=== PATIENT | male | born 1965 | race African-American/Black ===

== ENCOUNTER 2017-03-28 14:28 | Emergency (ER) | payer OTHER ==
[~2017-03-28] VITALS: Ht 190.5 cm; Wt 117.9 kg
[~2017-03-28 14:28] MED LIST: FUROSEMIDE40 MG ORAL; LISINOPRIL5 MG ORAL
[2017-03-28] MEDS ORDERED: Ipratropium 0.02% Inh Soln 2.5ml UD HHN ONE (14:45)
[2017-03-28] MEDS ORDERED: Albuterol ud Inhalation HHN ONE (14:45)
--- NOTE | 2017-03-28 15:06 | Diagnostic Imaging Report ---
Indication: [place] of breath Technique: Single portable AP view of the chest. Findings: Comparison: None. The bones and extra pulmonary soft tissues, cardiomediastinal silhouette, pulmonary vasculature and parenchyma, and pleural surfaces are unremarkable. IMPRESSION: Negative portable AP chest.
--- NOTE | 2017-03-28 15:11 | Emergency Room Report ---
History of Present Illness General Chief Complaint: Dyspnea/Respdistress Source: Patient Present Illness HPI This patient states it has a history of asthma and CHF. He states that he smoked marijuana yesterday and started having shortness of breath overnight. He states that he has felt short of breath all day today. He states that he has a recent history of being intubated secondary to asthma exacerbation. He states that this was at [facility]. He states he does not want this to occur again. He states he feels short of breath. He denies chest pain. He states that the symptoms have been ongoing for about 24 hours. He denies fever or chills. He states that he also had a pneumonia that he was treated for during his hospitalization. He denies abdominal pain. He has no other complaints. Allergies: Coded Allergies: No Known Allergies (Unverified , 03/28/17) Patient History Past Medical History: see triage record, HTN, AL, CAD, CHF, asthma Social History: Reports: alcohol use, drug use, Denies: smoking Reviewed Nursing Documentation: PMH: Agreed, PSxH: Agreed Nursing Documentation-PMH Past Medical History: No History, Except For Hx Cardiac Problems: Yes - CHF Hx Hypertension: Yes Hx Asthma: Yes Review of Systems All Other Systems: negative except mentioned in HPI Physical Exam Vital Signs Date Time Temp Pulse Resp B/P Pulse Ox O2 Delivery O2 Flow Rate FiO2 03/28/17 14:25 98.8 94 20 119/82 96 Room Air 03/28/17 14:30 98 Sp02 EP Interpretation: reviewed, normal General Appearance: no apparent distress, alert, GCS 15, non-toxic Head: normocephalic, atraumatic Eyes: bilateral eye PERRL, bilateral eye normal inspection ENT: hearing grossly normal, normal pharynx, no angioedema, normal voice Neck: full range of motion, supple/symm/no masses Respiratory: chest non-tender, lungs clear, normal breath sounds, speaking full sentences Cardiovascular #1: regular rate, rhythm, no edema Gastrointestinal: normal bowel sounds, non tender, soft, non-distended, no guarding, no rebound Rectal: deferred Musculoskeletal: back normal, gait/station normal, normal range of motion, non- tender Neurologic: alert, oriented x3, responsive, motor strength/tone normal, sensory intact, speech normal Psychiatric: judgement/insight normal, memory normal, mood/affect normal, no suicidal/homicidal ideation Skin: normal color, no rash, warm/dry, well hydrated Medical Decision Making Diagnostic Impression: Primary Impression: Asthma exacerbation ER Course This patient has a history of asthma and recently he had respiratory failure and was intubated in the ICU at [facility]. He complained of shortness of breath and although his lung exam is clear, I did give the patient albuterol and Atrovent nebulizer treatments. The patient had significant improvement in subjective shortness of breath. The patient's laboratory workup to include a CBC, CMP, cardiac enzymes were noncontributory. Specifically, the troponin was negative which is very reassuring in the setting of 24 hours of symptoms. Also, the patient's chest x-ray is negative for acute findings, specifically no evidence of pneumonia. I obtained the patient's medical records from [facility] and compared the patient's EKG which showed new flipped T-waves II, III, and aVF. This was the patient's initial EKG prior to his ICU stay and further review of the chart does show that he had an NSTEMI. Unsure of the chronicity of this. Therefore, I did discuss this with the patient and recommended that he be admitted for further cardiac monitoring and evaluation. However, the patient declined stating that he had been in the hospital too much and that he would followup with his primary care physician. Further he states that he has no chest pain. Although it is unlikely that this patient is having an acute cardiac event, I was uncomfortable discharging this patient with possible new EKG changes. Regardless, after further discussion the patient left AGAINST MEDICAL ADVICE. I will go ahead and treat this patient with a course of prednisone at his request. He has home nebulizer and albuterol treatments. He was invited to return if he changes his mind or develops the symptoms. He is given close return precautions and followup instructions. Labs Test 03/28/17 14:55 White Blood Count 4.4 K/UL (4.8-10.8) Red Blood Count 4.11 M/UL (4.70-6.10) Hemoglobin 11.9 G/DL (14.2-18.0) Hematocrit 36.8 % (42.0-52.0) Mean Corpuscular Volume 90 FL (80-99) Mean Corpuscular Hemoglobin 29.0 PG (27.0-31.0) Mean Corpuscular Hemoglobin Concent 32.4 G/DL (32.0-36.0) Red Cell Distribution Width 12.9 % (11.6-14.8) Platelet Count 213 K/UL (150-450) Mean Platelet Volume 8.4 FL (6.5-10.1) Neutrophils (%) (Auto) 55.9 % (45.0-75.0) Lymphocytes (%) (Auto) 29.5 % (20.0-45.0) Monocytes (%) (Auto) 9.1 % (1.0-10.0) Eosinophils (%) (Auto) 4.4 % (0.0-3.0) Basophils (%) (Auto) 1.1 % (0.0-2.0) Sodium Level 142 mEQ/L (135-145) Potassium Level 4.4 mEQ/L (3.4-4.9) Chloride Level 100 mEQ/L (98-107) Carbon Dioxide Level 28 mEQ/L (20-30) Anion Gap 14 (5-15) Blood Urea Nitrogen 8 mg/dL (7-23) Creatinine 1.2 mg/dL (0.7-1.2) Estimat Glomerular Filtration Rate > 60 mL/min (>60) Glucose Level 98 mg/dL (74-106) Calcium Level 9.7 mg/dL (8.6-10.2) Total Bilirubin 0.3 mg/dL (0.0-1.2) Aspartate Amino Transf (AST/SGOT) 17 U/L (5-40) Alanine Aminotransferase (ALT/SGPT) 16 U/L (3-41) Alkaline Phosphatase 65 U/L (40-129) Total Creatine Kinase 103 U/L (38-174) Creatine Kinase MB 2.0 ng/mL (< 6.7) Creatine Kinase MB Relative Index 1.9 Troponin I < 0.30 ng/mL (<=0.30) Pro-B-Type Natriuretic Peptide 395 pg/mL (0-125) Total Protein 7.0 g/dL (6.6-8.7) Albumin 4.4 g/dL (3.5-5.2) Globulin 2.6 g/dL Albumin/Globulin Ratio 1.6 (1.0-2.7) EKG Diagnostic Results Rate: normal Rhythm: NSR ST Segments: other Other Impression Flipped T waves in II, III, aVF, V5, V6 Rhythm Strip Diag. Results EP Interpretation: yes Rate: 80's Rhythm: NSR, no PVC's, no ectopy Chest X-Ray Diagnostic Results EP Interpretation: Yes Findings: no consolidation, no effusion, no pneumothorax, no acute cardiopulmonary disease Number of Views: 1 Last Vital Signs Date Time Temp Pulse Resp B/P Pulse Ox O2 Delivery O2 Flow Rate FiO2 03/28/17 14:47 70 22 99 Room Air 03/28/17 14:30 98 03/28/17 14:25 98.8 119/82 Status: improved Disposition: AGAINST MEDICAL ADVICE Condition: Stable MISSAEL ALATORRE D.O. March 28, 2017 15:11
[2017-03-28 15:15] LABS: BASOPHILS % (AUTO) 1.1 % (0.0-2.0); EOSINOPHILS % (AUTO) 4.4 % (0.0-3.0); LYMPHOCYTES % (AUTO) 29.5 % (20.0-45.0); MEAN CORPUSCULAR HGB CONC 32.4 G/DL (32.0-36.0); MEAN CORPUSCULAR VOLUME 90 FL (80-99); MEAN PLATELET VOLUME 8.4 FL (6.5-10.1); MONOCYTES % (AUTO) 9.1 % (1.0-10.0); NEUTROPHILS % (AUTO) 55.9 % (45.0-75.0); PLATELET COUNT 213 K/UL (150-450); RED BLOOD COUNT 4.11 M/UL (4.70-6.10); RED CELL DISTRIBUTION WIDTH 12.9 % (11.6-14.8); WHITE BLOOD COUNT 4.4 K/UL (4.8-10.8)
[2017-03-28 15:39] LABS: TROPONIN I < 0.30 ng/mL (<=0.30)
[2017-03-28 15:42] LABS: ALANINE AMINOTRANSFERASE 16 U/L (3-41); ALBUMIN/GLOBULIN RATIO 1.6 (1.0-2.7); ANION GAP 14 (5-15); ASPARTATE AMINO TRANSFERASE 17 U/L (5-40); CALCIUM 9.7 mg/dL (8.6-10.2); CARBON DIOXIDE 28 mEQ/L (20-30); CHLORIDE 100 mEQ/L (98-107); CREATININE 1.2 mg/dL (0.7-1.2); GLOMERULAR FILTRATION RATE > 60 mL/min (>60); HEMOLYSIS 11; POTASSIUM 4.4 mEQ/L (3.4-4.9); SODIUM 142 mEQ/L (135-145)
[2017-03-28 16:28] VITALS: BP 127/87
[2017-03-28 18:26] VITALS: BP 132/96
[2017-03-28] MEDS ORDERED: PREDNISONE20 MG ORAL (18:55)
[2017-03-28 19:13] VITALS: BP 128/83
--- NOTE | 2017-03-30 20:07 | Cardiology Report ---
APPROVED REPORT EKG Measurement Heart [id number] CT [id number] Normal sinus rhythm Possible Left atrial enlargement Left ventricular hypertrophy Abnormal ECG
== END 2017-03-28 19:15 | disposition left against medical advice (07) ==
LOC: EDBD 14:28 → EMR 14:56
DX: J45.901 Unspecified asthma with (acute) exacerbation (principal); I50.9 Heart failure, unspecified; F12.90 Cannabis use, unspecified, uncomplicated; I10 Essential (primary) hypertension; I25.2 Old myocardial infarction; I25.10 Atherosclerotic heart disease of native coronary artery without angina pectoris
CPT/HCPCS: 36415; 71010; 80053; 82550; 82553; 83880; 84484; 85025; 93005; 94640; 94664; 99283

== ENCOUNTER 2019-02-28 17:19 | Inpatient (IN) | payer OTHER ==
[~2019-02-28] VITALS: Ht 185.4 cm; Wt 115.2 kg
[~2019-02-28 17:19] MED LIST changes: +PREDNISONE20 MG ORAL
[2019-02-28] MEDS ORDERED: Albuterol ud Inhalation HHN ONE ×2 (17:30→18:30)
[2019-02-28] MEDS ORDERED: Solu-MEDROL 125mg Inj IVP ONE (17:30)
[2019-02-28] MEDS ORDERED: MIDODRINE HCL5 MG GT (17:37)
[2019-02-28] MEDS ORDERED: CATAPRES0.1 MG GT (17:37)
[2019-02-28] MEDS ORDERED: POTASSIUM CHLO20 ME2 GT (17:37)
[2019-02-28] MEDS ORDERED: CARVEDILOL6.25 MG GT (17:37)
[2019-02-28] MEDS ORDERED: REGLAN10 MG GT (17:37)
[2019-02-28] MEDS ORDERED: ZOFRAN 4 MG4 MG/2 ML IM (17:37)
[2019-02-28] MEDS ORDERED: FUROSEMIDE20 M1 GT (17:37)
[2019-02-28] MEDS ORDERED: ACETAMINOPHEN325 M1 GT (17:46)
[2019-02-28] MEDS ORDERED: ATIVAN0.5 MG GT (17:46)
[2019-02-28 18:11] LABS: BASOPHILS % (AUTO) 1.7 % (0.0-2.0); HEMATOCRIT 35.4 % (42.0-52.0); HEMOGLOBIN 10.5 G/DL (14.2-18.0); LYMPHOCYTES % (AUTO) 7.6 % (20.0-45.0); MEAN CORPUSCULAR VOLUME 76 FL (80-99); MONOCYTES % (AUTO) 8.7 % (1.0-10.0); PLATELET COUNT 521 K/UL (150-450); RED BLOOD COUNT 4.64 M/UL (4.70-6.10); RED CELL DISTRIBUTION WIDTH 24.4 % (11.6-14.8); WHITE BLOOD COUNT 13.1 K/UL (4.8-10.8)
[2019-02-28] MEDS ORDERED: PREDNISONE20 MG GT (18:14)
--- NOTE | 2019-02-28 18:14 | Emergency Room Report ---
History of Present Illness General Chief Complaint: Dyspnea/Respdistress Source: Family Member, Medical Record, EMS Present Illness HPI Patient's family is here providing most of the information patient has a tracheostomy is not verbal History of present illness is limited from the patient himself Family reports the patient was at [facility] Has had a tracheostomy and feeding tube placed Patient was transferred to the nursing facility 2 days ago Today she found the patient more distress than usual respirations appeared more abnormal patient also appeared cold and paramedics were summoned Allergies: Coded Allergies: No Known Allergies (Unverified , 03/28/17) Patient History Limited by: medical condition Past Medical History: see triage record Pertinent Family History: unable to obtain Reviewed Nursing Documentation: PMH: Agreed; PSxH: Agreed Nursing Documentation-PMH Past Medical History: No History, Except For Hx Cardiac Problems: Yes - chf,high cholesterol, hyperkalemia Hx Hypertension: Yes Hx Asthma: Yes - trach with vent dependancy Hx Gastrointestinal Problems: Yes - GERD, GT Review of Systems All Other Systems: limited - Other than the ones mentioned in the history of present illness all others are reviewed however they do stay limited due to the patient's mental status Physical Exam Vital Signs Date Time Temp Pulse Resp B/P (MAP) Pulse Ox O2 Delivery O2 Flow Rate FiO2 02/28/19 17:05 110 28 116/93 96 Mechanical Ventilator 4.0 02/28/19 17:37 100 Sp02 EP Interpretation: reviewed, normal General Appearance: mild distress - Short of breath Head: normocephalic, atraumatic Eyes: left eye other ENT: other - Tracheostomy in place, Neck: supple Respiratory: wheezing - And crackles bilaterally Cardiovascular #1: tachycardia Gastrointestinal: non tender, soft, other - Feeding tube in place Musculoskeletal: other - Patient able to sit himself up with both upper extremity, significantly edematous lower extremity Neurologic: responsive Skin: other - Edema diffusely Lymphatic: no adenopathy Procedures Critical Care Time Critical Care Time 50 minutes for multiple re-evaluations, critical presentation, concern for history failure not including any procedural time Medical Decision Making Diagnostic Impression: Primary Impression: Respiratory distress Additional Impressions: Acute on chronic respiratory failure Hyperkalemia Renal failure ER Course Patient is a fairly complex patient with multiple differential to consideration including but not limited to cardiac cardiopulmonary and vascular emergencies Patient has multiple abnormal findings Potassium level significantly elevated patient's EKG also does show some T wave better peaked indicative of this patient is treated aggressively in the emergency room further hydration provided Question also infiltrates on x-ray versus CHF Patient's blood pressure otherwise remains appropriate Patient's in critical condition and requires high level of care admission Labs Test 02/28/19 17:49 02/28/19 18:29 02/28/19 18:50 White Blood Count 13.1 K/UL (4.8-10.8) Red Blood Count 4.64 M/UL (4.70-6.10) Hemoglobin 10.5 G/DL (14.2-18.0) Hematocrit 35.4 % (42.0-52.0) Mean Corpuscular Volume 76 FL (80-99) Mean Corpuscular Hemoglobin 22.6 PG (27.0-31.0) Mean Corpuscular Hemoglobin Concent 29.7 G/DL (32.0-36.0) Red Cell Distribution Width 24.4 % (11.6-14.8) Platelet Count 521 K/UL (150-450) Mean Platelet Volume 7.3 FL (6.5-10.1) Neutrophils (%) (Auto) 82.0 % (45.0-75.0) Lymphocytes (%) (Auto) 7.6 % (20.0-45.0) Monocytes (%) (Auto) 8.7 % (1.0-10.0) Eosinophils (%) (Auto) 0.0 % (0.0-3.0) Basophils (%) (Auto) 1.7 % (0.0-2.0) Sodium Level 139 MMOL/L (136-145) Potassium Level 7.9 MMOL/L (3.5-5.1) Chloride Level 102 MMOL/L (98-107) Carbon Dioxide Level 18 MMOL/L (21-32) Anion Gap 18 mmol/L (5-15) Blood Urea Nitrogen 73 mg/dL (7-18) Creatinine 2.6 MG/DL (0.55-1.30) Estimat Glomerular Filtration Rate 31.4 mL/min (>60) Glucose Level 72 MG/DL (74-106) Lactic Acid Level 8.60 mmol/L (0.4-2.0) Calcium Level 9.3 MG/DL (8.5-10.1) Total Bilirubin 2.0 MG/DL (0.2-1.0) Direct Bilirubin 1.2 MG/DL (0.0-0.3) Aspartate Amino Transf (AST/SGOT) 78 U/L (15-37) Alanine Aminotransferase (ALT/SGPT) 102 U/L (12-78) Alkaline Phosphatase 507 U/L (46-116) Total Creatine Kinase 311 U/L (26-308) Creatine Kinase MB 1.1 NG/ML (0.0-3.6) Creatine Kinase MB Relative Index 0.3 Troponin I 0.157 ng/mL (0.000-0.056) Pro-B-Type Natriuretic Peptide > 41732 pg/mL (0-125) Total Protein 8.7 G/DL (6.4-8.2) Albumin 2.9 G/DL (3.4-5.0) Globulin 5.8 g/dL Albumin/Globulin Ratio 0.5 (1.0-2.7) Lipase 164 U/L (73-393) Urine Color Yellow Urine Appearance Clear Urine pH 5 (4.5-8.0) Urine Specific [place] 1.015 (1.005-1.035) Urine Protein 2+ (NEGATIVE) Urine Glucose (UA) Negative (NEGATIVE) Urine Ketones 1+ (NEGATIVE) Urine Blood 1+ (NEGATIVE) Urine Nitrite Negative (NEGATIVE) Urine Bilirubin Negative (NEGATIVE) Urine Urobilinogen 4 MG/DL (0.0-1.0) Urine Leukocyte Esterase 1+ (NEGATIVE) Urine RBC 2-4 /HPF (0 - 0) Urine WBC 2-4 /HPF (0 - 0) Urine Squamous Epithelial Cells Few /LPF (NONE/OCC) Urine Bacteria Few /HPF (NONE) Arterial Blood pH 7.392 (7.350-7.450) Arterial Blood Partial Pressure CO2 27.0 mmHg (35.0-45.0) Arterial Blood Partial Pressure O2 > 494.5 mmHg (75.0-100.0) Arterial Blood HCO3 16.1 mmol/L (22.0-26.0) Arterial Blood Oxygen Saturation 99.8 % (95-100) Arterial Blood Base Excess -7.6 (-2-2) Kelvin Test Positive EKG Diagnostic Results Rate: normal Rhythm: NSR ST Segments: other - Peaked T waves Rhythm Strip Diag. Results EP Interpretation: yes Rate: 77 Rhythm: NSR, no PVC's, no ectopy Chest X-Ray Diagnostic Results Chest X-Ray Diagnostic Results : Chest X-Ray Ordered: Yes # of Views/Limited/Complete: 1 View Indication: Shortness of Breath EP Interpretation: Yes Interpretation: no pneumothorax, other - cardiomegaly, bilateral effusions, question infiltrate, no acute bony abnormalities Impression: Other - Bilateral effusions question infiltrate Electronically Signed by: Tad Parada DO Last Vital Signs Date Time Temp Pulse Resp B/P (MAP) Pulse Ox O2 Delivery O2 Flow Rate FiO2 02/28/19 17:58 102 30 99 Mechanical Ventilator 55.0 100 02/28/19 17:05 116/93 Status: improved Disposition: ADMITTED INPATIENT Condition: Critical Referrals: Best Horowitz MD (PCP) Tad Parada DO Feb 28, 2019 18:14
[2019-02-28 18:27] VITALS: BP 134/94
[2019-02-28] MEDS ORDERED: Piperacillin/Tazobactam 3.375 GM in NS 110 ML IVPB ONE (18:30)
[2019-02-28] MEDS ORDERED: Ipratropium 0.02% Inh Soln 2.5ml UD HHN ONE (18:30)
[2019-02-28 18:38] LABS: ALANINE AMINOTRANSFERASE 102 U/L (12-78); ALBUMIN 2.9 G/DL (3.4-5.0); ALBUMIN/GLOBULIN RATIO 0.5 (1.0-2.7); ALKALINE PHOSPHATASE 507 U/L (46-116); ANION GAP 18 mmol/L (5-15); ASPARTATE AMINO TRANSFERASE 78 U/L (15-37); BLOOD UREA NITROGEN 73 mg/dL (7-18); CALCIUM 9.3 MG/DL (8.5-10.1); CARBON DIOXIDE 18 MMOL/L (21-32); CHLORIDE 102 MMOL/L (98-107); CKMB 1.1 NG/ML (0.0-3.6); CREATINE KINASE 311 U/L (26-308); CREATININE 2.6 MG/DL (0.55-1.30); SODIUM 139 MMOL/L (136-145)
[2019-02-28 18:42] LABS: POTASSIUM 7.9 MMOL/L (3.5-5.1)
[2019-02-28 18:45] LABS: BILIRUBIN,DIRECT 1.2 MG/DL (0.0-0.3)
[2019-02-28] MEDS ORDERED: Sodium Polystyrene Sulfonate 15gm Powder ORAL ONE (18:45)
[2019-02-28] MEDS ORDERED: Albuterol/Ipratropium 3ml neb HHN PRN (18:45)
[2019-02-28] MEDS ORDERED: Morphine Sulfate 4mg/ml Inj (IV USE ONLY) IVP PRN (18:45)
[2019-02-28] MEDS ORDERED: LORazepam Inj 2mg/ml 1ml IV PRN (18:45)
[2019-02-28] MEDS ORDERED: Insulin Human Regular 100units/ml 3ml IV ONE (18:45)
[2019-02-28] MEDS ORDERED: Miralax 17gm pkt ORAL PRN (18:45)
[2019-02-28 18:55] LABS: BILIRUBIN, URINE NEGATIVE (NEGATIVE); GLUCOSE, URINE (UA) NEGATIVE (NEGATIVE); KETONES,URINE 1+ (NEGATIVE); LEUKOCYTE ESTERASE ,URINE 1+ (NEGATIVE); NITRITE,URINE NEGATIVE (NEGATIVE); PH,URINE 5 (4.5-8.0); PROTEIN,URINE 2+ (NEGATIVE); UROBILINOGEN,URINE 4 MG/DL (0.0-1.0)
[2019-02-28] MEDS ORDERED: Calcium Gluconate 1gm/10ml vial IVP ONE (19:00)
[2019-02-28 19:05] LABS: APPEARANCE,URINE CLEAR; COLOR,URINE YELLOW
[2019-02-28 19:53] VITALS: BP 141/98
[2019-02-28] MEDS ORDERED: Sodium Polystyrene Sulfonate 15gm Powder ORAL SCH (20:00)
[2019-02-28 20:20] VITALS: BP 122/83
[2019-02-28 21:07] LABS: ANION GAP 14 mmol/L (5-15); BLOOD UREA NITROGEN 78 mg/dL (7-18); CARBON DIOXIDE 22 MMOL/L (21-32); CHLORIDE 104 MMOL/L (98-107); CREATININE 2.9 MG/DL (0.55-1.30); SODIUM 141 MMOL/L (136-145)
[2019-02-28 21:36] LABS: POTASSIUM 7.2 MMOL/L (3.5-5.1)
[2019-02-28] MEDS ORDERED: NS IVPB SCH (22:00)
[2019-02-28] MEDS ORDERED: CALCIUM GLUCONATE IVPB SCH (22:00)
[2019-02-28] MEDS ORDERED: Insulin Human Regular 100units/ml 3ml IV SCH (22:00)
[2019-02-28] MEDS: Heparin 5000 units/ml inj SUBQ SCH (22:06)
[2019-02-28] MEDS ORDERED: Dextrose 10%/.45 SOD CHL 1,000 ML IV SCH (22:30)
[2019-02-28] MEDS ORDERED: D5 1/2NS 1,000 ML IV SCH (22:45)
[2019-02-28] MEDS ORDERED: Vancomycin 1.5gm Premix IVPB ONE (23:00)
[2019-03-01] VITALS: BP 125/80
[2019-03-01 04:00] VITALS: BP 127/84
[2019-03-01 05:17] LABS: HEMATOCRIT 32.9 % (42.0-52.0); HEMOGLOBIN 9.8 G/DL (14.2-18.0); MEAN CORPUSCULAR VOLUME 77 FL (80-99); PLATELET COUNT 470 K/UL (150-450); RED CELL DISTRIBUTION WIDTH 25.4 % (11.6-14.8)
[2019-03-01 06:00] LABS: ALANINE AMINOTRANSFERASE 111 U/L (12-78); ALBUMIN 2.8 G/DL (3.4-5.0); ALBUMIN/GLOBULIN RATIO 0.5 (1.0-2.7); ALKALINE PHOSPHATASE 466 U/L (46-116); ANION GAP 21 mmol/L (5-15); ASPARTATE AMINO TRANSFERASE 88 U/L (15-37); BILIRUBIN,TOTAL 2.3 MG/DL (0.2-1.0); BLOOD UREA NITROGEN 79 mg/dL (7-18); CARBON DIOXIDE 16 MMOL/L (21-32); CHLORIDE 103 MMOL/L (98-107); CREATININE 2.9 MG/DL (0.55-1.30); PHOSPHORUS 6.9 MG/DL (2.5-4.9); SODIUM 139 MMOL/L (136-145)
[2019-03-01 06:03] LABS: POTASSIUM 7.1 MMOL/L (3.5-5.1)
[2019-03-01 06:07] LABS: BILIRUBIN,DIRECT 1.8 MG/DL (0.0-0.3)
[2019-03-01 08:00] VITALS: BP 117/81
--- NOTE | 2019-03-01 08:57 | Consultation ---
History of Present Illness General Date patient seen: Mar 01, 2019 Chief Complaint: Dyspnea/Respdistress Reason for Consultation: PNA Present Illness HPI Mr. mcgovern is a 53 yo male with PMHx of Asthma, HTN and CHF who was sent to the ED form a senior care for respuratory distress and feeling cold. The patient in trached and not verbal so hisotry was obtained from the. Apperently he had a trach and peg placed recently at [facility]. In the he he had no fevers , WBCs of 13, Neg UA. He was SOB with wheezing and B/l crackles on exam. CXR reprot pending.howing possible B/L PNA PMHx/PSHx Asthma HTN CHF SocHx No Cig Hx of EtOh and drug use per previous noted FamHx Unable to obtain as patient not verbal Allergies: Coded Allergies: No Known Allergies (Unverified , 03/28/17) Medication History Scheduled Carvedilol* (Carvedilol*), 6.25 MG GT EVERY 12 HOURS, (Reported) Furosemide* (Lasix*), 20 MG GT DAILY, (Reported) Lorazepam* (Ativan*), 0.5 MG GT THREE TIMES A DAY, (Reported) Metoclopramide Hcl* (Reglan*), 10 MG GT Q6HR, (Reported) Midodrine* (Proamatine*), 5 MG GT THREE TIMES A DAY, (Reported) Potassium Chloride (Potassium Chloride), 20 MEQ GT DAILY, (Reported) Scheduled PRN Acetaminophen* (Acetaminophen 325MG Tablet*), 650 MG GT Q4H PRN for Mild Pain/ Temp > 100.5, (Reported) Clonidine Hcl* (Catapres*), 0.1 MG GT EVERY 6 HOURS PRN for For High Blood Pressure, (Reported) Ondansetron* (Zofran*), 4 MG IM Q6H PRN for Nausea & Vomiting, (Reported) Prednisone* (Prednisone*), 20 MG GT Q8HR PRN for ASTHMA, (Reported) Discontinued Medications Furosemide* (Lasix*), 40 MG ORAL DAILY, (Reported) Discontinued Reason: Pt stopped taking med Lisinopril (Lisinopril*), 5 MG ORAL DAILY, (Reported) Discontinued Reason: Pt stopped taking med Prednisone* (Prednisone*), 60 MG ORAL DAILY Discontinued Reason: Pt stopped taking med Patient History Healthcare decision maker Resuscitation status Full Code Advanced Directive on File Yes Review of Systems ROS Narrative Unable to obtain as patient not verbal Physical Exam Last 24 Hour Vital Signs Date Time Temp Pulse Resp B/P (MAP) Pulse Ox O2 Delivery O2 Flow Rate FiO2 03/01/19 08:00 98.1 103 20 117/81 (93) 100 03/01/19 08:00 45 03/01/19 08:00 Mechanical Ventilator 03/01/19 07:17 107 30 45 03/01/19 05:10 105 32 45 03/01/19 04:00 55.0 45 03/01/19 04:00 Mechanical Ventilator 03/01/19 04:00 97.4 108 34 127/84 (98) 100 03/01/19 03:33 109 03/01/19 03:10 110 33 45 03/01/19 01:24 119 35 45 03/01/19 00:00 97.7 100 27 125/80 (95) 100 03/01/19 00:00 Mechanical Ventilator 03/01/19 00:00 55.0 45 02/28/19 23:27 99 29 45 02/28/19 23:26 100 02/28/19 21:30 125 35 45 02/28/19 21:28 Mechanical Ventilator 02/28/19 20:44 128 02/28/19 20:20 97.0 126 38 122/83 (96) 100 02/28/19 20:10 98.9 129 39 141/98 100 Mechanical Ventilator 55.0 50 02/28/19 19:53 98.9 129 39 141/98 100 Mechanical Ventilator 55.0 50 02/28/19 19:02 110 37 100 Mechanical Ventilator 50 02/28/19 18:40 112 39 100 Mechanical Ventilator 100 02/28/19 18:39 112 39 100 02/28/19 18:27 98.0 107 27 134/94 100 Mechanical Ventilator 55.0 100 02/28/19 18:27 107 27 Mechanical Ventilator 02/28/19 18:26 55.0 100 02/28/19 17:58 102 30 99 Mechanical Ventilator 55.0 100 02/28/19 17:50 94 30 97 Mechanical Ventilator 55.0 100 02/28/19 17:44 90 30 100 02/28/19 17:37 92 28 Mechanical Ventilator 55.0 100 02/28/19 17:05 110 28 116/93 96 Mechanical Ventilator 4.0 Intake and Output 02/28/19 03/01/19 19:00 07:00 Intake Total 1931.05 ml Output Total 0 ml 250 ml Balance 0 ml 1681.05 ml Intake Free Water 100 ml IV Total 1831.05 ml Output Urine Total 0 ml 250 ml Laboratory Tests Test 02/28/19 17:49 02/28/19 18:29 02/28/19 18:50 02/28/19 19:10 White Blood Count 13.1 K/UL (4.8-10.8) H Red Blood Count 4.64 M/UL (4.70-6.10) L Hemoglobin 10.5 G/DL (14.2-18.0) L Hematocrit 35.4 % (42.0-52.0) L Mean Corpuscular Volume 76 FL (80-99) L Mean Corpuscular Hemoglobin 22.6 PG (27.0-31.0) L Mean Corpuscular Hemoglobin Concent 29.7 G/DL (32.0-36.0) L Red Cell Distribution Width 24.4 % (11.6-14.8) H Platelet Count 521 K/UL (150-450) H Mean Platelet Volume 7.3 FL (6.5-10.1) Neutrophils (%) (Auto) 82.0 % (45.0-75.0) H Lymphocytes (%) (Auto) 7.6 % (20.0-45.0) L Monocytes (%) (Auto) 8.7 % (1.0-10.0) Eosinophils (%) (Auto) 0.0 % (0.0-3.0) Basophils (%) (Auto) 1.7 % (0.0-2.0) Sodium Level 139 MMOL/L (136-145) Potassium Level 7.9 MMOL/L (3.5-5.1) *H Chloride Level 102 MMOL/L (98-107) Carbon Dioxide Level 18 MMOL/L (21-32) L Anion Gap 18 mmol/L (5-15) H Blood Urea Nitrogen 73 mg/dL (7-18) H Creatinine 2.6 MG/DL (0.55-1.30) H Estimat Glomerular Filtration Rate 31.4 mL/min (>60) Glucose Level 72 MG/DL (74-106) L Lactic Acid Level 8.60 mmol/L (0.4-2.0) H 8.20 mmol/L (0.66-2.22) H Calcium Level 9.3 MG/DL (8.5-10.1) Total Bilirubin 2.0 MG/DL (0.2-1.0) H Direct Bilirubin 1.2 MG/DL (0.0-0.3) H Aspartate Amino Transf (AST/SGOT) 78 U/L (15-37) H Alanine Aminotransferase (ALT/SGPT) 102 U/L (12-78) H Alkaline Phosphatase 507 U/L (46-116) H Total Creatine Kinase 311 U/L (26-308) H Creatine Kinase MB 1.1 NG/ML (0.0-3.6) Creatine Kinase MB Relative Index 0.3 Troponin I 0.157 ng/mL (0.000-0.056) Pro-B-Type Natriuretic Peptide > 50674 pg/mL (0-125) H Total Protein 8.7 G/DL (6.4-8.2) H Albumin 2.9 G/DL (3.4-5.0) L Globulin 5.8 g/dL Albumin/Globulin Ratio 0.5 (1.0-2.7) L Lipase 164 U/L (73-393) Urine Color Yellow Urine Appearance Clear Urine pH 5 (4.5-8.0) Urine Specific [place] 1.015 (1.005-1.035) Urine Protein 2+ (NEGATIVE) H Urine Glucose (UA) Negative (NEGATIVE) Urine Ketones 1+ (NEGATIVE) H Urine Blood 1+ (NEGATIVE) H Urine Nitrite Negative (NEGATIVE) Urine Bilirubin Negative (NEGATIVE) Urine Urobilinogen 4 MG/DL (0.0-1.0) H Urine Leukocyte Esterase 1+ (NEGATIVE) H Urine RBC 2-4 /HPF (0 - 0) H Urine WBC 2-4 /HPF (0 - 0) Urine Squamous Epithelial Cells Few /LPF (NONE/OCC) Urine Bacteria Few /HPF (NONE) Arterial Blood pH 7.392 (7.350-7.450) Arterial Blood Partial Pressure CO2 27.0 mmHg (35.0-45.0) L Arterial Blood Partial Pressure O2 > 494.5 mmHg (75.0-100.0) H Arterial Blood HCO3 16.1 mmol/L (22.0-26.0) *L Arterial Blood Oxygen Saturation 99.8 % (95-100) Arterial Blood Base Excess -7.6 (-2-2) L Kelvin Test Positive Test 02/28/19 20:45 03/01/19 03:40 Sodium Level 141 MMOL/L (136-145) 139 MMOL/L (136-145) Potassium Level 7.2 MMOL/L (3.5-5.1) *H 7.1 MMOL/L (3.5-5.1) *H Chloride Level 104 MMOL/L (98-107) 103 MMOL/L (98-107) Carbon Dioxide Level 22 MMOL/L (21-32) 16 MMOL/L (21-32) L Anion Gap 14 mmol/L (5-15) 21 mmol/L (5-15) H Blood Urea Nitrogen 78 mg/dL (7-18) H 79 mg/dL (7-18) H Creatinine 2.9 MG/DL (0.55-1.30) H 2.9 MG/DL (0.55-1.30) H Estimat Glomerular Filtration Rate 27.6 mL/min (>60) 27.6 mL/min (>60) Glucose Level 72 MG/DL (74-106) L 125 MG/DL (74-106) H Calcium Level 9.0 MG/DL (8.5-10.1) 9.0 MG/DL (8.5-10.1) White Blood Count 12.0 K/UL (4.8-10.8) H Red Blood Count 4.30 M/UL (4.70-6.10) L Hemoglobin 9.8 G/DL (14.2-18.0) L Hematocrit 32.9 % (42.0-52.0) L Mean Corpuscular Volume 77 FL (80-99) L Mean Corpuscular Hemoglobin 22.8 PG (27.0-31.0) L Mean Corpuscular Hemoglobin Concent 29.8 G/DL (32.0-36.0) L Red Cell Distribution Width 25.4 % (11.6-14.8) H Platelet Count 470 K/UL (150-450) H Mean Platelet Volume 7.4 FL (6.5-10.1) Neutrophils (%) (Auto) % (45.0-75.0) Lymphocytes (%) (Auto) % (20.0-45.0) Monocytes (%) (Auto) % (1.0-10.0) Eosinophils (%) (Auto) % (0.0-3.0) Basophils (%) (Auto) % (0.0-2.0) Phosphorus Level 6.9 MG/DL (2.5-4.9) H Magnesium Level 2.7 MG/DL (1.8-2.4) H Total Bilirubin 2.3 MG/DL (0.2-1.0) H Direct Bilirubin 1.8 MG/DL (0.0-0.3) H Aspartate Amino Transf (AST/SGOT) 88 U/L (15-37) H Alanine Aminotransferase (ALT/SGPT) 111 U/L (12-78) H Alkaline Phosphatase 466 U/L (46-116) H Total Protein 8.3 G/DL (6.4-8.2) H Albumin 2.8 G/DL (3.4-5.0) L Globulin 5.5 g/dL Albumin/Globulin Ratio 0.5 (1.0-2.7) L Microbiology Date/Time Source Procedure Growth Status 02/28/19 20:20 Rectum Received Height (Feet): 6 Height (Inches): 0.00 Weight (Pounds): 255 Medications Current Medications Medications (Trade) Dose Ordered Sig/Rebecca Route PRN Reason Start Time Stop Time Status Last Admin Dose Admin Acetaminophen (Tylenol) 650 mg Q4H PRN ORAL FEVER 02/28/19 18:45 03/30/19 18:44 Albuterol/ Ipratropium (Albuterol/ Ipratropium) 3 ml EVERY 4 HOURS PRN HHN Shortness of Breath 02/28/19 18:45 03/05/19 18:44 Aspirin (ASA) 325 mg DAILY GT 02/28/19 19:45 03/30/19 19:44 02/28/19 21:58 Chlorhexidine Gluconate (Essie-Hex 2%) 1 applic DAILY@2000 TOPIC 03/01/19 20:00 03/31/19 19:59 Clonidine HCl (Catapres Tab) 0.1 mg EVERY 6 HOURS PRN GT FOR sbp >160 02/28/19 18:45 03/30/19 18:44 Dextrose (Dextrose 50%) STAT PRN IV Hypoglycemia 02/28/19 18:45 03/30/19 18:44 Dextrose/Sodium Chloride 1,000 ml @ 75 mls/hr [id number] IV 02/28/19 22:45 03/30/19 22:44 02/28/19 22:53 Heparin Sodium (Porcine) (Heparin 5000 units/ml) 5,000 units EVERY 12 HOURS SUBQ 02/28/19 21:00 03/30/19 20:59 02/28/19 22:06 Lorazepam (Ativan 2mg/ml 1ml) 2 mg EVERY 2 HOURS PRN IV For Anxiety 02/28/19 18:45 03/07/19 18:44 Morphine Sulfate (Morphine Sulfate) 4 mg EVERY 4 HOURS PRN IVP Severe Pain (Pain Scale 7-10) 02/28/19 18:45 03/07/19 18:44 Ondansetron HCl (Zofran) 4 mg Q6H PRN IVP Nausea & Vomiting 02/28/19 18:45 03/30/19 18:44 Pantoprazole (Protonix) 40 mg DAILY IV 03/01/19 09:00 03/31/19 08:59 Polyethylene Glycol (Miralax) 17 gm DAILYPRN PRN ORAL Constipation 02/28/19 18:45 03/30/19 18:44 Vancomycin HCl 1 gm/Dextrose 275 ml @ 183.3 mls/ hr Q24H IVPB 03/01/19 11:00 03/06/19 10:59 Objective Narrative Gen: Awake and follwoing, Trached on Vent 45% HEENT: NCAT, MMM, EOMI, PERRL, No Oral lesion, no scleral icterus NECK: full range of motion, supple, no meningismus, No LAD, No JVD LUNGS: Course B/L Mild wheezing CARDS: RRR, S1, S2, No M/R/G, ABD: Soft, NT, ND, No R/G, + BS, No HSM, No Masses, PEG (No E/P) : Deferred Ext: C/C/E, Pulses 2+ B/L (DP, Rad): NEURO: A/O - not verbal , Strength and Sensation Grossly intact PSYCH: Mood/affect normal SKIN: Warm/dry, No rashes, small sacral ulcers Assessment/Plan Assessment/Plan 53 yo male with PMHx of Asthma, HTN and CHF who was sent to the ED form a senior care for respuratory distress and feeling cold. Respiratory distress Likely PNA vs Asthma WBCs 13 on admit No fevers Sputum Cx - pend CXR - B/L consolidations Blood Cx - PEnd UA (-) Small sacral ulcers Do not appear to be infected Asthma HTN CHF PLAN - Continue Vancomycin #1 and Zosyn #1 given recent hospitalization and trach - f/u B/S Cx - Resp therapy - Wound care - Monitor CBC and temps - f/u CXR Thank you for this consult. We will continue to follow the patient during this hospitalization. Luis Robins MD Mar 01, 2019 08:57
[2019-03-01] MEDS: Pantoprazole Inj IV SCH (09:23)
[2019-03-01] MEDS: Heparin 5000 units/ml inj SUBQ SCH ×2 (09:24→21:00)
--- NOTE | 2019-03-01 10:32 | Diagnostic Imaging Report ---
Indication: Shortness of breath Technique: One view of the chest Comparison: 03/28/2017 Findings: Less optimal inspiration currently. Interim tracheostomy placement. There are hazy opacities in the left midlung periphery at the right lung base. The heart appears somewhat enlarged, but this is not evident previously and may be an artifact of the less optimal inspiration. There is suggestion of slight left costophrenic angle blunting. There is a right arm PICC Impression: Hazy right basilar and left midlung opacities. While possibly due to overlying soft tissue artifact, these are suspicious for infiltrates. Borderline cardiomegaly, new since previous study, possibly in part artifactual. Interim tracheostomy placement
--- NOTE | 2019-03-01 10:33 | Consultation ---
History of Present Illness General Date patient seen: Mar 01, 2019 Chief Complaint: Dyspnea/Respdistress Reason for Consultation: PNA Present Illness HPI 53 year old male with hx of asthma and CHf, with recent cardiac arrest at [facility] ER and resuscitation and subsequent tracheostomy, Pt was eventually transferred to [facility] on 02/25/2019. Pt was brought in by paramedics with CC of shortness of breath. He was found to be in renal failure with hyperkalemia and admitted to telemetry for further evaluation. Allergies: Coded Allergies: No Known Allergies (Unverified , 03/28/17) Medication History Scheduled Carvedilol* (Carvedilol*), 6.25 MG GT EVERY 12 HOURS, (Reported) Furosemide* (Lasix*), 20 MG GT DAILY, (Reported) Lorazepam* (Ativan*), 0.5 MG GT THREE TIMES A DAY, (Reported) Metoclopramide Hcl* (Reglan*), 10 MG GT Q6HR, (Reported) Midodrine* (Proamatine*), 5 MG GT THREE TIMES A DAY, (Reported) Potassium Chloride (Potassium Chloride), 20 MEQ GT DAILY, (Reported) Scheduled PRN Acetaminophen* (Acetaminophen 325MG Tablet*), 650 MG GT Q4H PRN for Mild Pain/ Temp > 100.5, (Reported) Clonidine Hcl* (Catapres*), 0.1 MG GT EVERY 6 HOURS PRN for For High Blood Pressure, (Reported) Ondansetron* (Zofran*), 4 MG IM Q6H PRN for Nausea & Vomiting, (Reported) Prednisone* (Prednisone*), 20 MG GT Q8HR PRN for ASTHMA, (Reported) Discontinued Medications Furosemide* (Lasix*), 40 MG ORAL DAILY, (Reported) Discontinued Reason: Pt stopped taking med Lisinopril (Lisinopril*), 5 MG ORAL DAILY, (Reported) Discontinued Reason: Pt stopped taking med Prednisone* (Prednisone*), 60 MG ORAL DAILY Discontinued Reason: Pt stopped taking med Patient History Healthcare decision maker Resuscitation status Full Code Advanced Directive on File Yes Past Medical/Surgical History Past Medical/Surgical History: (1) Status post tracheostomy (2) History of sudden cardiac arrest (3) History of asthma (4) Chronic systolic (congestive) heart failure Review of Systems All Other Systems: negative except mentioned in HPI Physical Exam General Appearance: WD/WN Lines, tubes and drains: peripheral, central line HEENT: normocephalic, atraumatic Neck: non-tender, normal alignment Respiratory/Chest: chest wall non-tender, lungs clear Breasts: no masses Cardiovascular/Chest: normal peripheral pulses Abdomen: normal bowel sounds, non tender Genitourinary/Rectal: normal genital exam, normal rectal exam Extremities: normal range of motion Skin Exam: normal pigmentation 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 Last 24 Hour Vital Signs Date Time Temp Pulse Resp B/P (MAP) Pulse Ox O2 Delivery O2 Flow Rate FiO2 03/01/19 09:13 89 28 45 03/01/19 08:00 99 03/01/19 08:00 98.1 103 20 117/81 (93) 100 03/01/19 08:00 45 03/01/19 08:00 Mechanical Ventilator 03/01/19 07:17 107 30 45 03/01/19 05:10 105 32 45 03/01/19 04:00 55.0 45 03/01/19 04:00 Mechanical Ventilator 03/01/19 04:00 97.4 108 34 127/84 (98) 100 03/01/19 03:33 109 03/01/19 03:10 110 33 45 03/01/19 01:24 119 35 45 03/01/19 00:00 97.7 100 27 125/80 (95) 100 03/01/19 00:00 Mechanical Ventilator 03/01/19 00:00 55.0 45 02/28/19 23:27 99 29 45 02/28/19 23:26 100 02/28/19 21:30 125 35 45 02/28/19 21:28 Mechanical Ventilator 02/28/19 20:44 128 02/28/19 20:20 97.0 126 38 122/83 (96) 100 02/28/19 20:10 98.9 129 39 141/98 100 Mechanical Ventilator 55.0 50 02/28/19 19:53 98.9 129 39 141/98 100 Mechanical Ventilator 55.0 50 02/28/19 19:02 110 37 100 Mechanical Ventilator 50 02/28/19 18:40 112 39 100 Mechanical Ventilator 100 02/28/19 18:39 112 39 100 02/28/19 18:27 98.0 107 27 134/94 100 Mechanical Ventilator 55.0 100 02/28/19 18:27 107 27 Mechanical Ventilator 02/28/19 18:26 55.0 100 02/28/19 17:58 102 30 99 Mechanical Ventilator 55.0 100 02/28/19 17:50 94 30 97 Mechanical Ventilator 55.0 100 02/28/19 17:44 90 30 100 02/28/19 17:37 92 28 Mechanical Ventilator 55.0 100 02/28/19 17:05 110 28 116/93 96 Mechanical Ventilator 4.0 Intake and Output 02/28/19 03/01/19 19:00 07:00 Intake Total 1931.05 ml Output Total 0 ml 250 ml Balance 0 ml 1681.05 ml Intake Free Water 100 ml IV Total 1831.05 ml Output Urine Total 0 ml 250 ml Laboratory Tests Test 02/28/19 17:49 02/28/19 18:29 02/28/19 18:50 02/28/19 19:10 White Blood Count 13.1 K/UL (4.8-10.8) H Red Blood Count 4.64 M/UL (4.70-6.10) L Hemoglobin 10.5 G/DL (14.2-18.0) L Hematocrit 35.4 % (42.0-52.0) L Mean Corpuscular Volume 76 FL (80-99) L Mean Corpuscular Hemoglobin 22.6 PG (27.0-31.0) L Mean Corpuscular Hemoglobin Concent 29.7 G/DL (32.0-36.0) L Red Cell Distribution Width 24.4 % (11.6-14.8) H Platelet Count 521 K/UL (150-450) H Mean Platelet Volume 7.3 FL (6.5-10.1) Neutrophils (%) (Auto) 82.0 % (45.0-75.0) H Lymphocytes (%) (Auto) 7.6 % (20.0-45.0) L Monocytes (%) (Auto) 8.7 % (1.0-10.0) Eosinophils (%) (Auto) 0.0 % (0.0-3.0) Basophils (%) (Auto) 1.7 % (0.0-2.0) Sodium Level 139 MMOL/L (136-145) Potassium Level 7.9 MMOL/L (3.5-5.1) *H Chloride Level 102 MMOL/L (98-107) Carbon Dioxide Level 18 MMOL/L (21-32) L Anion Gap 18 mmol/L (5-15) H Blood Urea Nitrogen 73 mg/dL (7-18) H Creatinine 2.6 MG/DL (0.55-1.30) H Estimat Glomerular Filtration Rate 31.4 mL/min (>60) Glucose Level 72 MG/DL (74-106) L Lactic Acid Level 8.60 mmol/L (0.4-2.0) H 8.20 mmol/L (0.66-2.22) H Calcium Level 9.3 MG/DL (8.5-10.1) Total Bilirubin 2.0 MG/DL (0.2-1.0) H Direct Bilirubin 1.2 MG/DL (0.0-0.3) H Aspartate Amino Transf (AST/SGOT) 78 U/L (15-37) H Alanine Aminotransferase (ALT/SGPT) 102 U/L (12-78) H Alkaline Phosphatase 507 U/L (46-116) H Total Creatine Kinase 311 U/L (26-308) H Creatine Kinase MB 1.1 NG/ML (0.0-3.6) Creatine Kinase MB Relative Index 0.3 Troponin I 0.157 ng/mL (0.000-0.056) Pro-B-Type Natriuretic Peptide > 58066 pg/mL (0-125) H Total Protein 8.7 G/DL (6.4-8.2) H Albumin 2.9 G/DL (3.4-5.0) L Globulin 5.8 g/dL Albumin/Globulin Ratio 0.5 (1.0-2.7) L Lipase 164 U/L (73-393) Urine Color Yellow Urine Appearance Clear Urine pH 5 (4.5-8.0) Urine Specific [place] 1.015 (1.005-1.035) Urine Protein 2+ (NEGATIVE) H Urine Glucose (UA) Negative (NEGATIVE) Urine Ketones 1+ (NEGATIVE) H Urine Blood 1+ (NEGATIVE) H Urine Nitrite Negative (NEGATIVE) Urine Bilirubin Negative (NEGATIVE) Urine Urobilinogen 4 MG/DL (0.0-1.0) H Urine Leukocyte Esterase 1+ (NEGATIVE) H Urine RBC 2-4 /HPF (0 - 0) H Urine WBC 2-4 /HPF (0 - 0) Urine Squamous Epithelial Cells Few /LPF (NONE/OCC) Urine Bacteria Few /HPF (NONE) Arterial Blood pH 7.392 (7.350-7.450) Arterial Blood Partial Pressure CO2 27.0 mmHg (35.0-45.0) L Arterial Blood Partial Pressure O2 > 494.5 mmHg (75.0-100.0) H Arterial Blood HCO3 16.1 mmol/L (22.0-26.0) *L Arterial Blood Oxygen Saturation 99.8 % (95-100) Arterial Blood Base Excess -7.6 (-2-2) L Kelvin Test Positive Test 02/28/19 20:45 03/01/19 03:40 03/01/19 09:21 Sodium Level 141 MMOL/L (136-145) 139 MMOL/L (136-145) Potassium Level 7.2 MMOL/L (3.5-5.1) *H 7.1 MMOL/L (3.5-5.1) *H Chloride Level 104 MMOL/L (98-107) 103 MMOL/L (98-107) Carbon Dioxide Level 22 MMOL/L (21-32) 16 MMOL/L (21-32) L Anion Gap 14 mmol/L (5-15) 21 mmol/L (5-15) H Blood Urea Nitrogen 78 mg/dL (7-18) H 79 mg/dL (7-18) H Creatinine 2.9 MG/DL (0.55-1.30) H 2.9 MG/DL (0.55-1.30) H Estimat Glomerular Filtration Rate 27.6 mL/min (>60) 27.6 mL/min (>60) Glucose Level 72 MG/DL (74-106) L 125 MG/DL (74-106) H Calcium Level 9.0 MG/DL (8.5-10.1) 9.0 MG/DL (8.5-10.1) White Blood Count 12.0 K/UL (4.8-10.8) H Red Blood Count 4.30 M/UL (4.70-6.10) L Hemoglobin 9.8 G/DL (14.2-18.0) L Hematocrit 32.9 % (42.0-52.0) L Mean Corpuscular Volume 77 FL (80-99) L Mean Corpuscular Hemoglobin 22.8 PG (27.0-31.0) L Mean Corpuscular Hemoglobin Concent 29.8 G/DL (32.0-36.0) L Red Cell Distribution Width 25.4 % (11.6-14.8) H Platelet Count 470 K/UL (150-450) H Mean Platelet Volume 7.4 FL (6.5-10.1) Neutrophils (%) (Auto) % (45.0-75.0) Lymphocytes (%) (Auto) % (20.0-45.0) Monocytes (%) (Auto) % (1.0-10.0) Eosinophils (%) (Auto) % (0.0-3.0) Basophils (%) (Auto) % (0.0-2.0) Phosphorus Level 6.9 MG/DL (2.5-4.9) H Magnesium Level 2.7 MG/DL (1.8-2.4) H Total Bilirubin 2.3 MG/DL (0.2-1.0) H Direct Bilirubin 1.8 MG/DL (0.0-0.3) H Aspartate Amino Transf (AST/SGOT) 88 U/L (15-37) H Alanine Aminotransferase (ALT/SGPT) 111 U/L (12-78) H Alkaline Phosphatase 466 U/L (46-116) H Total Protein 8.3 G/DL (6.4-8.2) H Albumin 2.8 G/DL (3.4-5.0) L Globulin 5.5 g/dL Albumin/Globulin Ratio 0.5 (1.0-2.7) L Arterial Blood pH 7.437 (7.350-7.450) Arterial Blood Partial Pressure CO2 30.4 mmHg (35.0-45.0) L Arterial Blood Partial Pressure O2 254.8 mmHg (75.0-100.0) H Arterial Blood HCO3 20.0 mmol/L (22.0-26.0) L Arterial Blood Oxygen Saturation 99.2 % (95-100) Arterial Blood Base Excess -3.4 (-2-2) L Kelvin Test Positive Microbiology Date/Time Source Procedure Growth Status 02/28/19 20:20 Rectum Received Height (Feet): 6 Height (Inches): 0.00 Weight (Pounds): 255 Medications Current Medications Medications (Trade) Dose Ordered Sig/Rebecca Route PRN Reason Start Time Stop Time Status Last Admin Dose Admin Acetaminophen (Tylenol) 650 mg Q4H PRN ORAL FEVER 02/28/19 18:45 03/30/19 18:44 Albuterol/ Ipratropium (Albuterol/ Ipratropium) 3 ml EVERY 4 HOURS PRN HHN Shortness of Breath 02/28/19 18:45 03/05/19 18:44 Aspirin (ASA) 325 mg DAILY GT 02/28/19 19:45 03/30/19 19:44 03/01/19 09:22 Chlorhexidine Gluconate (Essie-Hex 2%) 1 applic DAILY@2000 TOPIC 03/01/19 20:00 03/31/19 19:59 Clonidine HCl (Catapres Tab) 0.1 mg EVERY 6 HOURS PRN GT FOR sbp >160 02/28/19 18:45 03/30/19 18:44 Dextrose (Dextrose 50%) STAT PRN IV Hypoglycemia 02/28/19 18:45 03/30/19 18:44 Dextrose/Sodium Chloride 1,000 ml @ 75 mls/hr [id number] IV 02/28/19 22:45 03/30/19 22:44 02/28/19 22:53 Heparin Sodium (Porcine) (Heparin 5000 units/ml) 5,000 units EVERY 12 HOURS SUBQ 02/28/19 21:00 03/30/19 20:59 03/01/19 09:24 Lorazepam (Ativan 2mg/ml 1ml) 2 mg EVERY 2 HOURS PRN IV For Anxiety 02/28/19 18:45 03/07/19 18:44 Morphine Sulfate (Morphine Sulfate) 4 mg EVERY 4 HOURS PRN IVP Severe Pain (Pain Scale 7-10) 02/28/19 18:45 03/07/19 18:44 Ondansetron HCl (Zofran) 4 mg Q6H PRN IVP Nausea & Vomiting 02/28/19 18:45 03/30/19 18:44 Pantoprazole (Protonix) 40 mg DAILY IV 03/01/19 09:00 03/31/19 08:59 03/01/19 09:23 Piperacillin Sod/ Tazobactam Sod 3.375 gm/Sodium Chloride 110 ml @ 27.5 mls/hr EVERY 8 HOURS IVPB 03/01/19 14:00 03/06/19 13:59 Polyethylene Glycol (Miralax) 17 gm DAILYPRN PRN ORAL Constipation 02/28/19 18:45 03/30/19 18:44 Sodium Chloride 1,000 ml @ 999 mls/hr Q1H1M ONCE IV 03/01/19 10:00 03/01/19 11:00 03/01/19 10:01 Vancomycin HCl (Vanco rx to dose) 1 ea DAILY PRN MISC PER RX PROTOCOL 03/01/19 09:45 03/31/19 09:44 Assessment/Plan Problem List: (1) Acute on chronic respiratory failure ICD Codes: J96.20 - Acute and chronic respiratory failure, unspecified whether with hypoxia or hypercapnia SNOMED: 06568667 (2) ATN (acute tubular necrosis) ICD Codes: N17.0 - Acute kidney failure with tubular necrosis SNOMED: 77043894 (3) Hyperkalemia ICD Codes: E87.5 - Hyperkalemia SNOMED: 62072262 (4) Chronic systolic (congestive) heart failure ICD Codes: I50.22 - Chronic systolic (congestive) heart failure SNOMED: 28127961, 218478472 (5) History of sudden cardiac arrest ICD Codes: Z86.74 - Personal history of sudden cardiac arrest SNOMED: 98551815, 911025902 (6) Status post tracheostomy ICD Codes: Z93.0 - Tracheostomy status SNOMED: 95166756, 070630797 (7) Feeding by G-tube ICD Codes: Z93.1 - Gastrostomy status SNOMED: 898731508, 867293815, 936725830 (8) History of asthma ICD Codes: Z87.09 - Personal history of other diseases of the respiratory system SNOMED: 379051988 Respiratory: monitor respiratory rate, adjust FIO2, CXR Cardiac: continue to monitor HR/BP Renal: F/U I&O, keep IV fluid, check electrolytes Infectious Disease: check cultures Gastrointestinal: continue feedings/current rate, hold feedings Endocrine: monitor blood sugar Hematologic: monitor H/H, transfuse if hgb<8.5 Neurologic: PRN Ativan, PRN Morphine, keep patient comfortable Affect: PRN ativan Time Spent (Minutes): 40 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
[2019-03-01] MEDS ORDERED: Vancomycin 1 GM in D5W 275 ML IVPB SCH (11:00)
[2019-03-01] MEDS ORDERED: Sodium Polystyrene Sulfonate 15gm Powder ORAL SCH (11:00)
--- NOTE | 2019-03-01 11:11 | Diagnostic Imaging Report ---
Indication: Abdominal distention Technique: Supine view of the abdomen Comparison: none Findings: There is a gastrostomy tube present. Relation to the gastric lumen certain in the absence of contrast injection. Bowel gas pattern is unremarkable; there is in fact a paucity of bowel gas. No masses or unusual calcifications Impression: No definite acute process or findings to explain stated clinical history of abdominal distention
--- NOTE | 2019-03-01 11:17 | Diagnostic Imaging Report ---
Indication: Dyspnea Technique: One view of the chest Comparison: 02/28/2019 Findings: Infiltrates at the right lung base and left midlung periphery persists, unchanged. The heart remains enlarged. Tracheostomy remains. Impression: Unchanged, over one day, findings as above.
--- NOTE | 2019-03-01 11:40 | Consultation ---
Consult Note Consult Note asked to eval for renal failure and hyperKalemia in ER: Patient's family is here providing most of the information patient has a tracheostomy is not verbal History of present illness is limited from the patient himself Family reports the patient was at [facility] Has had a tracheostomy and feeding tube placed Patient was transferred to the nursing facility 2 days ago Today she found the patient more distress than usual respirations appeared more abnormal patient also appeared cold and paramedics were summoned Allergies: No Known Allergies (Unverified , 03/28/17) Past Medical History: No History, Except For Hx Cardiac Problems: Yes - chf,high cholesterol, hyperkalemia Hx Hypertension: Yes Hx Asthma: Yes - trach with vent dependancy Hx Gastrointestinal Problems: Yes - GERD, GT examined discussed with RN data reviewed Trached- and Pegged . 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
[2019-03-01 12:00] VITALS: BP 124/88
[2019-03-01] MEDS ORDERED: Calcium Gluconate 1gm/10ml vial IVP SCH (12:00)
[2019-03-01] MEDS ORDERED: Insulin Human Regular 100units/ml 3ml IV SCH (12:00)
[2019-03-01 12:02] LABS: LACTATE DEHYDROGENASE 325 U/L (81-234)
[2019-03-01 12:03] LABS: CREATINE KINASE 177 U/L (26-308); INR 1.5 (0.9-1.1)
[2019-03-01 12:10] LABS: % IRON SATURATION 5 % (15-50); IRON 17 ug/dL (50-175); TOTAL IRON BINDING CAPACITY 332 ug/dL (250-450)
--- NOTE | 2019-03-01 12:10 | Diagnostic Imaging Report ---
Indication: Acute renal failure Technique: Grayscale and duplex images of the kidneys, retroperitoneum, and bladder were obtained. Comparison: none Findings: Right kidney measures 13.5 cm in length. Left kidney measures 11.5 cm in length. Both kidneys demonstrate normal echogenicity. No hydronephrosis. Both kidneys demonstrate cysts. Normal inferior vena cava. Bladder is empty, contains a Cerda catheter. Incidentally noted is a small amount of intraperitoneal fluid Impression: Negative for hydronephrosis Incidental finding of trace intraperitoneal fluid Empty bladder with Cerda catheter Bilateral renal cysts.
[2019-03-01] MEDS: Sodium Bicarbonate 50 ML in D5 1/2NS 1,000 ML IV SCH (12:32)
[2019-03-01] MEDS: Metoclopramide 10mg/2ml Inj IVP SCH ×2 (13:18→22:06)
[2019-03-01] MEDS: Hydrocortisone 100mg Inj IV SCH ×2 (13:18→22:06)
[2019-03-01] MEDS ORDERED: Piperacillin/Tazobactam 3.375 GM in NS 110 ML IVPB SCH (14:00)
[2019-03-01] MEDS: Piperacillin/Tazobactam 3.375 GM in NS 110 ML IVPB SCH (14:17)
[2019-03-01 16:00] VITALS: BP 149/95
--- NOTE | 2019-03-01 17:00 | History & Physical ---
History and Physical History & Physicial Sherman Vee MD Mar 01, 2019 17:00
[2019-03-01 18:45] LABS: APPEARANCE,URINE CLEAR; BILIRUBIN, URINE NEGATIVE (NEGATIVE); GLUCOSE, URINE (UA) NEGATIVE (NEGATIVE); KETONES,URINE NEGATIVE (NEGATIVE); LEUKOCYTE ESTERASE ,URINE 1+ (NEGATIVE); NITRITE,URINE NEGATIVE (NEGATIVE); PH,URINE 5 (4.5-8.0); PROTEIN,URINE 2+ (NEGATIVE); UROBILINOGEN,URINE 1 MG/DL (0.0-1.0)
[2019-03-01 18:49] LABS: COLOR,URINE YELLOW
[2019-03-01 20:00] VITALS: BP 114/85
[2019-03-01] MEDS ORDERED: Vancomycin 1gm/D5W 275ml IVPB SCH ×2 (20:00)
[2019-03-01] MEDS ORDERED: Miralax 17gm pkt GT PRN (20:00)
--- NOTE | 2019-03-01 20:00 | Cardiology Report ---
APPROVED REPORT EXAM: Two-dimensional and M-mode echocardiogram with Doppler and color Doppler. INDICATION Left ventricular function M-Mode DIMENSIONS IVSd1.5 (0.7-1.1cm)Left Atrium (MM)5.0 (1.6-4.0cm) LVDd6.7 (3.5-5.6cm)Aortic Root3.3 (2.0-3.7cm) PWd1.3 (0.7-1.1cm)Aortic Cusp Exc.2.0 (1.5-2.0cm) LVDs6.2 (2.5-4.0cm) PWs1.3 cm Moderate four chamber enlargement. Severe global left ventricular hypokinesis with septal thinning noted. Ischemic cardiomyopathy can not be excluded. Left ventricular ejection fraction estimated to be les than 10%. No evidence of left ventricular hypertrophy. No evidence of pericardial effusion. Focal aortic valve sclerosis with adequate cusp excursion. Thickened mitral valve leaflets with normal excursion. Mild mitral annulus and aortic root calcification. Pulmonic valve not well visualized. Normal tricuspid valve structure. IVC dilated at 2.8 cm without physiological collapse, suggestive of RA pressure 20 mmHg. A color flow and spectral Doppler study was performed and revealed: Moderate aortic insufficiency. Mild mitral regurgitation. Mitral inflow velocities indicates possible pseudo normalization pattern implying significant left ventricular diastolic dysfunction (Grade II). Moderate tricuspid regurgitation. Tricuspid systolic velocities suggests peak right ventricular systolic pressure of 57 mmHg, consistent with moderate to severe pulmonary hypertension. Mild pulmonic regurgitation present.
--- NOTE | 2019-03-01 20:09 | Cardiology Progress Note ---
Assessment/Plan Assessment/Plan The patient is seen and examined, full consult note will be dictated soon. Objective Last 24 Hour Vital Signs Date Time Temp Pulse Resp B/P (MAP) Pulse Ox O2 Delivery O2 Flow Rate FiO2 03/01/19 20:00 97.2 88 22 114/85 (95) 99 03/01/19 20:00 45 03/01/19 20:00 Mechanical Ventilator 03/01/19 19:30 90 25 45 03/01/19 17:17 89 20 45 03/01/19 16:00 97.3 101 30 149/95 (113) 98 03/01/19 16:00 Mechanical Ventilator 03/01/19 16:00 45 03/01/19 15:19 95 03/01/19 14:56 94 27 45 03/01/19 13:09 92 26 45 03/01/19 12:00 97.7 97 28 124/88 (100) 99 03/01/19 12:00 Mechanical Ventilator 03/01/19 12:00 45 03/01/19 11:25 92 03/01/19 11:14 91 27 45 03/01/19 09:13 89 28 45 03/01/19 08:00 99 03/01/19 08:00 98.1 103 20 117/81 (93) 100 03/01/19 08:00 45 03/01/19 08:00 Mechanical Ventilator 03/01/19 07:17 107 30 45 03/01/19 05:10 105 32 45 03/01/19 04:00 55.0 45 03/01/19 04:00 Mechanical Ventilator 03/01/19 04:00 97.4 108 34 127/84 (98) 100 03/01/19 03:33 109 03/01/19 03:10 110 33 45 03/01/19 01:24 119 35 45 03/01/19 00:00 97.7 100 27 125/80 (95) 100 03/01/19 00:00 Mechanical Ventilator 03/01/19 00:00 55.0 45 02/28/19 23:27 99 29 45 02/28/19 23:26 100 02/28/19 21:30 125 35 45 02/28/19 21:28 Mechanical Ventilator 02/28/19 20:44 128 02/28/19 20:20 97.0 126 38 122/83 (96) 100 02/28/19 20:10 98.9 129 39 141/98 100 Mechanical Ventilator 55.0 50 Intake and Output 02/28/19 03/01/19 19:00 07:00 Intake Total 1931.05 ml Output Total 0 ml 250 ml Balance 0 ml 1681.05 ml Intake Free Water 100 ml IV Total 1831.05 ml Output Urine Total 0 ml 250 ml Laboratory Tests Test 02/28/19 20:45 03/01/19 03:40 03/01/19 09:21 03/01/19 11:15 Sodium Level 141 MMOL/L (136-145) 139 MMOL/L (136-145) Potassium Level 7.2 MMOL/L (3.5-5.1) *H 7.1 MMOL/L (3.5-5.1) *H Chloride Level 104 MMOL/L (98-107) 103 MMOL/L (98-107) Carbon Dioxide Level 22 MMOL/L (21-32) 16 MMOL/L (21-32) L Anion Gap 14 mmol/L (5-15) 21 mmol/L (5-15) H Blood Urea Nitrogen 78 mg/dL (7-18) H 79 mg/dL (7-18) H Creatinine 2.9 MG/DL (0.55-1.30) H 2.9 MG/DL (0.55-1.30) H Estimat Glomerular Filtration Rate 27.6 mL/min (>60) 27.6 mL/min (>60) Glucose Level 72 MG/DL (74-106) L 125 MG/DL (74-106) H Calcium Level 9.0 MG/DL (8.5-10.1) 9.0 MG/DL (8.5-10.1) White Blood Count 12.0 K/UL (4.8-10.8) H Red Blood Count 4.30 M/UL (4.70-6.10) L Hemoglobin 9.8 G/DL (14.2-18.0) L Hematocrit 32.9 % (42.0-52.0) L Mean Corpuscular Volume 77 FL (80-99) L Mean Corpuscular Hemoglobin 22.8 PG (27.0-31.0) L Mean Corpuscular Hemoglobin Concent 29.8 G/DL (32.0-36.0) L Red Cell Distribution Width 25.4 % (11.6-14.8) H Platelet Count 470 K/UL (150-450) H Mean Platelet Volume 7.4 FL (6.5-10.1) Neutrophils (%) (Auto) % (45.0-75.0) Lymphocytes (%) (Auto) % (20.0-45.0) Monocytes (%) (Auto) % (1.0-10.0) Eosinophils (%) (Auto) % (0.0-3.0) Basophils (%) (Auto) % (0.0-2.0) Differential Total Cells Counted 100 Neutrophils % (Manual) 85 % (45-75) H Lymphocytes % (Manual) 11 % (20-45) L Monocytes % (Manual) 4 % (1-10) Eosinophils % (Manual) 0 % (0-3) Basophils % (Manual) 0 % (0-2) Band Neutrophils 0 % (0-8) Platelet Estimate Adequate Platelet Morphology Giant Platelets Rare Polychromasia 1+ Hypochromasia 2+ Anisocytosis 3+ Microcytosis 1+ Phosphorus Level 6.9 MG/DL (2.5-4.9) H Magnesium Level 2.7 MG/DL (1.8-2.4) H Total Bilirubin 2.3 MG/DL (0.2-1.0) H Direct Bilirubin 1.8 MG/DL (0.0-0.3) H Aspartate Amino Transf (AST/SGOT) 88 U/L (15-37) H Alanine Aminotransferase (ALT/SGPT) 111 U/L (12-78) H Alkaline Phosphatase 466 U/L (46-116) H Total Protein 8.3 G/DL (6.4-8.2) H Albumin 2.8 G/DL (3.4-5.0) L Globulin 5.5 g/dL Albumin/Globulin Ratio 0.5 (1.0-2.7) L Arterial Blood pH 7.437 (7.350-7.450) Arterial Blood Partial Pressure CO2 30.4 mmHg (35.0-45.0) L Arterial Blood Partial Pressure O2 254.8 mmHg (75.0-100.0) H Arterial Blood HCO3 20.0 mmol/L (22.0-26.0) L Arterial Blood Oxygen Saturation 99.2 % (95-100) Arterial Blood Base Excess -3.4 (-2-2) L Kelvin Test Positive Erythrocyte Sedimentation Rate 51 MM/HR (0-20) H Reticulocyte Count 2.1 % (0.0-2.0) H Prothrombin Time 15.5 SEC (9.30-11.50) H Prothromb Time International Ratio 1.5 (0.9-1.1) H Activated Partial Thromboplast Time 26 SEC (23-33) Uric Acid 12.1 MG/DL (2.6-7.2) H Iron Level 17 ug/dL (50-175) L Total Iron Binding Capacity 332 ug/dL (250-450) Percent Iron Saturation 5 % (15-50) L Unsaturated Iron Binding 315 ug/dL (112-346) Lactate Dehydrogenase 325 U/L (81-234) H Total Creatine Kinase 177 U/L (26-308) Carcinoembryonic Antigen Pending Vitamin B12 Level 1276 PG/ML (193-986) H Folate 26.1 NG/ML (8.6-58.9) Test 03/01/19 11:30 03/01/19 14:40 03/01/19 17:45 03/01/19 18:10 Urine Eosinophils None seen (NONE SEEN) Urine Random Creatinine Pending Urine Random Microalbumin Pending Urine Random Sodium < 20 mmol/L (20-110) L Urine Creatinine 75.8 MG/DL (30.0-125.0) Urine Microalbumin/Creatinine Ratio Pending Urine Potassium Timed 79 mmol/L (12-62) H Stool Occult Blood Positive (NEGATIVE) Urine Color Yellow Urine Appearance Clear Urine pH 5 (4.5-8.0) Urine Specific [place] 1.020 (1.005-1.035) Urine Protein 2+ (NEGATIVE) H Urine Glucose (UA) Negative (NEGATIVE) Urine Ketones Negative (NEGATIVE) Urine Blood 4+ (NEGATIVE) H Urine Nitrite Negative (NEGATIVE) Urine Bilirubin Negative (NEGATIVE) Urine Urobilinogen 1 MG/DL (0.0-1.0) H Urine Leukocyte Esterase 1+ (NEGATIVE) H Urine RBC 2-4 /HPF (0 - 0) H Urine WBC 2-4 /HPF (0 - 0) Urine Squamous Epithelial Cells None /LPF (NONE/OCC) Urine Bacteria Few /HPF (NONE) Random Vancomycin Level 16.0 ug/mL Microbiology Date/Time Source Procedure Growth Status 02/28/19 17:49 Blood Blood Culture - Preliminary Resulted 02/28/19 05:10 Sputum Gram Stain - Final Resulted 02/28/19 05:10 Sputum Sputum Culture Pending Resulted 02/28/19 20:20 Rectum Received Karlos Marinelli MD Mar 01, 2019 20:09
[2019-03-01] MEDS: Dyna-Hex 2% Top Sol 2oz TOPIC SCH (20:16)
[2019-03-01] MEDS: Carvedilol 6.25mg Tab GT SCH (21:02)
--- NOTE | 2019-03-01 21:45 | History and Physical Report ---
DATE OF ADMISSION: 02/28/2019 CHIEF COMPLAINT: Worsening of shortness of breath on the ventilation. HISTORY OF PRESENT ILLNESS: This is a 53-year-old gentleman past medical history significant for asthma, hypertension, congestive heart failure, chronic respiratory failure, vent dependent, as well as dysphagia status post percutaneous endoscopic gastrostomy, who has presented to the hospital from nursing facility [facility] after was noted to have worsening of shortness of breath as well as feeling cold. The patient is nonverbal. Most of the history is taken from the ER chart and nursing documentation. The patient was recently hospitalized at [facility], underwent a tracheostomy followed by percutaneous endoscopic gastrostomy, and a PICC line was placed on the right upper extremity and subsequently, the patient was placed on the nursing facility of [facility]. At the [facility], the patient was found to have worsening of the breathing pattern and associated with wheezes, occasional crackles, and subsequently, the patient was transferred to the [facility]. After initial evaluation at [facility] emergency room, the patient was admitted to the hospital with worsening of shortness of breath, acute on chronic congestive heart failure, acute on chronic respiratory failure, and possible pneumonia. PAST MEDICAL HISTORY/PAST SURGICAL HISTORY: History of vent-dependent respiratory failure, asthma, hypertension, congestive heart failure, and dysphagia status post PEG. MEDICATIONS AT [facility]: Please refer to medication reconciliation. ALLERGIES: No known drug allergies. SOCIAL HISTORY: No smoking, alcohol, or drugs at this time. snf resident. FAMILY HISTORY: Noncontributory. REVIEW OF SYSTEMS: Very limited secondary to the patient's status. No fever was reported. No chills. No loss of consciousness. PHYSICAL EXAMINATION: VITAL SIGNS: On admission, temperature 98, pulse of 107, respirations 24, and blood pressure 134/94. GENERAL: The patient is awake and responsive to the painful stimuli. Spontaneously opens his eyes. Cannot follow commands. HEAD AND NECK: Pupils are equal and reactive to light. Anicteric. Neck was supple. Tracheostomy site is intact. LUNGS: Good air entry. Decreased in the bases. Ventilation breath sounds. HEART: Reveals S1, S2. Regular rhythm. Distant heart sounds. No murmurs or gallops. ABDOMEN: Soft, nondistended, and nontender. PEG site is clean. EXTREMITIES: No cyanosis or clubbing. A +1 edema in bilateral lower extremities. The patient has a PICC line in the right upper extremity noted. NEUROLOGIC: Very limited secondary to the patient's status. At this time, the patient is unable to follow commands, however, moving extremities slowly. BACK: Has a small sacral ulcer. LABORATORY DATA: On admission from the ER, WBC of 13, hemoglobin of 10.5, hematocrit 35, and platelets is 521,000. ESR is 51. Retic count is 2.1. Sodium 139, potassium 4.9, chloride 102, bicarb 18, BUN 73, and creatinine 2.6. GFR is 31. Glucose 72. Total bilirubin of 2.0 and direct bilirubin of 1.2. AST of 78, ALT of 102, and alkaline phosphatase of 507. ProBNP of greater than 3500. UA is +2 protein, +1 ketone, negative nitrites, +1 leukocytes, and 2 to 4 rbc. PT 15, INR 1.5, and PTT of 26. The patient had a chest x-ray. A hazy right basilar as well as left mid lung opacity, which is possible due to the overlying soft tissue artifact. They are suspicious for the infiltrate. Borderline cardiomegaly new since the previous study, possible in part artificial in terms of the tracheostomy placement. Abdominal x-ray, no evidence of acute process finding to explain the patient's clinical history of abdominal distention. ASSESSMENT: 1. Acute respiratory failure on chronic, possible underlying pneumonia. 2. Severe cardiomyopathy with systolic dysfunction. 3. Hyperkalemia. 4. Chronic ventilator dependent status post tracheostomy. 5. History of sudden cardiac arrest. 6. Asthma. 7. Anoxic brain injury. 8. Dysphagia status post PEG. PLAN: Admit the patient to [facility]. We will follow up with Dr. Gerber from Pulmonary Critical Care, Dr. Smith from ID, and Dr. Nico Alonso from Nephrology. We will monitor potassium level closely on Kayexalate. Discussed with daughter at the bedside. Chronic wound care therapy. We will follow up with the wound care protocol. Monitor laboratory. Broad-spectrum antibiotics with Zosyn and vancomycin. Code status at this time is Full Code. Sherman Vee M.D. DR: LINETTE JOB#: [id number] CC:
[2019-03-02] VITALS: BP 101/54
[2019-03-02] MEDS: Piperacillin/Tazobactam 3.375 GM in NS 110 ML IVPB SCH ×2 (00:32→14:04)
[2019-03-02] MEDS: Sodium Bicarbonate 50 ML in D5 1/2NS 1,000 ML IV SCH (03:17)
[2019-03-02 04:00] VITALS: BP 132/76
[2019-03-02 04:44] LABS: HEMATOCRIT 29.7 % (42.0-52.0); MEAN CORPUSCULAR VOLUME 76 FL (80-99); PLATELET COUNT 333 K/UL (150-450); RED CELL DISTRIBUTION WIDTH 25.7 % (11.6-14.8); WHITE BLOOD COUNT 13.4 K/UL (4.8-10.8)
[2019-03-02 05:14] LABS: ALANINE AMINOTRANSFERASE 80 U/L (12-78); ALBUMIN 2.6 G/DL (3.4-5.0); ALBUMIN/GLOBULIN RATIO 0.6 (1.0-2.7); ALKALINE PHOSPHATASE 333 U/L (46-116); ANION GAP 14 mmol/L (5-15); ASPARTATE AMINO TRANSFERASE 48 U/L (15-37); BLOOD UREA NITROGEN 85 mg/dL (7-18); CARBON DIOXIDE 25 MMOL/L (21-32); CHLORIDE 104 MMOL/L (98-107); CREATINE KINASE 105 U/L (26-308); CREATININE 2.6 MG/DL (0.55-1.30); FERRITIN 226 NG/ML (8-388); GAMMA GLUTAMYL TRANSPEPTIDASE 351 U/L (5-85); PHOSPHORUS 6.2 MG/DL (2.5-4.9); POTASSIUM 4.2 MMOL/L (3.5-5.1); SODIUM 143 MMOL/L (136-145)
[2019-03-02 05:25] LABS: BILIRUBIN,DIRECT 1.4 MG/DL (0.0-0.3)
[2019-03-02] MEDS: Hydrocortisone 100mg Inj IV SCH (05:53)
[2019-03-02] MEDS: Metoclopramide 10mg/2ml Inj IVP SCH (05:53)
[2019-03-02 08:00] VITALS: BP 121/77
--- NOTE | 2019-03-02 08:12 | Pulmonolgy Critical Care Note ---
Critical Care - Asmt/Plan Problems: (1) Acute on chronic respiratory failure (2) ATN (acute tubular necrosis) (3) Hyperkalemia (4) EF less than 10% (5) Status post tracheostomy (6) Feeding by G-tube (7) History of sudden cardiac arrest (8) History of asthma Respiratory: monitor respiratory rate, adjust FIO2, CXR Cardiac: start pressors, continue to monitor HR/BP Renal: F/U I&O, keep IV fluid, check electrolytes Infectious Disease: check cultures Gastrointestinal: continue feedings/current rate, other - GI called for positive OB Endocrine: monitor blood sugar Hematologic: monitor H/H, transfuse if hgb<8.5 Neurologic: PRN Morphine, keep patient comfortable Prophylaxis: Protonix, Heparin Notes Reviewed: cardio Discussed with: nurses, consultants, case hardenerhealth and wellness manager - Objective Last 24 Hour Vital Signs Date Time Temp Pulse Resp B/P (MAP) Pulse Ox O2 Delivery O2 Flow Rate FiO2 03/02/19 07:05 84 23 45 03/02/19 05:15 85 18 45 03/02/19 04:00 45 03/02/19 04:00 Mechanical Ventilator 03/02/19 04:00 97.8 84 22 132/76 (94) 99 03/02/19 04:00 83 03/02/19 03:30 82 25 45 03/02/19 00:54 91 20 45 03/02/19 00:53 93 23 100 Mechanical Ventilator 45 03/02/19 00:36 89 22 100 Mechanical Ventilator 45 03/02/19 00:00 90 03/02/19 00:00 45 03/02/19 00:00 98.5 93 22 101/54 (70) 99 03/02/19 00:00 Mechanical Ventilator 03/01/19 23:25 90 21 45 03/01/19 21:17 91 24 45 03/01/19 21:02 88 121/83 03/01/19 20:00 97.2 88 22 114/85 (95) 99 03/01/19 20:00 45 03/01/19 20:00 Mechanical Ventilator 03/01/19 20:00 90 03/01/19 19:30 90 25 45 03/01/19 17:17 89 20 45 03/01/19 16:00 97.3 101 30 149/95 (113) 98 03/01/19 16:00 Mechanical Ventilator 03/01/19 16:00 45 03/01/19 15:19 95 03/01/19 14:56 94 27 45 03/01/19 13:09 92 26 45 03/01/19 12:00 97.7 97 28 124/88 (100) 99 03/01/19 12:00 Mechanical Ventilator 03/01/19 12:00 45 03/01/19 11:25 92 03/01/19 11:14 91 27 45 03/01/19 09:13 89 28 45 Status: awake Condition: critical HEENT: atraumatic Neck: full ROM Heart: HR/BP stable Abdomen: soft, active bowel sounds Extremities: no C/C/E Decubiti: location Micro: Microbiology Date/Time Source Procedure Growth Status 02/28/19 17:49 Blood Blood Culture - Preliminary NO GROWTH AFTER 24 HOURS Resulted 02/28/19 17:49 Blood Blood Culture - Preliminary Resulted 02/28/19 05:10 Sputum Gram Stain - Final Resulted 02/28/19 05:10 Sputum Sputum Culture Pending Resulted 02/28/19 20:20 Rectum VRE Culture - Final NO VANCOMYCIN RESISTANT ENTEROCOCCUS ... Complete Accucheck: 72 Critical Care - Subjective ROS Limited/Unobtainable: No Interval Events: awake, comfortable FI02: 45 Vent Support Breath Rate: 16 Vent Support Mode: AC Vent Tidal Volume: 600 Sputum Amount: Small PEEP: 5.0 PIP: 34 I&O: Intake and Output 03/01/19 03/02/19 19:00 07:00 Intake Total 2395.0 ml 1251.000 ml Output Total 850 ml 550 ml Balance 1545.0 ml 701.000 ml IV Total 2395.0 ml 1251.000 ml Output Urine Total 850 ml 550 ml # Bowel Movements 2 CXR: no change Labs: Laboratory Tests Test 03/01/19 09:21 03/01/19 11:15 03/01/19 11:30 03/01/19 14:40 Arterial Blood pH 7.437 (7.350-7.450) Arterial Blood Partial Pressure CO2 30.4 mmHg (35.0-45.0) L Arterial Blood Partial Pressure O2 254.8 mmHg (75.0-100.0) H Arterial Blood HCO3 20.0 mmol/L (22.0-26.0) L Arterial Blood Oxygen Saturation 99.2 % (95-100) Arterial Blood Base Excess -3.4 (-2-2) L Kelvin Test Positive Erythrocyte Sedimentation Rate 51 MM/HR (0-20) H Reticulocyte Count 2.1 % (0.0-2.0) H Prothrombin Time 15.5 SEC (9.30-11.50) H Prothromb Time International Ratio 1.5 (0.9-1.1) H Activated Partial Thromboplast Time 26 SEC (23-33) Uric Acid 12.1 MG/DL (2.6-7.2) H Iron Level 17 ug/dL (50-175) L Total Iron Binding Capacity 332 ug/dL (250-450) Percent Iron Saturation 5 % (15-50) L Unsaturated Iron Binding 315 ug/dL (112-346) Lactate Dehydrogenase 325 U/L (81-234) H Total Creatine Kinase 177 U/L (26-308) Carcinoembryonic Antigen Pending Vitamin B12 Level 1276 PG/ML (193-986) H Folate 26.1 NG/ML (8.6-58.9) Urine Eosinophils None seen (NONE SEEN) Urine Random Creatinine Pending Urine Random Microalbumin Pending Urine Random Sodium < 20 mmol/L (20-110) L Urine Creatinine 75.8 MG/DL (30.0-125.0) Urine Microalbumin/Creatinine Ratio Pending Urine Potassium Timed 79 mmol/L (12-62) H Stool Occult Blood Positive (NEGATIVE) Test 03/01/19 17:45 03/01/19 18:10 03/02/19 03:35 Urine Color Yellow Urine Appearance Clear Urine pH 5 (4.5-8.0) Urine Specific [place] 1.020 (1.005-1.035) Urine Protein 2+ (NEGATIVE) H Urine Glucose (UA) Negative (NEGATIVE) Urine Ketones Negative (NEGATIVE) Urine Blood 4+ (NEGATIVE) H Urine Nitrite Negative (NEGATIVE) Urine Bilirubin Negative (NEGATIVE) Urine Urobilinogen 1 MG/DL (0.0-1.0) H Urine Leukocyte Esterase 1+ (NEGATIVE) H Urine RBC 2-4 /HPF (0 - 0) H Urine WBC 2-4 /HPF (0 - 0) Urine Squamous Epithelial Cells None /LPF (NONE/OCC) Urine Bacteria Few /HPF (NONE) Random Vancomycin Level 16.0 ug/mL White Blood Count 13.4 K/UL (4.8-10.8) H Red Blood Count 3.90 M/UL (4.70-6.10) L Hemoglobin 9.0 G/DL (14.2-18.0) L Hematocrit 29.7 % (42.0-52.0) L Mean Corpuscular Volume 76 FL (80-99) L Mean Corpuscular Hemoglobin 23.2 PG (27.0-31.0) L Mean Corpuscular Hemoglobin Concent 30.4 G/DL (32.0-36.0) L Red Cell Distribution Width 25.7 % (11.6-14.8) H Platelet Count 333 K/UL (150-450) Mean Platelet Volume 8.9 FL (6.5-10.1) Neutrophils (%) (Auto) % (45.0-75.0) Lymphocytes (%) (Auto) % (20.0-45.0) Monocytes (%) (Auto) % (1.0-10.0) Eosinophils (%) (Auto) % (0.0-3.0) Basophils (%) (Auto) % (0.0-2.0) Sodium Level 143 MMOL/L (136-145) Potassium Level 4.2 MMOL/L (3.5-5.1) Chloride Level 104 MMOL/L (98-107) Carbon Dioxide Level 25 MMOL/L (21-32) Anion Gap 14 mmol/L (5-15) Blood Urea Nitrogen 85 mg/dL (7-18) H Creatinine 2.6 MG/DL (0.55-1.30) H Estimat Glomerular Filtration Rate 31.4 mL/min (>60) Glucose Level 130 MG/DL (74-106) H Uric Acid 11.7 MG/DL (2.6-7.2) H Calcium Level 9.0 MG/DL (8.5-10.1) Phosphorus Level 6.2 MG/DL (2.5-4.9) H Magnesium Level 2.4 MG/DL (1.8-2.4) Ferritin 226 NG/ML (8-388) Total Bilirubin 2.0 MG/DL (0.2-1.0) H Direct Bilirubin 1.4 MG/DL (0.0-0.3) H Gamma Glutamyl Transpeptidase 351 U/L (5-85) H Aspartate Amino Transf (AST/SGOT) 48 U/L (15-37) H Alanine Aminotransferase (ALT/SGPT) 80 U/L (12-78) H Alkaline Phosphatase 333 U/L (46-116) H Total Creatine Kinase 105 U/L (26-308) C-Reactive Protein, Quantitative 10.9 mg/dL (0.00-0.90) H Pro-B-Type Natriuretic Peptide 48322 pg/mL (0-125) H Total Protein 7.3 G/DL (6.4-8.2) Albumin 2.6 G/DL (3.4-5.0) L Globulin 4.7 g/dL Albumin/Globulin Ratio 0.6 (1.0-2.7) L Thyroid Stimulating Hormone (TSH) 0.925 uiU/mL (0.358-3.740) Ivan Gerber MD Mar 02, 2019 08:12
[2019-03-02] MEDS: DOPamine 400mg/250ml 250 ML IV SCH (09:05)
[2019-03-02] MEDS: Carvedilol 6.25mg Tab GT SCH ×2 (09:05→20:36)
[2019-03-02] MEDS: Pantoprazole Inj IV SCH (09:06)
[2019-03-02] MEDS: Heparin 5000 units/ml inj SUBQ SCH ×2 (09:08→20:37)
--- NOTE | 2019-03-02 10:41 | GI Initial Consult Note ---
History of Present Illness General Date patient seen: Mar 02, 2019 Time patient seen: 10:30 Reason for Hospitalization: Dyspnea/Respdistress Referring physician: RADHA RENE Reason for Consultation: Positive occult blood stool Present Illness HPI Patient's family is here providing most of the information patient has a tracheostomy is not verbal History of present illness is limited from the patient himself Family reports the patient was at [facility] [place] [facility] Has had a tracheostomy and feeding tube placed Patient was transferred to the nursing facility 2 days ago Today she found the patient more distress than usual respirations appeared more abnormal patient also appeared cold and paramedics were summoned GI consulted for positive occult blood stool. ROS limited, patient nonverbal is a trach and G-tube dependent. No apparent distress noted. No active signs or symptoms of nausea or vomiting. No reported diarrhea. Labs reviewed; hemoglobin 9.0, transaminitis with AST 46 and ALT of 80, alkaline phosphatase of 333, total bilirubin of 2.0, troponin level of 0.152. Unknown history of endoscopic or colonoscopy at this time Home Meds Reported Medications Prednisone* (PREDNISONE*) 20 Mg Tablet, 20 MG GT Q8HR PRN for ASTHMA, TAB 02/28/19 Lorazepam* (ATIVAN*) 0.5 Mg Tablet, 0.5 MG GT THREE TIMES A DAY, TAB 02/28/19 Acetaminophen* (ACETAMINOPHEN 325MG TABLET*) 325 Mg Tablet, 650 MG GT Q4H PRN for Mild Pain/Temp > 100.5, TAB 02/28/19 Clonidine Hcl* (CATAPRES*) 0.1 Mg Tablet, 0.1 MG GT EVERY 6 HOURS PRN for For High Blood Pressure, TAB 02/28/19 Ondansetron* (ZOFRAN*) 4 Mg/2 Ml Vial, 4 MG IM Q6H PRN for Nausea & Vomiting, VIAL 02/28/19 Potassium Chloride (POTASSIUM CHLORIDE) 20 Meq Packet, 20 MEQ GT DAILY, #30 PKT 0 Refills 02/28/19 Carvedilol* (CARVEDILOL*) 6.25 Mg Tablet, 6.25 MG GT EVERY 12 HOURS, TAB 02/28/19 Midodrine* (PROAMATINE*) 5 Mg Tablet, 5 MG GT THREE TIMES A DAY, TAB 02/28/19 Furosemide* (LASIX*) 20 Mg Tablet, 20 MG GT DAILY, TAB 02/28/19 Metoclopramide Hcl* (REGLAN*) 10 Mg Tablet, 10 MG GT Q6HR, TAB 02/28/19 Discontinued Reported Medications Lisinopril (LISINOPRIL*) 5 Mg Tablet, 5 MG ORAL DAILY, TAB 03/28/17 Furosemide* (LASIX*) 40 Mg Tablet, 40 MG ORAL DAILY, TAB 03/28/17 Discontinued Scripts Prednisone* (PREDNISONE*) 20 Mg Tablet, 60 MG ORAL DAILY, #15 TAB Prov:AmymyrtleAnn DO 03/28/17 Med list reviewed/reconciled: Yes Allergies: Coded Allergies: No Known Allergies (Unverified , 03/28/17) Patient History Limited by: medical condition History Provided By: Medical Record PMH Narrative Past Medical History: No History, Except For Hx Cardiac Problems: Yes - chf,high cholesterol, hyperkalemia Hx Hypertension: Yes Hx Asthma: Yes - trach with vent dependancy Hx Gastrointestinal Problems: Yes - GERD, GT Social History: Denies: smoking, alcohol use, drug use, other Review of Systems All Other Systems: limited Physical Exam Vital Signs Date Time Temp Pulse Resp B/P (MAP) Pulse Ox O2 Delivery O2 Flow Rate FiO2 02/28/19 17:05 110 28 116/93 96 Mechanical Ventilator 4.0 02/28/19 17:37 100 02/28/19 18:27 98.0 Sp02 EP Interpretation: reviewed, normal Labs Laboratory Tests Test 03/01/19 11:15 03/01/19 11:30 03/01/19 14:40 03/01/19 17:45 Erythrocyte Sedimentation Rate 51 MM/HR (0-20) H Reticulocyte Count 2.1 % (0.0-2.0) H Prothrombin Time 15.5 SEC (9.30-11.50) H Prothromb Time International Ratio 1.5 (0.9-1.1) H Activated Partial Thromboplast Time 26 SEC (23-33) Uric Acid 12.1 MG/DL (2.6-7.2) H Iron Level 17 ug/dL (50-175) L Total Iron Binding Capacity 332 ug/dL (250-450) Percent Iron Saturation 5 % (15-50) L Unsaturated Iron Binding 315 ug/dL (112-346) Lactate Dehydrogenase 325 U/L (81-234) H Total Creatine Kinase 177 U/L (26-308) Carcinoembryonic Antigen Pending Vitamin B12 Level 1276 PG/ML (193-986) H Folate 26.1 NG/ML (8.6-58.9) Urine Eosinophils None seen (NONE SEEN) Urine Random Creatinine Pending Urine Random Microalbumin Pending Urine Random Sodium < 20 mmol/L (20-110) L Urine Creatinine 75.8 MG/DL (30.0-125.0) Urine Microalbumin/Creatinine Ratio Pending Urine Potassium Timed 79 mmol/L (12-62) H Stool Occult Blood Positive (NEGATIVE) Urine Color Yellow Urine Appearance Clear Urine pH 5 (4.5-8.0) Urine Specific [place] 1.020 (1.005-1.035) Urine Protein 2+ (NEGATIVE) H Urine Glucose (UA) Negative (NEGATIVE) Urine Ketones Negative (NEGATIVE) Urine Blood 4+ (NEGATIVE) H Urine Nitrite Negative (NEGATIVE) Urine Bilirubin Negative (NEGATIVE) Urine Urobilinogen 1 MG/DL (0.0-1.0) H Urine Leukocyte Esterase 1+ (NEGATIVE) H Urine RBC 2-4 /HPF (0 - 0) H Urine WBC 2-4 /HPF (0 - 0) Urine Squamous Epithelial Cells None /LPF (NONE/OCC) Urine Bacteria Few /HPF (NONE) Test 03/01/19 18:10 03/02/19 03:35 Random Vancomycin Level 16.0 ug/mL White Blood Count 13.4 K/UL (4.8-10.8) H Red Blood Count 3.90 M/UL (4.70-6.10) L Hemoglobin 9.0 G/DL (14.2-18.0) L Hematocrit 29.7 % (42.0-52.0) L Mean Corpuscular Volume 76 FL (80-99) L Mean Corpuscular Hemoglobin 23.2 PG (27.0-31.0) L Mean Corpuscular Hemoglobin Concent 30.4 G/DL (32.0-36.0) L Red Cell Distribution Width 25.7 % (11.6-14.8) H Platelet Count 333 K/UL (150-450) Mean Platelet Volume 8.9 FL (6.5-10.1) Neutrophils (%) (Auto) % (45.0-75.0) Lymphocytes (%) (Auto) % (20.0-45.0) Monocytes (%) (Auto) % (1.0-10.0) Eosinophils (%) (Auto) % (0.0-3.0) Basophils (%) (Auto) % (0.0-2.0) Sodium Level 143 MMOL/L (136-145) Potassium Level 4.2 MMOL/L (3.5-5.1) Chloride Level 104 MMOL/L (98-107) Carbon Dioxide Level 25 MMOL/L (21-32) Anion Gap 14 mmol/L (5-15) Blood Urea Nitrogen 85 mg/dL (7-18) H Creatinine 2.6 MG/DL (0.55-1.30) H Estimat Glomerular Filtration Rate 31.4 mL/min (>60) Glucose Level 130 MG/DL (74-106) H Uric Acid 11.7 MG/DL (2.6-7.2) H Calcium Level 9.0 MG/DL (8.5-10.1) Phosphorus Level 6.2 MG/DL (2.5-4.9) H Magnesium Level 2.4 MG/DL (1.8-2.4) Ferritin 226 NG/ML (8-388) Total Bilirubin 2.0 MG/DL (0.2-1.0) H Direct Bilirubin 1.4 MG/DL (0.0-0.3) H Gamma Glutamyl Transpeptidase 351 U/L (5-85) H Aspartate Amino Transf (AST/SGOT) 48 U/L (15-37) H Alanine Aminotransferase (ALT/SGPT) 80 U/L (12-78) H Alkaline Phosphatase 333 U/L (46-116) H Total Creatine Kinase 105 U/L (26-308) C-Reactive Protein, Quantitative 10.9 mg/dL (0.00-0.90) H Pro-B-Type Natriuretic Peptide 48140 pg/mL (0-125) H Total Protein 7.3 G/DL (6.4-8.2) Albumin 2.6 G/DL (3.4-5.0) L Globulin 4.7 g/dL Albumin/Globulin Ratio 0.6 (1.0-2.7) L Thyroid Stimulating Hormone (TSH) 0.925 uiU/mL (0.358-3.740) General Appearance: well appearing, no apparent distress, alert Head: normocephalic EENT: PERRL/EOMI, normal ENT inspection Neck: supple Respiratory: normal breath sounds, no respiratory distress, other - Tracheostomy Cardiovascular: normal rate Gastrointestinal: normal inspection, non tender, soft, normal bowel sounds, non -distended, gt Rectal: deferred Genitourinary: deferred Neurologic: alert, responsive Psychiatric: judgement/insight normal Skin: normal inspection, normal color, no rash, warm/dry, palpation normal, well hydrated Lymphatic: normal inspection, no adenopathy Current Medications Current Medications Medications (Trade) Dose Ordered Sig/Rebecca Route PRN Reason Start Time Stop Time Status Last Admin Dose Admin Acetaminophen (Tylenol) 650 mg Q4H PRN GT Mild Pain/Temp > 100.5 03/01/19 20:00 03/31/19 19:59 Albuterol/ Ipratropium (Albuterol/ Ipratropium) 3 ml EVERY 4 HOURS PRN HHN Shortness of Breath 02/28/19 18:45 03/05/19 18:44 03/02/19 00:46 Aspirin (ASA) 325 mg DAILY GT 02/28/19 19:45 03/30/19 19:44 03/02/19 09:05 Carvedilol (Coreg) 6.25 mg EVERY 12 HOURS GT 03/01/19 21:00 03/31/19 20:59 03/02/19 09:05 Chlorhexidine Gluconate (Essie-Hex 2%) 1 applic DAILY@2000 TOPIC 03/01/19 20:00 03/31/19 19:59 03/01/19 20:16 Clonidine HCl (Catapres Tab) 0.1 mg EVERY 6 HOURS PRN GT FOR sbp >160 02/28/19 18:45 03/30/19 18:44 Dextrose (Dextrose 50%) STAT PRN IV Hypoglycemia 02/28/19 18:45 03/30/19 18:44 Dopamine HCl/ Dextrose 250 ml @ 13.319 mls/ hr Q24H IV 03/02/19 08:11 04/01/19 08:10 03/02/19 09:05 Heparin Sodium (Porcine) (Heparin 5000 units/ml) 5,000 units EVERY 12 HOURS SUBQ 02/28/19 21:00 03/30/19 20:59 03/02/19 09:08 Hydrocortisone (Solu-CORTEF) 100 mg EVERY 8 HOURS IV 03/01/19 14:00 03/31/19 13:59 03/02/19 05:53 Lorazepam (Ativan 2mg/ml 1ml) 2 mg EVERY 2 HOURS PRN IV For Anxiety 02/28/19 18:45 03/07/19 18:44 Morphine Sulfate (Morphine Sulfate) 4 mg EVERY 4 HOURS PRN IVP Severe Pain (Pain Scale 7-10) 02/28/19 18:45 03/07/19 18:44 Ondansetron HCl (Zofran) 4 mg Q6H PRN IVP Nausea & Vomiting 02/28/19 18:45 03/30/19 18:44 Pantoprazole (Protonix) 40 mg DAILY IV 03/01/19 09:00 03/31/19 08:59 03/02/19 09:06 Piperacillin Sod/ Tazobactam Sod 3.375 gm/Sodium Chloride 110 ml @ 27.5 mls/hr Q12HR@0100,1300 IVPB 03/01/19 13:00 03/08/19 12:59 03/02/19 00:32 Polyethylene Glycol (Miralax) 17 gm DAILYPRN PRN GT Constipation 03/01/19 20:00 03/30/19 18:44 Sodium Bicarbonate 50 ml/ Dextrose/Sodium Chloride 1,050 ml @ 75 mls/hr Q14H IV 03/01/19 13:00 03/30/19 12:59 03/02/19 03:17 Vancomycin HCl (Vanco rx to dose) 1 ea DAILY PRN MISC PER RX PROTOCOL 03/01/19 09:45 03/31/19 09:44 GI: Plan Problems: (1) GI bleed (2) EF less than 10% (3) Feeding by G-tube Plan EGD and colonoscopy scheduled for tomorrow. maintain NPO + IVFs hold all blood thinners tonight 500 gastric lavage cont ppi monitor H&H, prn transfusions venofer abdominal US follow labs, hepatitis panel will follow with additional recs postprocedure The patient was seen and examined at bedside and all new and available data was reviewed in the patients chart. I agree with the above findings, impression and plan. (Patient seen earlier today. Signature stamp does not reflect patient encounter time.). - Antwon Willoughby MD Discussed with Dr. Willoughby. Thank you for this patient referral, we will follow. Rossy Cadena NP Mar 02, 2019 10:41
--- NOTE | 2019-03-02 10:57 | Nephrology Progress Note ---
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 Chronic systolic (congestive) heart failure History of sudden cardiac arrest Status post tracheostomy Feeding by G-tube History of asthma Plan Cerda Reglan continue prednisone slow hydrate aim to lower after and pre load monitor renal parameters Objective Objective Last 24 Hour Vital Signs Date Time Temp Pulse Resp B/P (MAP) Pulse Ox O2 Delivery O2 Flow Rate FiO2 03/02/19 09:05 121/77 03/02/19 09:05 84 121/77 03/02/19 08:45 81 22 45 03/02/19 08:00 97.3 84 20 121/77 (92) 99 03/02/19 07:37 80 03/02/19 07:05 84 23 45 03/02/19 05:15 85 18 45 03/02/19 04:00 45 03/02/19 04:00 Mechanical Ventilator 03/02/19 04:00 97.8 84 22 132/76 (94) 99 03/02/19 04:00 83 03/02/19 03:30 82 25 45 03/02/19 00:54 91 20 45 03/02/19 00:53 93 23 100 Mechanical Ventilator 45 03/02/19 00:36 89 22 100 Mechanical Ventilator 45 03/02/19 00:00 90 03/02/19 00:00 45 03/02/19 00:00 98.5 93 22 101/54 (70) 99 03/02/19 00:00 Mechanical Ventilator 03/01/19 23:25 90 21 45 03/01/19 21:17 91 24 45 03/01/19 21:02 88 121/83 03/01/19 20:00 97.2 88 22 114/85 (95) 99 03/01/19 20:00 45 03/01/19 20:00 Mechanical Ventilator 03/01/19 20:00 90 03/01/19 19:30 90 25 45 03/01/19 17:17 89 20 45 03/01/19 16:00 97.3 101 30 149/95 (113) 98 03/01/19 16:00 Mechanical Ventilator 03/01/19 16:00 45 03/01/19 15:19 95 03/01/19 14:56 94 27 45 03/01/19 13:09 92 26 45 03/01/19 12:00 97.7 97 28 124/88 (100) 99 03/01/19 12:00 Mechanical Ventilator 03/01/19 12:00 45 03/01/19 11:25 92 03/01/19 11:14 91 27 45 Intake and Output 03/01/19 03/02/19 19:00 07:00 Intake Total 2395.0 ml 1251.000 ml Output Total 850 ml 550 ml Balance 1545.0 ml 701.000 ml IV Total 2395.0 ml 1251.000 ml Output Urine Total 850 ml 550 ml # Bowel Movements 2 Laboratory Tests 03/01/19 11:15: Erythrocyte Sedimentation Rate 51H, Reticulocyte Count 2.1H, Prothrombin Time 15.5H, Prothromb Time International Ratio 1.5H, Activated Partial Thromboplast Time 26, Uric Acid 12.1H, Iron Level 17L, Total Iron Binding Capacity 332, Percent Iron Saturation 5L, Unsaturated Iron Binding 315, Lactate Dehydrogenase 325H, Total Creatine Kinase 177, Carcinoembryonic Antigen [Pending], Vitamin B12 Level 1276H, Folate 26.1 03/01/19 11:30: Urine Eosinophils None seen, Urine Random Creatinine [Pending], Urine Random Microalbumin [Pending], Urine Random Sodium < 20L, Urine Creatinine 75.8, Urine Microalbumin/Creatinine Ratio [Pending], Urine Potassium Timed 79H 03/01/19 14:40: Stool Occult Blood Positive 03/01/19 17:45: Urine Color Yellow, Urine Appearance Clear, Urine pH 5, Urine Specific [place] 1.020, Urine Protein 2+H, Urine Glucose (UA) Negative, Urine Ketones Negative, Urine Blood 4+H, Urine Nitrite Negative, Urine Bilirubin Negative, Urine Urobilinogen 1H, Urine Leukocyte Esterase 1+H, Urine RBC 2-4H, Urine WBC 2-4, Urine Squamous Epithelial Cells None, Urine Bacteria Few 03/01/19 18:10: Random Vancomycin Level 16.0 03/02/19 03:35: White Blood Count 13.4H, Red Blood Count 3.90L, Hemoglobin 9.0L, Hematocrit 29.7L, Mean Corpuscular Volume 76L, Mean Corpuscular Hemoglobin 23.2L, Mean Corpuscular Hemoglobin Concent 30.4L, Red Cell Distribution Width 25.7H, Platelet Count 333, Mean Platelet Volume 8.9, Neutrophils (%) (Auto) , Lymphocytes (%) (Auto) , Monocytes (%) (Auto) , Eosinophils (%) (Auto) , Basophils (%) (Auto) , Sodium Level 143, Potassium Level 4.2, Chloride Level 104 , Carbon Dioxide Level 25, Anion Gap 14, Blood Urea Nitrogen 85H, Creatinine 2.6H, Estimat Glomerular Filtration Rate 31.4, Glucose Level 130H, Uric Acid 11.7H, Calcium Level 9.0, Phosphorus Level 6.2H, Magnesium Level 2.4, Ferritin 226, Total Bilirubin 2.0H, Direct Bilirubin 1.4H, Gamma Glutamyl Transpeptidase 351H, Aspartate Amino Transf (AST/SGOT) 48H, Alanine Aminotransferase (ALT/SGPT ) 80H, Alkaline Phosphatase 333H, Total Creatine Kinase 105, C-Reactive Protein , Quantitative 10.9H, Pro-B-Type Natriuretic Peptide 89624E, Total Protein 7.3, Albumin 2.6L, Globulin 4.7, Albumin/Globulin Ratio 0.6L, Thyroid Stimulating Hormone (TSH) 0.925 Height (Feet): 6 Height (Inches): 0.00 Weight (Pounds): 261 Nico Alonso MD Mar 02, 2019 10:57
--- NOTE | 2019-03-02 11:46 | Infectious Diseases Prog Note ---
Assessment/Plan Assessment/Plan Assessment/Plan 53 yo male with PMHx of Asthma, HTN and CHF who was sent to the ED form a detention for respuratory distress and feeling cold. Respiratory distress Likely PNA vs Asthma WBCs 13 on admit No fevers Sputum Cx - pend CXR - B/L consolidations Gram positive bacteremia- ?real vs contaminant -Bcx / GPC clusters UA (-) Elevated ALT/AST>Tbili; improving Small sacral ulcers Do not appear to be infected Asthma HTN CHF PLAN - Continue Vancomycin #2 and Zosyn #2 given recent hospitalization and trach pending sp cx and Bx -Repeat Bcx x2 - f/u B/S Cx - Resp therapy - Wound care - Monitor CBC and temps - influenza sc, legionella ag urine -f/u abd US -HIV ab and Hep panel Thank you for this consult. We will continue to follow the patient during this hospitalization. Subjective Allergies: Coded Allergies: No Known Allergies (Unverified , 03/28/17) Subjective afebrile mile leukocytosis persisent bacteremic Objective Vital Signs Last 24 Hour Vital Signs Date Time Temp Pulse Resp B/P (MAP) Pulse Ox O2 Delivery O2 Flow Rate FiO2 03/02/19 10:40 85 24 45 03/02/19 09:05 121/77 03/02/19 09:05 84 121/77 03/02/19 08:45 81 22 45 03/02/19 08:00 97.3 84 20 121/77 (92) 99 03/02/19 07:37 80 03/02/19 07:05 84 23 45 03/02/19 05:15 85 18 45 03/02/19 04:00 45 03/02/19 04:00 Mechanical Ventilator 03/02/19 04:00 97.8 84 22 132/76 (94) 99 03/02/19 04:00 83 03/02/19 03:30 82 25 45 03/02/19 00:54 91 20 45 03/02/19 00:53 93 23 100 Mechanical Ventilator 45 03/02/19 00:36 89 22 100 Mechanical Ventilator 45 03/02/19 00:00 90 03/02/19 00:00 45 03/02/19 00:00 98.5 93 22 101/54 (70) 99 03/02/19 00:00 Mechanical Ventilator 03/01/19 23:25 90 21 45 4/15/19 21:17 91 24 45 03/01/19 21:02 88 121/83 03/01/19 20:00 97.2 88 22 114/85 (95) 99 03/01/19 20:00 45 03/01/19 20:00 Mechanical Ventilator 03/01/19 20:00 90 03/01/19 19:30 90 25 45 03/01/19 17:17 89 20 45 03/01/19 16:00 97.3 101 30 149/95 (113) 98 03/01/19 16:00 Mechanical Ventilator 03/01/19 16:00 45 03/01/19 15:19 95 03/01/19 14:56 94 27 45 03/01/19 13:09 92 26 45 03/01/19 12:00 97.7 97 28 124/88 (100) 99 03/01/19 12:00 Mechanical Ventilator 03/01/19 12:00 45 03/01/19 11:25 92 Height (Feet): 6 Height (Inches): 0.00 Weight (Pounds): 261 Objective Gen: Awake and follwoing, Trached on Vent 45% HEENT: NCAT, MMM, EOMI, PERRL, No Oral lesion, no scleral icterus NECK: full range of motion, supple, no meningismus, No LAD, No JVD LUNGS: Course B/L Mild wheezing CARDS: RRR, S1, S2, No M/R/G, ABD: Soft, NT, ND, No R/G, + BS, No HSM, No Masses, PEG (No E/P) : Deferred Ext: C/C/E, Pulses 2+ B/L (DP, Rad): NEURO: A/O - not verbal , Strength and Sensation Grossly intact PSYCH: Mood/affect normal SKIN: Warm/dry, No rashes, small sacral ulcers Microbiology Date/Time Source Procedure Growth Status 02/28/19 17:49 Blood Blood Culture - Preliminary NO GROWTH AFTER 24 HOURS Resulted 02/28/19 17:49 Blood Blood Culture - Preliminary Resulted 02/28/19 05:10 Sputum Gram Stain - Final Resulted 02/28/19 05:10 Sputum Sputum Culture Pending Resulted 02/28/19 20:20 Rectum VRE Culture - Final NO VANCOMYCIN RESISTANT ENTEROCOCCUS ... Complete Laboratory Tests Test 03/01/19 11:30 03/01/19 14:40 03/01/19 17:45 03/01/19 18:10 Urine Eosinophils None seen (NONE SEEN) Urine Random Creatinine Pending Urine Random Microalbumin Pending Urine Random Sodium < 20 mmol/L (20-110) L Urine Creatinine 75.8 MG/DL (30.0-125.0) Urine Microalbumin/Creatinine Ratio Pending Urine Potassium Timed 79 mmol/L (12-62) H Stool Occult Blood Positive (NEGATIVE) Urine Color Yellow Urine Appearance Clear Urine pH 5 (4.5-8.0) Urine Specific [place] 1.020 (1.005-1.035) Urine Protein 2+ (NEGATIVE) H Urine Glucose (UA) Negative (NEGATIVE) Urine Ketones Negative (NEGATIVE) Urine Blood 4+ (NEGATIVE) H Urine Nitrite Negative (NEGATIVE) Urine Bilirubin Negative (NEGATIVE) Urine Urobilinogen 1 MG/DL (0.0-1.0) H Urine Leukocyte Esterase 1+ (NEGATIVE) H Urine RBC 2-4 /HPF (0 - 0) H Urine WBC 2-4 /HPF (0 - 0) Urine Squamous Epithelial Cells None /LPF (NONE/OCC) Urine Bacteria Few /HPF (NONE) Random Vancomycin Level 16.0 ug/mL Test 03/02/19 03:35 White Blood Count 13.4 K/UL (4.8-10.8) H Red Blood Count 3.90 M/UL (4.70-6.10) L Hemoglobin 9.0 G/DL (14.2-18.0) L Hematocrit 29.7 % (42.0-52.0) L Mean Corpuscular Volume 76 FL (80-99) L Mean Corpuscular Hemoglobin 23.2 PG (27.0-31.0) L Mean Corpuscular Hemoglobin Concent 30.4 G/DL (32.0-36.0) L Red Cell Distribution Width 25.7 % (11.6-14.8) H Platelet Count 333 K/UL (150-450) Mean Platelet Volume 8.9 FL (6.5-10.1) Neutrophils (%) (Auto) % (45.0-75.0) Lymphocytes (%) (Auto) % (20.0-45.0) Monocytes (%) (Auto) % (1.0-10.0) Eosinophils (%) (Auto) % (0.0-3.0) Basophils (%) (Auto) % (0.0-2.0) Sodium Level 143 MMOL/L (136-145) Potassium Level 4.2 MMOL/L (3.5-5.1) Chloride Level 104 MMOL/L (98-107) Carbon Dioxide Level 25 MMOL/L (21-32) Anion Gap 14 mmol/L (5-15) Blood Urea Nitrogen 85 mg/dL (7-18) H Creatinine 2.6 MG/DL (0.55-1.30) H Estimat Glomerular Filtration Rate 31.4 mL/min (>60) Glucose Level 130 MG/DL (74-106) H Uric Acid 11.7 MG/DL (2.6-7.2) H Calcium Level 9.0 MG/DL (8.5-10.1) Phosphorus Level 6.2 MG/DL (2.5-4.9) H Magnesium Level 2.4 MG/DL (1.8-2.4) Ferritin 226 NG/ML (8-388) Total Bilirubin 2.0 MG/DL (0.2-1.0) H Direct Bilirubin 1.4 MG/DL (0.0-0.3) H Gamma Glutamyl Transpeptidase 351 U/L (5-85) H Aspartate Amino Transf (AST/SGOT) 48 U/L (15-37) H Alanine Aminotransferase (ALT/SGPT) 80 U/L (12-78) H Alkaline Phosphatase 333 U/L (46-116) H Total Creatine Kinase 105 U/L (26-308) C-Reactive Protein, Quantitative 10.9 mg/dL (0.00-0.90) H Pro-B-Type Natriuretic Peptide 83094 pg/mL (0-125) H Total Protein 7.3 G/DL (6.4-8.2) Albumin 2.6 G/DL (3.4-5.0) L Globulin 4.7 g/dL Albumin/Globulin Ratio 0.6 (1.0-2.7) L Thyroid Stimulating Hormone (TSH) 0.925 uiU/mL (0.358-3.740) Current Medications Medications (Trade) Dose Ordered Sig/Rebecca Route PRN Reason Start Time Stop Time Status Last Admin Dose Admin Acetaminophen (Tylenol) 650 mg Q4H PRN GT Mild Pain/Temp > 100.5 03/01/19 20:00 03/31/19 19:59 Albuterol/ Ipratropium (Albuterol/ Ipratropium) 3 ml EVERY 4 HOURS PRN HHN Shortness of Breath 02/28/19 18:45 03/05/19 18:44 03/02/19 00:46 Allopurinol (Zyloprim) 200 mg DAILY GT 03/02/19 11:00 04/01/19 10:59 Aspirin (ASA) 325 mg DAILY GT 02/28/19 19:45 03/30/19 19:44 03/02/19 09:05 Carvedilol (Coreg) 6.25 mg EVERY 12 HOURS GT 03/01/19 21:00 03/31/19 20:59 03/02/19 09:05 Chlorhexidine Gluconate (Essie-Hex 2%) 1 applic DAILY@2000 TOPIC 03/01/19 20:00 03/31/19 19:59 03/01/19 20:16 Clonidine HCl (Catapres Tab) 0.1 mg EVERY 6 HOURS PRN GT FOR sbp >160 02/28/19 18:45 03/30/19 18:44 Dextrose (Dextrose 50%) STAT PRN IV Hypoglycemia 02/28/19 18:45 03/30/19 18:44 Dextrose/Sodium Chloride 1,000 ml @ 50 mls/hr Q20H IV 03/02/19 10:52 04/01/19 10:51 Dopamine HCl/ Dextrose 250 ml @ 13.319 mls/ hr Q24H IV 03/02/19 08:11 04/01/19 08:10 03/02/19 09:05 Heparin Sodium (Porcine) (Heparin 5000 units/ml) 5,000 units EVERY 12 HOURS SUBQ 02/28/19 21:00 03/30/19 20:59 03/02/19 09:08 Iron Sucrose 100 mg/Sodium Chloride 60 ml @ 240 mls/hr BEDTIME IV 03/02/19 21:00 03/06/19 21:14 Isosorbide Dinitrate (Isordil) 10 mg Q6HR GT 03/02/19 12:00 04/01/19 11:59 Lorazepam (Ativan 2mg/ml 1ml) 2 mg EVERY 2 HOURS PRN IV For Anxiety 02/28/19 18:45 03/07/19 18:44 Metoclopramide HCl (Reglan) 5 mg EVERY 6 HOURS GT 03/02/19 12:00 04/01/19 11:59 Morphine Sulfate (Morphine Sulfate) 4 mg EVERY 4 HOURS PRN IVP Severe Pain (Pain Scale 7-10) 02/28/19 18:45 03/07/19 18:44 Ondansetron HCl (Zofran) 4 mg Q6H PRN IVP Nausea & Vomiting 02/28/19 18:45 03/30/19 18:44 Pantoprazole (Protonix) 40 mg DAILY IV 03/01/19 09:00 03/31/19 08:59 03/02/19 09:06 Piperacillin Sod/ Tazobactam Sod 3.375 gm/Sodium Chloride 110 ml @ 27.5 mls/hr Q12HR@0100,1300 IVPB 03/01/19 13:00 03/08/19 12:59 03/02/19 00:32 Polyethylene Glycol (Miralax) 17 gm DAILYPRN PRN GT Constipation 03/01/19 20:00 03/30/19 18:44 Prednisone (predniSONE) 20 mg DAILY GT 03/03/19 09:00 04/02/19 08:59 Vancomycin HCl (Vanco rx to dose) 1 ea DAILY PRN MISC PER RX PROTOCOL 03/01/19 09:45 03/31/19 09:44 Kathie Lacey M.D. Mar 02, 2019 11:46
[2019-03-02 12:00] VITALS: BP 130/100
[2019-03-02] MEDS: D5 1/2NS 1,000 ML IV SCH (12:17)
[2019-03-02] MEDS: Metoclopramide 10mg/10ml Liq GT SCH ×3 (12:22→23:40)
[2019-03-02] MEDS: Allopurinol 100mg Tab GT SCH (12:23)
--- NOTE | 2019-03-02 14:57 | Diagnostic Imaging Report ---
Indication: Abnormal liver function tests. Abnormal renal function tests. Elevated white blood cell count Technique: [place]-scale and duplex images of the upper abdomen were obtained Comparison: No comparison abdominal sonograms. Reference made to renal sonogram Findings: Gallbladder demonstrates no evidence of gallstones. There is trace pericholecystic fluid and equivocal mural edema. Sonographic Alvarez's sign is negative. Common bile duct measures 4 mm in diameter. No intrahepatic biliary ductal dilatation. Liver is enlarged. It demonstrates normal echogenicity. There is a equivocal slight surface nodularity. Portal vein and hepatic veins are patent, but demonstrate to and fro flow. 2 small echogenic foci are seen in the left hepatic lobe, measuring 6 and 7 mm in diameter. Pancreas is unremarkable. The spleen is borderline enlarged, measuring 13.6 cm long axis dimension. Left kidney measures 12.3 cm in length. Right kidney measures 12.8 cm length. Both kidneys demonstrate normal echogenicity. There is no hydronephrosis. There are bilateral renal cysts demonstrated, also described previously . Abdominal aorta is partially obscured by bowel gas, visualized portions are non-aneurysmal . There is a small amount of ascites fluid demonstrated. There is also a right pleural effusion Impression: Small amount of ascites fluid Hepatomegaly. Equivocal mild surface nodularity, could indicate early cirrhotic changes. Correlate with clinical findings Apparent to and fro flow within the portal veins, raising concern for portal hypertension Borderline splenomegaly Negative for gallstones. Apparent pericholecystic fluid is likely a manifestation of the ascites. Apparent gallbladder wall edema is most likely related to the hepatocellular disease, although the possibility of acute acalculous cholecystitis should also be considered. Consider nuclear medicine hepatobiliary imaging for further evaluation if there is high clinical suspicion Echogenic foci within the left hepatic lobe. These could represent small hemangiomas or just prominent periportal fat Right pleural effusion Bilateral renal cysts incidentally noted
[2019-03-02 16:00] VITALS: BP 137/75
[2019-03-02] MEDS ORDERED: Nulytely 4L ORAL SCH (16:00)
--- NOTE | 2019-03-02 16:40 | Internal Med Progress Note ---
Subjective Date of Service: Mar 02, 2019 Physician Name Alex Cifuentes Attending Physician Sherman Vee MD Current Medications Medications (Trade) Dose Ordered Sig/Rebecca Route PRN Reason Start Time Stop Time Status Last Admin Dose Admin Acetaminophen (Tylenol) 650 mg Q4H PRN GT Mild Pain/Temp > 100.5 03/01/19 20:00 03/31/19 19:59 Albuterol/ Ipratropium (Albuterol/ Ipratropium) 3 ml EVERY 4 HOURS PRN HHN Shortness of Breath 02/28/19 18:45 03/05/19 18:44 03/02/19 00:46 Allopurinol (Zyloprim) 200 mg DAILY GT 03/02/19 11:00 04/01/19 10:59 03/02/19 12:23 Aspirin (ASA) 325 mg DAILY GT 02/28/19 19:45 03/30/19 19:44 03/02/19 09:05 Carvedilol (Coreg) 6.25 mg EVERY 12 HOURS GT 03/01/19 21:00 03/31/19 20:59 03/02/19 09:05 Chlorhexidine Gluconate (Essie-Hex 2%) 1 applic DAILY@2000 TOPIC 03/01/19 20:00 03/31/19 19:59 03/01/19 20:16 Clonidine HCl (Catapres Tab) 0.1 mg EVERY 6 HOURS PRN GT FOR sbp >160 02/28/19 18:45 03/30/19 18:44 Dextrose (Dextrose 50%) STAT PRN IV Hypoglycemia 02/28/19 18:45 03/30/19 18:44 Dextrose/Sodium Chloride 1,000 ml @ 50 mls/hr Q20H IV 03/02/19 10:52 04/01/19 10:51 03/02/19 12:17 Dopamine HCl/ Dextrose 250 ml @ 13.319 mls/ hr Q24H IV 03/02/19 08:11 04/01/19 08:10 03/02/19 09:05 Heparin Sodium (Porcine) (Heparin 5000 units/ml) 5,000 units EVERY 12 HOURS SUBQ 02/28/19 21:00 03/30/19 20:59 03/02/19 09:08 Iron Sucrose 100 mg/Sodium Chloride 60 ml @ 240 mls/hr BEDTIME IV 03/02/19 21:00 03/06/19 21:14 Isosorbide Dinitrate (Isordil) 10 mg Q6HR GT 03/02/19 12:00 04/01/19 11:59 03/02/19 12:23 Lorazepam (Ativan 2mg/ml 1ml) 2 mg EVERY 2 HOURS PRN IV For Anxiety 02/28/19 18:45 03/07/19 18:44 Metoclopramide HCl (Reglan) 5 mg EVERY 6 HOURS GT 03/02/19 12:00 04/01/19 11:59 03/02/19 12:22 Morphine Sulfate (Morphine Sulfate) 4 mg EVERY 4 HOURS PRN IVP Severe Pain (Pain Scale 7-10) 02/28/19 18:45 03/07/19 18:44 Ondansetron HCl (Zofran) 4 mg Q6H PRN IVP Nausea & Vomiting 02/28/19 18:45 03/30/19 18:44 Pantoprazole (Protonix) 40 mg DAILY IV 03/01/19 09:00 03/31/19 08:59 03/02/19 09:06 Piperacillin Sod/ Tazobactam Sod 3.375 gm/Sodium Chloride 110 ml @ 27.5 mls/hr Q12HR@0100,1300 IVPB 03/01/19 13:00 03/08/19 12:59 03/02/19 14:04 Polyethylene Glycol (Miralax) 17 gm DAILYPRN PRN GT Constipation 03/01/19 20:00 03/30/19 18:44 Polyethylene Glycol/ Electrolytes (Nulytely) 4,000 ml ONCE ORAL 03/02/19 16:00 03/02/19 23:59 03/02/19 16:11 Prednisone (predniSONE) 20 mg DAILY GT 03/03/19 09:00 04/02/19 08:59 Sodium Phosphate (Fleet's Sodium Phosl Enema) 133 ml ONCE ONCE RECTAL 03/02/19 23:00 03/02/19 23:01 Vancomycin HCl (Vanco rx to dose) 1 ea DAILY PRN MISC PER RX PROTOCOL 03/01/19 09:45 03/31/19 09:44 Allergies: Coded Allergies: No Known Allergies (Unverified , 03/28/17) ROS Limited/Unobtainable: Yes Subjective 53YO M with history of vent dep respiratory failure admitted with respiratory distress. Cover for Int Med-Dr Vee. [facility] Objective Last Vital Signs Date Time Temp Pulse Resp B/P (MAP) Pulse Ox O2 Delivery O2 Flow Rate FiO2 03/02/19 15:24 94 18 45 03/02/19 12:23 130/100 03/02/19 12:00 Mechanical Ventilator 03/02/19 12:00 97.3 99 03/01/19 04:00 55.0 Laboratory Tests Test 03/01/19 17:45 03/01/19 18:10 03/02/19 03:35 Urine Color Yellow Urine Appearance Clear Urine pH 5 (4.5-8.0) Urine Specific [place] 1.020 (1.005-1.035) Urine Protein 2+ (NEGATIVE) H Urine Glucose (UA) Negative (NEGATIVE) Urine Ketones Negative (NEGATIVE) Urine Blood 4+ (NEGATIVE) H Urine Nitrite Negative (NEGATIVE) Urine Bilirubin Negative (NEGATIVE) Urine Urobilinogen 1 MG/DL (0.0-1.0) H Urine Leukocyte Esterase 1+ (NEGATIVE) H Urine RBC 2-4 /HPF (0 - 0) H Urine WBC 2-4 /HPF (0 - 0) Urine Squamous Epithelial Cells None /LPF (NONE/OCC) Urine Bacteria Few /HPF (NONE) Random Vancomycin Level 16.0 ug/mL White Blood Count 13.4 K/UL (4.8-10.8) H Red Blood Count 3.90 M/UL (4.70-6.10) L Hemoglobin 9.0 G/DL (14.2-18.0) L Hematocrit 29.7 % (42.0-52.0) L Mean Corpuscular Volume 76 FL (80-99) L Mean Corpuscular Hemoglobin 23.2 PG (27.0-31.0) L Mean Corpuscular Hemoglobin Concent 30.4 G/DL (32.0-36.0) L Red Cell Distribution Width 25.7 % (11.6-14.8) H Platelet Count 333 K/UL (150-450) Mean Platelet Volume 8.9 FL (6.5-10.1) Neutrophils (%) (Auto) % (45.0-75.0) Lymphocytes (%) (Auto) % (20.0-45.0) Monocytes (%) (Auto) % (1.0-10.0) Eosinophils (%) (Auto) % (0.0-3.0) Basophils (%) (Auto) % (0.0-2.0) Sodium Level 143 MMOL/L (136-145) Potassium Level 4.2 MMOL/L (3.5-5.1) Chloride Level 104 MMOL/L (98-107) Carbon Dioxide Level 25 MMOL/L (21-32) Anion Gap 14 mmol/L (5-15) Blood Urea Nitrogen 85 mg/dL (7-18) H Creatinine 2.6 MG/DL (0.55-1.30) H Estimat Glomerular Filtration Rate 31.4 mL/min (>60) Glucose Level 130 MG/DL (74-106) H Uric Acid 11.7 MG/DL (2.6-7.2) H Calcium Level 9.0 MG/DL (8.5-10.1) Phosphorus Level 6.2 MG/DL (2.5-4.9) H Magnesium Level 2.4 MG/DL (1.8-2.4) Ferritin 226 NG/ML (8-388) Total Bilirubin 2.0 MG/DL (0.2-1.0) H Direct Bilirubin 1.4 MG/DL (0.0-0.3) H Gamma Glutamyl Transpeptidase 351 U/L (5-85) H Aspartate Amino Transf (AST/SGOT) 48 U/L (15-37) H Alanine Aminotransferase (ALT/SGPT) 80 U/L (12-78) H Alkaline Phosphatase 333 U/L (46-116) H Total Creatine Kinase 105 U/L (26-308) C-Reactive Protein, Quantitative 10.9 mg/dL (0.00-0.90) H Pro-B-Type Natriuretic Peptide 69005 pg/mL (0-125) H Total Protein 7.3 G/DL (6.4-8.2) Albumin 2.6 G/DL (3.4-5.0) L Globulin 4.7 g/dL Albumin/Globulin Ratio 0.6 (1.0-2.7) L Thyroid Stimulating Hormone (TSH) 0.925 uiU/mL (0.358-3.740) Microbiology Date/Time Source Procedure Growth Status 02/28/19 17:49 Blood Blood Culture - Preliminary NO GROWTH AFTER 24 HOURS Resulted 02/28/19 17:49 Blood Blood Culture - Preliminary Resulted 02/28/19 05:10 Sputum Gram Stain - Final Resulted 02/28/19 05:10 Sputum Sputum Culture Pending Resulted 02/28/19 20:20 Rectum VRE Culture - Final NO VANCOMYCIN RESISTANT ENTEROCOCCUS ... Complete Intake and Output 03/01/19 03/02/19 18:59 06:59 Intake Total 2395.0 ml 1251.000 ml Output Total 850 ml 550 ml Balance 1545.0 ml 701.000 ml IV Total 2395.0 ml 1251.000 ml Output Urine Total 850 ml 550 ml # Bowel Movements 2 Objective PHYSICAL EXAMINATION:. GENERAL: The patient is awake and responsive to the painful stimuli. Spontaneously opens his eyes. Cannot follow commands. HEAD AND NECK: Pupils are equal and reactive to light. Anicteric. Neck was supple. Tracheostomy site is intact. LUNGS: Good air entry. Decreased in the bases. Ventilation breath sounds. HEART: Reveals S1, S2. Regular rhythm. Distant heart sounds. No murmurs or gallops. ABDOMEN: Soft, nondistended, and nontender. PEG site is clean. EXTREMITIES: No cyanosis or clubbing. A +1 edema in bilateral lower extremities. The patient has a PICC line in the right upper extremity noted. NEUROLOGIC: Very limited secondary to the patient's status. At this time, the patient is unable to follow commands, however, moving extremities slowly. BACK: Has a small sacral ulcer. Assessment/Plan Assessment/Plan ASSESSMENT: 1. Acute respiratory failure on chronic bilateral pneumonia. 2. Severe cardiomyopathy with systolic dysfunction. 3. Hyperkalemia. 4. Chronic ventilator dependent status post tracheostomy. 5. History of sudden cardiac arrest. 6. Asthma. 7. Anoxic brain injury. 8. Dysphagia status post PEG. PLAN: Admit the patient to [facility]. Dr. Gerber from Pulmonary Critical Care, Dr. Luis Robins from ID Dr. Nico Alonso from Nephrology. We will monitor potassium level closely on Kayexalate. Chronic wound care therapy. We will follow up with the wound care protocol. Monitor laboratory. Broad-spectrum antibiotics with Zosyn and vancomycin. Code status at this time is Full Code. Alex Cifuentes MD Mar 02, 2019 16:40
[2019-03-02 20:00] VITALS: BP 128/87
[2019-03-02] MEDS: Dyna-Hex 2% Top Sol 2oz TOPIC SCH (20:35)
[2019-03-02] MEDS: Iron Sucrose 100 MG in NS 55 ML IV SCH (20:37)
[2019-03-02] MEDS ORDERED: Fleet's Enema 133ml RECTAL ONE (23:00)
--- NOTE | 2019-03-02 23:50 | Cardiology Progress Note ---
Assessment/Plan Assessment/Plan 1. Acute systolic and diastolic congestive heart failure with elevated intracardiac filling pressures. LVEF approximately 10% with presence of LV dyssynchrony, continue guideline directed medical therapy. 2. Moderate to severe pulmonary hypertension, likely due to left heart failure. 3. Ventilator-driven respiratory failure, status post tracheostomy tube placement. 4. History of dysphagia, status post PEG placement. 5. History of hypercholesterolemia. 6. History of hyperkalemia due to acute kidney injury on CKD. 7. History of asthma/COPD. Subjective Subjective Sinus rhythm at rate of 90. Objective Last 24 Hour Vital Signs Date Time Temp Pulse Resp B/P (MAP) Pulse Ox O2 Delivery O2 Flow Rate FiO2 03/02/19 23:41 128/89 03/02/19 21:02 90 20 45 03/02/19 20:36 96 128/89 03/02/19 20:00 97.6 96 16 128/87 (101) 100 03/02/19 20:00 45 03/02/19 20:00 128/87 03/02/19 20:00 91 03/02/19 20:00 Mechanical Ventilator 03/02/19 19:30 94 19 45 03/02/19 18:27 137/75 03/02/19 17:28 88 16 45 03/02/19 16:00 45 03/02/19 16:00 Mechanical Ventilator 03/02/19 16:00 96.8 95 16 137/75 (95) 100 03/02/19 15:24 94 18 45 03/02/19 15:14 97 03/02/19 12:51 85 16 45 03/02/19 12:23 130/100 03/02/19 12:00 Mechanical Ventilator 03/02/19 12:00 45 03/02/19 12:00 97.3 97 20 130/100 (110) 99 03/02/19 11:36 93 03/02/19 10:40 85 24 45 03/02/19 09:05 121/77 03/02/19 09:05 84 121/77 03/02/19 08:45 81 22 45 03/02/19 08:00 97.3 84 20 121/77 (92) 99 03/02/19 08:00 45 03/02/19 08:00 Mechanical Ventilator 03/02/19 07:37 80 4/16/19 07:05 84 23 45 03/02/19 05:15 85 18 45 03/02/19 04:00 45 03/02/19 04:00 Mechanical Ventilator 03/02/19 04:00 97.8 84 22 132/76 (94) 99 03/02/19 04:00 83 03/02/19 03:30 82 25 45 03/02/19 00:54 91 20 45 03/02/19 00:53 93 23 100 Mechanical Ventilator 45 03/02/19 00:36 89 22 100 Mechanical Ventilator 45 03/02/19 00:00 90 03/02/19 00:00 45 03/02/19 00:00 98.5 93 22 101/54 (70) 99 03/02/19 00:00 Mechanical Ventilator Intake and Output 03/01/19 03/02/19 19:00 07:00 Intake Total 2395.0 ml 1251.000 ml Output Total 850 ml 550 ml Balance 1545.0 ml 701.000 ml IV Total 2395.0 ml 1251.000 ml Output Urine Total 850 ml 550 ml # Bowel Movements 2 2D Echo: EF 10%, Global LVHK, RVSP 57 mmHg, Mod AR, Mild MR, Grade II LVDD Laboratory Tests Test 03/02/19 03:35 03/02/19 18:50 White Blood Count 13.4 K/UL (4.8-10.8) H Red Blood Count 3.90 M/UL (4.70-6.10) L Hemoglobin 9.0 G/DL (14.2-18.0) L Hematocrit 29.7 % (42.0-52.0) L Mean Corpuscular Volume 76 FL (80-99) L Mean Corpuscular Hemoglobin 23.2 PG (27.0-31.0) L Mean Corpuscular Hemoglobin Concent 30.4 G/DL (32.0-36.0) L Red Cell Distribution Width 25.7 % (11.6-14.8) H Platelet Count 333 K/UL (150-450) Mean Platelet Volume 8.9 FL (6.5-10.1) Neutrophils (%) (Auto) % (45.0-75.0) Lymphocytes (%) (Auto) % (20.0-45.0) Monocytes (%) (Auto) % (1.0-10.0) Eosinophils (%) (Auto) % (0.0-3.0) Basophils (%) (Auto) % (0.0-2.0) Sodium Level 143 MMOL/L (136-145) Potassium Level 4.2 MMOL/L (3.5-5.1) Chloride Level 104 MMOL/L (98-107) Carbon Dioxide Level 25 MMOL/L (21-32) Anion Gap 14 mmol/L (5-15) Blood Urea Nitrogen 85 mg/dL (7-18) H Creatinine 2.6 MG/DL (0.55-1.30) H Estimat Glomerular Filtration Rate 31.4 mL/min (>60) Glucose Level 130 MG/DL (74-106) H Uric Acid 11.7 MG/DL (2.6-7.2) H Calcium Level 9.0 MG/DL (8.5-10.1) Phosphorus Level 6.2 MG/DL (2.5-4.9) H Magnesium Level 2.4 MG/DL (1.8-2.4) Ferritin 226 NG/ML (8-388) Total Bilirubin 2.0 MG/DL (0.2-1.0) H Direct Bilirubin 1.4 MG/DL (0.0-0.3) H Gamma Glutamyl Transpeptidase 351 U/L (5-85) H Aspartate Amino Transf (AST/SGOT) 48 U/L (15-37) H Alanine Aminotransferase (ALT/SGPT) 80 U/L (12-78) H Alkaline Phosphatase 333 U/L (46-116) H Total Creatine Kinase 105 U/L (26-308) C-Reactive Protein, Quantitative 10.9 mg/dL (0.00-0.90) H Pro-B-Type Natriuretic Peptide 35677 pg/mL (0-125) H Total Protein 7.3 G/DL (6.4-8.2) Albumin 2.6 G/DL (3.4-5.0) L Globulin 4.7 g/dL Albumin/Globulin Ratio 0.6 (1.0-2.7) L Thyroid Stimulating Hormone (TSH) 0.925 uiU/mL (0.358-3.740) Urine Legionella Antigen Pending Microbiology Date/Time Source Procedure Growth Status 02/28/19 17:49 Blood Blood Culture - Preliminary NO GROWTH AFTER 24 HOURS Resulted 02/28/19 17:49 Blood Blood Culture - Preliminary Resulted 03/02/19 18:50 Nasopharynx - Final Complete 03/02/19 18:50 Nasopharynx - Final Complete 02/28/19 05:10 Sputum Gram Stain - Final Resulted 02/28/19 05:10 Sputum Sputum Culture Pending Resulted 02/28/19 20:20 Rectum VRE Culture - Final NO VANCOMYCIN RESISTANT ENTEROCOCCUS ... Complete Objective HEENT: Atraumatic and normocephalic. Anicteric. Bitemporal wasting. Pupils are equal, round, and reactive to light and accommodation. Conjunctival pallor bilaterally. NECK: Presence of a tracheostomy, cannot assess JVP due to positive inspiratory pressure on ventilator. No carotid bruit. CARDIOVASCULAR: Normal S1, S2. Regular rate and rhythm. Tachycardic. No murmurs, gallops, or rubs. PMI is at fourth intercostal at the midclavicular line. LUNGS: Diminished breath sounds in both lungs. ABDOMEN: Soft, nontender, and nondistended. No hepatosplenomegaly. Positive G-tube. EXTREMITIES: No evidence of edema, clubbing, or cyanosis. Karlos Marinelli MD Mar 02, 2019 23:50
[2019-03-03] VITALS: BP 126/78
[2019-03-03] MEDS: Piperacillin/Tazobactam 3.375 GM in NS 110 ML IVPB SCH ×2 (00:18→13:41)
[2019-03-03] MEDS: DOPamine 400mg/250ml 250 ML IV SCH ×2 (03:10→22:44)
[2019-03-03 04:00] VITALS: BP 118/72
[2019-03-03 04:49] LABS: HEMATOCRIT 30.9 % (42.0-52.0); HEMOGLOBIN 9.3 G/DL (14.2-18.0); MEAN CORPUSCULAR VOLUME 76 FL (80-99); PLATELET COUNT 329 K/UL (150-450); RED BLOOD COUNT 4.05 M/UL (4.70-6.10); WHITE BLOOD COUNT 12.2 K/UL (4.8-10.8)
[2019-03-03 05:11] LABS: INR 1.3 (0.9-1.1)
[2019-03-03 05:18] LABS: CREATINE KINASE 58 U/L (26-308); GAMMA GLUTAMYL TRANSPEPTIDASE 427 U/L (5-85); PHOSPHORUS 5.6 MG/DL (2.5-4.9)
[2019-03-03 05:24] LABS: ALANINE AMINOTRANSFERASE 102 U/L (12-78); ALBUMIN 2.5 G/DL (3.4-5.0); ALKALINE PHOSPHATASE 372 U/L (46-116); ASPARTATE AMINO TRANSFERASE 83 U/L (15-37); BILIRUBIN,DIRECT 1.5 MG/DL (0.0-0.3)
[2019-03-03 05:26] LABS: ALANINE AMINOTRANSFERASE 102 U/L (12-78); ALBUMIN 2.5 G/DL (3.4-5.0); ALBUMIN/GLOBULIN RATIO 0.5 (1.0-2.7); ALKALINE PHOSPHATASE 373 U/L (46-116); ANION GAP 10 mmol/L (5-15); ASPARTATE AMINO TRANSFERASE 83 U/L (15-37); BLOOD UREA NITROGEN 79 mg/dL (7-18); CALCIUM 8.7 MG/DL (8.5-10.1); CARBON DIOXIDE 28 MMOL/L (21-32); CHLORIDE 105 MMOL/L (98-107); CREATININE 2.1 MG/DL (0.55-1.30); SODIUM 143 MMOL/L (136-145)
[2019-03-03] MEDS: Metoclopramide 10mg/10ml Liq GT SCH ×3 (06:05→17:36)
[2019-03-03] MEDS: D5 1/2NS 1,000 ML IV SCH ×2 (06:06→11:35)
[2019-03-03 08:00] VITALS: BP 121/80
[2019-03-03] MEDS ORDERED: Vancomycin 1gm/D5W 275ml IVPB ONE ×2 (08:00)
[2019-03-03] MEDS: Allopurinol 100mg Tab GT SCH (08:34)
[2019-03-03] MEDS: Pantoprazole Inj IV SCH (08:34)
[2019-03-03] MEDS: Heparin 5000 units/ml inj SUBQ SCH ×2 (08:35→21:17)
[2019-03-03] MEDS: Carvedilol 6.25mg Tab GT SCH (08:35)
[2019-03-03] MEDS ORDERED: Fleet's Enema 133ml RECTAL SCH (10:00)
--- NOTE | 2019-03-03 10:24 | Pulmonolgy Critical Care Note ---
Critical Care - Asmt/Plan Problems: (1) Acute on chronic respiratory failure (2) ATN (acute tubular necrosis) (3) Hyperkalemia (4) EF less than 10% (5) Status post tracheostomy (6) Feeding by G-tube (7) History of sudden cardiac arrest (8) History of asthma Respiratory: monitor respiratory rate, adjust FIO2, CXR Cardiac: continue pressors, continue to monitor HR/BP Renal: F/U I&O, keep IV fluid Infectious Disease: check cultures Gastrointestinal: continue feedings/current rate Endocrine: monitor blood sugar, continue sliding scale insulin Hematologic: monitor H/H, transfuse if hgb<8.5 Neurologic: PRN Ativan, keep patient comfortable Affect: PRN ativan Time Spent (Minutes): 40 Notes 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, 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, 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 Discussed with: 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, 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, 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 - Objective Last 24 Hour Vital Signs Date Time Temp Pulse Resp B/P (MAP) Pulse Ox O2 Delivery O2 Flow Rate FiO2 03/03/19 08:39 92 22 45 03/03/19 08:35 87 121/80 03/03/19 08:00 45 03/03/19 08:00 Mechanical Ventilator 03/03/19 08:00 96.4 85 17 121/80 (94) 100 03/03/19 08:00 87 03/03/19 07:17 84 19 45 03/03/19 06:05 118/72 03/03/19 05:01 93 19 45 03/03/19 04:00 93 03/03/19 04:00 Mechanical Ventilator 03/03/19 04:00 118/72 03/03/19 04:00 45 03/03/19 04:00 98.0 93 18 118/72 (87) 96 03/03/19 03:10 117/82 03/03/19 03:01 85 20 45 03/03/19 01:18 90 21 45 03/03/19 00:00 126/78 03/03/19 00:00 Mechanical Ventilator 03/03/19 00:00 97.7 100 16 126/78 (94) 100 03/03/19 00:00 45 03/03/19 00:00 81 03/02/19 23:41 128/89 03/02/19 23:30 86 19 45 03/02/19 21:02 90 20 45 03/02/19 20:36 96 128/89 03/02/19 20:00 97.6 96 16 128/87 (101) 100 03/02/19 20:00 45 03/02/19 20:00 128/87 03/02/19 20:00 91 03/02/19 20:00 Mechanical Ventilator 03/02/19 19:30 94 19 45 03/02/19 18:27 137/75 03/02/19 17:28 88 16 45 03/02/19 16:00 45 03/02/19 16:00 Mechanical Ventilator 03/02/19 16:00 96.8 95 16 137/75 (95) 100 03/02/19 15:24 94 18 45 03/02/19 15:14 97 03/02/19 12:51 85 16 45 03/02/19 12:23 130/100 03/02/19 12:00 Mechanical Ventilator 03/02/19 12:00 45 03/02/19 12:00 97.3 97 20 130/100 (110) 99 03/02/19 11:36 93 03/02/19 10:40 85 24 45 Status: awake Condition: critical HEENT: atraumatic Neck: full ROM Heart: HR/BP stable Abdomen: non-tender, active bowel sounds Extremities: no C/C/E Decubiti: location Micro: Microbiology Date/Time Source Procedure Growth Status 02/28/19 17:49 Blood Blood Culture - Preliminary NO GROWTH AFTER 48 HOURS Resulted 02/28/19 17:49 Blood Blood Culture - Preliminary Staphylococcus Species Resulted 03/02/19 18:50 Nasopharynx - Final Complete 03/02/19 18:50 Nasopharynx - Final Complete 02/28/19 20:20 Nasal Nares MRSA Culture - Final NO METHICILLIN RESISTANT STAPH AUREUS... Complete 03/01/19 20:12 Rectum - Final NO CARBAPENEM-RESISTANT ENTEROBACTERI... Complete 02/28/19 20:20 Rectum VRE Culture - Final NO VANCOMYCIN RESISTANT ENTEROCOCCUS ... Complete Accucheck: 72 Critical Care - Subjective ROS Limited/Unobtainable: Yes Condition: critical EKG Rhythm: Sinus Rhythm FI02: 45 Vent Support Breath Rate: 16 Vent Support Mode: AC Vent Tidal Volume: 600 Sputum Amount: Small PEEP: 5.0 PIP: 37 I&O: Intake and Output 4/16/19 4/17/19 19:00 07:00 Intake Total 565.5 ml 853.057 ml Output Total 550 ml 800 ml Balance 15.5 ml 53.057 ml IV Total 565.5 ml 853.057 ml Output Urine Total 550 ml 800 ml # Bowel Movements 8 Labs: Laboratory Tests Test 03/02/19 18:50 03/03/19 04:25 Urine Legionella Antigen Pending White Blood Count 12.2 K/UL (4.8-10.8) H Red Blood Count 4.05 M/UL (4.70-6.10) L Hemoglobin 9.3 G/DL (14.2-18.0) L Hematocrit 30.9 % (42.0-52.0) L Mean Corpuscular Volume 76 FL (80-99) L Mean Corpuscular Hemoglobin 22.9 PG (27.0-31.0) L Mean Corpuscular Hemoglobin Concent 30.0 G/DL (32.0-36.0) L Red Cell Distribution Width 25.0 % (11.6-14.8) H Platelet Count 329 K/UL (150-450) Mean Platelet Volume 7.8 FL (6.5-10.1) Neutrophils (%) (Auto) % (45.0-75.0) Lymphocytes (%) (Auto) % (20.0-45.0) Monocytes (%) (Auto) % (1.0-10.0) Eosinophils (%) (Auto) % (0.0-3.0) Basophils (%) (Auto) % (0.0-2.0) Prothrombin Time 13.7 SEC (9.30-11.50) H Prothromb Time International Ratio 1.3 (0.9-1.1) H Activated Partial Thromboplast Time 28 SEC (23-33) Sodium Level 143 MMOL/L (136-145) Potassium Level 3.0 MMOL/L (3.5-5.1) L Chloride Level 105 MMOL/L (98-107) Carbon Dioxide Level 28 MMOL/L (21-32) Anion Gap 10 mmol/L (5-15) Blood Urea Nitrogen 79 mg/dL (7-18) H Creatinine 2.1 MG/DL (0.55-1.30) H Estimat Glomerular Filtration Rate 40.1 mL/min (>60) Glucose Level 115 MG/DL (74-106) H Uric Acid 10.8 MG/DL (2.6-7.2) H Calcium Level 8.7 MG/DL (8.5-10.1) Phosphorus Level 5.6 MG/DL (2.5-4.9) H Magnesium Level 2.4 MG/DL (1.8-2.4) Total Bilirubin 2.0 MG/DL (0.2-1.0) H Direct Bilirubin 1.5 MG/DL (0.0-0.3) H Gamma Glutamyl Transpeptidase 427 U/L (5-85) H Aspartate Amino Transf (AST/SGOT) 83 U/L (15-37) H Alanine Aminotransferase (ALT/SGPT) 102 U/L (12-78) H Alkaline Phosphatase 372 U/L (46-116) H Total Creatine Kinase 58 U/L (26-308) Troponin I 0.089 ng/mL (0.000-0.056) C-Reactive Protein, Quantitative 9.1 mg/dL (0.00-0.90) H Pro-B-Type Natriuretic Peptide 39553 pg/mL (0-125) H Total Protein 7.4 G/DL (6.4-8.2) Albumin 2.5 G/DL (3.4-5.0) L Globulin 4.8 g/dL Albumin/Globulin Ratio 0.5 (1.0-2.7) L Random Vancomycin Level 14.8 ug/mL Hepatitis A IgM Antibody Pending Hepatitis B Surface Antigen Pending Hepatitis B Core IgM Antibody Pending Hepatitis C Antibody Pending HIV (1&2) Antibody Rapid Negative (NEGATIVE) Ivan Gerber MD Mar 03, 2019 10:24
--- NOTE | 2019-03-03 10:48 | Infectious Diseases Prog Note ---
Assessment/Plan Assessment/Plan Assessment/Plan 53 yo male with PMHx of Asthma, HTN and CHF who was sent to the ED form a custodial for respuratory distress and feeling cold. Respiratory distress Likely PNA vs Asthma WBCs 13 on admit;improving No fevers Sputum Cx - pend CXR - B/L consolidations Gram positive bacteremia- ?real vs contaminant -Bcx 11/20 Staph sp; 03/02 Bcx p UA (-) Elevated ALT/AST>Tbili; improving- ?early cirrhosis- r/o viral hepatitis -Abd US: Small amount of ascites fluid. Hepatomegaly. Equivocal mild surface nodularity, could indicate early cirrhotic changes. Correlate with clinical findings. Apparent to and fro flow within the portal veins, raising concern for portal hypertension. Borderline splenomegaly. Negative for gallstones. Apparent pericholecystic fluid is likely a manifestation of the ascites. Apparent gallbladder wall edema is most likely related to the hepatocellular disease, although the possibility of acute acalculous cholecystitis should also be considered. Consider nuclear medicine hepatobiliary imaging for further evaluation if there is high clinical suspicion. Echogenic foci within the left hepatic lobe. These could represent small hemangiomas or just prominent periportal fat -HIV ab sc neg Small sacral ulcers Do not appear to be infected Asthma HTN CHF PLAN - Continue Vancomycin #3 and Zosyn #3 given recent hospitalization and trach pending sp cx and Bx -f/u Repeat Bcx x2 - f/u Cx - Resp therapy - Wound care - Monitor CBC and temps - f/u influenza sc, legionella ag urine -f/u Hep panel Thank you for this consult. We will continue to follow the patient during this hospitalization. Subjective Allergies: Coded Allergies: No Known Allergies (Unverified , 03/28/17) Subjective afebrile leukocytosis improving bacteremic; repeat Bcx p Objective Vital Signs Last 24 Hour Vital Signs Date Time Temp Pulse Resp B/P (MAP) Pulse Ox O2 Delivery O2 Flow Rate FiO2 03/03/19 08:39 92 22 45 03/03/19 08:35 87 121/80 03/03/19 08:00 45 03/03/19 08:00 Mechanical Ventilator 03/03/19 08:00 96.4 85 17 121/80 (94) 100 03/03/19 08:00 87 03/03/19 07:17 84 19 45 03/03/19 06:05 118/72 03/03/19 05:01 93 19 45 03/03/19 04:00 93 03/03/19 04:00 Mechanical Ventilator 03/03/19 04:00 118/72 03/03/19 04:00 45 03/03/19 04:00 98.0 93 18 118/72 (87) 96 03/03/19 03:10 117/82 03/03/19 03:01 85 20 45 03/03/19 01:18 90 21 45 03/03/19 00:00 126/78 03/03/19 00:00 Mechanical Ventilator 03/03/19 00:00 97.7 100 16 126/78 (94) 100 03/03/19 00:00 45 03/03/19 00:00 81 03/02/19 23:41 128/89 03/02/19 23:30 86 19 45 03/02/19 21:02 90 20 45 03/02/19 20:36 96 128/89 03/02/19 20:00 97.6 96 16 128/87 (101) 100 03/02/19 20:00 45 03/02/19 20:00 128/87 03/02/19 20:00 91 03/02/19 20:00 Mechanical Ventilator 03/02/19 19:30 94 19 45 03/02/19 18:27 137/75 03/02/19 17:28 88 16 45 03/02/19 16:00 45 03/02/19 16:00 Mechanical Ventilator 03/02/19 16:00 96.8 95 16 137/75 (95) 100 03/02/19 15:24 94 18 45 03/02/19 15:14 97 03/02/19 12:51 85 16 45 03/02/19 12:23 130/100 03/02/19 12:00 Mechanical Ventilator 03/02/19 12:00 45 03/02/19 12:00 97.3 97 20 130/100 (110) 99 03/02/19 11:36 93 Height (Feet): 6 Height (Inches): 1.00 Weight (Pounds): 259 Objective Gen: Awake and follwoing, Trached on Vent 45% HEENT: NCAT, MMM, EOMI, PERRL, No Oral lesion, no scleral icterus NECK: full range of motion, supple, no meningismus, No LAD, No JVD LUNGS: Course B/L Mild wheezing CARDS: RRR, S1, S2, No M/R/G, ABD: Soft, NT, ND, No R/G, + BS, No HSM, No Masses, PEG (No E/P) : Deferred Ext: C/C/E, Pulses 2+ B/L (DP, Rad): NEURO: A/O - not verbal , Strength and Sensation Grossly intact PSYCH: Mood/affect normal SKIN: Warm/dry, No rashes, small sacral ulcers Microbiology Date/Time Source Procedure Growth Status 02/28/19 17:49 Blood Blood Culture - Preliminary NO GROWTH AFTER 48 HOURS Resulted 02/28/19 17:49 Blood Blood Culture - Preliminary Staphylococcus Species Resulted 03/02/19 18:50 Nasopharynx - Final Complete 03/02/19 18:50 Nasopharynx - Final Complete 02/28/19 20:20 Nasal Nares MRSA Culture - Final NO METHICILLIN RESISTANT STAPH AUREUS... Complete 03/01/19 20:12 Rectum - Final NO CARBAPENEM-RESISTANT ENTEROBACTERI... Complete 02/28/19 20:20 Rectum VRE Culture - Final NO VANCOMYCIN RESISTANT ENTEROCOCCUS ... Complete Laboratory Tests Test 03/02/19 18:50 03/03/19 04:25 Urine Legionella Antigen Pending White Blood Count 12.2 K/UL (4.8-10.8) H Red Blood Count 4.05 M/UL (4.70-6.10) L Hemoglobin 9.3 G/DL (14.2-18.0) L Hematocrit 30.9 % (42.0-52.0) L Mean Corpuscular Volume 76 FL (80-99) L Mean Corpuscular Hemoglobin 22.9 PG (27.0-31.0) L Mean Corpuscular Hemoglobin Concent 30.0 G/DL (32.0-36.0) L Red Cell Distribution Width 25.0 % (11.6-14.8) H Platelet Count 329 K/UL (150-450) Mean Platelet Volume 7.8 FL (6.5-10.1) Neutrophils (%) (Auto) % (45.0-75.0) Lymphocytes (%) (Auto) % (20.0-45.0) Monocytes (%) (Auto) % (1.0-10.0) Eosinophils (%) (Auto) % (0.0-3.0) Basophils (%) (Auto) % (0.0-2.0) Prothrombin Time 13.7 SEC (9.30-11.50) H Prothromb Time International Ratio 1.3 (0.9-1.1) H Activated Partial Thromboplast Time 28 SEC (23-33) Sodium Level 143 MMOL/L (136-145) Potassium Level 3.0 MMOL/L (3.5-5.1) L Chloride Level 105 MMOL/L (98-107) Carbon Dioxide Level 28 MMOL/L (21-32) Anion Gap 10 mmol/L (5-15) Blood Urea Nitrogen 79 mg/dL (7-18) H Creatinine 2.1 MG/DL (0.55-1.30) H Estimat Glomerular Filtration Rate 40.1 mL/min (>60) Glucose Level 115 MG/DL (74-106) H Uric Acid 10.8 MG/DL (2.6-7.2) H Calcium Level 8.7 MG/DL (8.5-10.1) Phosphorus Level 5.6 MG/DL (2.5-4.9) H Magnesium Level 2.4 MG/DL (1.8-2.4) Total Bilirubin 2.0 MG/DL (0.2-1.0) H Direct Bilirubin 1.5 MG/DL (0.0-0.3) H Gamma Glutamyl Transpeptidase 427 U/L (5-85) H Aspartate Amino Transf (AST/SGOT) 83 U/L (15-37) H Alanine Aminotransferase (ALT/SGPT) 102 U/L (12-78) H Alkaline Phosphatase 372 U/L (46-116) H Total Creatine Kinase 58 U/L (26-308) Troponin I 0.089 ng/mL (0.000-0.056) C-Reactive Protein, Quantitative 9.1 mg/dL (0.00-0.90) H Pro-B-Type Natriuretic Peptide 43012 pg/mL (0-125) H Total Protein 7.4 G/DL (6.4-8.2) Albumin 2.5 G/DL (3.4-5.0) L Globulin 4.8 g/dL Albumin/Globulin Ratio 0.5 (1.0-2.7) L Random Vancomycin Level 14.8 ug/mL Hepatitis A IgM Antibody Pending Hepatitis B Surface Antigen Pending Hepatitis B Core IgM Antibody Pending Hepatitis C Antibody Pending HIV (1&2) Antibody Rapid Negative (NEGATIVE) Current Medications Medications (Trade) Dose Ordered Sig/Rebecca Route PRN Reason Start Time Stop Time Status Last Admin Dose Admin Acetaminophen (Tylenol) 650 mg Q4H PRN GT Mild Pain/Temp > 100.5 03/01/19 20:00 03/31/19 19:59 Albuterol/ Ipratropium (Albuterol/ Ipratropium) 3 ml EVERY 4 HOURS PRN HHN Shortness of Breath 02/28/19 18:45 03/05/19 18:44 03/02/19 00:46 Allopurinol (Zyloprim) 200 mg DAILY GT 03/02/19 11:00 04/01/19 10:59 03/03/19 08:34 Aspirin (ASA) 325 mg DAILY GT 02/28/19 19:45 03/30/19 19:44 03/02/19 09:05 Carvedilol (Coreg) 6.25 mg EVERY 12 HOURS GT 03/01/19 21:00 03/31/19 20:59 03/03/19 08:35 Chlorhexidine Gluconate (Essie-Hex 2%) 1 applic DAILY@2000 TOPIC 03/01/19 20:00 03/31/19 19:59 03/02/19 20:35 Clonidine HCl (Catapres Tab) 0.1 mg EVERY 6 HOURS PRN GT FOR sbp >160 02/28/19 18:45 03/30/19 18:44 Dextrose (Dextrose 50%) STAT PRN IV Hypoglycemia 02/28/19 18:45 03/30/19 18:44 Dextrose/Sodium Chloride 1,000 ml @ 50 mls/hr Q20H IV 03/02/19 10:52 04/01/19 10:51 03/03/19 06:06 Dopamine HCl/ Dextrose 250 ml @ 13.319 mls/ hr Q24H IV 03/02/19 08:11 04/01/19 08:10 03/03/19 03:10 Heparin Sodium (Porcine) (Heparin 5000 units/ml) 5,000 units EVERY 12 HOURS SUBQ 02/28/19 21:00 03/30/19 20:59 03/02/19 09:08 Iron Sucrose 100 mg/Sodium Chloride 60 ml @ 240 mls/hr BEDTIME IV 03/02/19 21:00 03/06/19 21:14 03/02/19 20:37 Isosorbide Dinitrate (Isordil) 10 mg Q6HR GT 03/02/19 12:00 04/01/19 11:59 03/03/19 06:05 Lorazepam (Ativan 2mg/ml 1ml) 2 mg EVERY 2 HOURS PRN IV For Anxiety 02/28/19 18:45 03/07/19 18:44 Metoclopramide HCl (Reglan) 5 mg EVERY 6 HOURS GT 03/02/19 12:00 04/01/19 11:59 03/03/19 06:05 Morphine Sulfate (Morphine Sulfate) 4 mg EVERY 4 HOURS PRN IVP Severe Pain (Pain Scale 7-10) 02/28/19 18:45 03/07/19 18:44 Ondansetron HCl (Zofran) 4 mg Q6H PRN IVP Nausea & Vomiting 02/28/19 18:45 03/30/19 18:44 Pantoprazole (Protonix) 40 mg DAILY IV 03/01/19 09:00 03/31/19 08:59 03/03/19 08:34 Piperacillin Sod/ Tazobactam Sod 3.375 gm/Sodium Chloride 110 ml @ 27.5 mls/hr Q12HR@0100,1300 IVPB 03/01/19 13:00 03/08/19 12:59 03/03/19 00:18 Polyethylene Glycol (Miralax) 17 gm DAILYPRN PRN GT Constipation 03/01/19 20:00 03/30/19 18:44 Prednisone (predniSONE) 20 mg DAILY GT 03/03/19 09:00 04/02/19 08:59 03/03/19 08:35 Sodium Phosphate (Fleet's Sodium Phosl Enema) 133 ml ONCE RECTAL 03/03/19 10:00 03/03/19 11:00 03/03/19 09:46 Vancomycin HCl (Vanco rx to dose) 1 ea DAILY PRN MISC PER RX PROTOCOL 03/01/19 09:45 03/31/19 09:44 Kathie Lacey M.D. Mar 03, 2019 10:48
--- NOTE | 2019-03-03 10:58 | Nephrology Progress Note ---
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 Chronic systolic (congestive) heart failure History of sudden cardiac arrest Status post tracheostomy Feeding by G-tube History of asthma Plan Cerda Reglan continue prednisone slow hydrate aim to lower after and pre load monitor renal parameters Subjective ROS Limited/Unobtainable: No Objective Objective Last 24 Hour Vital Signs Date Time Temp Pulse Resp B/P (MAP) Pulse Ox O2 Delivery O2 Flow Rate FiO2 03/03/19 08:39 92 22 45 03/03/19 08:35 87 121/80 03/03/19 08:00 45 03/03/19 08:00 Mechanical Ventilator 03/03/19 08:00 96.4 85 17 121/80 (94) 100 03/03/19 08:00 87 03/03/19 07:17 84 19 45 03/03/19 06:05 118/72 03/03/19 05:01 93 19 45 03/03/19 04:00 93 03/03/19 04:00 Mechanical Ventilator 03/03/19 04:00 118/72 03/03/19 04:00 45 03/03/19 04:00 98.0 93 18 118/72 (87) 96 03/03/19 03:10 117/82 03/03/19 03:01 85 20 45 03/03/19 01:18 90 21 45 03/03/19 00:00 126/78 03/03/19 00:00 Mechanical Ventilator 03/03/19 00:00 97.7 100 16 126/78 (94) 100 03/03/19 00:00 45 03/03/19 00:00 81 03/02/19 23:41 128/89 03/02/19 23:30 86 19 45 03/02/19 21:02 90 20 45 03/02/19 20:36 96 128/89 03/02/19 20:00 97.6 96 16 128/87 (101) 100 03/02/19 20:00 45 03/02/19 20:00 128/87 4/16/19 20:00 91 03/02/19 20:00 Mechanical Ventilator 03/02/19 19:30 94 19 45 03/02/19 18:27 137/75 03/02/19 17:28 88 16 45 03/02/19 16:00 45 03/02/19 16:00 Mechanical Ventilator 03/02/19 16:00 96.8 95 16 137/75 (95) 100 03/02/19 15:24 94 18 45 03/02/19 15:14 97 03/02/19 12:51 85 16 45 03/02/19 12:23 130/100 03/02/19 12:00 Mechanical Ventilator 03/02/19 12:00 45 03/02/19 12:00 97.3 97 20 130/100 (110) 99 03/02/19 11:36 93 Intake and Output 03/02/19 03/03/19 19:00 07:00 Intake Total 565.5 ml 853.057 ml Output Total 550 ml 800 ml Balance 15.5 ml 53.057 ml IV Total 565.5 ml 853.057 ml Output Urine Total 550 ml 800 ml # Bowel Movements 8 Laboratory Tests 03/02/19 18:50: Urine Legionella Antigen [Pending] 03/03/19 04:25: White Blood Count 12.2H, Red Blood Count 4.05L, Hemoglobin 9.3L, Hematocrit 30.9L, Mean Corpuscular Volume 76L, Mean Corpuscular Hemoglobin 22.9L, Mean Corpuscular Hemoglobin Concent 30.0L, Red Cell Distribution Width 25.0H, Platelet Count 329, Mean Platelet Volume 7.8, Neutrophils (%) (Auto) , Lymphocytes (%) (Auto) , Monocytes (%) (Auto) , Eosinophils (%) (Auto) , Basophils (%) (Auto) , Prothrombin Time 13.7H, Prothromb Time International Ratio 1.3H, Activated Partial Thromboplast Time 28, Sodium Level 143, Potassium Level 3.0L, Chloride Level 105, Carbon Dioxide Level 28, Anion Gap 10, Blood Urea Nitrogen 79H, Creatinine 2.1H, Estimat Glomerular Filtration Rate 40.1, Glucose Level 115H, Uric Acid 10.8H, Calcium Level 8.7, Phosphorus Level 5.6H, Magnesium Level 2.4, Total Bilirubin 2.0H, Direct Bilirubin 1.5H, Gamma Glutamyl Transpeptidase 427H, Aspartate Amino Transf (AST/SGOT) 83H, Alanine Aminotransferase (ALT/SGPT) 102H, Alkaline Phosphatase 372H, Total Creatine Kinase 58, Troponin I 0.089H, C-Reactive Protein, Quantitative 9.1H, Pro-B-Type Natriuretic Peptide 27666M, Total Protein 7.4, Albumin 2.5L, Globulin 4.8, Albumin/Globulin Ratio 0.5L, Random Vancomycin Level 14.8, Hepatitis A IgM Antibody [Pending], Hepatitis B Surface Antigen [Pending], Hepatitis B Core IgM Antibody [Pending], Hepatitis C Antibody [Pending], HIV (1&2) Antibody Rapid Negative Height (Feet): 6 Height (Inches): 1.00 Weight (Pounds): 259 General Appearance: no apparent distress Cardiovascular: tachycardia Respiratory/Chest: decreased breath sounds Abdomen: distended Nico Alonso MD Mar 03, 2019 10:58
--- NOTE | 2019-03-03 11:25 | General Progress Note ---
Assessment/Plan Problem List: (1) Status post tracheostomy ICD Codes: Z93.0 - Tracheostomy status SNOMED: 89971944, 295047082 (2) Acute on chronic respiratory failure ICD Codes: J96.20 - Acute and chronic respiratory failure, unspecified whether with hypoxia or hypercapnia SNOMED: 18085500 (3) EF less than 10% (4) GI bleed ICD Codes: K92.2 - Gastrointestinal hemorrhage, unspecified SNOMED: 02783886 (5) Feeding by G-tube ICD Codes: Z93.1 - Gastrostomy status SNOMED: 976466377, 419788102, 789117452 (6) Chronic systolic (congestive) heart failure ICD Codes: I50.22 - Chronic systolic (congestive) heart failure SNOMED: 64879852, 191425816 (7) History of sudden cardiac arrest ICD Codes: Z86.74 - Personal history of sudden cardiac arrest SNOMED: 91684439, 361872970 (8) Elevated LFTs ICD Codes: R94.5 - Abnormal results of liver function studies SNOMED: 119977916, 421079185 Diagnoses Results of Pharmacotherapy: GI procedure was canceled by anesthesia cont iv iron 'cont ppi us reviewed fu lfts ]fu hepatitis panel resume GTF fu Subjective ROS Limited/Unobtainable: No Allergies: Coded Allergies: No Known Allergies (Unverified , 03/28/17) Objective Last 24 Hour Vital Signs Date Time Temp Pulse Resp B/P (MAP) Pulse Ox O2 Delivery O2 Flow Rate FiO2 03/03/19 11:05 93 21 45 03/03/19 08:39 92 22 45 03/03/19 08:35 87 121/80 03/03/19 08:00 45 03/03/19 08:00 Mechanical Ventilator 03/03/19 08:00 96.4 85 17 121/80 (94) 100 03/03/19 08:00 87 03/03/19 07:17 84 19 45 03/03/19 06:05 118/72 03/03/19 05:01 93 19 45 03/03/19 04:00 93 03/03/19 04:00 Mechanical Ventilator 03/03/19 04:00 118/72 03/03/19 04:00 45 03/03/19 04:00 98.0 93 18 118/72 (87) 96 03/03/19 03:10 117/82 03/03/19 03:01 85 20 45 03/03/19 01:18 90 21 45 03/03/19 00:00 126/78 03/03/19 00:00 Mechanical Ventilator 03/03/19 00:00 97.7 100 16 126/78 (94) 100 03/03/19 00:00 45 03/03/19 00:00 81 03/02/19 23:41 128/89 03/02/19 23:30 86 19 45 03/02/19 21:02 90 20 45 03/02/19 20:36 96 128/89 03/02/19 20:00 97.6 96 16 128/87 (101) 100 03/02/19 20:00 45 03/02/19 20:00 128/87 03/02/19 20:00 91 03/02/19 20:00 Mechanical Ventilator 03/02/19 19:30 94 19 45 03/02/19 18:27 137/75 03/02/19 17:28 88 16 45 03/02/19 16:00 45 03/02/19 16:00 Mechanical Ventilator 03/02/19 16:00 96.8 95 16 137/75 (95) 100 03/02/19 15:24 94 18 45 03/02/19 15:14 97 03/02/19 12:51 85 16 45 03/02/19 12:23 130/100 03/02/19 12:00 Mechanical Ventilator 03/02/19 12:00 45 03/02/19 12:00 97.3 97 20 130/100 (110) 99 03/02/19 11:36 93 Intake and Output 03/02/19 03/03/19 19:00 07:00 Intake Total 565.5 ml 853.057 ml Output Total 550 ml 800 ml Balance 15.5 ml 53.057 ml IV Total 565.5 ml 853.057 ml Output Urine Total 550 ml 800 ml # Bowel Movements 8 Laboratory Tests 03/02/19 18:50: Urine Legionella Antigen [Pending] 03/03/19 04:25: White Blood Count 12.2H, Red Blood Count 4.05L, Hemoglobin 9.3L, Hematocrit 30.9L, Mean Corpuscular Volume 76L, Mean Corpuscular Hemoglobin 22.9L, Mean Corpuscular Hemoglobin Concent 30.0L, Red Cell Distribution Width 25.0H, Platelet Count 329, Mean Platelet Volume 7.8, Neutrophils (%) (Auto) , Lymphocytes (%) (Auto) , Monocytes (%) (Auto) , Eosinophils (%) (Auto) , Basophils (%) (Auto) , Prothrombin Time 13.7H, Prothromb Time International Ratio 1.3H, Activated Partial Thromboplast Time 28, Sodium Level 143, Potassium Level 3.0L, Chloride Level 105, Carbon Dioxide Level 28, Anion Gap 10, Blood Urea Nitrogen 79H, Creatinine 2.1H, Estimat Glomerular Filtration Rate 40.1, Glucose Level 115H, Uric Acid 10.8H, Calcium Level 8.7, Phosphorus Level 5.6H, Magnesium Level 2.4, Total Bilirubin 2.0H, Direct Bilirubin 1.5H, Gamma Glutamyl Transpeptidase 427H, Aspartate Amino Transf (AST/SGOT) 83H, Alanine Aminotransferase (ALT/SGPT) 102H, Alkaline Phosphatase 372H, Total Creatine Kinase 58, Troponin I 0.089H, C-Reactive Protein, Quantitative 9.1H, Pro-B-Type Natriuretic Peptide 73338L, Total Protein 7.4, Albumin 2.5L, Globulin 4.8, Albumin/Globulin Ratio 0.5L, Random Vancomycin Level 14.8, Hepatitis A IgM Antibody [Pending], Hepatitis B Surface Antigen [Pending], Hepatitis B Core IgM Antibody [Pending], Hepatitis C Antibody [Pending], HIV (1&2) Antibody Rapid Negative Height (Feet): 6 Height (Inches): 1.00 Weight (Pounds): 259 General Appearance: no apparent distress EENT: normal ENT inspection Neck: supple Cardiovascular: normal rate Respiratory/Chest: decreased breath sounds Abdomen: normal bowel sounds, non tender, soft Extremities: non-tender Antwon Willoughby MD Mar 03, 2019 11:25
[2019-03-03 12:00] VITALS: BP 123/88
[2019-03-03] MEDS: HydrALAZINE 10mg Tab GT SCH ×2 (12:18→17:36)
--- NOTE | 2019-03-03 12:33 | Diagnostic Imaging Report ---
Indication: Dyspnea Technique: XRAY Chest 1v Comparison: 03/01/2019 Findings: Heart size and mediastinal contours are stable. Tracheostomy tube is again noted. Bilateral airspace opacities with somewhat masslike opacity in the left midlung again noted. These are unchanged compared to the prior exam. There is no pleural effusion. No pneumothorax. Osseous structures demonstrate no acute abnormality. A right arm PICC line is again noted with its catheter tip projecting in the region of the central right subclavian vein. Impression: Bilateral airspace disease concerning for pneumonia. Radiographic follow-up to resolution is recommended to exclude the possibility of underlying mass.
--- NOTE | 2019-03-03 14:16 | Consultation ---
History of Present Illness General Date patient seen: Mar 02, 2019 Chief Complaint: Dyspnea/Respdistress Referring physician: RADHA RENE Present Illness HPI 53 year old male with multiple medical comorbidities and history of acls requiring resuscitation and since trach on vent support who is at rehab facility developed SBO and admitted for care and management. on admission noted to have multiple wounds requiring care. surgery called to evaluate and assist with management. patient seen, chart reviewed, patient examined. Allergies: Coded Allergies: No Known Allergies (Unverified , 03/28/17) Medication History Scheduled Carvedilol* (Carvedilol*), 6.25 MG GT EVERY 12 HOURS, (Reported) Furosemide* (Lasix*), 20 MG GT DAILY, (Reported) Lorazepam* (Ativan*), 0.5 MG GT THREE TIMES A DAY, (Reported) Metoclopramide Hcl* (Reglan*), 10 MG GT Q6HR, (Reported) Midodrine* (Proamatine*), 5 MG GT THREE TIMES A DAY, (Reported) Potassium Chloride (Potassium Chloride), 20 MEQ GT DAILY, (Reported) Scheduled PRN Acetaminophen* (Acetaminophen 325MG Tablet*), 650 MG GT Q4H PRN for Mild Pain/ Temp > 100.5, (Reported) Clonidine Hcl* (Catapres*), 0.1 MG GT EVERY 6 HOURS PRN for For High Blood Pressure, (Reported) Ondansetron* (Zofran*), 4 MG IM Q6H PRN for Nausea & Vomiting, (Reported) Prednisone* (Prednisone*), 20 MG GT Q8HR PRN for ASTHMA, (Reported) Discontinued Medications Furosemide* (Lasix*), 40 MG ORAL DAILY, (Reported) Discontinued Reason: Pt stopped taking med Lisinopril (Lisinopril*), 5 MG ORAL DAILY, (Reported) Discontinued Reason: Pt stopped taking med Prednisone* (Prednisone*), 60 MG ORAL DAILY Discontinued Reason: Pt stopped taking med Patient History Limited by: medical condition History Provided By: Medical Record, PMD Healthcare decision maker Resuscitation status Full Code Advanced Directive on File Yes Past Medical/Surgical History Past Medical/Surgical History: (1) Dyspnea (2) History of asthma (3) History of sudden cardiac arrest (4) Chronic systolic (congestive) heart failure (5) Hyperkalemia (6) ATN (acute tubular necrosis) (7) Feeding by G-tube (8) EF less than 10% (9) GI bleed (10) Renal failure (11) Hyperkalemia (12) Respiratory distress (13) Acute on chronic respiratory failure (14) Elevated LFTs Review of Systems ROS Narrative cannot respond given medical condition Physical Exam General Appearance: no apparent distress Lines, tubes and drains: trach HEENT: mucous membranes moist Neck: normal inspection Respiratory/Chest: no respiratory distress, no accessory muscle use Cardiovascular/Chest: regular rhythm Abdomen: soft, no organomegaly, no mass Extremities: non-tender Skin Exam: warm/dry Neurologic: alert Last 24 Hour Vital Signs Date Time Temp Pulse Resp B/P (MAP) Pulse Ox O2 Delivery O2 Flow Rate FiO2 03/03/19 12:49 81 21 45 03/03/19 12:18 123/88 03/03/19 12:18 123/88 03/03/19 12:00 97.6 82 18 123/88 (100) 100 03/03/19 11:05 93 21 45 03/03/19 08:39 92 22 45 03/03/19 08:35 87 121/80 03/03/19 08:00 45 03/03/19 08:00 Mechanical Ventilator 03/03/19 08:00 96.4 85 17 121/80 (94) 100 03/03/19 08:00 87 03/03/19 07:17 84 19 45 03/03/19 06:05 118/72 03/03/19 05:01 93 19 45 03/03/19 04:00 93 03/03/19 04:00 Mechanical Ventilator 03/03/19 04:00 118/72 03/03/19 04:00 45 03/03/19 04:00 98.0 93 18 118/72 (87) 96 03/03/19 03:10 117/82 03/03/19 03:01 85 20 45 03/03/19 01:18 90 21 45 03/03/19 00:00 126/78 03/03/19 00:00 Mechanical Ventilator 03/03/19 00:00 97.7 100 16 126/78 (94) 100 03/03/19 00:00 45 03/03/19 00:00 81 03/02/19 23:41 128/89 4/16/19 23:30 86 19 45 03/02/19 21:02 90 20 45 03/02/19 20:36 96 128/89 03/02/19 20:00 97.6 96 16 128/87 (101) 100 03/02/19 20:00 45 03/02/19 20:00 128/87 03/02/19 20:00 91 03/02/19 20:00 Mechanical Ventilator 03/02/19 19:30 94 19 45 03/02/19 18:27 137/75 03/02/19 17:28 88 16 45 03/02/19 16:00 45 03/02/19 16:00 Mechanical Ventilator 03/02/19 16:00 96.8 95 16 137/75 (95) 100 03/02/19 15:24 94 18 45 03/02/19 15:14 97 Intake and Output 03/02/19 03/03/19 19:00 07:00 Intake Total 565.5 ml 853.057 ml Output Total 550 ml 800 ml Balance 15.5 ml 53.057 ml IV Total 565.5 ml 853.057 ml Output Urine Total 550 ml 800 ml # Bowel Movements 8 Laboratory Tests Test 03/02/19 18:50 03/03/19 04:25 Urine Legionella Antigen Pending White Blood Count 12.2 K/UL (4.8-10.8) H Red Blood Count 4.05 M/UL (4.70-6.10) L Hemoglobin 9.3 G/DL (14.2-18.0) L Hematocrit 30.9 % (42.0-52.0) L Mean Corpuscular Volume 76 FL (80-99) L Mean Corpuscular Hemoglobin 22.9 PG (27.0-31.0) L Mean Corpuscular Hemoglobin Concent 30.0 G/DL (32.0-36.0) L Red Cell Distribution Width 25.0 % (11.6-14.8) H Platelet Count 329 K/UL (150-450) Mean Platelet Volume 7.8 FL (6.5-10.1) Neutrophils (%) (Auto) % (45.0-75.0) Lymphocytes (%) (Auto) % (20.0-45.0) Monocytes (%) (Auto) % (1.0-10.0) Eosinophils (%) (Auto) % (0.0-3.0) Basophils (%) (Auto) % (0.0-2.0) Prothrombin Time 13.7 SEC (9.30-11.50) H Prothromb Time International Ratio 1.3 (0.9-1.1) H Activated Partial Thromboplast Time 28 SEC (23-33) Sodium Level 143 MMOL/L (136-145) Potassium Level 3.0 MMOL/L (3.5-5.1) L Chloride Level 105 MMOL/L (98-107) Carbon Dioxide Level 28 MMOL/L (21-32) Anion Gap 10 mmol/L (5-15) Blood Urea Nitrogen 79 mg/dL (7-18) H Creatinine 2.1 MG/DL (0.55-1.30) H Estimat Glomerular Filtration Rate 40.1 mL/min (>60) Glucose Level 115 MG/DL (74-106) H Uric Acid 10.8 MG/DL (2.6-7.2) H Calcium Level 8.7 MG/DL (8.5-10.1) Phosphorus Level 5.6 MG/DL (2.5-4.9) H Magnesium Level 2.4 MG/DL (1.8-2.4) Total Bilirubin 2.0 MG/DL (0.2-1.0) H Direct Bilirubin 1.5 MG/DL (0.0-0.3) H Gamma Glutamyl Transpeptidase 427 U/L (5-85) H Aspartate Amino Transf (AST/SGOT) 83 U/L (15-37) H Alanine Aminotransferase (ALT/SGPT) 102 U/L (12-78) H Alkaline Phosphatase 372 U/L (46-116) H Total Creatine Kinase 58 U/L (26-308) Troponin I 0.089 ng/mL (0.000-0.056) C-Reactive Protein, Quantitative 9.1 mg/dL (0.00-0.90) H Pro-B-Type Natriuretic Peptide 50239 pg/mL (0-125) H Total Protein 7.4 G/DL (6.4-8.2) Albumin 2.5 G/DL (3.4-5.0) L Globulin 4.8 g/dL Albumin/Globulin Ratio 0.5 (1.0-2.7) L Random Vancomycin Level 14.8 ug/mL Hepatitis A IgM Antibody Pending Hepatitis B Surface Antigen Pending Hepatitis B Core IgM Antibody Pending Hepatitis C Antibody Pending HIV (1&2) Antibody Rapid Negative (NEGATIVE) Microbiology Date/Time Source Procedure Growth Status 03/02/19 18:50 Nasopharynx - Final Complete 03/02/19 18:50 Nasopharynx - Final Complete Height (Feet): 6 Height (Inches): 1.00 Weight (Pounds): 259 Medications Current Medications Medications (Trade) Dose Ordered Sig/Rebecca Route PRN Reason Start Time Stop Time Status Last Admin Dose Admin Acetaminophen (Tylenol) 650 mg Q4H PRN GT Mild Pain/Temp > 100.5 03/01/19 20:00 03/31/19 19:59 Albuterol/ Ipratropium (Albuterol/ Ipratropium) 3 ml EVERY 4 HOURS PRN HHN Shortness of Breath 02/28/19 18:45 03/05/19 18:44 03/02/19 00:46 Allopurinol (Zyloprim) 200 mg DAILY GT 03/02/19 11:00 04/01/19 10:59 03/03/19 08:34 Aspirin (ASA) 325 mg DAILY GT 02/28/19 19:45 03/30/19 19:44 03/02/19 09:05 Carvedilol (Coreg) 6.25 mg EVERY 12 HOURS GT 03/01/19 21:00 03/31/19 20:59 03/03/19 08:35 Chlorhexidine Gluconate (Essie-Hex 2%) 1 applic DAILY@2000 TOPIC 03/01/19 20:00 03/31/19 19:59 03/02/19 20:35 Clonidine HCl (Catapres Tab) 0.1 mg EVERY 6 HOURS PRN GT FOR sbp >160 02/28/19 18:45 03/30/19 18:44 Dextrose (Dextrose 50%) STAT PRN IV Hypoglycemia 02/28/19 18:45 03/30/19 18:44 Dextrose/Sodium Chloride 1,000 ml @ 30 mls/hr Q24H IV 03/03/19 11:30 04/02/19 11:29 03/03/19 11:35 Dopamine HCl/ Dextrose 250 ml @ 13.319 mls/ hr Q24H IV 03/02/19 08:11 04/01/19 08:10 03/03/19 03:10 Heparin Sodium (Porcine) (Heparin 5000 units/ml) 5,000 units EVERY 12 HOURS SUBQ 02/28/19 21:00 03/30/19 20:59 03/02/19 09:08 Hydralazine HCl (Apresoline) 10 mg Q6HR GT 03/03/19 12:00 04/02/19 11:59 03/03/19 12:18 Iron Sucrose 100 mg/Sodium Chloride 60 ml @ 240 mls/hr BEDTIME IV 03/02/19 21:00 03/06/19 21:14 03/02/19 20:37 Isosorbide Dinitrate (Isordil) 10 mg Q6HR GT 03/02/19 12:00 04/01/19 11:59 03/03/19 12:18 Lorazepam (Ativan 2mg/ml 1ml) 2 mg EVERY 2 HOURS PRN IV For Anxiety 02/28/19 18:45 03/07/19 18:44 Metoclopramide HCl (Reglan) 5 mg EVERY 6 HOURS GT 03/02/19 12:00 04/01/19 11:59 03/03/19 12:18 Morphine Sulfate (Morphine Sulfate) 4 mg EVERY 4 HOURS PRN IVP Severe Pain (Pain Scale 7-10) 02/28/19 18:45 03/07/19 18:44 Ondansetron HCl (Zofran) 4 mg Q6H PRN IVP Nausea & Vomiting 02/28/19 18:45 03/30/19 18:44 Pantoprazole (Protonix) 40 mg DAILY IV 03/01/19 09:00 03/31/19 08:59 03/03/19 08:34 Piperacillin Sod/ Tazobactam Sod 3.375 gm/Sodium Chloride 110 ml @ 27.5 mls/hr Q12HR@0100,1300 IVPB 03/01/19 13:00 03/08/19 12:59 03/03/19 13:41 Polyethylene Glycol (Miralax) 17 gm DAILYPRN PRN GT Constipation 03/01/19 20:00 03/30/19 18:44 Prednisone (predniSONE) 20 mg DAILY GT 03/03/19 09:00 04/02/19 08:59 03/03/19 08:35 Vancomycin HCl (Vanco rx to dose) 1 ea DAILY PRN MISC PER RX PROTOCOL 03/01/19 09:45 03/31/19 09:44 Assessment/Plan Problem List: (1) History of asthma ICD Codes: Z87.09 - Personal history of other diseases of the respiratory system SNOMED: 661581623 (2) History of sudden cardiac arrest ICD Codes: Z86.74 - Personal history of sudden cardiac arrest SNOMED: 86984758, 907186545 (3) Chronic systolic (congestive) heart failure ICD Codes: I50.22 - Chronic systolic (congestive) heart failure SNOMED: 25213248, 708142495 (4) Hyperkalemia ICD Codes: E87.5 - Hyperkalemia SNOMED: 60024496 (5) ATN (acute tubular necrosis) ICD Codes: N17.0 - Acute kidney failure with tubular necrosis SNOMED: 95752151 (6) Feeding by G-tube ICD Codes: Z93.1 - Gastrostomy status SNOMED: 472329021, 650390322, 958843689 (7) EF less than 10% (8) GI bleed Assessment & Plan: as per GI ICD Codes: K92.2 - Gastrointestinal hemorrhage, unspecified SNOMED: 71857119 (9) Renal failure ICD Codes: N19 - Unspecified kidney failure SNOMED: 71606198 (10) Hyperkalemia ICD Codes: E87.5 - Hyperkalemia SNOMED: 32603139 (11) Respiratory distress ICD Codes: R06.03 - Acute respiratory distress SNOMED: 424071749 (12) Acute on chronic respiratory failure ICD Codes: J96.20 - Acute and chronic respiratory failure, unspecified whether with hypoxia or hypercapnia SNOMED: 44006016 (13) Elevated LFTs Assessment & Plan: trend will monitor US with Impression: Small amount of ascites fluid Hepatomegaly. Equivocal mild surface nodularity, could indicate early cirrhotic changes. Correlate with clinical findings Apparent to and fro flow within the portal veins, raising concern for portal hypertension Borderline splenomegaly Negative for gallstones. Apparent pericholecystic fluid is likely a manifestation of the ascites. Apparent gallbladder wall edema is most likely related to the hepatocellular disease, although the possibility of acute acalculous cholecystitis should also be considered. Consider nuclear medicine hepatobiliary imaging for further evaluation if there is high clinical suspicion Echogenic foci within the left hepatic lobe. These could represent small hemangiomas or just prominent periportal fat Right pleural effusion Bilateral renal cysts incidentally noted ICD Codes: R94.5 - Abnormal results of liver function studies SNOMED: 089071846, 292507659 (14) Dyspnea ICD Codes: R06.00 - Dyspnea, unspecified SNOMED: 709665016 (15) Decubitus skin ulcer Assessment & Plan: Pt presented on admission with multiple partial thickness pressure injuries R and L buttocks and L thoracic,Open DTPI sacrum. Sacral area with full thickness wound with trace slough at coccygeal area,with surrounding dark skin tone without fluctuance or induration. (L)2cm x(W)4.4cm. No odor or exudate noted .Shearing periwound with small amt of sanguineous exudate. Multiple small partial thickness pressure injuries R and L buttocks.Surrounding areas of buttocks with darker than is normal skin tone. Partial thickness pressure injury Thoracic (2) sites. Proximal wound moist viable with dark skin tone periwound (L)2.6cm long. (Inferior) Partial thickness wound L thoracic (L)1.4cm x (W)1.5cm. Both heels are dry and firm . Trach site without erythema or evidence of skin breakdown. Tx.Plan: Apply Moisture Barrier Paste to entire Buttocks. Cover Sacral area with Optifoam. Change every 3 days and prn. Cover Thoracic wounds with Optifoam drsg .Change every 3 days and prn. APM/ Elvira mattress. Reposition at least every 2hours or as tolerated. Off-load heels with pillow. ICD Codes: L89.90 - Pressure ulcer of unspecified site, unspecified stage SNOMED: 589252784 Karthik Cheatham Mar 03, 2019 14:16
[2019-03-03] MEDS ORDERED: D5 1/2NS 1000ml IV ONE ×2 (15:51→15:53)
[2019-03-03] MEDS ORDERED: Tubing IV Secondary IV ONE ×2 (15:51→15:53)
[2019-03-03] MEDS ORDERED: Sterile Water Irrig 1000ml IRRIG ONE (15:53)
[2019-03-03] MEDS ORDERED: NS 275ml ONE (15:53)
[2019-03-03] MEDS ORDERED: 1/2 NS 1000ml IV ONE (15:53)
[2019-03-03 16:00] VITALS: BP 129/80
--- NOTE | 2019-03-03 18:49 | Internal Med Progress Note ---
Subjective Date of Service: Mar 03, 2019 Physician Name Alex Cifuentes Attending Physician Sherman Vee MD Current Medications Medications (Trade) Dose Ordered Sig/Rebecca Route PRN Reason Start Time Stop Time Status Last Admin Dose Admin Acetaminophen (Tylenol) 650 mg Q4H PRN GT Mild Pain/Temp > 100.5 03/01/19 20:00 03/31/19 19:59 Albuterol/ Ipratropium (Albuterol/ Ipratropium) 3 ml EVERY 4 HOURS PRN HHN Shortness of Breath 02/28/19 18:45 03/05/19 18:44 03/02/19 00:46 Allopurinol (Zyloprim) 200 mg DAILY GT 03/02/19 11:00 04/01/19 10:59 03/03/19 08:34 Aspirin (ASA) 325 mg DAILY GT 02/28/19 19:45 03/30/19 19:44 03/02/19 09:05 Carvedilol (Coreg) 6.25 mg EVERY 12 HOURS GT 03/01/19 21:00 03/31/19 20:59 03/03/19 08:35 Chlorhexidine Gluconate (Essie-Hex 2%) 1 applic DAILY@2000 TOPIC 03/01/19 20:00 03/31/19 19:59 03/02/19 20:35 Clonidine HCl (Catapres Tab) 0.1 mg EVERY 6 HOURS PRN GT FOR sbp >160 02/28/19 18:45 03/30/19 18:44 Dextrose (Dextrose 50%) STAT PRN IV Hypoglycemia 02/28/19 18:45 03/30/19 18:44 Dextrose/Sodium Chloride 1,000 ml @ 30 mls/hr Q24H IV 03/03/19 11:30 04/02/19 11:29 03/03/19 11:35 Dopamine HCl/ Dextrose 250 ml @ 13.319 mls/ hr Q24H IV 03/02/19 08:11 04/01/19 08:10 03/03/19 03:10 Heparin Sodium (Porcine) (Heparin 5000 units/ml) 5,000 units EVERY 12 HOURS SUBQ 02/28/19 21:00 03/30/19 20:59 03/02/19 09:08 Hydralazine HCl (Apresoline) 10 mg Q6HR GT 03/03/19 12:00 04/02/19 11:59 03/03/19 17:36 Iron Sucrose 100 mg/Sodium Chloride 60 ml @ 240 mls/hr BEDTIME IV 03/02/19 21:00 03/06/19 21:14 03/02/19 20:37 Isosorbide Dinitrate (Isordil) 10 mg Q6HR GT 03/02/19 12:00 04/01/19 11:59 03/03/19 17:36 Lorazepam (Ativan 2mg/ml 1ml) 2 mg EVERY 2 HOURS PRN IV For Anxiety 02/28/19 18:45 03/07/19 18:44 Metoclopramide HCl (Reglan) 5 mg EVERY 6 HOURS GT 03/02/19 12:00 04/01/19 11:59 03/03/19 17:36 Morphine Sulfate (Morphine Sulfate) 4 mg EVERY 4 HOURS PRN IVP Severe Pain (Pain Scale 7-10) 02/28/19 18:45 03/07/19 18:44 Ondansetron HCl (Zofran) 4 mg Q6H PRN IVP Nausea & Vomiting 02/28/19 18:45 03/30/19 18:44 Pantoprazole (Protonix) 40 mg DAILY IV 03/01/19 09:00 03/31/19 08:59 03/03/19 08:34 Piperacillin Sod/ Tazobactam Sod 3.375 gm/Sodium Chloride 110 ml @ 27.5 mls/hr Q12HR@0100,1300 IVPB 03/01/19 13:00 03/08/19 12:59 03/03/19 13:41 Polyethylene Glycol (Miralax) 17 gm DAILYPRN PRN GT Constipation 03/01/19 20:00 03/30/19 18:44 Prednisone (predniSONE) 20 mg DAILY GT 03/03/19 09:00 04/02/19 08:59 03/03/19 08:35 Vancomycin HCl (Vanco rx to dose) 1 ea DAILY PRN MISC PER RX PROTOCOL 03/01/19 09:45 03/31/19 09:44 Allergies: Coded Allergies: No Known Allergies (Unverified , 03/28/17) ROS Limited/Unobtainable: Yes Subjective 53YO M with history of vent dep respiratory failure admitted with respiratory distress. Cover for Int Med-Dr Vee. [facility] Objective Last Vital Signs Date Time Temp Pulse Resp B/P (MAP) Pulse Ox O2 Delivery O2 Flow Rate FiO2 03/03/19 17:36 129/88 03/03/19 17:22 83 16 45 03/03/19 16:00 Mechanical Ventilator 03/03/19 16:00 97.6 98 03/01/19 04:00 55.0 Laboratory Tests Test 03/02/19 18:50 03/03/19 04:25 Urine Legionella Antigen Pending White Blood Count 12.2 K/UL (4.8-10.8) H Red Blood Count 4.05 M/UL (4.70-6.10) L Hemoglobin 9.3 G/DL (14.2-18.0) L Hematocrit 30.9 % (42.0-52.0) L Mean Corpuscular Volume 76 FL (80-99) L Mean Corpuscular Hemoglobin 22.9 PG (27.0-31.0) L Mean Corpuscular Hemoglobin Concent 30.0 G/DL (32.0-36.0) L Red Cell Distribution Width 25.0 % (11.6-14.8) H Platelet Count 329 K/UL (150-450) Mean Platelet Volume 7.8 FL (6.5-10.1) Neutrophils (%) (Auto) % (45.0-75.0) Lymphocytes (%) (Auto) % (20.0-45.0) Monocytes (%) (Auto) % (1.0-10.0) Eosinophils (%) (Auto) % (0.0-3.0) Basophils (%) (Auto) % (0.0-2.0) Prothrombin Time 13.7 SEC (9.30-11.50) H Prothromb Time International Ratio 1.3 (0.9-1.1) H Activated Partial Thromboplast Time 28 SEC (23-33) Sodium Level 143 MMOL/L (136-145) Potassium Level 3.0 MMOL/L (3.5-5.1) L Chloride Level 105 MMOL/L (98-107) Carbon Dioxide Level 28 MMOL/L (21-32) Anion Gap 10 mmol/L (5-15) Blood Urea Nitrogen 79 mg/dL (7-18) H Creatinine 2.1 MG/DL (0.55-1.30) H Estimat Glomerular Filtration Rate 40.1 mL/min (>60) Glucose Level 115 MG/DL (74-106) H Uric Acid 10.8 MG/DL (2.6-7.2) H Calcium Level 8.7 MG/DL (8.5-10.1) Phosphorus Level 5.6 MG/DL (2.5-4.9) H Magnesium Level 2.4 MG/DL (1.8-2.4) Total Bilirubin 2.0 MG/DL (0.2-1.0) H Direct Bilirubin 1.5 MG/DL (0.0-0.3) H Gamma Glutamyl Transpeptidase 427 U/L (5-85) H Aspartate Amino Transf (AST/SGOT) 83 U/L (15-37) H Alanine Aminotransferase (ALT/SGPT) 102 U/L (12-78) H Alkaline Phosphatase 372 U/L (46-116) H Total Creatine Kinase 58 U/L (26-308) Troponin I 0.089 ng/mL (0.000-0.056) C-Reactive Protein, Quantitative 9.1 mg/dL (0.00-0.90) H Pro-B-Type Natriuretic Peptide 79024 pg/mL (0-125) H Total Protein 7.4 G/DL (6.4-8.2) Albumin 2.5 G/DL (3.4-5.0) L Globulin 4.8 g/dL Albumin/Globulin Ratio 0.5 (1.0-2.7) L Random Vancomycin Level 14.8 ug/mL Hepatitis A IgM Antibody Pending Hepatitis B Surface Antigen Pending Hepatitis B Core IgM Antibody Pending Hepatitis C Antibody Pending HIV (1&2) Antibody Rapid Negative (NEGATIVE) Microbiology Date/Time Source Procedure Growth Status 03/02/19 18:50 Nasopharynx - Final Complete 03/02/19 18:50 Nasopharynx - Final Complete 02/28/19 20:20 Nasal Nares MRSA Culture - Final NO METHICILLIN RESISTANT STAPH AUREUS... Complete 03/01/19 20:12 Rectum - Final NO CARBAPENEM-RESISTANT ENTEROBACTERI... Complete 02/28/19 20:20 Rectum VRE Culture - Final NO VANCOMYCIN RESISTANT ENTEROCOCCUS ... Complete Intake and Output 4/16/19 4/17/19 19:00 07:00 Intake Total 565.5 ml 911.376 ml Output Total 550 ml 800 ml Balance 15.5 ml 111.376 ml IV Total 565.5 ml 911.376 ml Output Urine Total 550 ml 800 ml # Bowel Movements 8 Objective PHYSICAL EXAMINATION:. GENERAL: The patient is awake and responsive to the painful stimuli. Spontaneously opens his eyes. Cannot follow commands. HEAD AND NECK: Pupils are equal and reactive to light. Anicteric. Neck was supple. Tracheostomy site is intact. LUNGS: Good air entry. Decreased in the bases. Ventilation breath sounds. HEART: Reveals S1, S2. Regular rhythm. Distant heart sounds. No murmurs or gallops. ABDOMEN: Soft, nondistended, and nontender. PEG site is clean. EXTREMITIES: No cyanosis or clubbing. A +1 edema in bilateral lower extremities. The patient has a PICC line in the right upper extremity noted. NEUROLOGIC: Very limited secondary to the patient's status. At this time, the patient is unable to follow commands, however, moving extremities slowly. BACK: Has a small sacral ulcer. Assessment/Plan Assessment/Plan ASSESSMENT: 1. Acute respiratory failure on chronic bilateral pneumonia. 2. Severe cardiomyopathy with systolic dysfunction. 3. Hyperkalemia. 4. Chronic ventilator dependent status post tracheostomy. 5. History of sudden cardiac arrest. 6. Asthma. 7. Anoxic brain injury. 8. Dysphagia status post PEG. PLAN: Admit the patient to [facility]. Dr. Gerber from Pulmonary Critical Care, Dr. Luis Robins from ID Dr. Nico Alonso from Nephrology. We will monitor potassium level closely on Kayexalate. Chronic wound care therapy. We will follow up with the wound care protocol. Monitor laboratory. Broad-spectrum antibiotics with Zosyn and vancomycin. Code status at this time is Full Code. Alex Cifuentes MD Mar 03, 2019 18:49
[2019-03-03 20:00] VITALS: BP 132/76
[2019-03-03] MEDS: Dyna-Hex 2% Top Sol 2oz TOPIC SCH (20:24)
[2019-03-03] MEDS: Carvedilol 12.5mg tab GT SCH (21:14)
[2019-03-03] MEDS: Iron Sucrose 100 MG in NS 55 ML IV SCH (21:44)
--- NOTE | 2019-03-03 21:45 | Consultation ---
DATE OF CONSULTATION: 03/01/2019 CARDIOLOGY CONSULTATION CONSULTING PHYSICIAN: Karlos Marinelli M.D. REFERRING PHYSICIAN: Sherman Vee M.D. REASON FOR CONSULTATION: Management of shortness of breath. HISTORY OF PRESENT ILLNESS: The patient is a very unfortunate 53-year-old gentleman, who is a resident of a alf facility. He was brought in for more shortness of breath as well as a respiratory distress. The patient was recently discharged from [facility] after a tracheostomy tube placement as well as PEG tube placement. He was transferred to a alf facility just about two days ago from [facility]. The patient's history is unlimited due to tracheostomy tube placement. At the time of arrival to the hospital, the patient was on mechanical ventilator. Blood pressure was 116/93 mmHg and heart rate was 110. A 12-lead electrocardiogram was significant for sinus rhythm, however, there was presence of a peek T-wave, suggestive of hyperkalemia. In the emergency department, the patient underwent a laboratory workup, which showed leukocytosis with a white blood cell count of 13.1. His chemistry was significant for potassium of 7.9 as well as BUN and creatinine of 73 and 2.6 respectively. Troponin I level was also elevated at 0.157 and proBNP was elevated at the level above 35,000. The patient was admitted to [facility]. Cardiology consultation was made at request of Dr. Vee for management of elevated troponin I level, tachycardia, and shortness of breath. Of note, at the time of arrival to the hospital, chest x-ray showed borderline cardiomegaly with a hazy right basilar and left mid lung opacities, bringing the possible question of infiltration/pneumonia and also presence of a tracheostomy tube. The patient also had a 2D echocardiography done on 03/01/2019, which revealed four-chamber dilatation with severe global left ventricular hypokinesia and left ventricular ejection fraction of approximately 10%. There was a dilated IVC with no respiratory collapse signifying elevated right atrial pressure of approximately 15 mmHg. There was also presence of moderate aortic regurgitation, mild mitral regurgitation, and a grade 2 LV diastolic dysfunction, suggestive of moderately elevated right and left atrial pressure. The patient also had moderate to severe pulmonary hypertension with RVSP of above 57 mmHg. The patient was admitted. PAST MEDICAL HISTORY: 1. Congestive heart failure. 2. Hypercholesterolemia. 3. History of renal failure with hyperkalemia. 4. History of hypertension. 5. History of asthma/COPD. 6. History of respiratory failure, status post tracheostomy tube placement with ventilator dependency. 7. History of dysphagia, status post G-tube placement. PAST SURGICAL HISTORY: 1. Tracheostomy tube placement. 2. PEG placement. ALLERGIES: No known drug allergies. SOCIAL HISTORY: There is no current history of tobacco, alcohol, or illicit drug use. FAMILY HISTORY: No premature coronary artery disease in first-degree relatives. MEDICATIONS: List of medication includes: 1. Acetaminophen 650 mg G-tube q.4 h. p.r.n. pain and temperature of 100.5 degrees Fahrenheit. 2. Carvedilol 6.25 mg G-tube q.12 h. 3. Catapres 0.1 mg G-tube q.6 h. p.r.n. systolic blood pressure above 160. 4. Furosemide 20 mg G-tube daily. 5. Ativan 0.5 mg G-tube three times a day. 6. Reglan 10 mg G-tube q.6 h. 7. Midodrine 5 mg G-tube three times a day. 8. Zofran 4 mg IM q.6 h. p.r.n. nausea and vomiting. 9. Potassium chloride 20 mEq G-tube daily. 10. Prednisone 20 mg G-tube q.8 h. p.r.n. asthma. REVIEW OF SYSTEMS: A 12-system review done essentially negative except what was mentioned in the history of present illness. PHYSICAL EXAMINATION: VITAL SIGNS: Blood pressure at the time of arrival to the hospital was 116/93, respirations 28, pulse of 110, pulse oximetry 96% on mechanical ventilator, flow rate of 4.0. GENERAL: The patient is a very unfortunate 53-year-old gentleman, who is nonverbal with tracheostomy tube in place and attached to the ventilator, in no apparent respiratory distress. HEENT: Atraumatic and normocephalic. Anicteric. Bitemporal wasting. Pupils are equal, round, and reactive to light and accommodation. Conjunctival pallor bilaterally. NECK: Presence of a tracheostomy, cannot assess JVP due to positive inspiratory pressure on ventilator. No carotid bruit. CARDIOVASCULAR: Normal S1, S2. Regular rate and rhythm. Tachycardic. No murmurs, gallops, or rubs. PMI is at fourth intercostal at the midclavicular line. LUNGS: Diminished breath sounds in both lungs. ABDOMEN: Soft, nontender, and nondistended. No hepatosplenomegaly. Positive G-tube. EXTREMITIES: No evidence of edema, clubbing, or cyanosis. LABORATORY FINDINGS: WBC was 13.1, hemoglobin 10.5, hematocrit 35.4, and platelet count is 521,000. Chemistry showed sodium is 139, potassium is 7.9, chloride 102, bicarbonate 18, BUN of 73, creatinine 2.6, glucose is 72, calcium is 9.3, and troponin I of 0.157. ProBNP was above 35,000. INR was 1.5. ASSESSMENT AND PLAN: The patient is a very unfortunate 53-year-old gentleman, seen in Cardiology consultation. 1. Acute systolic and diastolic congestive heart failure with elevated intracardiac filling pressures. LV EF of approximately 10% with presence of LV dyssynchrony, this patient requires to be on guideline directed medical therapy, somewhat limited due to concomitant renal failure. I would like to consider combination of Isordil and Imdur as well as carvedilol, Aldactone, and BRISA/ARBs are contraindicated. The patient will also be benefitting from diuretics in the long-term, however, at this time, appears to have acute kidney injury. Nephrology feedback is appreciated. 2. Moderate to severe pulmonary hypertension, likely due to left heart failure. 3. Ventilator-driven respiratory failure, status post tracheostomy tube placement. 4. History of dysphagia, status post PEG placement. 5. History of hypercholesterolemia. 6. History of hyperkalemia due to acute kidney injury on CKD. 7. History of asthma/COPD. I would like to thank, Dr. Vee, for allowing me to participate in the care of this patient. Karlos Marinelli M.D. DR: CLEMENTE JOB#: [id number] CC:
--- NOTE | 2019-03-03 23:30 | Diagnostic Imaging Report ---
APPROVED REPORT CPT Code: 53078 Present Symptoms Shortness of breath Comments: Screening BILATERAL: Imaging reveals a patent deep venous system bilaterally. There is no evidence of thrombus within the common femoral, superficial femoral, popliteal or tibial segments. The greater saphenous veins are within normal limits. Doppler indicates normal spontaneous flow within these segments.
--- NOTE | 2019-03-03 23:50 | Cardiology Progress Note ---
Assessment/Plan Assessment/Plan 1. Acute systolic and diastolic congestive heart failure with elevated intracardiac filling pressures. LVEF approximately 10% with presence of LV dyssynchrony, continue guideline directed medical therapy. 2. Moderate to severe pulmonary hypertension, likely due to left heart failure. 3. Ventilator-driven respiratory failure, status post tracheostomy tube placement. 4. History of dysphagia, status post PEG placement. 5. History of hypercholesterolemia. 6. History of hyperkalemia due to acute kidney injury on CKD. 7. History of asthma/COPD. Subjective Subjective Sinus rhythm at rate of 80. Objective Last 24 Hour Vital Signs Date Time Temp Pulse Resp B/P (MAP) Pulse Ox O2 Delivery O2 Flow Rate FiO2 03/03/19 23:49 80 17 45 03/03/19 22:44 130/102 03/03/19 21:14 79 130/102 03/03/19 20:59 82 16 45 03/03/19 20:00 40 03/03/19 20:00 Mechanical Ventilator 03/03/19 20:00 97.9 87 16 132/76 (94) 100 03/03/19 19:51 118 03/03/19 19:24 84 03/03/19 19:13 82 16 45 03/03/19 17:36 129/88 03/03/19 17:36 129/88 03/03/19 17:22 83 16 45 03/03/19 16:00 Mechanical Ventilator 03/03/19 16:00 40 03/03/19 16:00 97.6 82 16 129/80 (96) 98 03/03/19 15:35 86 19 45 03/03/19 15:14 87 03/03/19 12:49 81 21 45 03/03/19 12:18 123/88 03/03/19 12:18 123/88 03/03/19 12:00 97.6 82 18 123/88 (100) 100 03/03/19 12:00 45 03/03/19 12:00 Mechanical Ventilator 03/03/19 11:44 83 03/03/19 11:05 93 21 45 03/03/19 08:39 92 22 45 03/03/19 08:35 87 121/80 03/03/19 08:00 45 03/03/19 08:00 Mechanical Ventilator 03/03/19 08:00 96.4 85 17 121/80 (94) 100 03/03/19 08:00 87 03/03/19 07:17 84 19 45 03/03/19 06:05 118/72 03/03/19 05:01 93 19 45 03/03/19 04:00 93 03/03/19 04:00 Mechanical Ventilator 03/03/19 04:00 118/72 03/03/19 04:00 45 03/03/19 04:00 98.0 93 18 118/72 (87) 96 03/03/19 03:10 117/82 03/03/19 03:01 85 20 45 03/03/19 01:18 90 21 45 03/03/19 00:00 126/78 03/03/19 00:00 Mechanical Ventilator 03/03/19 00:00 97.7 100 16 126/78 (94) 100 03/03/19 00:00 45 03/03/19 00:00 81 Intake and Output 03/02/19 03/03/19 18:59 06:59 Intake Total 577.2 ml 916.357 ml Output Total 550 ml 800 ml Balance 27.2 ml 116.357 ml IV Total 577.2 ml 916.357 ml Output Urine Total 550 ml 800 ml # Bowel Movements 8 2D Echo: EF 10%, Global LVHK, RVSP 57 mmHg, Mod AR, Mild MR, Grade II LVDD Laboratory Tests Test 03/03/19 04:25 White Blood Count 12.2 K/UL (4.8-10.8) H Red Blood Count 4.05 M/UL (4.70-6.10) L Hemoglobin 9.3 G/DL (14.2-18.0) L Hematocrit 30.9 % (42.0-52.0) L Mean Corpuscular Volume 76 FL (80-99) L Mean Corpuscular Hemoglobin 22.9 PG (27.0-31.0) L Mean Corpuscular Hemoglobin Concent 30.0 G/DL (32.0-36.0) L Red Cell Distribution Width 25.0 % (11.6-14.8) H Platelet Count 329 K/UL (150-450) Mean Platelet Volume 7.8 FL (6.5-10.1) Neutrophils (%) (Auto) % (45.0-75.0) Lymphocytes (%) (Auto) % (20.0-45.0) Monocytes (%) (Auto) % (1.0-10.0) Eosinophils (%) (Auto) % (0.0-3.0) Basophils (%) (Auto) % (0.0-2.0) Prothrombin Time 13.7 SEC (9.30-11.50) H Prothromb Time International Ratio 1.3 (0.9-1.1) H Activated Partial Thromboplast Time 28 SEC (23-33) Sodium Level 143 MMOL/L (136-145) Potassium Level 3.0 MMOL/L (3.5-5.1) L Chloride Level 105 MMOL/L (98-107) Carbon Dioxide Level 28 MMOL/L (21-32) Anion Gap 10 mmol/L (5-15) Blood Urea Nitrogen 79 mg/dL (7-18) H Creatinine 2.1 MG/DL (0.55-1.30) H Estimat Glomerular Filtration Rate 40.1 mL/min (>60) Glucose Level 115 MG/DL (74-106) H Uric Acid 10.8 MG/DL (2.6-7.2) H Calcium Level 8.7 MG/DL (8.5-10.1) Phosphorus Level 5.6 MG/DL (2.5-4.9) H Magnesium Level 2.4 MG/DL (1.8-2.4) Total Bilirubin 2.0 MG/DL (0.2-1.0) H Direct Bilirubin 1.5 MG/DL (0.0-0.3) H Gamma Glutamyl Transpeptidase 427 U/L (5-85) H Aspartate Amino Transf (AST/SGOT) 83 U/L (15-37) H Alanine Aminotransferase (ALT/SGPT) 102 U/L (12-78) H Alkaline Phosphatase 372 U/L (46-116) H Total Creatine Kinase 58 U/L (26-308) Troponin I 0.089 ng/mL (0.000-0.056) C-Reactive Protein, Quantitative 9.1 mg/dL (0.00-0.90) H Pro-B-Type Natriuretic Peptide 61749 pg/mL (0-125) H Total Protein 7.4 G/DL (6.4-8.2) Albumin 2.5 G/DL (3.4-5.0) L Globulin 4.8 g/dL Albumin/Globulin Ratio 0.5 (1.0-2.7) L Random Vancomycin Level 14.8 ug/mL Hepatitis A IgM Antibody Pending Hepatitis B Surface Antigen Pending Hepatitis B Core IgM Antibody Pending Hepatitis C Antibody Pending HIV (1&2) Antibody Rapid Negative (NEGATIVE) Microbiology Date/Time Source Procedure Growth Status 03/02/19 18:50 Nasopharynx - Final Complete 03/02/19 18:50 Nasopharynx - Final Complete 03/01/19 20:12 Rectum - Final NO CARBAPENEM-RESISTANT ENTEROBACTERI... Complete Karlos Marinelli MD Mar 03, 2019 23:50
[2019-03-04] VITALS: BP 123/84
[2019-03-04] MEDS: Metoclopramide 10mg/10ml Liq GT SCH ×4 (00:11→17:07)
[2019-03-04] MEDS: HydrALAZINE 10mg Tab GT SCH ×4 (00:13→17:08)
[2019-03-04] MEDS: Piperacillin/Tazobactam 3.375 GM in NS 110 ML IVPB SCH ×2 (01:20→13:34)
[2019-03-04 04:00] VITALS: BP 108/73
[2019-03-04 05:06] LABS: HEMATOCRIT 32.1 % (42.0-52.0); HEMOGLOBIN 9.6 G/DL (14.2-18.0); MEAN CORPUSCULAR VOLUME 78 FL (80-99); PLATELET COUNT 314 K/UL (150-450); RED BLOOD COUNT 4.14 M/UL (4.70-6.10); RED CELL DISTRIBUTION WIDTH 25.7 % (11.6-14.8); WHITE BLOOD COUNT 9.7 K/UL (4.8-10.8)
[2019-03-04 05:34] LABS: ALANINE AMINOTRANSFERASE 94 U/L (12-78); ALBUMIN 2.3 G/DL (3.4-5.0); ALBUMIN/GLOBULIN RATIO 0.5 (1.0-2.7); ALKALINE PHOSPHATASE 369 U/L (46-116); ANION GAP 9 mmol/L (5-15); ASPARTATE AMINO TRANSFERASE 82 U/L (15-37); BILIRUBIN,TOTAL 1.6 MG/DL (0.2-1.0); BLOOD UREA NITROGEN 68 mg/dL (7-18); CALCIUM 8.4 MG/DL (8.5-10.1); CARBON DIOXIDE 29 MMOL/L (21-32); CHLORIDE 108 MMOL/L (98-107); CREATININE 1.8 MG/DL (0.55-1.30); PHOSPHORUS 4.3 MG/DL (2.5-4.9); POTASSIUM 3.4 MMOL/L (3.5-5.1); SODIUM 146 MMOL/L (136-145)
[2019-03-04 05:47] LABS: BILIRUBIN,DIRECT 0.9 MG/DL (0.0-0.3)
[2019-03-04 08:00] VITALS: BP 127/75
[2019-03-04] MEDS: Allopurinol 100mg Tab GT SCH (08:56)
[2019-03-04] MEDS: Carvedilol 12.5mg tab GT SCH ×2 (08:56→20:57)
[2019-03-04] MEDS: Pantoprazole Inj IV SCH (08:57)
[2019-03-04] MEDS: DOPamine 400mg/250ml 250 ML IV SCH (08:57)
[2019-03-04] MEDS: Heparin 5000 units/ml inj SUBQ SCH ×2 (08:58→20:58)
--- NOTE | 2019-03-04 10:18 | Pulmonolgy Critical Care Note ---
Critical Care - Asmt/Plan Problems: (1) Acute on chronic respiratory failure (2) ATN (acute tubular necrosis) (3) Hyperkalemia (4) EF less than 10% (5) Status post tracheostomy (6) Feeding by G-tube (7) History of sudden cardiac arrest (8) History of asthma Respiratory: monitor respiratory rate, adjust FIO2, CXR Cardiac: continue to monitor HR/BP Renal: F/U I&O, keep IV fluid, check electrolytes Infectious Disease: check cultures Gastrointestinal: continue feedings/current rate Endocrine: monitor blood sugar, check TSH Hematologic: monitor H/H, transfuse if hgb<8.5 Neurologic: PRN Ativan, PRN Morphine, keep patient comfortable Disposition: keep in ICU Time Spent (Minutes): 40 Notes Reviewed: net sorter, cardio, renal Discussed with: nurses, consultants, employment evaluator/case managerbank manager - Objective Last 24 Hour Vital Signs Date Time Temp Pulse Resp B/P (MAP) Pulse Ox O2 Delivery O2 Flow Rate FiO2 03/04/19 08:57 127/75 03/04/19 08:56 81 127/75 03/04/19 08:40 76 16 45 03/04/19 08:00 Mechanical Ventilator 03/04/19 08:00 97.6 81 19 127/75 (92) 100 03/04/19 08:00 40 03/04/19 06:44 77 19 45 03/04/19 05:42 108/73 03/04/19 05:42 108/73 03/04/19 05:15 82 23 45 03/04/19 04:00 97.7 81 16 108/73 (85) 100 03/04/19 04:00 40 03/04/19 04:00 Mechanical Ventilator 03/04/19 03:41 76 03/04/19 02:55 85 16 45 03/04/19 01:55 88 17 45 03/04/19 00:13 123/84 03/04/19 00:11 123/84 03/04/19 00:00 Mechanical Ventilator 03/04/19 00:00 97.7 81 16 123/84 (97) 100 03/03/19 23:49 80 17 45 03/03/19 23:24 82 03/03/19 22:44 130/102 03/03/19 21:14 79 130/102 03/03/19 20:59 82 16 45 4/17/19 20:00 40 03/03/19 20:00 Mechanical Ventilator 03/03/19 20:00 97.9 87 16 132/76 (94) 100 03/03/19 19:51 118 03/03/19 19:24 84 03/03/19 19:13 82 16 45 03/03/19 17:36 129/88 03/03/19 17:36 129/88 03/03/19 17:22 83 16 45 03/03/19 16:00 Mechanical Ventilator 03/03/19 16:00 40 03/03/19 16:00 97.6 82 16 129/80 (96) 98 03/03/19 15:35 86 19 45 03/03/19 15:14 87 03/03/19 12:49 81 21 45 03/03/19 12:18 123/88 03/03/19 12:18 123/88 03/03/19 12:00 97.6 82 18 123/88 (100) 100 03/03/19 12:00 45 03/03/19 12:00 Mechanical Ventilator 03/03/19 11:44 83 03/03/19 11:05 93 21 45 Status: awake Condition: critical HEENT: atraumatic Lungs: clear Heart: HR/BP stable, HR/BP unstable Abdomen: non-tender, feeding tube Extremities: no C/C/E, edema Micro: Microbiology Date/Time Source Procedure Growth Status 03/02/19 11:45 Blood Blood Culture - Preliminary NO GROWTH AFTER 24 HOURS Resulted 03/02/19 11:35 Blood Blood Culture - Preliminary NO GROWTH AFTER 24 HOURS Resulted 03/02/19 18:50 Nasopharynx - Final Complete 03/02/19 18:50 Nasopharynx - Final Complete 03/01/19 20:12 Rectum - Final NO CARBAPENEM-RESISTANT ENTEROBACTERI... Complete Accucheck: 72 Critical Care - Subjective ROS Limited/Unobtainable: Yes Condition: critical EKG Rhythm: Sinus Rhythm FI02: 45 Vent Support Breath Rate: 16 Vent Support Mode: AC Vent Tidal Volume: 600 Sputum Amount: Small PEEP: 5.0 PIP: 48 Tube Feeding Amount: 30 I&O: Intake and Output 03/03/19 03/04/19 19:00 07:00 Intake Total 1376.495 ml 893.379 ml Output Total 650 ml 1200 ml Balance 726.495 ml -306.621 ml IV Total 996.495 ml 693.379 ml Tube Feeding 60 ml 150 ml Other 320 ml 50 ml Output Urine Total 650 ml 1200 ml # Bowel Movements 8 2 Labs: Laboratory Tests Test 03/04/19 04:00 White Blood Count 9.7 K/UL (4.8-10.8) Red Blood Count 4.14 M/UL (4.70-6.10) L Hemoglobin 9.6 G/DL (14.2-18.0) L Hematocrit 32.1 % (42.0-52.0) L Mean Corpuscular Volume 78 FL (80-99) L Mean Corpuscular Hemoglobin 23.1 PG (27.0-31.0) L Mean Corpuscular Hemoglobin Concent 29.8 G/DL (32.0-36.0) L Red Cell Distribution Width 25.7 % (11.6-14.8) H Platelet Count 314 K/UL (150-450) Mean Platelet Volume 8.1 FL (6.5-10.1) Neutrophils (%) (Auto) % (45.0-75.0) Lymphocytes (%) (Auto) % (20.0-45.0) Monocytes (%) (Auto) % (1.0-10.0) Eosinophils (%) (Auto) % (0.0-3.0) Basophils (%) (Auto) % (0.0-2.0) Sodium Level 146 MMOL/L (136-145) H Potassium Level 3.4 MMOL/L (3.5-5.1) L Chloride Level 108 MMOL/L (98-107) H Carbon Dioxide Level 29 MMOL/L (21-32) Anion Gap 9 mmol/L (5-15) Blood Urea Nitrogen 68 mg/dL (7-18) H Creatinine 1.8 MG/DL (0.55-1.30) H Estimat Glomerular Filtration Rate 47.9 mL/min (>60) Glucose Level 101 MG/DL (74-106) Hemoglobin A1c 6.3 % (4.3-6.0) H Calcium Level 8.4 MG/DL (8.5-10.1) L Phosphorus Level 4.3 MG/DL (2.5-4.9) Total Bilirubin 1.6 MG/DL (0.2-1.0) H Direct Bilirubin 0.9 MG/DL (0.0-0.3) H Aspartate Amino Transf (AST/SGOT) 82 U/L (15-37) H Alanine Aminotransferase (ALT/SGPT) 94 U/L (12-78) H Alkaline Phosphatase 369 U/L (46-116) H Total Protein 6.7 G/DL (6.4-8.2) Albumin 2.3 G/DL (3.4-5.0) L Globulin 4.4 g/dL Albumin/Globulin Ratio 0.5 (1.0-2.7) L Ivan Gerber MD Mar 04, 2019 10:18
[2019-03-04 12:00] VITALS: BP 111/81
[2019-03-04] MEDS: D5 1/2NS 1,000 ML IV SCH (12:07)
--- NOTE | 2019-03-04 12:07 | General Progress Note ---
Assessment/Plan Problem List: (1) Status post tracheostomy ICD Codes: Z93.0 - Tracheostomy status SNOMED: 33658385, 103438815 (2) Acute on chronic respiratory failure ICD Codes: J96.20 - Acute and chronic respiratory failure, unspecified whether with hypoxia or hypercapnia SNOMED: 63783932 (3) EF less than 10% (4) GI bleed ICD Codes: K92.2 - Gastrointestinal hemorrhage, unspecified SNOMED: 00448745 (5) Feeding by G-tube ICD Codes: Z93.1 - Gastrostomy status SNOMED: 990805560, 348809986, 284506758 (6) Chronic systolic (congestive) heart failure ICD Codes: I50.22 - Chronic systolic (congestive) heart failure SNOMED: 72531045, 871456068 (7) History of sudden cardiac arrest ICD Codes: Z86.74 - Personal history of sudden cardiac arrest SNOMED: 77554066, 252382261 (8) Elevated LFTs ICD Codes: R94.5 - Abnormal results of liver function studies SNOMED: 665779305, 376233299 Diagnoses Results of Pharmacotherapy: GTF fu H&H given low EF and stable H&H will hold GI procedures for now Subjective ROS Limited/Unobtainable: No Allergies: Coded Allergies: No Known Allergies (Unverified , 03/28/17) Objective Last 24 Hour Vital Signs Date Time Temp Pulse Resp B/P (MAP) Pulse Ox O2 Delivery O2 Flow Rate FiO2 03/04/19 11:25 82 16 45 03/04/19 08:57 127/75 03/04/19 08:56 81 127/75 03/04/19 08:40 76 16 45 03/04/19 08:00 Mechanical Ventilator 03/04/19 08:00 86 03/04/19 08:00 97.6 81 19 127/75 (92) 100 03/04/19 08:00 40 03/04/19 06:44 77 19 45 03/04/19 05:42 108/73 03/04/19 05:42 108/73 03/04/19 05:15 82 23 45 03/04/19 04:00 97.7 81 16 108/73 (85) 100 03/04/19 04:00 40 03/04/19 04:00 Mechanical Ventilator 03/04/19 03:41 76 03/04/19 02:55 85 16 45 03/04/19 01:55 88 17 45 03/04/19 00:13 123/84 03/04/19 00:11 123/84 03/04/19 00:00 Mechanical Ventilator 03/04/19 00:00 97.7 81 16 123/84 (97) 100 03/03/19 23:49 80 17 45 03/03/19 23:24 82 03/03/19 22:44 130/102 03/03/19 21:14 79 130/102 03/03/19 20:59 82 16 45 03/03/19 20:00 40 03/03/19 20:00 Mechanical Ventilator 03/03/19 20:00 97.9 87 16 132/76 (94) 100 03/03/19 19:51 118 03/03/19 19:24 84 03/03/19 19:13 82 16 45 03/03/19 17:36 129/88 03/03/19 17:36 129/88 03/03/19 17:22 83 16 45 03/03/19 16:00 Mechanical Ventilator 03/03/19 16:00 40 03/03/19 16:00 97.6 82 16 129/80 (96) 98 03/03/19 15:35 86 19 45 03/03/19 15:14 87 03/03/19 12:49 81 21 45 03/03/19 12:18 123/88 03/03/19 12:18 123/88 Intake and Output 03/03/19 03/04/19 19:00 07:00 Intake Total 1376.495 ml 893.379 ml Output Total 650 ml 1200 ml Balance 726.495 ml -306.621 ml IV Total 996.495 ml 693.379 ml Tube Feeding 60 ml 150 ml Other 320 ml 50 ml Output Urine Total 650 ml 1200 ml # Bowel Movements 8 2 Laboratory Tests 03/04/19 04:00: White Blood Count 9.7, Red Blood Count 4.14L, Hemoglobin 9.6L, Hematocrit 32.1L , Mean Corpuscular Volume 78L, Mean Corpuscular Hemoglobin 23.1L, Mean Corpuscular Hemoglobin Concent 29.8L, Red Cell Distribution Width 25.7H, Platelet Count 314, Mean Platelet Volume 8.1, Neutrophils (%) (Auto) , Lymphocytes (%) (Auto) , Monocytes (%) (Auto) , Eosinophils (%) (Auto) , Basophils (%) (Auto) , Sodium Level 146H, Potassium Level 3.4L, Chloride Level 108H, Carbon Dioxide Level 29, Anion Gap 9, Blood Urea Nitrogen 68H, Creatinine 1.8H, Estimat Glomerular Filtration Rate 47.9, Glucose Level 101, Hemoglobin A1c 6.3H, Calcium Level 8.4L, Phosphorus Level 4.3, Total Bilirubin 1.6H, Direct Bilirubin 0.9H, Aspartate Amino Transf (AST/SGOT) 82H, Alanine Aminotransferase (ALT/SGPT) 94H, Alkaline Phosphatase 369H, Total Protein 6.7, Albumin 2.3L, Globulin 4.4, Albumin/Globulin Ratio 0.5L Height (Feet): 6 Height (Inches): 1.00 Weight (Pounds): 259 General Appearance: no apparent distress EENT: normal ENT inspection Neck: supple, normal inspection Cardiovascular: normal rate Respiratory/Chest: decreased breath sounds Abdomen: normal bowel sounds, non tender, soft Extremities: non-tender Antwon Willoughby MD Mar 04, 2019 12:07
[2019-03-04] MEDS ORDERED: Oxybutynin 5mg tab ORAL SCH (14:00)
--- NOTE | 2019-03-04 15:34 | Surgery Progress Note ---
Surgery Progress Note Subjective Additional Comments no acute events. labs abnormal. exam unchanged. micro noted. Objective Last 24 Hour Vital Signs Date Time Temp Pulse Resp B/P (MAP) Pulse Ox O2 Delivery O2 Flow Rate FiO2 03/04/19 14:35 98 20 45 03/04/19 12:39 81 22 45 03/04/19 12:11 127/75 03/04/19 12:00 97.5 76 16 111/81 (91) 99 03/04/19 12:00 79 03/04/19 12:00 Mechanical Ventilator 03/04/19 12:00 40 03/04/19 11:25 82 16 45 03/04/19 08:57 127/75 03/04/19 08:56 81 127/75 03/04/19 08:40 76 16 45 03/04/19 08:00 Mechanical Ventilator 03/04/19 08:00 86 03/04/19 08:00 97.6 81 19 127/75 (92) 100 03/04/19 08:00 40 03/04/19 06:44 77 19 45 03/04/19 05:42 108/73 03/04/19 05:42 108/73 03/04/19 05:15 82 23 45 03/04/19 04:00 97.7 81 16 108/73 (85) 100 03/04/19 04:00 40 03/04/19 04:00 Mechanical Ventilator 03/04/19 03:41 76 03/04/19 02:55 85 16 45 03/04/19 01:55 88 17 45 03/04/19 00:13 123/84 03/04/19 00:11 123/84 03/04/19 00:00 Mechanical Ventilator 03/04/19 00:00 97.7 81 16 123/84 (97) 100 03/03/19 23:49 80 17 45 03/03/19 23:24 82 03/03/19 22:44 130/102 03/03/19 21:14 79 130/102 03/03/19 20:59 82 16 45 03/03/19 20:00 40 03/03/19 20:00 Mechanical Ventilator 03/03/19 20:00 97.9 87 16 132/76 (94) 100 03/03/19 19:51 118 03/03/19 19:24 84 4/17/19 19:13 82 16 45 03/03/19 17:36 129/88 03/03/19 17:36 129/88 03/03/19 17:22 83 16 45 03/03/19 16:00 Mechanical Ventilator 03/03/19 16:00 40 03/03/19 16:00 97.6 82 16 129/80 (96) 98 03/03/19 15:35 86 19 45 I&O Intake and Output 03/03/19 03/04/19 19:00 07:00 Intake Total 1376.495 ml 893.379 ml Output Total 650 ml 1200 ml Balance 726.495 ml -306.621 ml IV Total 996.495 ml 693.379 ml Tube Feeding 60 ml 150 ml Other 320 ml 50 ml Output Urine Total 650 ml 1200 ml # Bowel Movements 8 2 Dressing: saturated Wound: other Drains: other Cardiovascular: RSR Respiratory: decreased breath sounds Abdomen: soft, present bowel sounds, non-distended Extremities: no cyanosis, other Laboratory Tests Test 03/04/19 04:00 White Blood Count 9.7 K/UL (4.8-10.8) Red Blood Count 4.14 M/UL (4.70-6.10) L Hemoglobin 9.6 G/DL (14.2-18.0) L Hematocrit 32.1 % (42.0-52.0) L Mean Corpuscular Volume 78 FL (80-99) L Mean Corpuscular Hemoglobin 23.1 PG (27.0-31.0) L Mean Corpuscular Hemoglobin Concent 29.8 G/DL (32.0-36.0) L Red Cell Distribution Width 25.7 % (11.6-14.8) H Platelet Count 314 K/UL (150-450) Mean Platelet Volume 8.1 FL (6.5-10.1) Neutrophils (%) (Auto) % (45.0-75.0) Lymphocytes (%) (Auto) % (20.0-45.0) Monocytes (%) (Auto) % (1.0-10.0) Eosinophils (%) (Auto) % (0.0-3.0) Basophils (%) (Auto) % (0.0-2.0) Sodium Level 146 MMOL/L (136-145) H Potassium Level 3.4 MMOL/L (3.5-5.1) L Chloride Level 108 MMOL/L (98-107) H Carbon Dioxide Level 29 MMOL/L (21-32) Anion Gap 9 mmol/L (5-15) Blood Urea Nitrogen 68 mg/dL (7-18) H Creatinine 1.8 MG/DL (0.55-1.30) H Estimat Glomerular Filtration Rate 47.9 mL/min (>60) Glucose Level 101 MG/DL (74-106) Hemoglobin A1c 6.3 % (4.3-6.0) H Calcium Level 8.4 MG/DL (8.5-10.1) L Phosphorus Level 4.3 MG/DL (2.5-4.9) Total Bilirubin 1.6 MG/DL (0.2-1.0) H Direct Bilirubin 0.9 MG/DL (0.0-0.3) H Aspartate Amino Transf (AST/SGOT) 82 U/L (15-37) H Alanine Aminotransferase (ALT/SGPT) 94 U/L (12-78) H Alkaline Phosphatase 369 U/L (46-116) H Total Protein 6.7 G/DL (6.4-8.2) Albumin 2.3 G/DL (3.4-5.0) L Globulin 4.4 g/dL Albumin/Globulin Ratio 0.5 (1.0-2.7) L Plan Problems: (1) History of asthma (2) History of sudden cardiac arrest (3) Chronic systolic (congestive) heart failure (4) Hyperkalemia (5) ATN (acute tubular necrosis) (6) Feeding by G-tube (7) EF less than 10% (8) GI bleed Assessment & Plan: as per GI h/h stable monitor for now (9) Renal failure (10) Hyperkalemia (11) Respiratory distress (12) Acute on chronic respiratory failure (13) Elevated LFTs Assessment & Plan: trend will monitor US with Impression: Small amount of ascites fluid Hepatomegaly. Equivocal mild surface nodularity, could indicate early cirrhotic changes. Correlate with clinical findings Apparent to and fro flow within the portal veins, raising concern for portal hypertension Borderline splenomegaly Negative for gallstones. Apparent pericholecystic fluid is likely a manifestation of the ascites. Apparent gallbladder wall edema is most likely related to the hepatocellular disease, although the possibility of acute acalculous cholecystitis should also be considered. Consider nuclear medicine hepatobiliary imaging for further evaluation if there is high clinical suspicion Echogenic foci within the left hepatic lobe. These could represent small hemangiomas or just prominent periportal fat Right pleural effusion Bilateral renal cysts incidentally noted (14) Dyspnea (15) Decubitus skin ulcer Assessment & Plan: Pt presented on admission with multiple partial thickness pressure injuries R and L buttocks and L thoracic,Open DTPI sacrum. Sacral area with full thickness wound with trace slough at coccygeal area,with surrounding dark skin tone without fluctuance or induration. (L)2cm x(W)4.4cm. No odor or exudate noted .Shearing periwound with small amt of sanguineous exudate. Multiple small partial thickness pressure injuries R and L buttocks.Surrounding areas of buttocks with darker than is normal skin tone. Partial thickness pressure injury Thoracic (2) sites. Proximal wound moist viable with dark skin tone periwound (L)2.6cm long. (Inferior) Partial thickness wound L thoracic (L)1.4cm x (W)1.5cm. Both heels are dry and firm . Trach site without erythema or evidence of skin breakdown. Tx.Plan: Apply Moisture Barrier Paste to entire Buttocks. Cover Sacral area with Optifoam. Change every 3 days and prn. Cover Thoracic wounds with Optifoam drsg .Change every 3 days and prn. APM/ Elvira mattress. Reposition at least every 2hours or as tolerated. Off-load heels with pillow. Karthik Cheatham Mar 04, 2019 15:34
--- NOTE | 2019-03-04 15:57 | Diagnostic Imaging Report ---
Indication: Pneumonia versus mass Technique: Noncontrast CT of the chest utilizing automated exposure control. Axial, sagittal and coronal reformats presented. CT dose: Total DLP 1055.62 mGycm; CTDI vol 24.46 mGy Comparison: Concurrent chest radiograph Findings: There is a [id number] right pleural effusion with adjacent compressive atelectasis in the right lower lobe. There is a dense consolidation in the right lower lobe with air bronchograms concerning for pneumonia. No focus of dense consolidation with air bronchograms noted in the anterior left upper lobe. Presence of air bronchograms suggest multifocal pneumonia. Radiographic follow-up after appropriate treatment is recommended to exclude the possibility of underlying mass. There is no evidence of pneumothorax. The heart is enlarged. There is hypoattenuation of the blood pool suggestive of anemia. There are mild coronary arterial calcifications. Aortic valvular calcifications also noted. Thoracic aorta is normal in caliber with minimal calcification in the arch. Main pulmonary artery is prominent measuring 3.1 cm in diameter. Prominent mediastinal lymph nodes are noted. For example a subcarinal lymph node measures approximately 13 mm in short axis. These may be reactive however attention on follow-up is recommended. Thyroid is unremarkable in appearance. A tracheostomy tube is noted. Gastrostomy tube is also noted. There is an approximately 2.5 cm cyst in the upper pole the left kidney. Apparent gallbladder wall thickening and pericholecystic fluid is noted. Ascites is partially visualized. No acute osseous abnormality is identified. There is diffuse subcutaneous edema/anasarca. A right arm PICC line has its catheter tip in the region of the central right subclavian vein. IMPRESSION: Dense opacities within the right lower lobe and left upper lobe with air bronchograms. Findings suggest multifocal pneumonia. Follow-up after appropriate treatment is recommended to ensure resolution and exclude the possibility of underlying mass. Pmnov-in-zyejcuwf right pleural effusion. Prominent mediastinal lymph nodes with an enlarged subcarinal node which may be reactive in etiology. Attention on follow-up is recommended. Cardiomegaly and findings suggestive of anemia. Tracheostomy tube and gastrostomy tube noted. Apparent gallbladder wall thickening and pericholecystic fluid. Correlation with findings of recent ultrasound recommended. If there is clinical concern for acute cholecystitis consider HIDA scan. Anasarca. The CT scanner at [facility] is accredited by the [employer] and the scans are performed using protocols designed to limit radiation exposure to as low as reasonably achievable to attain images of sufficient resolution adequate for diagnostic evaluation.
[2019-03-04 16:00] VITALS: BP 117/79
--- NOTE | 2019-03-04 16:24 | Nephrology Progress Note ---
Assessment/Plan Problem List: (1) Hyperkalemia (2) ATN (acute tubular necrosis) (3) Feeding by G-tube (4) Acute on chronic respiratory failure (5) EF less than 10% (6) History of sudden cardiac arrest (7) Chronic systolic (congestive) heart failure Assessment ATN (acute tubular necrosis), underlying CKD Hyperkalemia - was on K supplement and Lasix [employer] Chronic systolic (congestive) heart failure History of sudden cardiac arrest Status post tracheostomy Feeding by G-tube History of asthma Plan Cerda Reglan continue prednisone, taper stop hydrate aim to lower after and pre load- increase hydralazin monitor renal parameters per orders Subjective ROS Limited/Unobtainable: Yes Objective Objective Last 24 Hour Vital Signs Date Time Temp Pulse Resp B/P (MAP) Pulse Ox O2 Delivery O2 Flow Rate FiO2 03/04/19 14:35 98 20 45 03/04/19 12:39 81 22 45 03/04/19 12:11 127/75 03/04/19 12:00 97.5 76 16 111/81 (91) 99 03/04/19 12:00 79 03/04/19 12:00 Mechanical Ventilator 03/04/19 12:00 40 03/04/19 11:25 82 16 45 03/04/19 08:57 127/75 03/04/19 08:56 81 127/75 03/04/19 08:40 76 16 45 03/04/19 08:00 Mechanical Ventilator 03/04/19 08:00 86 03/04/19 08:00 97.6 81 19 127/75 (92) 100 03/04/19 08:00 40 03/04/19 06:44 77 19 45 03/04/19 05:42 108/73 03/04/19 05:42 108/73 03/04/19 05:15 82 23 45 03/04/19 04:00 97.7 81 16 108/73 (85) 100 03/04/19 04:00 40 03/04/19 04:00 Mechanical Ventilator 03/04/19 03:41 76 03/04/19 02:55 85 16 45 03/04/19 01:55 88 17 45 03/04/19 00:13 123/84 03/04/19 00:11 123/84 03/04/19 00:00 Mechanical Ventilator 03/04/19 00:00 97.7 81 16 123/84 (97) 100 03/03/19 23:49 80 17 45 03/03/19 23:24 82 03/03/19 22:44 130/102 03/03/19 21:14 79 130/102 03/03/19 20:59 82 16 45 03/03/19 20:00 40 03/03/19 20:00 Mechanical Ventilator 03/03/19 20:00 97.9 87 16 132/76 (94) 100 03/03/19 19:51 118 03/03/19 19:24 84 03/03/19 19:13 82 16 45 03/03/19 17:36 129/88 03/03/19 17:36 129/88 03/03/19 17:22 83 16 45 Intake and Output 03/03/19 03/04/19 19:00 07:00 Intake Total 1376.495 ml 893.379 ml Output Total 650 ml 1200 ml Balance 726.495 ml -306.621 ml IV Total 996.495 ml 693.379 ml Tube Feeding 60 ml 150 ml Other 320 ml 50 ml Output Urine Total 650 ml 1200 ml # Bowel Movements 8 2 Laboratory Tests 03/04/19 04:00: White Blood Count 9.7, Red Blood Count 4.14L, Hemoglobin 9.6L, Hematocrit 32.1L , Mean Corpuscular Volume 78L, Mean Corpuscular Hemoglobin 23.1L, Mean Corpuscular Hemoglobin Concent 29.8L, Red Cell Distribution Width 25.7H, Platelet Count 314, Mean Platelet Volume 8.1, Neutrophils (%) (Auto) , Lymphocytes (%) (Auto) , Monocytes (%) (Auto) , Eosinophils (%) (Auto) , Basophils (%) (Auto) , Sodium Level 146H, Potassium Level 3.4L, Chloride Level 108H, Carbon Dioxide Level 29, Anion Gap 9, Blood Urea Nitrogen 68H, Creatinine 1.8H, Estimat Glomerular Filtration Rate 47.9, Glucose Level 101, Hemoglobin A1c 6.3H, Calcium Level 8.4L, Phosphorus Level 4.3, Total Bilirubin 1.6H, Direct Bilirubin 0.9H, Aspartate Amino Transf (AST/SGOT) 82H, Alanine Aminotransferase (ALT/SGPT) 94H, Alkaline Phosphatase 369H, Total Protein 6.7, Albumin 2.3L, Globulin 4.4, Albumin/Globulin Ratio 0.5L Height (Feet): 6 Height (Inches): 1.00 Weight (Pounds): 259 General Appearance: no apparent distress EENT: other - trach Cardiovascular: normal rate Respiratory/Chest: decreased breath sounds Abdomen: distended Nico Alonso MD Mar 04, 2019 16:24
--- NOTE | 2019-03-04 17:42 | Internal Med Progress Note ---
Subjective Date of Service: Mar 04, 2019 Physician Name Alex Cifuentes Attending Physician Sherman Vee MD Current Medications Medications (Trade) Dose Ordered Sig/Rebecca Route PRN Reason Start Time Stop Time Status Last Admin Dose Admin Acetaminophen (Tylenol) 650 mg Q4H PRN GT Mild Pain/Temp > 100.5 03/01/19 20:00 03/31/19 19:59 Albuterol/ Ipratropium (Albuterol/ Ipratropium) 3 ml EVERY 4 HOURS PRN HHN Shortness of Breath 02/28/19 18:45 03/05/19 18:44 03/02/19 00:46 Allopurinol (Zyloprim) 200 mg DAILY GT 03/02/19 11:00 04/01/19 10:59 03/04/19 08:56 Aspirin (ASA) 325 mg DAILY GT 02/28/19 19:45 03/30/19 19:44 03/02/19 09:05 Carvedilol (Coreg) 12.5 mg EVERY 12 HOURS GT 03/03/19 21:00 04/02/19 20:59 03/04/19 08:56 Chlorhexidine Gluconate (Essie-Hex 2%) 1 applic DAILY@2000 TOPIC 03/01/19 20:00 03/31/19 19:59 03/03/19 20:24 Clonidine HCl (Catapres Tab) 0.1 mg EVERY 6 HOURS PRN GT FOR sbp >160 02/28/19 18:45 03/30/19 18:44 Dextrose (Dextrose 50%) STAT PRN IV Hypoglycemia 02/28/19 18:45 03/30/19 18:44 Dopamine HCl/ Dextrose 250 ml @ 13.319 mls/ hr Q24H IV 03/02/19 08:11 04/01/19 08:10 03/04/19 08:57 Heparin Sodium (Porcine) (Heparin 5000 units/ml) 5,000 units EVERY 12 HOURS SUBQ 02/28/19 21:00 03/30/19 20:59 03/03/19 21:17 Hydralazine HCl (Apresoline) 20 mg Q6HR GT 03/04/19 18:00 04/02/19 11:59 03/04/19 17:08 Iron Sucrose 100 mg/Sodium Chloride 60 ml @ 240 mls/hr BEDTIME IV 03/02/19 21:00 03/06/19 21:14 03/03/19 21:44 Isosorbide Dinitrate (Isordil) 10 mg Q6HR GT 03/02/19 12:00 04/01/19 11:59 03/04/19 17:08 Lansoprazole (Prevacid) 30 mg BID GT 03/04/19 18:00 04/03/19 17:59 03/04/19 17:08 Lorazepam (Ativan 2mg/ml 1ml) 2 mg EVERY 2 HOURS PRN IV For Anxiety 02/28/19 18:45 03/07/19 18:44 03/04/19 01:36 Metoclopramide HCl (Reglan) 5 mg EVERY 6 HOURS GT 03/02/19 12:00 04/01/19 11:59 03/04/19 17:07 Morphine Sulfate (Morphine Sulfate) 4 mg EVERY 4 HOURS PRN IVP Severe Pain (Pain Scale 7-10) 02/28/19 18:45 03/07/19 18:44 Ondansetron HCl (Zofran) 4 mg Q6H PRN IVP Nausea & Vomiting 02/28/19 18:45 03/30/19 18:44 Piperacillin Sod/ Tazobactam Sod 3.375 gm/Sodium Chloride 110 ml @ 27.5 mls/hr Q12HR@0100,1300 IVPB 03/01/19 13:00 03/08/19 12:59 03/04/19 13:34 Polyethylene Glycol (Miralax) 17 gm DAILYPRN PRN GT Constipation 03/01/19 20:00 03/30/19 18:44 Potassium Chloride (K-Dur) 20 meq TWICE A DAY GT 03/04/19 18:00 04/03/19 17:59 03/04/19 17:08 Prednisone (predniSONE) 15 mg DAILY GT 03/05/19 09:00 04/02/19 08:59 Vancomycin HCl (Vanco rx to dose) 1 ea DAILY PRN MISC PER RX PROTOCOL 03/01/19 09:45 03/31/19 09:44 Allergies: Coded Allergies: No Known Allergies (Unverified , 03/28/17) ROS Limited/Unobtainable: Yes Subjective 53YO M with history of vent dep respiratory failure admitted with respiratory distress. Cover for Int Med-Dr Vee. [facility] Objective Last Vital Signs Date Time Temp Pulse Resp B/P (MAP) Pulse Ox O2 Delivery O2 Flow Rate FiO2 03/04/19 17:09 93 19 45 03/04/19 17:08 117/79 03/04/19 16:00 Mechanical Ventilator 03/04/19 16:00 97.0 100 03/01/19 04:00 55.0 Laboratory Tests Test 03/04/19 04:00 03/04/19 15:57 White Blood Count 9.7 K/UL (4.8-10.8) Red Blood Count 4.14 M/UL (4.70-6.10) L Hemoglobin 9.6 G/DL (14.2-18.0) L Hematocrit 32.1 % (42.0-52.0) L Mean Corpuscular Volume 78 FL (80-99) L Mean Corpuscular Hemoglobin 23.1 PG (27.0-31.0) L Mean Corpuscular Hemoglobin Concent 29.8 G/DL (32.0-36.0) L Red Cell Distribution Width 25.7 % (11.6-14.8) H Platelet Count 314 K/UL (150-450) Mean Platelet Volume 8.1 FL (6.5-10.1) Neutrophils (%) (Auto) % (45.0-75.0) Lymphocytes (%) (Auto) % (20.0-45.0) Monocytes (%) (Auto) % (1.0-10.0) Eosinophils (%) (Auto) % (0.0-3.0) Basophils (%) (Auto) % (0.0-2.0) Sodium Level 146 MMOL/L (136-145) H Potassium Level 3.4 MMOL/L (3.5-5.1) L Chloride Level 108 MMOL/L (98-107) H Carbon Dioxide Level 29 MMOL/L (21-32) Anion Gap 9 mmol/L (5-15) Blood Urea Nitrogen 68 mg/dL (7-18) H Creatinine 1.8 MG/DL (0.55-1.30) H Estimat Glomerular Filtration Rate 47.9 mL/min (>60) Glucose Level 101 MG/DL (74-106) Hemoglobin A1c 6.3 % (4.3-6.0) H Calcium Level 8.4 MG/DL (8.5-10.1) L Phosphorus Level 4.3 MG/DL (2.5-4.9) Total Bilirubin 1.6 MG/DL (0.2-1.0) H Direct Bilirubin 0.9 MG/DL (0.0-0.3) H Aspartate Amino Transf (AST/SGOT) 82 U/L (15-37) H Alanine Aminotransferase (ALT/SGPT) 94 U/L (12-78) H Alkaline Phosphatase 369 U/L (46-116) H Total Protein 6.7 G/DL (6.4-8.2) Albumin 2.3 G/DL (3.4-5.0) L Globulin 4.4 g/dL Albumin/Globulin Ratio 0.5 (1.0-2.7) L Stool Occult Blood Pending Microbiology Date/Time Source Procedure Growth Status 03/02/19 11:45 Blood Blood Culture - Preliminary NO GROWTH AFTER 24 HOURS Resulted 03/02/19 11:35 Blood Blood Culture - Preliminary NO GROWTH AFTER 24 HOURS Resulted 03/02/19 18:50 Nasopharynx - Final Complete 03/02/19 18:50 Nasopharynx - Final Complete 03/01/19 20:12 Rectum - Final NO CARBAPENEM-RESISTANT ENTEROBACTERI... Complete Intake and Output 03/03/19 03/04/19 19:00 07:00 Intake Total 1376.495 ml 893.379 ml Output Total 650 ml 1200 ml Balance 726.495 ml -306.621 ml IV Total 996.495 ml 693.379 ml Tube Feeding 60 ml 150 ml Other 320 ml 50 ml Output Urine Total 650 ml 1200 ml # Bowel Movements 8 2 Objective PHYSICAL EXAMINATION:. GENERAL: The patient is awake and responsive to the painful stimuli. Spontaneously opens his eyes. Cannot follow commands. HEAD AND NECK: Pupils are equal and reactive to light. Anicteric. Neck was supple. Tracheostomy site is intact. LUNGS: Good air entry. Decreased in the bases. Ventilation breath sounds. HEART: Reveals S1, S2. Regular rhythm. Distant heart sounds. No murmurs or gallops. ABDOMEN: Soft, nondistended, and nontender. PEG site is clean. EXTREMITIES: No cyanosis or clubbing. A +1 edema in bilateral lower extremities. The patient has a PICC line in the right upper extremity noted. NEUROLOGIC: Very limited secondary to the patient's status. At this time, the patient is unable to follow commands, however, moving extremities slowly. BACK: Has a small sacral ulcer. Assessment/Plan Assessment/Plan ASSESSMENT: 1. Acute respiratory failure on chronic bilateral pneumonia. 2. Severe cardiomyopathy with systolic dysfunction. 3. Hyperkalemia. 4. Chronic ventilator dependent status post tracheostomy. 5. History of sudden cardiac arrest. 6. Asthma. 7. Anoxic brain injury. 8. Dysphagia status post PEG. PLAN: Admit the patient to [facility]. Dr. Gerber from Pulmonary Critical Care, Dr. Luis Robins from ID Dr. Nico Alonso from Nephrology. We will monitor potassium level closely on Kayexalate. Chronic wound care therapy. We will follow up with the wound care protocol. Monitor laboratory. Broad-spectrum antibiotics with Zosyn and vancomycin. Code status at this time is Full Code. Alex Cifuentes MD Mar 04, 2019 17:42
--- NOTE | 2019-03-04 17:52 | Infectious Diseases Prog Note ---
Assessment/Plan Assessment/Plan Assessment/Plan 53 yo male with PMHx of Asthma, HTN and CHF who was sent to the ED form a longterm for respuratory distress and feeling cold. Respiratory distress PNA, multifocal -CT Chest: Dense opacities within the right lower lobe and left upper lobe with air bronchograms. Findings suggest multifocal pneumonia. Follow-up after appropriate treatment is recommended to ensure resolution and exclude the possibility of underlying mass. [id number] right pleural effusion. Prominent mediastinal lymph nodes with an enlarged subcarinal node which may be reactive in etiology. Attention on follow-up is recommended. Cardiomegaly and findings suggestive of anemia. Apparent gallbladder wall thickening and pericholecystic fluid. Correlation with findings of recent ultrasound recommended. If there is clinical concern for acute cholecystitis consider HIDA scan. -legionella ag urine, influenza sc neg Anasarca. WBCs 13 on admit;SP No fevers Sputum Cx - pend CXR - B/L consolidations Gram positive bacteremia- likely contaminant -Bcx 11/20 Staph epi; 03/02 Bcx NTD UA (-) Elevated ALT/AST>Tbili; improving- ?early cirrhosis- r/o acalculous cholecystitis -Abd US: Small amount of ascites fluid. Hepatomegaly. Equivocal mild surface nodularity, could indicate early cirrhotic changes. Correlate with clinical findings. Apparent to and fro flow within the portal veins, raising concern for portal hypertension. Borderline splenomegaly. Negative for gallstones. Apparent pericholecystic fluid is likely a manifestation of the ascites. Apparent gallbladder wall edema is most likely related to the hepatocellular disease, although the possibility of acute acalculous cholecystitis should also be considered. Consider nuclear medicine hepatobiliary imaging for further evaluation if there is high clinical suspicion. Echogenic foci within the left hepatic lobe. These could represent small hemangiomas or just prominent periportal fat -hep serologies neg -HIV ab sc neg Small sacral ulcers Do not appear to be infected Asthma HTN CHF PLAN - Continue Vancomycin #4 and Zosyn #4 given recent hospitalization and trach for PNA pending cultuers -f/u Repeat Bcx x2 - f/u Cx - Resp therapy - Wound care - Monitor CBC and temps -sp cx -HIDA scan Thank you for this consult. We will continue to follow the patient during this hospitalization. Subjective Allergies: Coded Allergies: No Known Allergies (Unverified , 03/28/17) Subjective afebrile leukocytosis improving bacteremic; repeat Bcx p Objective Vital Signs Last 24 Hour Vital Signs Date Time Temp Pulse Resp B/P (MAP) Pulse Ox O2 Delivery O2 Flow Rate FiO2 03/04/19 17:09 93 19 45 03/04/19 17:08 117/79 03/04/19 17:08 117/79 03/04/19 16:00 82 03/04/19 16:00 40 03/04/19 16:00 Mechanical Ventilator 03/04/19 16:00 97.0 85 15 117/79 (92) 100 03/04/19 14:35 98 20 45 03/04/19 12:39 81 22 45 03/04/19 12:11 127/75 03/04/19 12:00 97.5 76 16 111/81 (91) 99 03/04/19 12:00 79 03/04/19 12:00 Mechanical Ventilator 03/04/19 12:00 40 03/04/19 11:25 82 16 45 03/04/19 08:57 127/75 03/04/19 08:56 81 127/75 03/04/19 08:40 76 16 45 03/04/19 08:00 Mechanical Ventilator 03/04/19 08:00 86 03/04/19 08:00 97.6 81 19 127/75 (92) 100 03/04/19 08:00 40 03/04/19 06:44 77 19 45 03/04/19 05:42 108/73 03/04/19 05:42 108/73 03/04/19 05:15 82 23 45 03/04/19 04:00 97.7 81 16 108/73 (85) 100 03/04/19 04:00 40 03/04/19 04:00 Mechanical Ventilator 03/04/19 03:41 76 03/04/19 02:55 85 16 45 03/04/19 01:55 88 17 45 03/04/19 00:13 123/84 03/04/19 00:11 123/84 03/04/19 00:00 Mechanical Ventilator 03/04/19 00:00 97.7 81 16 123/84 (97) 100 03/03/19 23:49 80 17 45 03/03/19 23:24 82 03/03/19 22:44 130/102 03/03/19 21:14 79 130/102 03/03/19 20:59 82 16 45 03/03/19 20:00 40 03/03/19 20:00 Mechanical Ventilator 03/03/19 20:00 97.9 87 16 132/76 (94) 100 03/03/19 19:51 118 03/03/19 19:24 84 03/03/19 19:13 82 16 45 Height (Feet): 6 Height (Inches): 1.00 Weight (Pounds): 259 Objective Gen: Awake and follwoing, Trached on Vent 45% HEENT: NCAT, MMM, EOMI, PERRL, No Oral lesion, no scleral icterus NECK: full range of motion, supple, no meningismus, No LAD, No JVD LUNGS: Course B/L Mild wheezing CARDS: RRR, S1, S2, No M/R/G, ABD: Soft, NT, ND, No R/G, + BS, No HSM, No Masses, PEG (No E/P) : Deferred Ext: C/C/E, Pulses 2+ B/L (DP, Rad): NEURO: A/O - not verbal , Strength and Sensation Grossly intact PSYCH: Mood/affect normal SKIN: Warm/dry, No rashes, small sacral ulcers Microbiology Date/Time Source Procedure Growth Status 03/02/19 11:45 Blood Blood Culture - Preliminary NO GROWTH AFTER 24 HOURS Resulted 03/02/19 11:35 Blood Blood Culture - Preliminary NO GROWTH AFTER 24 HOURS Resulted 03/02/19 18:50 Nasopharynx - Final Complete 03/02/19 18:50 Nasopharynx - Final Complete 03/01/19 20:12 Rectum - Final NO CARBAPENEM-RESISTANT ENTEROBACTERI... Complete Laboratory Tests Test 03/04/19 04:00 03/04/19 15:57 White Blood Count 9.7 K/UL (4.8-10.8) Red Blood Count 4.14 M/UL (4.70-6.10) L Hemoglobin 9.6 G/DL (14.2-18.0) L Hematocrit 32.1 % (42.0-52.0) L Mean Corpuscular Volume 78 FL (80-99) L Mean Corpuscular Hemoglobin 23.1 PG (27.0-31.0) L Mean Corpuscular Hemoglobin Concent 29.8 G/DL (32.0-36.0) L Red Cell Distribution Width 25.7 % (11.6-14.8) H Platelet Count 314 K/UL (150-450) Mean Platelet Volume 8.1 FL (6.5-10.1) Neutrophils (%) (Auto) % (45.0-75.0) Lymphocytes (%) (Auto) % (20.0-45.0) Monocytes (%) (Auto) % (1.0-10.0) Eosinophils (%) (Auto) % (0.0-3.0) Basophils (%) (Auto) % (0.0-2.0) Sodium Level 146 MMOL/L (136-145) H Potassium Level 3.4 MMOL/L (3.5-5.1) L Chloride Level 108 MMOL/L (98-107) H Carbon Dioxide Level 29 MMOL/L (21-32) Anion Gap 9 mmol/L (5-15) Blood Urea Nitrogen 68 mg/dL (7-18) H Creatinine 1.8 MG/DL (0.55-1.30) H Estimat Glomerular Filtration Rate 47.9 mL/min (>60) Glucose Level 101 MG/DL (74-106) Hemoglobin A1c 6.3 % (4.3-6.0) H Calcium Level 8.4 MG/DL (8.5-10.1) L Phosphorus Level 4.3 MG/DL (2.5-4.9) Total Bilirubin 1.6 MG/DL (0.2-1.0) H Direct Bilirubin 0.9 MG/DL (0.0-0.3) H Aspartate Amino Transf (AST/SGOT) 82 U/L (15-37) H Alanine Aminotransferase (ALT/SGPT) 94 U/L (12-78) H Alkaline Phosphatase 369 U/L (46-116) H Total Protein 6.7 G/DL (6.4-8.2) Albumin 2.3 G/DL (3.4-5.0) L Globulin 4.4 g/dL Albumin/Globulin Ratio 0.5 (1.0-2.7) L Stool Occult Blood Pending Current Medications Medications (Trade) Dose Ordered Sig/Rebecca Route PRN Reason Start Time Stop Time Status Last Admin Dose Admin Acetaminophen (Tylenol) 650 mg Q4H PRN GT Mild Pain/Temp > 100.5 03/01/19 20:00 03/31/19 19:59 Albuterol/ Ipratropium (Albuterol/ Ipratropium) 3 ml EVERY 4 HOURS PRN HHN Shortness of Breath 02/28/19 18:45 03/05/19 18:44 03/02/19 00:46 Allopurinol (Zyloprim) 200 mg DAILY GT 03/02/19 11:00 04/01/19 10:59 03/04/19 08:56 Aspirin (ASA) 325 mg DAILY GT 02/28/19 19:45 03/30/19 19:44 03/02/19 09:05 Carvedilol (Coreg) 12.5 mg EVERY 12 HOURS GT 03/03/19 21:00 04/02/19 20:59 03/04/19 08:56 Chlorhexidine Gluconate (Essie-Hex 2%) 1 applic DAILY@2000 TOPIC 03/01/19 20:00 03/31/19 19:59 03/03/19 20:24 Clonidine HCl (Catapres Tab) 0.1 mg EVERY 6 HOURS PRN GT FOR sbp >160 02/28/19 18:45 03/30/19 18:44 Dextrose (Dextrose 50%) STAT PRN IV Hypoglycemia 02/28/19 18:45 03/30/19 18:44 Dopamine HCl/ Dextrose 250 ml @ 13.319 mls/ hr Q24H IV 03/02/19 08:11 04/01/19 08:10 03/04/19 08:57 Heparin Sodium (Porcine) (Heparin 5000 units/ml) 5,000 units EVERY 12 HOURS SUBQ 02/28/19 21:00 03/30/19 20:59 03/03/19 21:17 Hydralazine HCl (Apresoline) 20 mg Q6HR GT 03/04/19 18:00 04/02/19 11:59 03/04/19 17:08 Iron Sucrose 100 mg/Sodium Chloride 60 ml @ 240 mls/hr BEDTIME IV 03/02/19 21:00 03/06/19 21:14 03/03/19 21:44 Isosorbide Dinitrate (Isordil) 10 mg Q6HR GT 03/02/19 12:00 04/01/19 11:59 03/04/19 17:08 Lansoprazole (Prevacid) 30 mg BID GT 03/04/19 18:00 04/03/19 17:59 03/04/19 17:08 Lorazepam (Ativan 2mg/ml 1ml) 2 mg EVERY 2 HOURS PRN IV For Anxiety 02/28/19 18:45 03/07/19 18:44 03/04/19 01:36 Metoclopramide HCl (Reglan) 5 mg EVERY 6 HOURS GT 03/02/19 12:00 04/01/19 11:59 03/04/19 17:07 Morphine Sulfate (Morphine Sulfate) 4 mg EVERY 4 HOURS PRN IVP Severe Pain (Pain Scale 7-10) 02/28/19 18:45 03/07/19 18:44 Ondansetron HCl (Zofran) 4 mg Q6H PRN IVP Nausea & Vomiting 02/28/19 18:45 03/30/19 18:44 Piperacillin Sod/ Tazobactam Sod 3.375 gm/Sodium Chloride 110 ml @ 27.5 mls/hr Q12HR@0100,1300 IVPB 03/01/19 13:00 03/08/19 12:59 03/04/19 13:34 Polyethylene Glycol (Miralax) 17 gm DAILYPRN PRN GT Constipation 03/01/19 20:00 03/30/19 18:44 Potassium Chloride (K-Dur) 20 meq TWICE A DAY GT 03/04/19 18:00 04/03/19 17:59 03/04/19 17:08 Prednisone (predniSONE) 15 mg DAILY GT 03/05/19 09:00 04/02/19 08:59 Vancomycin HCl (Vanco rx to dose) 1 ea DAILY PRN MISC PER RX PROTOCOL 03/01/19 09:45 03/31/19 09:44 Kathie Lacey M.D. Mar 04, 2019 17:52
[2019-03-04 20:00] VITALS: BP 131/71
[2019-03-04] MEDS: Iron Sucrose 100 MG in NS 55 ML IV SCH (20:57)
[2019-03-04] MEDS: Dyna-Hex 2% Top Sol 2oz TOPIC SCH (20:57)
[2019-03-05] VITALS: BP 117/80
[2019-03-05] MEDS: Metoclopramide 10mg/10ml Liq GT SCH ×4 (00:37→17:07)
[2019-03-05] MEDS: HydrALAZINE 10mg Tab GT SCH ×4 (00:37→17:06)
[2019-03-05] MEDS: Piperacillin/Tazobactam 3.375 GM in NS 110 ML IVPB SCH ×2 (00:38→12:42)
[2019-03-05] MEDS: DOPamine 400mg/250ml 250 ML IV SCH (03:16)
[2019-03-05 04:00] VITALS: BP 115/84
[2019-03-05 05:40] LABS: HEMATOCRIT 33.4 % (42.0-52.0); HEMOGLOBIN 9.9 G/DL (14.2-18.0); MEAN CORPUSCULAR VOLUME 78 FL (80-99); PLATELET COUNT 287 K/UL (150-450); RED BLOOD COUNT 4.27 M/UL (4.70-6.10); RED CELL DISTRIBUTION WIDTH 26.4 % (11.6-14.8); WHITE BLOOD COUNT 9.3 K/UL (4.8-10.8)
[2019-03-05 06:19] LABS: ALANINE AMINOTRANSFERASE 110 U/L (12-78); ALBUMIN 2.4 G/DL (3.4-5.0); ALBUMIN/GLOBULIN RATIO 0.6 (1.0-2.7); ALKALINE PHOSPHATASE 440 U/L (46-116); ANION GAP 8 mmol/L (5-15); ASPARTATE AMINO TRANSFERASE 67 U/L (15-37); BILIRUBIN,TOTAL 1.5 MG/DL (0.2-1.0); BLOOD UREA NITROGEN 54 mg/dL (7-18); CALCIUM 8.5 MG/DL (8.5-10.1); CARBON DIOXIDE 29 MMOL/L (21-32); CHLORIDE 109 MMOL/L (98-107); CREATININE 1.5 MG/DL (0.55-1.30); POTASSIUM 3.9 MMOL/L (3.5-5.1); SODIUM 146 MMOL/L (136-145)
[2019-03-05 06:21] LABS: BILIRUBIN,DIRECT 0.9 MG/DL (0.0-0.3)
[2019-03-05 06:27] LABS: PHOSPHORUS 2.8 MG/DL (2.5-4.9)
[2019-03-05 08:00] VITALS: BP 114/79
--- NOTE | 2019-03-05 08:04 | Infectious Diseases Prog Note ---
Assessment/Plan Assessment/Plan Assessment/Plan 53 yo male with PMHx of Asthma, HTN and CHF who was [facility] the ED [facility] a [facility] for respuratory distress and feeling cold. Respiratory distress PNA, multifocal -CT Chest: Dense opacities within the right lower lobe and left upper lobe with air bronchograms. Findings suggest multifocal pneumonia. Follow-up after appropriate treatment is recommended to ensure resolution and exclude the possibility of underlying mass. [id number] right pleural effusion. Prominent mediastinal lymph nodes with an enlarged subcarinal node which may be reactive in etiology. Attention on follow-up is recommended. Cardiomegaly and findings suggestive of anemia. Apparent gallbladder wall thickening and pericholecystic fluid. Correlation with findings of recent ultrasound recommended. If there is clinical concern for acute cholecystitis consider HIDA scan. -legionella ag urine, influenza sc neg -02/28 sp cx C> albicans Anasarca. WBCs 13 on admit;SP No fevers CXR - B/L consolidations Gram positive bacteremia- likely contaminant -Bcx 11/20 Staph epi; 03/02 Bcx NTD UA (-) Elevated ALT/AST>Tbili; improving- ?early cirrhosis- r/o acalculous cholecystitis -Abd US: Small amount of ascites fluid. Hepatomegaly. Equivocal mild surface nodularity, could indicate early cirrhotic changes. Correlate with clinical findings. Apparent to and fro flow within the portal veins, raising concern for portal hypertension. Borderline splenomegaly. Negative for gallstones. Apparent pericholecystic fluid is likely a manifestation of the ascites. Apparent gallbladder wall edema is most likely related to the hepatocellular disease, although the possibility of acute acalculous cholecystitis should also be considered. Consider nuclear medicine hepatobiliary imaging for further evaluation if there is high clinical suspicion. Echogenic foci within the left hepatic lobe. These could represent small hemangiomas or just prominent periportal fat -hep serologies neg -HIV ab sc neg Small sacral ulcers Do not appear to be infected Asthma HTN CHF PLAN - D/c empiric Vancomycin #4 -Continue empiric Zosyn #4 for PNA and pending HIDA scan -f/u Repeat Bcx x2 - f/u Cx - Resp therapy - Wound care -f/u HIDA scan Thank you for this consult. We will continue to follow the patient during this hospitalization. Subjective Allergies: Coded Allergies: No Known Allergies (Unverified , 03/28/17) Subjective afebrile leukocytosis resolved bacteremic; repeat Bcx NTD ALP and Tbili improving; AST and ALT increasing Objective Vital Signs Last 24 Hour Vital Signs Date Time Temp Pulse Resp B/P (MAP) Pulse Ox O2 Delivery O2 Flow Rate FiO2 03/05/19 06:36 115/84 03/05/19 06:36 115/84 03/05/19 05:23 88 18 40 03/05/19 04:00 40 03/05/19 04:00 Mechanical Ventilator 03/05/19 04:00 98.0 99 16 115/84 (94) 100 03/05/19 03:34 85 03/05/19 03:16 117/80 03/05/19 02:38 79 16 40 03/05/19 01:07 86 16 40 03/05/19 00:38 117/80 03/05/19 00:37 117/80 03/05/19 00:00 98.6 84 16 117/80 (92) 100 03/05/19 00:00 40 03/05/19 00:00 Mechanical Ventilator 03/04/19 23:38 85 03/04/19 23:15 92 16 40 03/04/19 21:00 88 23 40 03/04/19 20:57 82 131/71 03/04/19 20:00 40 03/04/19 20:00 97.9 82 16 131/71 (91) 100 03/04/19 20:00 Mechanical Ventilator 03/04/19 19:09 83 03/04/19 19:05 80 16 40 03/04/19 17:09 93 19 45 03/04/19 17:08 117/79 03/04/19 17:08 117/79 03/04/19 16:00 82 03/04/19 16:00 40 03/04/19 16:00 Mechanical Ventilator 03/04/19 16:00 97.0 85 15 117/79 (92) 100 03/04/19 14:35 98 20 45 03/04/19 12:39 81 22 45 03/04/19 12:11 127/75 03/04/19 12:00 97.5 76 16 111/81 (91) 99 03/04/19 12:00 79 03/04/19 12:00 Mechanical Ventilator 03/04/19 12:00 40 03/04/19 11:25 82 16 45 03/04/19 08:57 127/75 03/04/19 08:56 81 127/75 03/04/19 08:40 76 16 45 Height (Feet): 6 Height (Inches): 1.00 Weight (Pounds): 259 Objective Gen: Awake and follwoing, Trached on Vent 45% HEENT: NCAT, MMM, EOMI, PERRL, No Oral lesion, no scleral icterus NECK: full range of motion, supple, no meningismus, No LAD, No JVD LUNGS: Course B/L Mild wheezing CARDS: RRR, S1, S2, No M/R/G, ABD: Soft, NT, ND, No R/G, + BS, No HSM, No Masses, PEG (No E/P) : Deferred Ext: C/C/E, Pulses 2+ B/L (DP, Rad): NEURO: A/O - not verbal , Strength and Sensation Grossly intact PSYCH: Mood/affect normal SKIN: Warm/dry, No rashes, small sacral ulcers Microbiology Date/Time Source Procedure Growth Status 03/02/19 11:45 Blood Blood Culture - Preliminary NO GROWTH AFTER 48 HOURS Resulted 03/02/19 11:35 Blood Blood Culture - Preliminary NO GROWTH AFTER 48 HOURS Resulted 03/02/19 18:50 Nasopharynx - Final Complete 03/02/19 18:50 Nasopharynx - Final Complete Laboratory Tests Test 03/04/19 15:57 03/05/19 04:50 Stool Occult Blood Pending White Blood Count 9.3 K/UL (4.8-10.8) Red Blood Count 4.27 M/UL (4.70-6.10) L Hemoglobin 9.9 G/DL (14.2-18.0) L Hematocrit 33.4 % (42.0-52.0) L Mean Corpuscular Volume 78 FL (80-99) L Mean Corpuscular Hemoglobin 23.2 PG (27.0-31.0) L Mean Corpuscular Hemoglobin Concent 29.7 G/DL (32.0-36.0) L Red Cell Distribution Width 26.4 % (11.6-14.8) H Platelet Count 287 K/UL (150-450) Mean Platelet Volume 7.9 FL (6.5-10.1) Neutrophils (%) (Auto) % (45.0-75.0) Lymphocytes (%) (Auto) % (20.0-45.0) Monocytes (%) (Auto) % (1.0-10.0) Eosinophils (%) (Auto) % (0.0-3.0) Basophils (%) (Auto) % (0.0-2.0) Sodium Level 146 MMOL/L (136-145) H Potassium Level 3.9 MMOL/L (3.5-5.1) Chloride Level 109 MMOL/L (98-107) H Carbon Dioxide Level 29 MMOL/L (21-32) Anion Gap 8 mmol/L (5-15) Blood Urea Nitrogen 54 mg/dL (7-18) H Creatinine 1.5 MG/DL (0.55-1.30) H Estimat Glomerular Filtration Rate 59.1 mL/min (>60) Glucose Level 84 MG/DL (74-106) Uric Acid 7.6 MG/DL (2.6-7.2) H Calcium Level 8.5 MG/DL (8.5-10.1) Phosphorus Level 2.8 MG/DL (2.5-4.9) Magnesium Level 2.5 MG/DL (1.8-2.4) H Total Bilirubin 1.5 MG/DL (0.2-1.0) H Direct Bilirubin 0.9 MG/DL (0.0-0.3) H Gamma Glutamyl Transpeptidase 582 U/L (5-85) H Aspartate Amino Transf (AST/SGOT) 67 U/L (15-37) H Alanine Aminotransferase (ALT/SGPT) 110 U/L (12-78) H Alkaline Phosphatase 440 U/L (46-116) H C-Reactive Protein, Quantitative 4.7 mg/dL (0.00-0.90) H Pro-B-Type Natriuretic Peptide 37693 pg/mL (0-125) H Total Protein 6.6 G/DL (6.4-8.2) Albumin 2.4 G/DL (3.4-5.0) L Globulin 4.2 g/dL Albumin/Globulin Ratio 0.6 (1.0-2.7) L Current Medications Medications (Trade) Dose Ordered Sig/Rebecca Route PRN Reason Start Time Stop Time Status Last Admin Dose Admin Acetaminophen (Tylenol) 650 mg Q4H PRN GT Mild Pain/Temp > 100.5 03/01/19 20:00 03/31/19 19:59 Albuterol/ Ipratropium (Albuterol/ Ipratropium) 3 ml EVERY 4 HOURS PRN HHN Shortness of Breath 02/28/19 18:45 03/05/19 18:44 03/02/19 00:46 Allopurinol (Zyloprim) 200 mg DAILY GT 03/02/19 11:00 04/01/19 10:59 03/04/19 08:56 Aspirin (ASA) 325 mg DAILY GT 02/28/19 19:45 03/30/19 19:44 03/02/19 09:05 Carvedilol (Coreg) 12.5 mg EVERY 12 HOURS GT 03/03/19 21:00 04/02/19 20:59 03/04/19 20:57 Chlorhexidine Gluconate (Essie-Hex 2%) 1 applic DAILY@2000 TOPIC 03/01/19 20:00 03/31/19 19:59 03/04/19 20:57 Clonidine HCl (Catapres Tab) 0.1 mg EVERY 6 HOURS PRN GT FOR sbp >160 02/28/19 18:45 03/30/19 18:44 Dextrose (Dextrose 50%) STAT PRN IV Hypoglycemia 02/28/19 18:45 03/30/19 18:44 Dopamine HCl/ Dextrose 250 ml @ 13.319 mls/ hr Q24H IV 03/02/19 08:11 04/01/19 08:10 03/05/19 03:16 Heparin Sodium (Porcine) (Heparin 5000 units/ml) 5,000 units EVERY 12 HOURS SUBQ 02/28/19 21:00 03/30/19 20:59 03/04/19 20:58 Hydralazine HCl (Apresoline) 20 mg Q6HR GT 03/04/19 18:00 04/02/19 11:59 03/05/19 06:36 Iron Sucrose 100 mg/Sodium Chloride 60 ml @ 240 mls/hr BEDTIME IV 03/02/19 21:00 03/06/19 21:14 03/04/19 20:57 Isosorbide Dinitrate (Isordil) 10 mg Q6HR GT 03/02/19 12:00 04/01/19 11:59 03/05/19 06:36 Lansoprazole (Prevacid) 30 mg BID GT 03/04/19 18:00 04/03/19 17:59 03/04/19 17:08 Lorazepam (Ativan 2mg/ml 1ml) 2 mg EVERY 2 HOURS PRN IV For Anxiety 02/28/19 18:45 03/07/19 18:44 03/04/19 01:36 Metoclopramide HCl (Reglan) 5 mg EVERY 6 HOURS GT 03/02/19 12:00 04/01/19 11:59 03/05/19 06:35 Morphine Sulfate (Morphine Sulfate) 4 mg EVERY 4 HOURS PRN IVP Severe Pain (Pain Scale 7-10) 02/28/19 18:45 03/07/19 18:44 Ondansetron HCl (Zofran) 4 mg Q6H PRN IVP Nausea & Vomiting 02/28/19 18:45 03/30/19 18:44 Piperacillin Sod/ Tazobactam Sod 3.375 gm/Sodium Chloride 110 ml @ 27.5 mls/hr Q12HR@0100,1300 IVPB 03/01/19 13:00 03/08/19 12:59 03/05/19 00:38 Polyethylene Glycol (Miralax) 17 gm DAILYPRN PRN GT Constipation 03/01/19 20:00 03/30/19 18:44 Potassium Chloride (K-Dur) 20 meq TWICE A DAY GT 03/04/19 18:00 04/03/19 17:59 03/04/19 17:08 Prednisone (predniSONE) 15 mg DAILY GT 03/05/19 09:00 04/02/19 08:59 Vancomycin HCl (Vanco rx to dose) 1 ea DAILY PRN MISC PER RX PROTOCOL 03/01/19 09:45 03/31/19 09:44 Kathie Lacey M.D. Mar 05, 2019 08:04
[2019-03-05] MEDS ORDERED: Dextrose 50% 25ml Syringe IV PRN (09:00)
[2019-03-05] MEDS: Heparin 5000 units/ml inj SUBQ SCH ×2 (09:00→21:00)
[2019-03-05] MEDS: Allopurinol 100mg Tab GT SCH (09:49)
[2019-03-05] MEDS: Carvedilol 25mg Tab GT SCH ×2 (09:53→21:00)
--- NOTE | 2019-03-05 10:25 | Pulmonolgy Critical Care Note ---
Critical Care - Asmt/Plan Problems: (1) Acute on chronic respiratory failure (2) ATN (acute tubular necrosis) (3) Hyperkalemia (4) EF less than 10% (5) Status post tracheostomy (6) Feeding by G-tube (7) History of sudden cardiac arrest (8) History of asthma Respiratory: monitor respiratory rate, adjust FIO2, CXR Cardiac: continue pressors, continue to monitor HR/BP Renal: keep IV fluid Infectious Disease: check cultures Gastrointestinal: hold feedings Endocrine: check HgA1C Neurologic: PRN Ativan Affect: PRN ativan Notes Reviewed: cardio, renal Discussed with: nurses, consultants, family member Critical Care - Objective Last 24 Hour Vital Signs Date Time Temp Pulse Resp B/P (MAP) Pulse Ox O2 Delivery O2 Flow Rate FiO2 03/05/19 10:20 82 16 40 03/05/19 09:53 80 114/79 03/05/19 08:48 80 16 40 03/05/19 08:00 97.0 84 16 114/79 (91) 100 03/05/19 08:00 Mechanical Ventilator 03/05/19 08:00 40 03/05/19 07:40 86 03/05/19 07:11 82 18 40 03/05/19 06:36 115/84 03/05/19 06:36 115/84 03/05/19 05:23 88 18 40 03/05/19 04:00 40 03/05/19 04:00 Mechanical Ventilator 03/05/19 04:00 98.0 99 16 115/84 (94) 100 03/05/19 03:34 85 03/05/19 03:16 117/80 03/05/19 02:38 79 16 40 03/05/19 01:07 86 16 40 03/05/19 00:38 117/80 03/05/19 00:37 117/80 03/05/19 00:00 98.6 84 16 117/80 (92) 100 03/05/19 00:00 40 03/05/19 00:00 Mechanical Ventilator 03/04/19 23:38 85 03/04/19 23:15 92 16 40 03/04/19 21:00 88 23 40 03/04/19 20:57 82 131/71 03/04/19 20:00 40 03/04/19 20:00 97.9 82 16 131/71 (91) 100 03/04/19 20:00 Mechanical Ventilator 03/04/19 19:09 83 03/04/19 19:05 80 16 40 03/04/19 17:09 93 19 45 03/04/19 17:08 117/79 03/04/19 17:08 117/79 03/04/19 16:00 82 03/04/19 16:00 40 03/04/19 16:00 Mechanical Ventilator 03/04/19 16:00 97.0 85 15 117/79 (92) 100 03/04/19 14:35 98 20 45 03/04/19 12:39 81 22 45 03/04/19 12:11 127/75 03/04/19 12:00 97.5 76 16 111/81 (91) 99 03/04/19 12:00 79 03/04/19 12:00 Mechanical Ventilator 03/04/19 12:00 40 03/04/19 11:25 82 16 45 Status: awake Condition: critical HEENT: atraumatic Lungs: clear Heart: HR/BP unstable Abdomen: soft, active bowel sounds Extremities: no C/C/E, edema Micro: Microbiology Date/Time Source Procedure Growth Status 03/02/19 11:45 Blood Blood Culture - Preliminary NO GROWTH AFTER 48 HOURS Resulted 03/02/19 11:35 Blood Blood Culture - Preliminary NO GROWTH AFTER 48 HOURS Resulted 03/02/19 18:50 Nasopharynx - Final Complete 03/02/19 18:50 Nasopharynx - Final Complete Accucheck: 72 Critical Care - Subjective FI02: 40 Vent Support Breath Rate: 16 Vent Support Mode: AC Vent Tidal Volume: 600 Sputum Amount: Small PEEP: 5.0 PIP: 47 Tube Feeding Amount: 45 I&O: Intake and Output 03/04/19 03/05/19 19:00 07:00 Intake Total 1038.850 ml 1011.499 ml Output Total 1500 ml Balance 1038.850 ml -488.501 ml Intake Free Water 80 ml 200 ml IV Total 483.850 ml 316.499 ml Tube Feeding 475 ml 495 ml Output Urine Total 1500 ml # Bowel Movements 5 2 Labs: Laboratory Tests Test 03/04/19 15:57 03/05/19 04:50 Stool Occult Blood Pending White Blood Count 9.3 K/UL (4.8-10.8) Red Blood Count 4.27 M/UL (4.70-6.10) L Hemoglobin 9.9 G/DL (14.2-18.0) L Hematocrit 33.4 % (42.0-52.0) L Mean Corpuscular Volume 78 FL (80-99) L Mean Corpuscular Hemoglobin 23.2 PG (27.0-31.0) L Mean Corpuscular Hemoglobin Concent 29.7 G/DL (32.0-36.0) L Red Cell Distribution Width 26.4 % (11.6-14.8) H Platelet Count 287 K/UL (150-450) Mean Platelet Volume 7.9 FL (6.5-10.1) Neutrophils (%) (Auto) % (45.0-75.0) Lymphocytes (%) (Auto) % (20.0-45.0) Monocytes (%) (Auto) % (1.0-10.0) Eosinophils (%) (Auto) % (0.0-3.0) Basophils (%) (Auto) % (0.0-2.0) Sodium Level 146 MMOL/L (136-145) H Potassium Level 3.9 MMOL/L (3.5-5.1) Chloride Level 109 MMOL/L (98-107) H Carbon Dioxide Level 29 MMOL/L (21-32) Anion Gap 8 mmol/L (5-15) Blood Urea Nitrogen 54 mg/dL (7-18) H Creatinine 1.5 MG/DL (0.55-1.30) H Estimat Glomerular Filtration Rate 59.1 mL/min (>60) Glucose Level 84 MG/DL (74-106) Uric Acid 7.6 MG/DL (2.6-7.2) H Calcium Level 8.5 MG/DL (8.5-10.1) Phosphorus Level 2.8 MG/DL (2.5-4.9) Magnesium Level 2.5 MG/DL (1.8-2.4) H Total Bilirubin 1.5 MG/DL (0.2-1.0) H Direct Bilirubin 0.9 MG/DL (0.0-0.3) H Gamma Glutamyl Transpeptidase 582 U/L (5-85) H Aspartate Amino Transf (AST/SGOT) 67 U/L (15-37) H Alanine Aminotransferase (ALT/SGPT) 110 U/L (12-78) H Alkaline Phosphatase 440 U/L (46-116) H C-Reactive Protein, Quantitative 4.7 mg/dL (0.00-0.90) H Pro-B-Type Natriuretic Peptide 99053 pg/mL (0-125) H Total Protein 6.6 G/DL (6.4-8.2) Albumin 2.4 G/DL (3.4-5.0) L Globulin 4.2 g/dL Albumin/Globulin Ratio 0.6 (1.0-2.7) L Ivan Gerber MD Mar 05, 2019 10:25
--- NOTE | 2019-03-05 10:41 | Nephrology Progress Note ---
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 Chronic systolic (congestive) heart failure History of sudden cardiac arrest Status post tracheostomy Feeding by G-tube History of asthma Plan Cerda Reglan continue prednisone, taper stop hydrate aim to lower after and pre load- increase hydralazin monitor renal parameters per orders Subjective ROS Limited/Unobtainable: No Objective Objective Last 24 Hour Vital Signs Date Time Temp Pulse Resp B/P (MAP) Pulse Ox O2 Delivery O2 Flow Rate FiO2 03/05/19 10:20 82 16 40 03/05/19 09:53 80 114/79 03/05/19 08:48 80 16 40 03/05/19 08:00 97.0 84 16 114/79 (91) 100 03/05/19 08:00 Mechanical Ventilator 03/05/19 08:00 40 03/05/19 07:40 86 03/05/19 07:11 82 18 40 03/05/19 06:36 115/84 03/05/19 06:36 115/84 03/05/19 05:23 88 18 40 03/05/19 04:00 40 03/05/19 04:00 Mechanical Ventilator 03/05/19 04:00 98.0 99 16 115/84 (94) 100 03/05/19 03:34 85 03/05/19 03:16 117/80 03/05/19 02:38 79 16 40 03/05/19 01:07 86 16 40 03/05/19 00:38 117/80 03/05/19 00:37 117/80 03/05/19 00:00 98.6 84 16 117/80 (92) 100 03/05/19 00:00 40 03/05/19 00:00 Mechanical Ventilator 03/04/19 23:38 85 03/04/19 23:15 92 16 40 03/04/19 21:00 88 23 40 03/04/19 20:57 82 131/71 03/04/19 20:00 40 03/04/19 20:00 97.9 82 16 131/71 (91) 100 03/04/19 20:00 Mechanical Ventilator 03/04/19 19:09 83 03/04/19 19:05 80 16 40 03/04/19 17:09 93 19 45 03/04/19 17:08 117/79 03/04/19 17:08 117/79 03/04/19 16:00 82 03/04/19 16:00 40 03/04/19 16:00 Mechanical Ventilator 03/04/19 16:00 97.0 85 15 117/79 (92) 100 03/04/19 14:35 98 20 45 03/04/19 12:39 81 22 45 03/04/19 12:11 127/75 03/04/19 12:00 97.5 76 16 111/81 (91) 99 03/04/19 12:00 79 03/04/19 12:00 Mechanical Ventilator 03/04/19 12:00 40 03/04/19 11:25 82 16 45 Intake and Output 03/04/19 03/05/19 19:00 07:00 Intake Total 1038.850 ml 1011.499 ml Output Total 1500 ml Balance 1038.850 ml -488.501 ml Intake Free Water 80 ml 200 ml IV Total 483.850 ml 316.499 ml Tube Feeding 475 ml 495 ml Output Urine Total 1500 ml # Bowel Movements 5 2 Laboratory Tests 03/04/19 15:57: Stool Occult Blood [Pending] 03/05/19 04:50: White Blood Count 9.3, Red Blood Count 4.27L, Hemoglobin 9.9L, Hematocrit 33.4L , Mean Corpuscular Volume 78L, Mean Corpuscular Hemoglobin 23.2L, Mean Corpuscular Hemoglobin Concent 29.7L, Red Cell Distribution Width 26.4H, Platelet Count 287, Mean Platelet Volume 7.9, Neutrophils (%) (Auto) , Lymphocytes (%) (Auto) , Monocytes (%) (Auto) , Eosinophils (%) (Auto) , Basophils (%) (Auto) , Sodium Level 146H, Potassium Level 3.9, Chloride Level 109H, Carbon Dioxide Level 29, Anion Gap 8, Blood Urea Nitrogen 54H, Creatinine 1.5H, Estimat Glomerular Filtration Rate 59.1, Glucose Level 84, Uric Acid 7.6H , Calcium Level 8.5, Phosphorus Level 2.8, Magnesium Level 2.5H, Total Bilirubin 1.5H, Direct Bilirubin 0.9H, Gamma Glutamyl Transpeptidase 582H, Aspartate Amino Transf (AST/SGOT) 67H, Alanine Aminotransferase (ALT/SGPT) 110H , Alkaline Phosphatase 440H, C-Reactive Protein, Quantitative 4.7H, Pro-B-Type Natriuretic Peptide 74238P, Total Protein 6.6, Albumin 2.4L, Globulin 4.2, Albumin/Globulin Ratio 0.6L Height (Feet): 6 Height (Inches): 1.00 Weight (Pounds): 259 General Appearance: no apparent distress EENT: other - trach- vent Cardiovascular: normal rate Respiratory/Chest: decreased breath sounds Abdomen: distended Nico Alonso MD Mar 05, 2019 10:41
[2019-03-05 12:00] VITALS: BP 102/75
--- NOTE | 2019-03-05 13:22 | Diagnostic Imaging Report ---
Indication: Abdominal Pain Technique: 5.3 mCi of technetium 99 m-Choletec was injected intravenously. Planar imaging of the abdomen was then performed every 3 minutes up to 60 minutes. Oblique views were also obtained. Findings: There is delayed uptake within the liver with some washout of radiotracer from the liver on subsequent imaging. There is excretion into the biliary ducts. Gallbladder activity is present in by 19 minutes indicating patency of the cystic duct. Bowel activity is demonstrated by 16 to 18 minutes indicating patency of the common bile duct. IMPRESSION: No evidence of acute cholecystitis. Radiotracer noted within the gallbladder indicating patency of the cystic duct. Radiotracer passes into the small bowel indicating patency of the common bile duct. Delayed uptake and excretion of the radiotracer from the liver parenchyma suggesting hepatocellular dysfunction/disease.
--- NOTE | 2019-03-05 13:30 | Cardiology Report ---
APPROVED REPORT EKG Measurement Heart [id number] AL 150P89 [id number] Normal sinus rhythm Nonspecific ST and T wave abnormality Prolonged QT Abnormal ECG
--- NOTE | 2019-03-05 14:28 | Surgery Progress Note ---
Surgery Progress Note Subjective Additional Comments HIDA noted. labs improving. exam unchanged. Objective Last 24 Hour Vital Signs Date Time Temp Pulse Resp B/P (MAP) Pulse Ox O2 Delivery O2 Flow Rate FiO2 03/05/19 14:11 78 03/05/19 13:05 85 17 40 03/05/19 12:00 Mechanical Ventilator 03/05/19 12:00 102/75 03/05/19 12:00 102/75 03/05/19 12:00 40 03/05/19 12:00 98.2 80 16 102/75 (84) 100 03/05/19 10:20 82 16 40 03/05/19 09:53 80 114/79 03/05/19 08:48 80 16 40 03/05/19 08:30 Mechanical Ventilator 03/05/19 08:00 97.0 84 16 114/79 (91) 100 03/05/19 08:00 Mechanical Ventilator 03/05/19 08:00 40 03/05/19 07:40 86 03/05/19 07:11 82 18 40 03/05/19 06:36 115/84 03/05/19 06:36 115/84 03/05/19 05:23 88 18 40 03/05/19 04:00 40 03/05/19 04:00 Mechanical Ventilator 03/05/19 04:00 98.0 99 16 115/84 (94) 100 03/05/19 03:34 85 03/05/19 03:16 117/80 03/05/19 02:38 79 16 40 03/05/19 01:07 86 16 40 03/05/19 00:38 117/80 03/05/19 00:37 117/80 03/05/19 00:00 98.6 84 16 117/80 (92) 100 03/05/19 00:00 40 03/05/19 00:00 Mechanical Ventilator 03/04/19 23:38 85 03/04/19 23:15 92 16 40 03/04/19 21:00 88 23 40 03/04/19 20:57 82 131/71 03/04/19 20:00 40 03/04/19 20:00 97.9 82 16 131/71 (91) 100 03/04/19 20:00 Mechanical Ventilator 03/04/19 19:09 83 03/04/19 19:05 80 16 40 03/04/19 17:09 93 19 45 03/04/19 17:08 117/79 03/04/19 17:08 117/79 03/04/19 16:00 82 03/04/19 16:00 40 03/04/19 16:00 Mechanical Ventilator 03/04/19 16:00 97.0 85 15 117/79 (92) 100 03/04/19 14:35 98 20 45 I&O Intake and Output 03/04/19 03/05/19 19:00 07:00 Intake Total 1038.850 ml 1011.499 ml Output Total 1500 ml Balance 1038.850 ml -488.501 ml Intake Free Water 80 ml 200 ml IV Total 483.850 ml 316.499 ml Tube Feeding 475 ml 495 ml Output Urine Total 1500 ml # Bowel Movements 5 2 Cardiovascular: RSR Respiratory: clear Abdomen: soft, non-tender, present bowel sounds, non-distended Extremities: no cyanosis Laboratory Tests Test 03/04/19 15:57 03/05/19 04:50 Stool Occult Blood Negative (NEGATIVE) White Blood Count 9.3 K/UL (4.8-10.8) Red Blood Count 4.27 M/UL (4.70-6.10) L Hemoglobin 9.9 G/DL (14.2-18.0) L Hematocrit 33.4 % (42.0-52.0) L Mean Corpuscular Volume 78 FL (80-99) L Mean Corpuscular Hemoglobin 23.2 PG (27.0-31.0) L Mean Corpuscular Hemoglobin Concent 29.7 G/DL (32.0-36.0) L Red Cell Distribution Width 26.4 % (11.6-14.8) H Platelet Count 287 K/UL (150-450) Mean Platelet Volume 7.9 FL (6.5-10.1) Neutrophils (%) (Auto) % (45.0-75.0) Lymphocytes (%) (Auto) % (20.0-45.0) Monocytes (%) (Auto) % (1.0-10.0) Eosinophils (%) (Auto) % (0.0-3.0) Basophils (%) (Auto) % (0.0-2.0) Sodium Level 146 MMOL/L (136-145) H Potassium Level 3.9 MMOL/L (3.5-5.1) Chloride Level 109 MMOL/L (98-107) H Carbon Dioxide Level 29 MMOL/L (21-32) Anion Gap 8 mmol/L (5-15) Blood Urea Nitrogen 54 mg/dL (7-18) H Creatinine 1.5 MG/DL (0.55-1.30) H Estimat Glomerular Filtration Rate 59.1 mL/min (>60) Glucose Level 84 MG/DL (74-106) Uric Acid 7.6 MG/DL (2.6-7.2) H Calcium Level 8.5 MG/DL (8.5-10.1) Phosphorus Level 2.8 MG/DL (2.5-4.9) Magnesium Level 2.5 MG/DL (1.8-2.4) H Total Bilirubin 1.5 MG/DL (0.2-1.0) H Direct Bilirubin 0.9 MG/DL (0.0-0.3) H Gamma Glutamyl Transpeptidase 582 U/L (5-85) H Aspartate Amino Transf (AST/SGOT) 67 U/L (15-37) H Alanine Aminotransferase (ALT/SGPT) 110 U/L (12-78) H Alkaline Phosphatase 440 U/L (46-116) H C-Reactive Protein, Quantitative 4.7 mg/dL (0.00-0.90) H Pro-B-Type Natriuretic Peptide 22778 pg/mL (0-125) H Total Protein 6.6 G/DL (6.4-8.2) Albumin 2.4 G/DL (3.4-5.0) L Globulin 4.2 g/dL Albumin/Globulin Ratio 0.6 (1.0-2.7) L Plan Problems: (1) History of asthma (2) History of sudden cardiac arrest (3) Chronic systolic (congestive) heart failure (4) Hyperkalemia (5) ATN (acute tubular necrosis) (6) Feeding by G-tube (7) EF less than 10% (8) GI bleed Assessment & Plan: as per GI h/h stable monitor for now okay for diet (9) Renal failure (10) Hyperkalemia (11) Respiratory distress (12) Acute on chronic respiratory failure (13) Elevated LFTs Assessment & Plan: trend will monitor US with Impression: Small amount of ascites fluid Hepatomegaly. Equivocal mild surface nodularity, could indicate early cirrhotic changes. Correlate with clinical findings Apparent to and fro flow within the portal veins, raising concern for portal hypertension Borderline splenomegaly Negative for gallstones. Apparent pericholecystic fluid is likely a manifestation of the ascites. Apparent gallbladder wall edema is most likely related to the hepatocellular disease, although the possibility of acute acalculous cholecystitis should also be considered. Consider nuclear medicine hepatobiliary imaging for further evaluation if there is high clinical suspicion Echogenic foci within the left hepatic lobe. These could represent small hemangiomas or just prominent periportal fat Right pleural effusion Bilateral renal cysts incidentally noted HIDA with No evidence of acute cholecystitis. Radiotracer noted within the gallbladder indicating patency of the cystic duct. Radiotracer passes into the small bowel indicating patency of the common bile duct. Delayed uptake and excretion of the radiotracer from the liver parenchyma suggesting hepatocellular dysfunction/disease. (14) Dyspnea (15) Decubitus skin ulcer Assessment & Plan: Pt presented on admission with multiple partial thickness pressure injuries R and L buttocks and L thoracic,Open DTPI sacrum. Sacral area with full thickness wound with trace slough at coccygeal area,with surrounding dark skin tone without fluctuance or induration. (L)2cm x(W)4.4cm. No odor or exudate noted .Shearing periwound with small amt of sanguineous exudate. Multiple small partial thickness pressure injuries R and L buttocks.Surrounding areas of buttocks with darker than is normal skin tone. Partial thickness pressure injury Thoracic (2) sites. Proximal wound moist viable with dark skin tone periwound (L)2.6cm long. (Inferior) Partial thickness wound L thoracic (L)1.4cm x (W)1.5cm. Both heels are dry and firm . Trach site without erythema or evidence of skin breakdown. Tx.Plan: Apply Moisture Barrier Paste to entire Buttocks. Cover Sacral area with Optifoam. Change every 3 days and prn. Cover Thoracic wounds with Optifoam drsg .Change every 3 days and prn. APM/ Elvira mattress. Reposition at least every 2hours or as tolerated. Off-load heels with pillow. Karthik Cheatham Mar 05, 2019 14:28
--- NOTE | 2019-03-05 14:49 | General Progress Note ---
Assessment/Plan Plan: Assessment/Plan Problem List: (1) Status post tracheostomy ICD Codes: Z93.0 - Tracheostomy status SNOMED: 08305512, 281683827 (2) Acute on chronic respiratory failure ICD Codes: J96.20 - Acute and chronic respiratory failure, unspecified whether with hypoxia or hypercapnia SNOMED: 58228843 (3) EF less than 10% (4) GI bleed ICD Codes: K92.2 - Gastrointestinal hemorrhage, unspecified SNOMED: 61650335 (5) Feeding by G-tube ICD Codes: Z93.1 - Gastrostomy status SNOMED: 247281938, 100389805, 908211122 (6) Chronic systolic (congestive) heart failure ICD Codes: I50.22 - Chronic systolic (congestive) heart failure SNOMED: 32553163, 740219589 (7) History of sudden cardiac arrest ICD Codes: Z86.74 - Personal history of sudden cardiac arrest SNOMED: 14463458, 890665920 (8) Elevated LFTs ICD Codes: R94.5 - Abnormal results of liver function studies SNOMED: 806802720, 273084091 Diagnoses Results of Pharmacotherapy: GTF fu H&H given low EF and stable H&H will hold GI procedures for now Subjective Allergies: Coded Allergies: No Known Allergies (Unverified , 03/28/17) Subjective Above noted arousable tolerating TF Objective Last 24 Hour Vital Signs Date Time Temp Pulse Resp B/P (MAP) Pulse Ox O2 Delivery O2 Flow Rate FiO2 03/05/19 14:11 78 03/05/19 13:05 85 17 40 03/05/19 12:00 Mechanical Ventilator 03/05/19 12:00 102/75 03/05/19 12:00 102/75 03/05/19 12:00 40 03/05/19 12:00 98.2 80 16 102/75 (84) 100 03/05/19 10:20 82 16 40 03/05/19 09:53 80 114/79 03/05/19 08:48 80 16 40 03/05/19 08:30 Mechanical Ventilator 03/05/19 08:00 97.0 84 16 114/79 (91) 100 03/05/19 08:00 Mechanical Ventilator 03/05/19 08:00 40 03/05/19 07:40 86 03/05/19 07:11 82 18 40 03/05/19 06:36 115/84 03/05/19 06:36 115/84 03/05/19 05:23 88 18 40 03/05/19 04:00 40 03/05/19 04:00 Mechanical Ventilator 03/05/19 04:00 98.0 99 16 115/84 (94) 100 03/05/19 03:34 85 03/05/19 03:16 117/80 03/05/19 02:38 79 16 40 03/05/19 01:07 86 16 40 03/05/19 00:38 117/80 03/05/19 00:37 117/80 03/05/19 00:00 98.6 84 16 117/80 (92) 100 03/05/19 00:00 40 03/05/19 00:00 Mechanical Ventilator 03/04/19 23:38 85 03/04/19 23:15 92 16 40 03/04/19 21:00 88 23 40 03/04/19 20:57 82 131/71 03/04/19 20:00 40 03/04/19 20:00 97.9 82 16 131/71 (91) 100 03/04/19 20:00 Mechanical Ventilator 03/04/19 19:09 83 03/04/19 19:05 80 16 40 03/04/19 17:09 93 19 45 03/04/19 17:08 117/79 03/04/19 17:08 117/79 03/04/19 16:00 82 03/04/19 16:00 40 03/04/19 16:00 Mechanical Ventilator 03/04/19 16:00 97.0 85 15 117/79 (92) 100 Intake and Output 03/04/19 03/05/19 19:00 07:00 Intake Total 1038.850 ml 1011.499 ml Output Total 1500 ml Balance 1038.850 ml -488.501 ml Intake Free Water 80 ml 200 ml IV Total 483.850 ml 316.499 ml Tube Feeding 475 ml 495 ml Output Urine Total 1500 ml # Bowel Movements 5 2 Laboratory Tests 03/04/19 15:57: Stool Occult Blood Negative 03/05/19 04:50: White Blood Count 9.3, Red Blood Count 4.27L, Hemoglobin 9.9L, Hematocrit 33.4L , Mean Corpuscular Volume 78L, Mean Corpuscular Hemoglobin 23.2L, Mean Corpuscular Hemoglobin Concent 29.7L, Red Cell Distribution Width 26.4H, Platelet Count 287, Mean Platelet Volume 7.9, Neutrophils (%) (Auto) , Lymphocytes (%) (Auto) , Monocytes (%) (Auto) , Eosinophils (%) (Auto) , Basophils (%) (Auto) , Sodium Level 146H, Potassium Level 3.9, Chloride Level 109H, Carbon Dioxide Level 29, Anion Gap 8, Blood Urea Nitrogen 54H, Creatinine 1.5H, Estimat Glomerular Filtration Rate 59.1, Glucose Level 84, Uric Acid 7.6H , Calcium Level 8.5, Phosphorus Level 2.8, Magnesium Level 2.5H, Total Bilirubin 1.5H, Direct Bilirubin 0.9H, Gamma Glutamyl Transpeptidase 582H, Aspartate Amino Transf (AST/SGOT) 67H, Alanine Aminotransferase (ALT/SGPT) 110H , Alkaline Phosphatase 440H, C-Reactive Protein, Quantitative 4.7H, Pro-B-Type Natriuretic Peptide 64202I, Total Protein 6.6, Albumin 2.4L, Globulin 4.2, Albumin/Globulin Ratio 0.6L Height (Feet): 6 Height (Inches): 1.00 Weight (Pounds): 259 Objective debilitated AA man NCAT supple, (+) trach CTA RRR abd soft , (+) GT no edema Niranjan Weaver MD Mar 05, 2019 14:48
[2019-03-05 16:00] VITALS: BP 145/90
[2019-03-05] MEDS ORDERED: Tubing IV Secondary IV ONE (17:11)
--- NOTE | 2019-03-05 17:42 | Internal Med Progress Note ---
Subjective Date of Service: Mar 05, 2019 Physician Name Aelx Cifuentes Attending Physician Sherman Vee MD Current Medications Medications (Trade) Dose Ordered Sig/Rebecca Route PRN Reason Start Time Stop Time Status Last Admin Dose Admin Acetaminophen (Tylenol) 650 mg Q4H PRN GT Mild Pain/Temp > 100.5 03/01/19 20:00 03/31/19 19:59 Albuterol/ Ipratropium (Albuterol/ Ipratropium) 3 ml EVERY 4 HOURS PRN HHN Shortness of Breath 02/28/19 18:45 03/05/19 18:44 03/02/19 00:46 Allopurinol (Zyloprim) 200 mg DAILY GT 03/02/19 11:00 04/01/19 10:59 03/05/19 09:49 Aspirin (ASA) 325 mg DAILY GT 02/28/19 19:45 03/30/19 19:44 03/02/19 09:05 Carvedilol (Coreg) 25 mg EVERY 12 HOURS GT 03/05/19 09:00 04/02/19 20:59 03/05/19 09:53 Chlorhexidine Gluconate (Essie-Hex 2%) 1 applic DAILY@2000 TOPIC 03/01/19 20:00 03/31/19 19:59 03/04/19 20:57 Clonidine HCl (Catapres Tab) 0.1 mg EVERY 6 HOURS PRN GT FOR sbp >160 02/28/19 18:45 03/30/19 18:44 Dextrose (Dextrose 50%) 25 ml Q30M PRN IV Hypoglycemia 03/05/19 09:00 04/04/19 08:45 Dextrose (Dextrose 50%) 50 ml Q30M PRN IV hypoglycemia 03/05/19 09:00 04/04/19 08:59 Dopamine HCl/ Dextrose 250 ml @ 13.319 mls/ hr Q24H IV 03/02/19 08:11 04/01/19 08:10 03/05/19 03:16 Heparin Sodium (Porcine) (Heparin 5000 units/ml) 5,000 units EVERY 12 HOURS SUBQ 02/28/19 21:00 03/30/19 20:59 03/04/19 20:58 Hydralazine HCl (Apresoline) 25 mg Q6HR GT 03/05/19 12:00 04/02/19 11:59 03/05/19 17:06 Iron Sucrose 100 mg/Sodium Chloride 60 ml @ 240 mls/hr BEDTIME IV 03/02/19 21:00 03/06/19 21:14 03/04/19 20:57 Isosorbide Dinitrate (Isordil) 10 mg Q6HR GT 03/02/19 12:00 04/01/19 11:59 03/05/19 17:06 Lansoprazole (Prevacid) 30 mg BID GT 03/04/19 18:00 04/03/19 17:59 03/05/19 17:07 Lorazepam (Ativan 2mg/ml 1ml) 2 mg EVERY 2 HOURS PRN IV For Anxiety 02/28/19 18:45 03/07/19 18:44 03/04/19 01:36 Metoclopramide HCl (Reglan) 5 mg EVERY 6 HOURS GT 03/02/19 12:00 04/01/19 11:59 03/05/19 17:07 Morphine Sulfate (Morphine Sulfate) 4 mg EVERY 4 HOURS PRN IVP Severe Pain (Pain Scale 7-10) 02/28/19 18:45 03/07/19 18:44 Ondansetron HCl (Zofran) 4 mg Q6H PRN IVP Nausea & Vomiting 02/28/19 18:45 03/30/19 18:44 Piperacillin Sod/ Tazobactam Sod 3.375 gm/Sodium Chloride 110 ml @ 27.5 mls/hr Q12HR@0100,1300 IVPB 03/01/19 13:00 03/08/19 12:59 03/05/19 12:42 Polyethylene Glycol (Miralax) 17 gm DAILYPRN PRN GT Constipation 03/01/19 20:00 03/30/19 18:44 Potassium Chloride (K-Dur) 20 meq TWICE A DAY GT 03/04/19 18:00 04/03/19 17:59 03/05/19 17:06 Prednisone (predniSONE) 15 mg DAILY GT 03/05/19 09:00 04/02/19 08:59 03/05/19 09:53 Allergies: Coded Allergies: No Known Allergies (Unverified , 03/28/17) ROS Limited/Unobtainable: Yes Subjective 53YO M with history of vent dep respiratory failure admitted with respiratory distress. [facility] Vent. Cover for Int Med-Dr Vee. [facility] Objective Last Vital Signs Date Time Temp Pulse Resp B/P (MAP) Pulse Ox O2 Delivery O2 Flow Rate FiO2 03/05/19 17:06 145/90 03/05/19 16:57 85 17 40 03/05/19 16:00 Mechanical Ventilator 03/05/19 16:00 98.0 100 03/01/19 04:00 55.0 Laboratory Tests Test 03/05/19 04:50 White Blood Count 9.3 K/UL (4.8-10.8) Red Blood Count 4.27 M/UL (4.70-6.10) L Hemoglobin 9.9 G/DL (14.2-18.0) L Hematocrit 33.4 % (42.0-52.0) L Mean Corpuscular Volume 78 FL (80-99) L Mean Corpuscular Hemoglobin 23.2 PG (27.0-31.0) L Mean Corpuscular Hemoglobin Concent 29.7 G/DL (32.0-36.0) L Red Cell Distribution Width 26.4 % (11.6-14.8) H Platelet Count 287 K/UL (150-450) Mean Platelet Volume 7.9 FL (6.5-10.1) Neutrophils (%) (Auto) % (45.0-75.0) Lymphocytes (%) (Auto) % (20.0-45.0) Monocytes (%) (Auto) % (1.0-10.0) Eosinophils (%) (Auto) % (0.0-3.0) Basophils (%) (Auto) % (0.0-2.0) Sodium Level 146 MMOL/L (136-145) H Potassium Level 3.9 MMOL/L (3.5-5.1) Chloride Level 109 MMOL/L (98-107) H Carbon Dioxide Level 29 MMOL/L (21-32) Anion Gap 8 mmol/L (5-15) Blood Urea Nitrogen 54 mg/dL (7-18) H Creatinine 1.5 MG/DL (0.55-1.30) H Estimat Glomerular Filtration Rate 59.1 mL/min (>60) Glucose Level 84 MG/DL (74-106) Uric Acid 7.6 MG/DL (2.6-7.2) H Calcium Level 8.5 MG/DL (8.5-10.1) Phosphorus Level 2.8 MG/DL (2.5-4.9) Magnesium Level 2.5 MG/DL (1.8-2.4) H Total Bilirubin 1.5 MG/DL (0.2-1.0) H Direct Bilirubin 0.9 MG/DL (0.0-0.3) H Gamma Glutamyl Transpeptidase 582 U/L (5-85) H Aspartate Amino Transf (AST/SGOT) 67 U/L (15-37) H Alanine Aminotransferase (ALT/SGPT) 110 U/L (12-78) H Alkaline Phosphatase 440 U/L (46-116) H C-Reactive Protein, Quantitative 4.7 mg/dL (0.00-0.90) H Pro-B-Type Natriuretic Peptide 21978 pg/mL (0-125) H Total Protein 6.6 G/DL (6.4-8.2) Albumin 2.4 G/DL (3.4-5.0) L Globulin 4.2 g/dL Albumin/Globulin Ratio 0.6 (1.0-2.7) L Microbiology Date/Time Source Procedure Growth Status 03/02/19 18:50 Nasopharynx - Final Complete 03/02/19 18:50 Nasopharynx - Final Complete Intake and Output 03/04/19 03/05/19 19:00 07:00 Intake Total 1038.850 ml 1011.499 ml Output Total 1500 ml Balance 1038.850 ml -488.501 ml Intake Free Water 80 ml 200 ml IV Total 483.850 ml 316.499 ml Tube Feeding 475 ml 495 ml Output Urine Total 1500 ml # Bowel Movements 5 2 Objective PHYSICAL EXAMINATION:. GENERAL: The patient is awake and responsive to the painful stimuli. Spontaneously opens his eyes. Cannot follow commands. HEAD AND NECK: Pupils are equal and reactive to light. Anicteric. Neck was supple. Tracheostomy site is intact. LUNGS: Mech Vent; Good air entry. Decreased in the bases. Ventilation breath sounds. HEART: Reveals S1, S2. Regular rhythm. Distant heart sounds. No murmurs or gallops. ABDOMEN: Soft, nondistended, and nontender. PEG site is clean. EXTREMITIES: No cyanosis or clubbing. A +1 edema in bilateral lower extremities. The patient has a PICC line in the right upper extremity noted. NEUROLOGIC: Very limited secondary to the patient's status. At this time, the patient is unable to follow commands, however, moving extremities slowly. BACK: Has a small sacral ulcer. Assessment/Plan Assessment/Plan ASSESSMENT: 1. Acute respiratory failure on chronic bilateral pneumonia. 2. Severe cardiomyopathy with systolic dysfunction. 3. Hyperkalemia. 4. Chronic ventilator dependent status post tracheostomy. 5. History of sudden cardiac arrest. 6. Asthma. 7. Anoxic brain injury. 8. Dysphagia status post PEG. 9. Cholecystitis PLAN: Admit the patient to [facility]. Dr. Gerber from Pulmonary Critical Care, Dr. Luis Robins from ID Dr. Nico Alonso from Nephrology. We will monitor potassium level closely on Kayexalate. Chronic wound care therapy. We will follow up with the wound care protocol. Monitor laboratory. Broad-spectrum antibiotics with Zosyn and vancomycin. Code status at this time is Full Code. Alex Cifuentes MD Mar 05, 2019 17:42
[2019-03-05] MEDS: Gentamicin 0.3% Opth Soln 5ml BOTH EYES SCH (20:05)
[2019-03-05] MEDS: Dyna-Hex 2% Top Sol 2oz TOPIC SCH (20:15)
[2019-03-05] MEDS: Albuterol/Ipratropium 3ml neb HHN PRN (20:49)
[2019-03-05 20:54] VITALS: BP 118/81
[2019-03-05] MEDS: Iron Sucrose 100 MG in NS 55 ML IV SCH (21:14)
--- NOTE | 2019-03-05 23:56 | Cardiology Progress Note ---
Assessment/Plan Assessment/Plan 1. Acute systolic and diastolic congestive heart failure with elevated intracardiac filling pressures. LVEF approximately 10% with presence of LV dyssynchrony, continue guideline directed medical therapy. 2. Moderate to severe pulmonary hypertension, likely due to left heart failure. 3. Ventilator-driven respiratory failure, status post tracheostomy tube placement. 4. History of dysphagia, status post PEG placement. 5. History of hypercholesterolemia. 6. History of hyperkalemia due to acute kidney injury on CKD. 7. History of asthma/COPD. Subjective Subjective A short run of NSVT was reported by the nurse. 3 grams of IV magnesium sulfate was given, B-devin dose was increased. Sinus rhythm at rate of 94. No mechanical ventilator, Objective Last 24 Hour Vital Signs Date Time Temp Pulse Resp B/P (MAP) Pulse Ox O2 Delivery O2 Flow Rate FiO2 03/05/19 22:57 94 18 50 03/05/19 21:09 93 23 100 Mechanical Ventilator 50 03/05/19 21:00 88 115/80 03/05/19 20:54 98.2 87 18 118/81 (93) 100 03/05/19 20:50 88 16 100 Mechanical Ventilator 50 03/05/19 20:50 88 17 50 03/05/19 20:00 90 03/05/19 20:00 50 03/05/19 20:00 Mechanical Ventilator 03/05/19 19:00 90 18 40 03/05/19 18:54 86 18 Mechanical Ventilator 55.0 100 03/05/19 17:06 145/90 03/05/19 17:06 145/90 03/05/19 16:57 85 17 40 03/05/19 16:00 40 03/05/19 16:00 Mechanical Ventilator 03/05/19 16:00 98.0 87 18 145/90 (108) 100 03/05/19 15:30 76 03/05/19 14:44 78 16 40 03/05/19 14:11 78 03/05/19 13:05 85 17 40 03/05/19 12:00 Mechanical Ventilator 03/05/19 12:00 102/75 03/05/19 12:00 102/75 03/05/19 12:00 40 03/05/19 12:00 98.2 80 16 102/75 (84) 100 03/05/19 10:20 82 16 40 03/05/19 09:53 80 114/79 03/05/19 08:48 80 16 40 03/05/19 08:30 Mechanical Ventilator 03/05/19 08:00 97.0 84 16 114/79 (91) 100 03/05/19 08:00 Mechanical Ventilator 03/05/19 08:00 40 03/05/19 07:40 86 03/05/19 07:11 82 18 40 03/05/19 06:36 115/84 03/05/19 06:36 115/84 03/05/19 05:23 88 18 40 03/05/19 04:00 40 03/05/19 04:00 Mechanical Ventilator 03/05/19 04:00 98.0 99 16 115/84 (94) 100 03/05/19 03:34 85 03/05/19 03:16 117/80 03/05/19 02:38 79 16 40 03/05/19 01:07 86 16 40 03/05/19 00:38 117/80 03/05/19 00:37 117/80 03/05/19 00:00 98.6 84 16 117/80 (92) 100 03/05/19 00:00 40 03/05/19 00:00 Mechanical Ventilator Intake and Output 03/04/19 03/05/19 18:59 06:59 Intake Total 1061.509 ml 1057.159 ml Output Total 1500 ml Balance 1061.509 ml -442.841 ml Intake Free Water 80 ml 200 ml IV Total 526.509 ml 317.159 ml Tube Feeding 455 ml 540 ml Output Urine Total 1500 ml # Bowel Movements 5 2 2D Echo: EF 10%, Global LVHK, RVSP 57 mmHg, Mod AR, Mild MR, Grade II LVDD Laboratory Tests Test 03/05/19 04:50 White Blood Count 9.3 K/UL (4.8-10.8) Red Blood Count 4.27 M/UL (4.70-6.10) L Hemoglobin 9.9 G/DL (14.2-18.0) L Hematocrit 33.4 % (42.0-52.0) L Mean Corpuscular Volume 78 FL (80-99) L Mean Corpuscular Hemoglobin 23.2 PG (27.0-31.0) L Mean Corpuscular Hemoglobin Concent 29.7 G/DL (32.0-36.0) L Red Cell Distribution Width 26.4 % (11.6-14.8) H Platelet Count 287 K/UL (150-450) Mean Platelet Volume 7.9 FL (6.5-10.1) Neutrophils (%) (Auto) % (45.0-75.0) Lymphocytes (%) (Auto) % (20.0-45.0) Monocytes (%) (Auto) % (1.0-10.0) Eosinophils (%) (Auto) % (0.0-3.0) Basophils (%) (Auto) % (0.0-2.0) Sodium Level 146 MMOL/L (136-145) H Potassium Level 3.9 MMOL/L (3.5-5.1) Chloride Level 109 MMOL/L (98-107) H Carbon Dioxide Level 29 MMOL/L (21-32) Anion Gap 8 mmol/L (5-15) Blood Urea Nitrogen 54 mg/dL (7-18) H Creatinine 1.5 MG/DL (0.55-1.30) H Estimat Glomerular Filtration Rate 59.1 mL/min (>60) Glucose Level 84 MG/DL (74-106) Uric Acid 7.6 MG/DL (2.6-7.2) H Calcium Level 8.5 MG/DL (8.5-10.1) Phosphorus Level 2.8 MG/DL (2.5-4.9) Magnesium Level 2.5 MG/DL (1.8-2.4) H Total Bilirubin 1.5 MG/DL (0.2-1.0) H Direct Bilirubin 0.9 MG/DL (0.0-0.3) H Gamma Glutamyl Transpeptidase 582 U/L (5-85) H Aspartate Amino Transf (AST/SGOT) 67 U/L (15-37) H Alanine Aminotransferase (ALT/SGPT) 110 U/L (12-78) H Alkaline Phosphatase 440 U/L (46-116) H C-Reactive Protein, Quantitative 4.7 mg/dL (0.00-0.90) H Pro-B-Type Natriuretic Peptide 82363 pg/mL (0-125) H Total Protein 6.6 G/DL (6.4-8.2) Albumin 2.4 G/DL (3.4-5.0) L Globulin 4.2 g/dL Albumin/Globulin Ratio 0.6 (1.0-2.7) L Objective HEENT: Atraumatic and normocephalic. Anicteric. Bitemporal wasting. Pupils are equal, round, and reactive to light and accommodation. Conjunctival pallor bilaterally. NECK: Presence of a tracheostomy, cannot assess JVP due to positive inspiratory pressure on ventilator. No carotid bruit. CARDIOVASCULAR: Normal S1, S2. Regular rate and rhythm. No murmurs, gallops, or rubs. PMI is at fourth intercostal at the midclavicular line. LUNGS: Diminished breath sounds in both lungs. ABDOMEN: Soft, nontender, and nondistended. No hepatosplenomegaly. Positive G-tube. EXTREMITIES: No evidence of edema, clubbing, or cyanosis. Karlos Marinelli MD Mar 05, 2019 23:56
[2019-03-06] VITALS: BP 118/83
[2019-03-06] MEDS: Gentamicin 0.3% Opth Soln 5ml BOTH EYES SCH ×4 (00:10→18:07)
[2019-03-06] MEDS: HydrALAZINE 10mg Tab GT SCH ×4 (00:10→18:08)
[2019-03-06] MEDS: Metoclopramide 10mg/10ml Liq GT SCH ×4 (00:11→18:09)
[2019-03-06] MEDS: DOPamine 400mg/250ml 250 ML IV SCH ×2 (00:39→18:31)
[2019-03-06] MEDS: Piperacillin/Tazobactam 3.375 GM in NS 110 ML IVPB SCH ×2 (00:40→11:55)
[2019-03-06 04:00] VITALS: BP 114/78
[2019-03-06 06:07] LABS: HEMATOCRIT 35.2 % (42.0-52.0); HEMOGLOBIN 10.3 G/DL (14.2-18.0); MEAN CORPUSCULAR VOLUME 79 FL (80-99); PLATELET COUNT 269 K/UL (150-450); RED BLOOD COUNT 4.43 M/UL (4.70-6.10); WHITE BLOOD COUNT 10.3 K/UL (4.8-10.8)
[2019-03-06 06:46] LABS: ALANINE AMINOTRANSFERASE 94 U/L (12-78); ALBUMIN 2.3 G/DL (3.4-5.0); ALBUMIN/GLOBULIN RATIO 0.5 (1.0-2.7); ALKALINE PHOSPHATASE 462 U/L (46-116); ANION GAP 7 mmol/L (5-15); ASPARTATE AMINO TRANSFERASE 59 U/L (15-37); BILIRUBIN,DIRECT 1.1 MG/DL (0.0-0.3); BILIRUBIN,TOTAL 1.6 MG/DL (0.2-1.0); BLOOD UREA NITROGEN 39 mg/dL (7-18); CALCIUM 8.4 MG/DL (8.5-10.1); CARBON DIOXIDE 30 MMOL/L (21-32); CHLORIDE 111 MMOL/L (98-107); CREATININE 1.3 MG/DL (0.55-1.30); POTASSIUM 3.8 MMOL/L (3.5-5.1); SODIUM 148 MMOL/L (136-145)
--- NOTE | 2019-03-06 07:26 | Infectious Diseases Prog Note ---
Assessment/Plan Assessment/Plan 53 yo male with PMHx of Asthma, HTN and CHF who was sent to the ED form a [facility] for respuratory distress and feeling cold. Respiratory distress PNA, multifocal -CT Chest: Dense opacities within the right lower lobe and left upper lobe with air bronchograms. Findings suggest multifocal pneumonia. Follow-up after appropriate treatment is recommended to ensure resolution and exclude the possibility of underlying mass. [id number] right pleural effusion. Prominent mediastinal lymph nodes with an enlarged subcarinal node which may be reactive in etiology. Attention on follow-up is recommended. Cardiomegaly and findings suggestive of anemia. Apparent gallbladder wall thickening and pericholecystic fluid. Correlation with findings of recent ultrasound recommended. If there is clinical concern for acute cholecystitis consider HIDA scan. -legionella ag urine, influenza sc neg -02/28 sp cx C> albicans Anasarca. WBCs 13 on admit;SP No fevers CXR - B/L consolidations Gram positive bacteremia- likely contaminant -Bcx 11/20 Staph epi; 03/02 Bcx NTD UA (-) Elevated ALT/AST>Tbili; improving- ?early cirrhosis- r/o acalculous cholecystitis -Abd US: Small amount of ascites fluid. Hepatomegaly. Equivocal mild surface nodularity, could indicate early cirrhotic changes. Correlate with clinical findings. Apparent to and fro flow within the portal veins, raising concern for portal hypertension. Borderline splenomegaly. Negative for gallstones. Apparent pericholecystic fluid is likely a manifestation of the ascites. Apparent gallbladder wall edema is most likely related to the hepatocellular disease, although the possibility of acute acalculous cholecystitis should also be considered. Consider nuclear medicine hepatobiliary imaging for further evaluation if there is high clinical suspicion. Echogenic foci within the left hepatic lobe. These could represent small hemangiomas or just prominent periportal fat -hep serologies neg -HIV ab sc neg - HIDA 03/05/19 - No evidence of acute cholecystitis. Radiotracer noted within the gallbladder indicating patency of the cystic duct. Radiotracer passes into the small bowel indicating patency of the common bile duct. Delayed uptake and excretion of the radiotracer from the liver parenchyma suggesting hepatocellular dysfunction/disease. Small sacral ulcers Do not appear to be infected Asthma HTN CHF PLAN - D/c empiric Vancomycin #4 -Continue empiric Zosyn #5/7-10 for PNA - 03/05/19 SP Vancomycin #4 -f/u Repeat Bcx x2 - f/u Cx - Resp therapy - Wound care Thank you for this consult. We will continue to follow the patient during this hospitalization. Subjective Allergies: Coded Allergies: No Known Allergies (Unverified , 03/28/17) Subjective Aferbile Satting well on 50% O2 No Leukocytosis Objective Vital Signs Last 24 Hour Vital Signs Date Time Temp Pulse Resp B/P (MAP) Pulse Ox O2 Delivery O2 Flow Rate FiO2 03/06/19 06:24 115/79 03/06/19 06:24 115/79 03/06/19 05:00 91 19 50 03/06/19 04:00 88 03/06/19 04:00 98.1 97 18 114/78 (90) 100 03/06/19 04:00 50 03/06/19 04:00 Mechanical Ventilator 03/06/19 03:24 80 19 50 03/06/19 01:06 89 18 50 03/06/19 00:39 118/83 03/06/19 00:10 118/83 03/06/19 00:10 118/83 03/06/19 00:00 97.5 95 18 118/83 (95) 100 03/06/19 00:00 Mechanical Ventilator 03/06/19 00:00 98 03/05/19 22:57 94 18 50 03/05/19 21:09 93 23 100 Mechanical Ventilator 50 03/05/19 21:00 88 115/80 03/05/19 20:54 98.2 87 18 118/81 (93) 100 03/05/19 20:50 88 16 100 Mechanical Ventilator 50 03/05/19 20:50 88 17 50 03/05/19 20:00 90 03/05/19 20:00 50 03/05/19 20:00 Mechanical Ventilator 03/05/19 19:00 90 18 40 03/05/19 18:54 86 18 Mechanical Ventilator 55.0 100 03/05/19 17:06 145/90 03/05/19 17:06 145/90 03/05/19 16:57 85 17 40 03/05/19 16:00 40 03/05/19 16:00 Mechanical Ventilator 03/05/19 16:00 98.0 87 18 145/90 (108) 100 03/05/19 15:30 76 03/05/19 14:44 78 16 40 03/05/19 14:11 78 03/05/19 13:05 85 17 40 03/05/19 12:00 Mechanical Ventilator 03/05/19 12:00 102/75 03/05/19 12:00 102/75 03/05/19 12:00 40 03/05/19 12:00 98.2 80 16 102/75 (84) 100 03/05/19 10:20 82 16 40 03/05/19 09:53 80 114/79 03/05/19 08:48 80 16 40 03/05/19 08:30 Mechanical Ventilator 03/05/19 08:00 97.0 84 16 114/79 (91) 100 03/05/19 08:00 Mechanical Ventilator 03/05/19 08:00 40 03/05/19 07:40 86 Height (Feet): 6 Height (Inches): 1.00 Weight (Pounds): 259 Objective GEN: NAD Trached on Vent 50% HEENT: NCAT, MMM, EOMI LUNGS: Course B/L Mild wheezing CARDS: RRR, S1, S2, No M/R/G, ABD: Soft, NT, ND, + BS, PEG (No E/P) Microbiology Date/Time Source Procedure Growth Status 03/05/19 14:00 Sputum Gram Stain - Final Resulted 03/05/19 14:00 Sputum Sputum Culture - Preliminary NORMAL UPPER RESPIRATORY GERMÁN AT 24 ... Resulted Laboratory Tests Test 03/06/19 05:30 White Blood Count 10.3 K/UL (4.8-10.8) Red Blood Count 4.43 M/UL (4.70-6.10) L Hemoglobin 10.3 G/DL (14.2-18.0) L Hematocrit 35.2 % (42.0-52.0) L Mean Corpuscular Volume 79 FL (80-99) L Mean Corpuscular Hemoglobin 23.3 PG (27.0-31.0) L Mean Corpuscular Hemoglobin Concent 29.3 G/DL (32.0-36.0) L Red Cell Distribution Width 27.0 % (11.6-14.8) H Platelet Count 269 K/UL (150-450) Mean Platelet Volume 7.2 FL (6.5-10.1) Neutrophils (%) (Auto) % (45.0-75.0) Lymphocytes (%) (Auto) % (20.0-45.0) Monocytes (%) (Auto) % (1.0-10.0) Eosinophils (%) (Auto) % (0.0-3.0) Basophils (%) (Auto) % (0.0-2.0) Neutrophils % (Manual) Pending Lymphocytes % (Manual) Pending Platelet Estimate Pending Platelet Morphology Pending Sodium Level 148 MMOL/L (136-145) H Potassium Level 3.8 MMOL/L (3.5-5.1) Chloride Level 111 MMOL/L (98-107) H Carbon Dioxide Level 30 MMOL/L (21-32) Anion Gap 7 mmol/L (5-15) Blood Urea Nitrogen 39 mg/dL (7-18) H Creatinine 1.3 MG/DL (0.55-1.30) Estimat Glomerular Filtration Rate > 60 mL/min (>60) Glucose Level 100 MG/DL (74-106) Calcium Level 8.4 MG/DL (8.5-10.1) L Magnesium Level 2.3 MG/DL (1.8-2.4) Total Bilirubin 1.6 MG/DL (0.2-1.0) H Direct Bilirubin 1.1 MG/DL (0.0-0.3) H Aspartate Amino Transf (AST/SGOT) 59 U/L (15-37) H Alanine Aminotransferase (ALT/SGPT) 94 U/L (12-78) H Alkaline Phosphatase 462 U/L (46-116) H Total Protein 6.7 G/DL (6.4-8.2) Albumin 2.3 G/DL (3.4-5.0) L Globulin 4.4 g/dL Albumin/Globulin Ratio 0.5 (1.0-2.7) L Current Medications Medications (Trade) Dose Ordered Sig/Rebecca Route PRN Reason Start Time Stop Time Status Last Admin Dose Admin Acetaminophen (Tylenol) 650 mg Q4H PRN GT Mild Pain/Temp > 100.5 03/01/19 20:00 03/31/19 19:59 Albuterol/ Ipratropium (Albuterol/ Ipratropium) 3 ml Q4H PRN HHN Shortness of Breath 4/19/19 21:00 03/10/19 20:59 03/05/19 20:49 Allopurinol (Zyloprim) 200 mg DAILY GT 03/02/19 11:00 04/01/19 10:59 03/05/19 09:49 Aspirin (ASA) 325 mg DAILY GT 02/28/19 19:45 03/30/19 19:44 03/02/19 09:05 Carvedilol (Coreg) 25 mg EVERY 12 HOURS GT 03/05/19 09:00 04/02/19 20:59 03/05/19 09:53 Chlorhexidine Gluconate (Essie-Hex 2%) 1 applic DAILY@2000 TOPIC 03/01/19 20:00 03/31/19 19:59 03/05/19 20:15 Clonidine HCl (Catapres Tab) 0.1 mg EVERY 6 HOURS PRN GT FOR sbp >160 02/28/19 18:45 03/30/19 18:44 Dextrose (Dextrose 50%) 25 ml Q30M PRN IV Hypoglycemia 03/05/19 09:00 04/04/19 08:45 Dextrose (Dextrose 50%) 50 ml Q30M PRN IV hypoglycemia 03/05/19 09:00 04/04/19 08:59 Dopamine HCl/ Dextrose 250 ml @ 13.319 mls/ hr Q24H IV 03/02/19 08:11 04/01/19 08:10 03/06/19 00:39 Gentamicin Sulfate (Garamycin 0.3% Opt Sol) 1 drop Q6HR BOTH EYES 03/05/19 20:00 03/08/19 19:59 03/06/19 06:23 Heparin Sodium (Porcine) (Heparin 5000 units/ml) 5,000 units EVERY 12 HOURS SUBQ 02/28/19 21:00 03/30/19 20:59 03/04/19 20:58 Hydralazine HCl (Apresoline) 25 mg Q6HR GT 03/05/19 12:00 04/02/19 11:59 03/06/19 06:24 Iron Sucrose 100 mg/Sodium Chloride 60 ml @ 240 mls/hr BEDTIME IV 03/02/19 21:00 03/06/19 21:14 03/05/19 21:14 Isosorbide Dinitrate (Isordil) 10 mg Q6HR GT 03/02/19 12:00 04/01/19 11:59 03/06/19 06:24 Lansoprazole (Prevacid) 30 mg BID GT 03/04/19 18:00 04/03/19 17:59 03/05/19 17:07 Lorazepam (Ativan 2mg/ml 1ml) 2 mg EVERY 2 HOURS PRN IV For Anxiety 02/28/19 18:45 03/07/19 18:44 03/04/19 01:36 Metoclopramide HCl (Reglan) 5 mg EVERY 6 HOURS GT 03/02/19 12:00 04/01/19 11:59 03/06/19 06:24 Morphine Sulfate (Morphine Sulfate) 4 mg EVERY 4 HOURS PRN IVP Severe Pain (Pain Scale 7-10) 02/28/19 18:45 03/07/19 18:44 Ondansetron HCl (Zofran) 4 mg Q6H PRN IVP Nausea & Vomiting 02/28/19 18:45 03/30/19 18:44 Piperacillin Sod/ Tazobactam Sod 3.375 gm/Sodium Chloride 110 ml @ 27.5 mls/hr Q12HR@0100,1300 IVPB 03/01/19 13:00 03/08/19 12:59 03/06/19 00:40 Polyethylene Glycol (Miralax) 17 gm DAILYPRN PRN GT Constipation 03/01/19 20:00 03/30/19 18:44 Potassium Chloride (K-Dur) 20 meq TWICE A DAY GT 03/04/19 18:00 04/03/19 17:59 03/05/19 17:06 Prednisone (predniSONE) 15 mg DAILY GT 03/05/19 09:00 04/02/19 08:59 03/05/19 09:53 Luis Robins MD Mar 06, 2019 07:26
[2019-03-06 08:00] VITALS: BP 108/63
[2019-03-06] MEDS: Allopurinol 100mg Tab GT SCH (08:40)
[2019-03-06] MEDS: Acetaminophen 650mg/20.3ml GT PRN (08:41)
[2019-03-06] MEDS: Carvedilol 25mg Tab GT SCH ×2 (08:41→20:41)
[2019-03-06] MEDS: Heparin 5000 units/ml inj SUBQ SCH ×2 (08:43→20:43)
[2019-03-06] MEDS: Albuterol/Ipratropium 3ml neb HHN PRN ×2 (10:19→19:12)
[2019-03-06 12:00] VITALS: BP 104/66
--- NOTE | 2019-03-06 15:14 | Internal Med Progress Note ---
Subjective Date of Service: Mar 06, 2019 Physician Name Alex Cifuentes Attending Physician Sherman Vee MD Current Medications Medications (Trade) Dose Ordered Sig/Rebecca Route PRN Reason Start Time Stop Time Status Last Admin Dose Admin Acetaminophen (Tylenol) 650 mg Q4H PRN GT Mild Pain/Temp > 100.5 03/01/19 20:00 03/31/19 19:59 03/06/19 08:41 Albuterol/ Ipratropium (Albuterol/ Ipratropium) 3 ml Q4H PRN HHN Shortness of Breath 03/05/19 21:00 03/10/19 20:59 03/06/19 10:19 Allopurinol (Zyloprim) 200 mg DAILY GT 03/02/19 11:00 04/01/19 10:59 03/06/19 08:40 Aspirin (ASA) 325 mg DAILY GT 02/28/19 19:45 03/30/19 19:44 03/06/19 08:40 Carvedilol (Coreg) 25 mg EVERY 12 HOURS GT 03/05/19 09:00 04/02/19 20:59 03/06/19 08:41 Chlorhexidine Gluconate (Essie-Hex 2%) 1 applic DAILY@2000 TOPIC 03/01/19 20:00 03/31/19 19:59 03/05/19 20:15 Clonidine HCl (Catapres Tab) 0.1 mg EVERY 6 HOURS PRN GT FOR sbp >160 02/28/19 18:45 03/30/19 18:44 Dextrose (Dextrose 50%) 25 ml Q30M PRN IV Hypoglycemia 03/05/19 09:00 04/04/19 08:45 Dextrose (Dextrose 50%) 50 ml Q30M PRN IV hypoglycemia 03/05/19 09:00 04/04/19 08:59 Dopamine HCl/ Dextrose 250 ml @ 13.319 mls/ hr Q24H IV 03/02/19 08:11 04/01/19 08:10 03/06/19 00:39 Gentamicin Sulfate (Garamycin 0.3% Opth Soln) 1 drop Q6HR BOTH EYES 03/05/19 20:00 03/08/19 19:59 03/06/19 11:58 Heparin Sodium (Porcine) (Heparin 5000 units/ml) 5,000 units EVERY 12 HOURS SUBQ 02/28/19 21:00 03/30/19 20:59 03/06/19 08:43 Hydralazine HCl (Apresoline) 25 mg Q6HR GT 03/05/19 12:00 04/02/19 11:59 03/06/19 11:55 Iron Sucrose 100 mg/Sodium Chloride 60 ml @ 240 mls/hr BEDTIME IV 03/02/19 21:00 03/06/19 21:14 03/05/19 21:14 Isosorbide Dinitrate (Isordil) 10 mg Q6HR GT 03/02/19 12:00 04/01/19 11:59 03/06/19 11:55 Lansoprazole (Prevacid) 30 mg BID GT 03/04/19 18:00 04/03/19 17:59 03/06/19 08:42 Lorazepam (Ativan 2mg/ml 1ml) 2 mg EVERY 2 HOURS PRN IV For Anxiety 02/28/19 18:45 03/07/19 18:44 03/04/19 01:36 Metoclopramide HCl (Reglan) 5 mg EVERY 6 HOURS GT 03/02/19 12:00 04/01/19 11:59 03/06/19 11:54 Morphine Sulfate (Morphine Sulfate) 4 mg EVERY 4 HOURS PRN IVP Severe Pain (Pain Scale 7-10) 02/28/19 18:45 03/07/19 18:44 Ondansetron HCl (Zofran) 4 mg Q6H PRN IVP Nausea & Vomiting 02/28/19 18:45 03/30/19 18:44 Piperacillin Sod/ Tazobactam Sod 3.375 gm/Sodium Chloride 110 ml @ 27.5 mls/hr Q12HR@0100,1300 IVPB 03/01/19 13:00 03/08/19 12:59 03/06/19 11:55 Polyethylene Glycol (Miralax) 17 gm DAILYPRN PRN GT Constipation 03/01/19 20:00 03/30/19 18:44 Potassium Chloride (K-Dur) 20 meq TWICE A DAY GT 03/04/19 18:00 04/03/19 17:59 03/06/19 08:40 Prednisone (predniSONE) 15 mg DAILY GT 03/05/19 09:00 04/02/19 08:59 03/06/19 08:40 Allergies: Coded Allergies: No Known Allergies (Unverified , 03/28/17) ROS Limited/Unobtainable: Yes Subjective 53YO M with history of vent dep respiratory failure admitted with respiratory distress. [facility] Vent. Cover for Int Med-Dr Vee. [facility] Objective Last Vital Signs Date Time Temp Pulse Resp B/P (MAP) Pulse Ox O2 Delivery O2 Flow Rate FiO2 03/06/19 15:06 96 21 50 03/06/19 12:00 98.2 104/66 (79) 100 03/06/19 12:00 Mechanical Ventilator 03/05/19 18:54 55.0 Laboratory Tests Test 03/06/19 05:30 White Blood Count 10.3 K/UL (4.8-10.8) Red Blood Count 4.43 M/UL (4.70-6.10) L Hemoglobin 10.3 G/DL (14.2-18.0) L Hematocrit 35.2 % (42.0-52.0) L Mean Corpuscular Volume 79 FL (80-99) L Mean Corpuscular Hemoglobin 23.3 PG (27.0-31.0) L Mean Corpuscular Hemoglobin Concent 29.3 G/DL (32.0-36.0) L Red Cell Distribution Width 27.0 % (11.6-14.8) H Platelet Count 269 K/UL (150-450) Mean Platelet Volume 7.2 FL (6.5-10.1) Neutrophils (%) (Auto) % (45.0-75.0) Lymphocytes (%) (Auto) % (20.0-45.0) Monocytes (%) (Auto) % (1.0-10.0) Eosinophils (%) (Auto) % (0.0-3.0) Basophils (%) (Auto) % (0.0-2.0) Differential Total Cells Counted 100 Neutrophils % (Manual) 87 % (45-75) H Lymphocytes % (Manual) 7 % (20-45) L Monocytes % (Manual) 6 % (1-10) Eosinophils % (Manual) 0 % (0-3) Basophils % (Manual) 0 % (0-2) Band Neutrophils 0 % (0-8) Platelet Estimate Adequate Platelet Morphology Normal Polychromasia 1+ Hypochromasia 2+ Anisocytosis 3+ Microcytosis 1+ Sodium Level 148 MMOL/L (136-145) H Potassium Level 3.8 MMOL/L (3.5-5.1) Chloride Level 111 MMOL/L (98-107) H Carbon Dioxide Level 30 MMOL/L (21-32) Anion Gap 7 mmol/L (5-15) Blood Urea Nitrogen 39 mg/dL (7-18) H Creatinine 1.3 MG/DL (0.55-1.30) Estimat Glomerular Filtration Rate > 60 mL/min (>60) Glucose Level 100 MG/DL (74-106) Calcium Level 8.4 MG/DL (8.5-10.1) L Magnesium Level 2.3 MG/DL (1.8-2.4) Total Bilirubin 1.6 MG/DL (0.2-1.0) H Direct Bilirubin 1.1 MG/DL (0.0-0.3) H Aspartate Amino Transf (AST/SGOT) 59 U/L (15-37) H Alanine Aminotransferase (ALT/SGPT) 94 U/L (12-78) H Alkaline Phosphatase 462 U/L (46-116) H Total Protein 6.7 G/DL (6.4-8.2) Albumin 2.3 G/DL (3.4-5.0) L Globulin 4.4 g/dL Albumin/Globulin Ratio 0.5 (1.0-2.7) L Microbiology Date/Time Source Procedure Growth Status 03/05/19 14:00 Sputum Gram Stain - Final Resulted 03/05/19 14:00 Sputum Sputum Culture - Preliminary NORMAL UPPER RESPIRATORY GERMÁN AT 24 ... Resulted Intake and Output 03/05/19 03/06/19 19:00 07:00 Intake Total 874.828 ml 861.109 ml Output Total 950 ml 902 ml Balance -75.172 ml -40.891 ml Intake Free Water 65 ml IV Total 269.828 ml 321.109 ml Tube Feeding 540 ml 540 ml Output Urine Total 950 ml 900 ml Stool Total 2 ml # Bowel Movements 9 4 Objective PHYSICAL EXAMINATION:. GENERAL: The patient is awake and responsive to the painful stimuli. Spontaneously opens his eyes. Cannot follow commands. HEAD AND NECK: Pupils are equal and reactive to light. Anicteric. Neck was supple. Tracheostomy site is intact. LUNGS: Mech Vent; Good air entry. Decreased in the bases. Ventilation breath sounds. HEART: Reveals S1, S2. Regular rhythm. Distant heart sounds. No murmurs or gallops. ABDOMEN: Soft, nondistended, and nontender. PEG site is clean. EXTREMITIES: No cyanosis or clubbing. A +1 edema in bilateral lower extremities. The patient has a PICC line in the right upper extremity noted. NEUROLOGIC: Very limited secondary to the patient's status. At this time, the patient is unable to follow commands, however, moving extremities slowly. BACK: Has a small sacral ulcer. Assessment/Plan Assessment/Plan ASSESSMENT: 1. Acute respiratory failure on chronic bilateral pneumonia. 2. Severe cardiomyopathy with systolic dysfunction. 3. Hyperkalemia. 4. Chronic ventilator dependent status post tracheostomy. 5. History of sudden cardiac arrest. 6. Asthma. 7. Anoxic brain injury. 8. Dysphagia status post PEG. 9. Cholecystitis PLAN: Admit the patient to [facility]. Dr. Gerber from Pulmonary Critical Care, Dr. Luis Robins from ID Dr. Nico Alonso from Nephrology. We will monitor potassium level closely on Kayexalate. Chronic wound care therapy. We will follow up with the wound care protocol. Monitor laboratory. Antibiotic=Zosyn per ID. Code status at this time is Full Code. Alex Cifuentes MD Mar 06, 2019 15:14
[2019-03-06 16:00] VITALS: BP 119/68
--- NOTE | 2019-03-06 17:03 | Surgery Progress Note ---
Surgery Progress Note Subjective Additional Comments afebrile, HD stable, labs noted. lft's elevated with noted hida and us. exam unchanged. Objective Last 24 Hour Vital Signs Date Time Temp Pulse Resp B/P (MAP) Pulse Ox O2 Delivery O2 Flow Rate FiO2 03/06/19 16:00 Mechanical Ventilator 03/06/19 16:00 94 03/06/19 16:00 40 03/06/19 16:00 98.0 96 16 119/68 (85) 100 03/06/19 15:06 96 21 50 03/06/19 12:49 86 18 50 03/06/19 12:00 98.2 91 18 104/66 (79) 100 03/06/19 12:00 90 03/06/19 12:00 Mechanical Ventilator 03/06/19 11:55 104/66 03/06/19 11:55 104/66 03/06/19 11:25 40 03/06/19 10:53 90 16 50 03/06/19 10:20 91 20 100 Mechanical Ventilator 40 03/06/19 09:11 97.8 03/06/19 08:56 97 20 50 03/06/19 08:41 87 108/69 03/06/19 08:00 50 03/06/19 08:00 Mechanical Ventilator 03/06/19 08:00 100 03/06/19 08:00 98.1 87 16 108/63 (78) 100 03/06/19 07:37 97 16 50 03/06/19 06:24 115/79 03/06/19 06:24 115/79 03/06/19 05:00 91 19 50 03/06/19 04:00 88 03/06/19 04:00 98.1 97 18 114/78 (90) 100 03/06/19 04:00 50 03/06/19 04:00 Mechanical Ventilator 03/06/19 03:24 80 19 50 03/06/19 01:06 89 18 50 03/06/19 00:39 118/83 03/06/19 00:10 118/83 03/06/19 00:10 118/83 03/06/19 00:00 97.5 95 18 118/83 (95) 100 03/06/19 00:00 Mechanical Ventilator 03/06/19 00:00 98 03/05/19 22:57 94 18 50 03/05/19 21:09 93 23 100 Mechanical Ventilator 50 03/05/19 21:00 88 115/80 03/05/19 20:54 98.2 87 18 118/81 (93) 100 03/05/19 20:50 88 16 100 Mechanical Ventilator 50 03/05/19 20:50 88 17 50 03/05/19 20:00 90 03/05/19 20:00 50 03/05/19 20:00 Mechanical Ventilator 03/05/19 19:00 90 18 40 03/05/19 18:54 86 18 Mechanical Ventilator 55.0 100 03/05/19 17:06 145/90 03/05/19 17:06 145/90 I&O Intake and Output 03/05/19 03/06/19 19:00 07:00 Intake Total 874.828 ml 861.109 ml Output Total 950 ml 902 ml Balance -75.172 ml -40.891 ml Intake Free Water 65 ml IV Total 269.828 ml 321.109 ml Tube Feeding 540 ml 540 ml Output Urine Total 950 ml 900 ml Stool Total 2 ml # Bowel Movements 9 4 Dressing: saturated Wound: other Drains: other Cardiovascular: RSR Respiratory: decreased breath sounds Abdomen: soft, present bowel sounds, non-distended Extremities: no tenderness, no cyanosis Laboratory Tests Test 03/06/19 05:30 White Blood Count 10.3 K/UL (4.8-10.8) Red Blood Count 4.43 M/UL (4.70-6.10) L Hemoglobin 10.3 G/DL (14.2-18.0) L Hematocrit 35.2 % (42.0-52.0) L Mean Corpuscular Volume 79 FL (80-99) L Mean Corpuscular Hemoglobin 23.3 PG (27.0-31.0) L Mean Corpuscular Hemoglobin Concent 29.3 G/DL (32.0-36.0) L Red Cell Distribution Width 27.0 % (11.6-14.8) H Platelet Count 269 K/UL (150-450) Mean Platelet Volume 7.2 FL (6.5-10.1) Neutrophils (%) (Auto) % (45.0-75.0) Lymphocytes (%) (Auto) % (20.0-45.0) Monocytes (%) (Auto) % (1.0-10.0) Eosinophils (%) (Auto) % (0.0-3.0) Basophils (%) (Auto) % (0.0-2.0) Differential Total Cells Counted 100 Neutrophils % (Manual) 87 % (45-75) H Lymphocytes % (Manual) 7 % (20-45) L Monocytes % (Manual) 6 % (1-10) Eosinophils % (Manual) 0 % (0-3) Basophils % (Manual) 0 % (0-2) Band Neutrophils 0 % (0-8) Platelet Estimate Adequate Platelet Morphology Normal Polychromasia 1+ Hypochromasia 2+ Anisocytosis 3+ Microcytosis 1+ Sodium Level 148 MMOL/L (136-145) H Potassium Level 3.8 MMOL/L (3.5-5.1) Chloride Level 111 MMOL/L (98-107) H Carbon Dioxide Level 30 MMOL/L (21-32) Anion Gap 7 mmol/L (5-15) Blood Urea Nitrogen 39 mg/dL (7-18) H Creatinine 1.3 MG/DL (0.55-1.30) Estimat Glomerular Filtration Rate > 60 mL/min (>60) Glucose Level 100 MG/DL (74-106) Calcium Level 8.4 MG/DL (8.5-10.1) L Magnesium Level 2.3 MG/DL (1.8-2.4) Total Bilirubin 1.6 MG/DL (0.2-1.0) H Direct Bilirubin 1.1 MG/DL (0.0-0.3) H Aspartate Amino Transf (AST/SGOT) 59 U/L (15-37) H Alanine Aminotransferase (ALT/SGPT) 94 U/L (12-78) H Alkaline Phosphatase 462 U/L (46-116) H Total Protein 6.7 G/DL (6.4-8.2) Albumin 2.3 G/DL (3.4-5.0) L Globulin 4.4 g/dL Albumin/Globulin Ratio 0.5 (1.0-2.7) L Plan Problems: (1) History of asthma (2) History of sudden cardiac arrest (3) Chronic systolic (congestive) heart failure (4) Hyperkalemia (5) ATN (acute tubular necrosis) (6) Feeding by G-tube Assessment & Plan: DAILY ESTIMATED NEEDS: Needs based on Critical care, wounds, renal 89kg adj 22-30 kcals/kg 3438-1450 total kcals 1.25-1.5 g protein/kg 111-134 g total protein 25-30 mL/kg 2023-1439 total fluid mLs NUTRITION DIAGNOSIS: 1) Swallowing difficulty r/t respiratory status as evidenced by pt is S/p trach and peg placement. 2) Increased protein needs r/t wound healing as evidenced by pt w/ multiple wounds including full and partial thickness wounds (refer to WC eval). 3) Altered nutrition related lab values r/t clinical status as evidenced by critically elev K (7.9-> 7.1-> 3.0-> now wnl), elev phos-> now wnl, elev mg, w/ elev BUN(79-> 54 trend down) and elev Creat (2.9-> 1.5 trend down). CURRENT TF:Glucerna 1.5 @ 45ml/hr x 24 hrs ENTERAL NUTRITION RECOMMENDATIONS: Glucerna 1.5 @ 55ml/hr x 24 hrs + Prosource 1pkt daily to provide 1320ml, 1980kcal, 109g prot + 11g prot, 1002ml free water - Increase goal rate to 55ml/hr x 24 hrs - Add PROSOURCE 1 pack QD to better meet est pro needs - Flush per , HOB over 30 degrees ADDITIONAL RECOMMENDATIONS: 1) Per Pt: 6'3" tall, 222# 2) Wound care: add EVAN BID via GT 3) Weekly calibrated bed scale wts 4) Monitor BG on prednisone/ need for NISS 5) Monitor for ability for oral intake, need to adjust TF (7) EF less than 10% (8) GI bleed Assessment & Plan: as per GI h/h stable monitor for now okay for diet (9) Renal failure (10) Hyperkalemia (11) Respiratory distress (12) Acute on chronic respiratory failure (13) Elevated LFTs Assessment & Plan: trend will monitor US with Impression: Small amount of ascites fluid Hepatomegaly. Equivocal mild surface nodularity, could indicate early cirrhotic changes. Correlate with clinical findings Apparent to and fro flow within the portal veins, raising concern for portal hypertension Borderline splenomegaly Negative for gallstones. Apparent pericholecystic fluid is likely a manifestation of the ascites. Apparent gallbladder wall edema is most likely related to the hepatocellular disease, although the possibility of acute acalculous cholecystitis should also be considered. Consider nuclear medicine hepatobiliary imaging for further evaluation if there is high clinical suspicion Echogenic foci within the left hepatic lobe. These could represent small hemangiomas or just prominent periportal fat Right pleural effusion Bilateral renal cysts incidentally noted HIDA with No evidence of acute cholecystitis. Radiotracer noted within the gallbladder indicating patency of the cystic duct. Radiotracer passes into the small bowel indicating patency of the common bile duct. Delayed uptake and excretion of the radiotracer from the liver parenchyma suggesting hepatocellular dysfunction/disease. (14) Dyspnea (15) Decubitus skin ulcer Assessment & Plan: Pt presented on admission with multiple partial thickness pressure injuries R and L buttocks and L thoracic,Open DTPI sacrum. Sacral area with full thickness wound with trace slough at coccygeal area,with surrounding dark skin tone without fluctuance or induration. (L)2cm x(W)4.4cm. No odor or exudate noted .Shearing periwound with small amt of sanguineous exudate. Multiple small partial thickness pressure injuries R and L buttocks.Surrounding areas of buttocks with darker than is normal skin tone. Partial thickness pressure injury Thoracic (2) sites. Proximal wound moist viable with dark skin tone periwound (L)2.6cm long. (Inferior) Partial thickness wound L thoracic (L)1.4cm x (W)1.5cm. Both heels are dry and firm . Trach site without erythema or evidence of skin breakdown. Tx.Plan: Apply Moisture Barrier Paste to entire Buttocks. Cover Sacral area with Optifoam. Change every 3 days and prn. Cover Thoracic wounds with Optifoam drsg .Change every 3 days and prn. APM/ Elvira mattress. Reposition at least every 2hours or as tolerated. Off-load heels with pillow. Karthik Cheatham Mar 06, 2019 17:03
--- NOTE | 2019-03-06 18:00 | General Progress Note ---
Assessment/Plan Plan: Assessment/Plan Problem List: (1) Status post tracheostomy ICD Codes: Z93.0 - Tracheostomy status SNOMED: 45523867, 874876972 (2) Acute on chronic respiratory failure ICD Codes: J96.20 - Acute and chronic respiratory failure, unspecified whether with hypoxia or hypercapnia SNOMED: 24971445 (3) EF less than 10% (4) GI bleed ICD Codes: K92.2 - Gastrointestinal hemorrhage, unspecified SNOMED: 93823508 (5) Feeding by G-tube ICD Codes: Z93.1 - Gastrostomy status SNOMED: 263003763, 190679224, 777989511 (6) Chronic systolic (congestive) heart failure ICD Codes: I50.22 - Chronic systolic (congestive) heart failure SNOMED: 98393066, 091729512 (7) History of sudden cardiac arrest ICD Codes: Z86.74 - Personal history of sudden cardiac arrest SNOMED: 43546272, 885207568 (8) Elevated LFTs ICD Codes: R94.5 - Abnormal results of liver function studies Recommendations GTF fu H&H given low EF and stable H&H will hold GI procedures for now Subjective Allergies: Coded Allergies: No Known Allergies (Unverified , 03/28/17) Subjective Above noted arousable tolerating TF Objective Last 24 Hour Vital Signs Date Time Temp Pulse Resp B/P (MAP) Pulse Ox O2 Delivery O2 Flow Rate FiO2 03/06/19 17:31 96 21 50 03/06/19 16:00 Mechanical Ventilator 03/06/19 16:00 94 03/06/19 16:00 40 03/06/19 16:00 98.0 96 16 119/68 (85) 100 03/06/19 15:06 96 21 50 03/06/19 12:49 86 18 50 03/06/19 12:00 98.2 91 18 104/66 (79) 100 03/06/19 12:00 90 03/06/19 12:00 Mechanical Ventilator 03/06/19 11:55 104/66 03/06/19 11:55 104/66 03/06/19 11:25 40 03/06/19 10:53 90 16 50 03/06/19 10:20 91 20 100 Mechanical Ventilator 40 03/06/19 09:11 97.8 03/06/19 08:56 97 20 50 03/06/19 08:41 87 108/69 03/06/19 08:00 50 03/06/19 08:00 Mechanical Ventilator 03/06/19 08:00 100 03/06/19 08:00 98.1 87 16 108/63 (78) 100 03/06/19 07:37 97 16 50 03/06/19 06:24 115/79 03/06/19 06:24 115/79 03/06/19 05:00 91 19 50 03/06/19 04:00 88 03/06/19 04:00 98.1 97 18 114/78 (90) 100 03/06/19 04:00 50 03/06/19 04:00 Mechanical Ventilator 03/06/19 03:24 80 19 50 03/06/19 01:06 89 18 50 03/06/19 00:39 118/83 03/06/19 00:10 118/83 03/06/19 00:10 118/83 03/06/19 00:00 97.5 95 18 118/83 (95) 100 03/06/19 00:00 Mechanical Ventilator 03/06/19 00:00 98 03/05/19 22:57 94 18 50 03/05/19 21:09 93 23 100 Mechanical Ventilator 50 03/05/19 21:00 88 115/80 03/05/19 20:54 98.2 87 18 118/81 (93) 100 03/05/19 20:50 88 16 100 Mechanical Ventilator 50 03/05/19 20:50 88 17 50 03/05/19 20:00 90 03/05/19 20:00 50 03/05/19 20:00 Mechanical Ventilator 03/05/19 19:00 90 18 40 03/05/19 18:54 86 18 Mechanical Ventilator 55.0 100 Intake and Output 03/05/19 03/06/19 19:00 07:00 Intake Total 874.828 ml 861.109 ml Output Total 950 ml 902 ml Balance -75.172 ml -40.891 ml Intake Free Water 65 ml IV Total 269.828 ml 321.109 ml Tube Feeding 540 ml 540 ml Output Urine Total 950 ml 900 ml Stool Total 2 ml # Bowel Movements 9 4 Laboratory Tests 03/06/19 05:30: White Blood Count 10.3, Red Blood Count 4.43L, Hemoglobin 10.3L, Hematocrit 35.2L, Mean Corpuscular Volume 79L, Mean Corpuscular Hemoglobin 23.3L, Mean Corpuscular Hemoglobin Concent 29.3L, Red Cell Distribution Width 27.0H, Platelet Count 269, Mean Platelet Volume 7.2, Neutrophils (%) (Auto) , Lymphocytes (%) (Auto) , Monocytes (%) (Auto) , Eosinophils (%) (Auto) , Basophils (%) (Auto) , Differential Total Cells Counted 100, Neutrophils % ( Manual) 87H, Lymphocytes % (Manual) 7L, Monocytes % (Manual) 6, Eosinophils % ( Manual) 0, Basophils % (Manual) 0, Band Neutrophils 0, Platelet Estimate Adequate, Platelet Morphology Normal, Polychromasia 1+, Hypochromasia 2+, Anisocytosis 3+, Microcytosis 1+, Sodium Level 148H, Potassium Level 3.8, Chloride Level 111H, Carbon Dioxide Level 30, Anion Gap 7, Blood Urea Nitrogen 39H, Creatinine 1.3, Estimat Glomerular Filtration Rate > 60, Glucose Level 100 , Calcium Level 8.4L, Magnesium Level 2.3, Total Bilirubin 1.6H, Direct Bilirubin 1.1H, Aspartate Amino Transf (AST/SGOT) 59H, Alanine Aminotransferase (ALT/SGPT) 94H, Alkaline Phosphatase 462H, Total Protein 6.7, Albumin 2.3L, Globulin 4.4, Albumin/Globulin Ratio 0.5L Height (Feet): 6 Height (Inches): 1.00 Weight (Pounds): 259 Objective debilitated AA man NCAT supple, (+) trach CTA RRR abd soft , (+) GT no edema Niranjan Weaver MD Mar 06, 2019 18:00
--- NOTE | 2019-03-06 18:29 | Nephrology Progress Note ---
Assessment/Plan Problem List: (1) Hyperkalemia (2) ATN (acute tubular necrosis) (3) Feeding by G-tube (4) Acute on chronic respiratory failure (5) EF less than 10% (6) History of sudden cardiac arrest (7) Chronic systolic (congestive) heart failure Assessment ATN (acute tubular necrosis), underlying CKD Hyperkalemia - was on K supplement and Lasix [employer]AT INS[employer]OR Chronic systolic (congestive) heart failure History of sudden cardiac arrest Status post tracheostomy Feeding by G-tube History of asthma Plan Cerda Reglan continue prednisone, taper stop hydrate aim to lower after and pre load- increase hydralazin monitor renal parameters per orders Subjective ROS Limited/Unobtainable: No Objective Objective Last 24 Hour Vital Signs Date Time Temp Pulse Resp B/P (MAP) Pulse Ox O2 Delivery O2 Flow Rate FiO2 03/06/19 18:08 116/68 03/06/19 18:08 116/68 03/06/19 17:31 96 21 50 03/06/19 16:00 Mechanical Ventilator 03/06/19 16:00 94 03/06/19 16:00 40 03/06/19 16:00 98.0 96 16 119/68 (85) 100 03/06/19 15:06 96 21 50 03/06/19 12:49 86 18 50 03/06/19 12:00 98.2 91 18 104/66 (79) 100 03/06/19 12:00 90 03/06/19 12:00 Mechanical Ventilator 03/06/19 11:55 104/66 03/06/19 11:55 104/66 03/06/19 11:25 40 03/06/19 10:53 90 16 50 03/06/19 10:20 91 20 100 Mechanical Ventilator 40 03/06/19 09:11 97.8 03/06/19 08:56 97 20 50 03/06/19 08:41 87 108/69 03/06/19 08:00 50 03/06/19 08:00 Mechanical Ventilator 03/06/19 08:00 100 03/06/19 08:00 98.1 87 16 108/63 (78) 100 03/06/19 07:37 97 16 50 03/06/19 06:24 115/79 03/06/19 06:24 115/79 03/06/19 05:00 91 19 50 03/06/19 04:00 88 03/06/19 04:00 98.1 97 18 114/78 (90) 100 03/06/19 04:00 50 03/06/19 04:00 Mechanical Ventilator 03/06/19 03:24 80 19 50 03/06/19 01:06 89 18 50 03/06/19 00:39 118/83 03/06/19 00:10 118/83 03/06/19 00:10 118/83 03/06/19 00:00 97.5 95 18 118/83 (95) 100 03/06/19 00:00 Mechanical Ventilator 03/06/19 00:00 98 03/05/19 22:57 94 18 50 03/05/19 21:09 93 23 100 Mechanical Ventilator 50 03/05/19 21:00 88 115/80 03/05/19 20:54 98.2 87 18 118/81 (93) 100 03/05/19 20:50 88 16 100 Mechanical Ventilator 50 03/05/19 20:50 88 17 50 03/05/19 20:00 90 03/05/19 20:00 50 03/05/19 20:00 Mechanical Ventilator 03/05/19 19:00 90 18 40 03/05/19 18:54 86 18 Mechanical Ventilator 55.0 100 Intake and Output 03/05/19 03/06/19 19:00 07:00 Intake Total 874.828 ml 861.109 ml Output Total 950 ml 902 ml Balance -75.172 ml -40.891 ml Intake Free Water 65 ml IV Total 269.828 ml 321.109 ml Tube Feeding 540 ml 540 ml Output Urine Total 950 ml 900 ml Stool Total 2 ml # Bowel Movements 9 4 Laboratory Tests 03/06/19 05:30: White Blood Count 10.3, Red Blood Count 4.43L, Hemoglobin 10.3L, Hematocrit 35.2L, Mean Corpuscular Volume 79L, Mean Corpuscular Hemoglobin 23.3L, Mean Corpuscular Hemoglobin Concent 29.3L, Red Cell Distribution Width 27.0H, Platelet Count 269, Mean Platelet Volume 7.2, Neutrophils (%) (Auto) , Lymphocytes (%) (Auto) , Monocytes (%) (Auto) , Eosinophils (%) (Auto) , Basophils (%) (Auto) , Differential Total Cells Counted 100, Neutrophils % ( Manual) 87H, Lymphocytes % (Manual) 7L, Monocytes % (Manual) 6, Eosinophils % ( Manual) 0, Basophils % (Manual) 0, Band Neutrophils 0, Platelet Estimate Adequate, Platelet Morphology Normal, Polychromasia 1+, Hypochromasia 2+, Anisocytosis 3+, Microcytosis 1+, Sodium Level 148H, Potassium Level 3.8, Chloride Level 111H, Carbon Dioxide Level 30, Anion Gap 7, Blood Urea Nitrogen 39H, Creatinine 1.3, Estimat Glomerular Filtration Rate > 60, Glucose Level 100 , Calcium Level 8.4L, Magnesium Level 2.3, Total Bilirubin 1.6H, Direct Bilirubin 1.1H, Aspartate Amino Transf (AST/SGOT) 59H, Alanine Aminotransferase (ALT/SGPT) 94H, Alkaline Phosphatase 462H, Total Protein 6.7, Albumin 2.3L, Globulin 4.4, Albumin/Globulin Ratio 0.5L Height (Feet): 6 Height (Inches): 1.00 Weight (Pounds): 259 General Appearance: no apparent distress EENT: other - trach Cardiovascular: tachycardia Abdomen: distended Nico Alonso MD Mar 06, 2019 18:29
[2019-03-06 20:00] VITALS: BP 104/72
[2019-03-06] MEDS: Dyna-Hex 2% Top Sol 2oz TOPIC SCH (20:40)
[2019-03-06] MEDS: Iron Sucrose 100 MG in NS 55 ML IV SCH (20:41)
[2019-03-07] VITALS: BP 111/78
[2019-03-07] MEDS: Gentamicin 0.3% Opth Soln 5ml BOTH EYES SCH ×5 (00:11→23:59)
[2019-03-07] MEDS: Metoclopramide 10mg/10ml Liq GT SCH ×5 (00:11→23:57)
[2019-03-07] MEDS: Piperacillin/Tazobactam 3.375 GM in NS 110 ML IVPB SCH ×2 (00:12→13:11)
[2019-03-07] MEDS: HydrALAZINE 10mg Tab GT SCH ×5 (00:12→23:58)
[2019-03-07 04:00] VITALS: BP 103/75
[2019-03-07] MEDS: Acetaminophen 650mg/20.3ml GT PRN (05:17)
[2019-03-07 06:59] LABS: HEMATOCRIT 31.8 % (42.0-52.0); HEMOGLOBIN 9.4 G/DL (14.2-18.0); MEAN CORPUSCULAR VOLUME 79 FL (80-99); PLATELET COUNT 227 K/UL (150-450); RED BLOOD COUNT 4.02 M/UL (4.70-6.10); RED CELL DISTRIBUTION WIDTH 27.7 % (11.6-14.8); WHITE BLOOD COUNT 11.1 K/UL (4.8-10.8)
[2019-03-07 07:06] LABS: ANION GAP 6 mmol/L (5-15); BLOOD UREA NITROGEN 28 mg/dL (7-18); CALCIUM 8.2 MG/DL (8.5-10.1); CARBON DIOXIDE 29 MMOL/L (21-32); CHLORIDE 108 MMOL/L (98-107); CREATININE 1.2 MG/DL (0.55-1.30); POTASSIUM 3.8 MMOL/L (3.5-5.1); SODIUM 143 MMOL/L (136-145)
[2019-03-07 07:14] LABS: ALANINE AMINOTRANSFERASE 77 U/L (12-78); ALBUMIN 2.1 G/DL (3.4-5.0); ALKALINE PHOSPHATASE 424 U/L (46-116); ASPARTATE AMINO TRANSFERASE 47 U/L (15-37); BILIRUBIN,TOTAL 1.4 MG/DL (0.2-1.0)
[2019-03-07 08:00] VITALS: BP 110/81
[2019-03-07] MEDS ORDERED: Midazolam 2mg/2ml Inj ONE (08:00)
[2019-03-07] MEDS: Carvedilol 25mg Tab GT SCH ×2 (09:41→21:00)
[2019-03-07] MEDS: Allopurinol 100mg Tab GT SCH (09:42)
[2019-03-07] MEDS: Heparin 5000 units/ml inj SUBQ SCH ×2 (09:43→21:21)
--- NOTE | 2019-03-07 10:52 | Nephrology Progress Note ---
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 failure History of sudden cardiac arrest Status post tracheostomy Feeding by G-tube History of asthma Plan Cerda Reglan continue prednisone, taper stop hydrate aim to lower after and pre load- increase hydralazin monitor renal parameters per orders Subjective ROS Limited/Unobtainable: No Constitutional: Reports: malaise Objective Objective Last 24 Hour Vital Signs Date Time Temp Pulse Resp B/P (MAP) Pulse Ox O2 Delivery O2 Flow Rate FiO2 03/07/19 09:41 95 110/81 03/07/19 08:00 Mechanical Ventilator 03/07/19 08:00 98.6 95 17 110/81 (91) 100 03/07/19 08:00 40 03/07/19 07:51 96 03/07/19 07:04 90 16 40 03/07/19 05:29 97 20 40 03/07/19 05:16 104/75 03/07/19 05:15 104/75 03/07/19 04:00 97.5 86 16 103/75 (84) 100 03/07/19 04:00 40 03/07/19 04:00 86 03/07/19 04:00 103/75 03/07/19 04:00 Mechanical Ventilator 03/07/19 03:21 99 18 40 03/07/19 01:30 95 20 40 03/07/19 00:12 111/78 03/07/19 00:11 111/78 03/07/19 00:00 97.8 99 18 111/78 (89) 100 03/07/19 00:00 Mechanical Ventilator 03/07/19 00:00 103 03/07/19 00:00 111/78 03/07/19 00:00 40 03/06/19 23:23 97 18 40 03/06/19 21:04 92 21 40 03/06/19 20:41 90 104/72 03/06/19 20:00 Mechanical Ventilator 03/06/19 20:00 40 03/06/19 20:00 104/72 03/06/19 20:00 89 03/06/19 20:00 98.7 92 16 104/72 (83) 100 03/06/19 19:01 90 20 40 03/06/19 18:31 116/68 03/06/19 18:08 116/68 03/06/19 18:08 116/68 03/06/19 17:31 96 21 50 03/06/19 16:00 Mechanical Ventilator 03/06/19 16:00 94 03/06/19 16:00 40 03/06/19 16:00 98.0 96 16 119/68 (85) 100 03/06/19 15:06 96 21 50 03/06/19 12:49 86 18 50 03/06/19 12:00 98.2 91 18 104/66 (79) 100 03/06/19 12:00 90 03/06/19 12:00 Mechanical Ventilator 03/06/19 11:55 104/66 03/06/19 11:55 104/66 03/06/19 11:25 40 03/06/19 10:53 90 16 50 Intake and Output 03/06/19 03/07/19 18:59 06:59 Intake Total 959.828 ml 1003.168 ml Output Total 1000 ml 850 ml Balance -40.172 ml 153.168 ml Intake Free Water 150 ml 140 ml IV Total 269.828 ml 323.168 ml Tube Feeding 540 ml 540 ml Output Urine Total 800 ml 700 ml Stool Total 200 ml 150 ml # Bowel Movements 3 Laboratory Tests 03/07/19 06:25: White Blood Count 11.1H, Red Blood Count 4.02L, Hemoglobin 9.4L, Hematocrit 31.8L, Mean Corpuscular Volume 79L, Mean Corpuscular Hemoglobin 23.5L, Mean Corpuscular Hemoglobin Concent 29.7L, Red Cell Distribution Width 27.7H, Platelet Count 227, Mean Platelet Volume 7.4, Neutrophils (%) (Auto) , Lymphocytes (%) (Auto) , Monocytes (%) (Auto) , Eosinophils (%) (Auto) , Basophils (%) (Auto) , Differential Total Cells Counted 100, Neutrophils % ( Manual) 87H, Lymphocytes % (Manual) 7L, Monocytes % (Manual) 6, Eosinophils % ( Manual) 0, Basophils % (Manual) 0, Band Neutrophils 0, Platelet Estimate Adequate, Platelet Morphology Normal, Hypochromasia 1+, Anisocytosis 2+, Microcytosis 1+, Sodium Level 143, Potassium Level 3.8, Chloride Level 108H, Carbon Dioxide Level 29, Anion Gap 6, Blood Urea Nitrogen 28H, Creatinine 1.2, Estimat Glomerular Filtration Rate > 60, Glucose Level 101, Calcium Level 8.2L, Phosphorus Level 2.0L, Magnesium Level 2.0, Total Bilirubin 1.4H, Direct Bilirubin 1.0H, Aspartate Amino Transf (AST/SGOT) 47H, Alanine Aminotransferase (ALT/SGPT) 77, Alkaline Phosphatase 424H, Total Protein 6.2L, Albumin 2.1L Height (Feet): 6 Height (Inches): 1.00 Weight (Pounds): 259 General Appearance: no apparent distress EENT: other - trach Cardiovascular: tachycardia Respiratory/Chest: decreased breath sounds Abdomen: distended Nico Alonso MD Mar 07, 2019 10:52
[2019-03-07] MEDS ORDERED: Potassium Phosphate 30 MM in NS 275 ML IV SCH (11:00)
--- NOTE | 2019-03-07 11:07 | General Progress Note ---
Assessment/Plan Plan: Assessment/Plan Problem List: (1) Status post tracheostomy ICD Codes: Z93.0 - Tracheostomy status SNOMED: 22872933, 553182740 (2) Acute on chronic respiratory failure ICD Codes: J96.20 - Acute and chronic respiratory failure, unspecified whether with hypoxia or hypercapnia SNOMED: 17432961 (3) EF less than 10% (4) GI bleed ICD Codes: K92.2 - Gastrointestinal hemorrhage, unspecified SNOMED: 38062419 (5) Feeding by G-tube ICD Codes: Z93.1 - Gastrostomy status SNOMED: 425024694, 597354397, 739681035 (6) Chronic systolic (congestive) heart failure ICD Codes: I50.22 - Chronic systolic (congestive) heart failure SNOMED: 19336876, 610028713 (7) History of sudden cardiac arrest ICD Codes: Z86.74 - Personal history of sudden cardiac arrest SNOMED: 93571448, 410639301 (8) Elevated LFTs ICD Codes: R94.5 - Abnormal results of liver function studies Recommendations GTF fu H&H given low EF and stable H&H will hold GI procedures for now Subjective Allergies: Coded Allergies: No Known Allergies (Unverified , 03/28/17) Subjective Above noted more awake today tolerating TF Objective Last 24 Hour Vital Signs Date Time Temp Pulse Resp B/P (MAP) Pulse Ox O2 Delivery O2 Flow Rate FiO2 03/07/19 09:41 95 110/81 03/07/19 08:00 Mechanical Ventilator 03/07/19 08:00 98.6 95 17 110/81 (91) 100 03/07/19 08:00 40 03/07/19 07:51 96 03/07/19 07:04 90 16 40 03/07/19 05:29 97 20 40 03/07/19 05:16 104/75 03/07/19 05:15 104/75 03/07/19 04:00 97.5 86 16 103/75 (84) 100 03/07/19 04:00 40 03/07/19 04:00 86 03/07/19 04:00 103/75 03/07/19 04:00 Mechanical Ventilator 03/07/19 03:21 99 18 40 03/07/19 01:30 95 20 40 03/07/19 00:12 111/78 03/07/19 00:11 111/78 03/07/19 00:00 97.8 99 18 111/78 (89) 100 03/07/19 00:00 Mechanical Ventilator 03/07/19 00:00 103 03/07/19 00:00 111/78 03/07/19 00:00 40 03/06/19 23:23 97 18 40 03/06/19 21:04 92 21 40 03/06/19 20:41 90 104/72 03/06/19 20:00 Mechanical Ventilator 03/06/19 20:00 40 03/06/19 20:00 104/72 03/06/19 20:00 89 03/06/19 20:00 98.7 92 16 104/72 (83) 100 03/06/19 19:01 90 20 40 03/06/19 18:31 116/68 03/06/19 18:08 116/68 03/06/19 18:08 116/68 03/06/19 17:31 96 21 50 03/06/19 16:00 Mechanical Ventilator 03/06/19 16:00 94 03/06/19 16:00 40 03/06/19 16:00 98.0 96 16 119/68 (85) 100 03/06/19 15:06 96 21 50 03/06/19 12:49 86 18 50 03/06/19 12:00 98.2 91 18 104/66 (79) 100 03/06/19 12:00 90 03/06/19 12:00 Mechanical Ventilator 03/06/19 11:55 104/66 03/06/19 11:55 104/66 03/06/19 11:25 40 Intake and Output 03/06/19 03/07/19 18:59 06:59 Intake Total 959.828 ml 1003.168 ml Output Total 1000 ml 850 ml Balance -40.172 ml 153.168 ml Intake Free Water 150 ml 140 ml IV Total 269.828 ml 323.168 ml Tube Feeding 540 ml 540 ml Output Urine Total 800 ml 700 ml Stool Total 200 ml 150 ml # Bowel Movements 3 Laboratory Tests 03/07/19 06:25: White Blood Count 11.1H, Red Blood Count 4.02L, Hemoglobin 9.4L, Hematocrit 31.8L, Mean Corpuscular Volume 79L, Mean Corpuscular Hemoglobin 23.5L, Mean Corpuscular Hemoglobin Concent 29.7L, Red Cell Distribution Width 27.7H, Platelet Count 227, Mean Platelet Volume 7.4, Neutrophils (%) (Auto) , Lymphocytes (%) (Auto) , Monocytes (%) (Auto) , Eosinophils (%) (Auto) , Basophils (%) (Auto) , Differential Total Cells Counted 100, Neutrophils % ( Manual) 87H, Lymphocytes % (Manual) 7L, Monocytes % (Manual) 6, Eosinophils % ( Manual) 0, Basophils % (Manual) 0, Band Neutrophils 0, Platelet Estimate Adequate, Platelet Morphology Normal, Hypochromasia 1+, Anisocytosis 2+, Microcytosis 1+, Sodium Level 143, Potassium Level 3.8, Chloride Level 108H, Carbon Dioxide Level 29, Anion Gap 6, Blood Urea Nitrogen 28H, Creatinine 1.2, Estimat Glomerular Filtration Rate > 60, Glucose Level 101, Calcium Level 8.2L, Phosphorus Level 2.0L, Magnesium Level 2.0, Total Bilirubin 1.4H, Direct Bilirubin 1.0H, Aspartate Amino Transf (AST/SGOT) 47H, Alanine Aminotransferase (ALT/SGPT) 77, Alkaline Phosphatase 424H, Total Protein 6.2L, Albumin 2.1L Height (Feet): 6 Height (Inches): 1.00 Weight (Pounds): 259 Objective debilitated AA man NCAT supple, (+) trach CTA RRR abd soft , (+) GT no edema Niranjan Weaver MD Mar 07, 2019 11:06
[2019-03-07 12:00] VITALS: BP 100/73
--- NOTE | 2019-03-07 13:17 | Internal Med Progress Note ---
Subjective Date of Service: Mar 07, 2019 Physician Name Alex Cifuentes Attending Physician Sherman Vee MD Current Medications Medications (Trade) Dose Ordered Sig/Rebecca Route PRN Reason Start Time Stop Time Status Last Admin Dose Admin Acetaminophen (Tylenol) 650 mg Q4H PRN GT Mild Pain/Temp > 100.5 03/01/19 20:00 03/31/19 19:59 03/07/19 05:17 Albuterol/ Ipratropium (Albuterol/ Ipratropium) 3 ml Q4H PRN HHN Shortness of Breath 03/05/19 21:00 03/10/19 20:59 03/06/19 19:12 Allopurinol (Zyloprim) 200 mg DAILY GT 03/02/19 11:00 04/01/19 10:59 03/07/19 09:42 Aspirin (ASA) 325 mg DAILY GT 02/28/19 19:45 03/30/19 19:44 03/07/19 09:40 Carvedilol (Coreg) 25 mg EVERY 12 HOURS GT 03/05/19 09:00 04/02/19 20:59 03/07/19 09:41 Chlorhexidine Gluconate (Essie-Hex 2%) 1 applic DAILY@2000 TOPIC 03/01/19 20:00 03/31/19 19:59 03/06/19 20:40 Clonidine HCl (Catapres Tab) 0.1 mg EVERY 6 HOURS PRN GT FOR sbp >160 02/28/19 18:45 03/30/19 18:44 Dextrose (Dextrose 50%) 25 ml Q30M PRN IV Hypoglycemia 03/05/19 09:00 04/04/19 08:45 Dextrose (Dextrose 50%) 50 ml Q30M PRN IV hypoglycemia 03/05/19 09:00 04/04/19 08:59 Dopamine HCl/ Dextrose 250 ml @ 13.319 mls/ hr Q24H IV 03/02/19 08:11 04/01/19 08:10 03/06/19 18:31 Gentamicin Sulfate (Garamycin 0.3% Opth Soln) 1 drop Q6HR BOTH EYES 03/05/19 20:00 03/08/19 19:59 03/07/19 11:22 Heparin Sodium (Porcine) (Heparin 5000 units/ml) 5,000 units EVERY 12 HOURS SUBQ 02/28/19 21:00 03/30/19 20:59 03/07/19 09:43 Hydralazine HCl (Apresoline) 25 mg Q6HR GT 03/05/19 12:00 04/02/19 11:59 03/07/19 11:24 Isosorbide Dinitrate (Isordil) 10 mg Q6HR GT 03/02/19 12:00 04/01/19 11:59 03/07/19 11:24 Lansoprazole (Prevacid) 30 mg BID GT 03/04/19 18:00 04/03/19 17:59 03/07/19 09:40 Lorazepam (Ativan 2mg/ml 1ml) 2 mg EVERY 2 HOURS PRN IV For Anxiety 02/28/19 18:45 03/07/19 18:44 03/04/19 01:36 Metoclopramide HCl (Reglan) 5 mg EVERY 6 HOURS GT 03/02/19 12:00 04/01/19 11:59 03/07/19 11:23 Morphine Sulfate (Morphine Sulfate) 4 mg EVERY 4 HOURS PRN IVP Severe Pain (Pain Scale 7-10) 02/28/19 18:45 03/07/19 18:44 Ondansetron HCl (Zofran) 4 mg Q6H PRN IVP Nausea & Vomiting 02/28/19 18:45 03/30/19 18:44 Piperacillin Sod/ Tazobactam Sod 3.375 gm/Sodium Chloride 110 ml @ 27.5 mls/hr Q12HR@0100,1300 IVPB 03/01/19 13:00 03/08/19 12:59 03/07/19 13:11 Polyethylene Glycol (Miralax) 17 gm DAILYPRN PRN GT Constipation 03/01/19 20:00 03/30/19 18:44 Potassium Phosphate 30 mm/ Sodium Chloride 285 ml @ 47.5 mls/hr ONCE IV 03/07/19 11:00 03/07/19 20:00 03/07/19 11:22 Potassium Chloride (K-Dur) 20 meq TWICE A DAY GT 03/04/19 18:00 04/03/19 17:59 03/07/19 09:40 Prednisone (predniSONE) 15 mg DAILY GT 03/05/19 09:00 04/02/19 08:59 03/07/19 09:41 Allergies: Coded Allergies: No Known Allergies (Unverified , 03/28/17) ROS Limited/Unobtainable: No Constitutional: Reports: no symptoms HEENT: Reports: no symptoms Cardiovascular: Reports: no symptoms Respiratory: Reports: no symptoms Gastrointestinal/Abdominal: Reports: no symptoms Genitourinary: Reports: no symptoms Neurologic/Psychiatric: Reports: no symptoms Subjective 53YO M with history of vent dep respiratory failure admitted with respiratory distress. [facility] Vent. Cover for Int Diogenes-Dr Vee. [facility] Objective Last Vital Signs Date Time Temp Pulse Resp B/P (MAP) Pulse Ox O2 Delivery O2 Flow Rate FiO2 03/07/19 12:00 40 03/07/19 12:00 98.4 84 13 100/73 (82) 100 03/07/19 12:00 Mechanical Ventilator 03/05/19 18:54 55.0 Laboratory Tests Test 03/07/19 06:25 White Blood Count 11.1 K/UL (4.8-10.8) H Red Blood Count 4.02 M/UL (4.70-6.10) L Hemoglobin 9.4 G/DL (14.2-18.0) L Hematocrit 31.8 % (42.0-52.0) L Mean Corpuscular Volume 79 FL (80-99) L Mean Corpuscular Hemoglobin 23.5 PG (27.0-31.0) L Mean Corpuscular Hemoglobin Concent 29.7 G/DL (32.0-36.0) L Red Cell Distribution Width 27.7 % (11.6-14.8) H Platelet Count 227 K/UL (150-450) Mean Platelet Volume 7.4 FL (6.5-10.1) Neutrophils (%) (Auto) % (45.0-75.0) Lymphocytes (%) (Auto) % (20.0-45.0) Monocytes (%) (Auto) % (1.0-10.0) Eosinophils (%) (Auto) % (0.0-3.0) Basophils (%) (Auto) % (0.0-2.0) Differential Total Cells Counted 100 Neutrophils % (Manual) 87 % (45-75) H Lymphocytes % (Manual) 7 % (20-45) L Monocytes % (Manual) 6 % (1-10) Eosinophils % (Manual) 0 % (0-3) Basophils % (Manual) 0 % (0-2) Band Neutrophils 0 % (0-8) Platelet Estimate Adequate Platelet Morphology Normal Hypochromasia 1+ Anisocytosis 2+ Microcytosis 1+ Sodium Level 143 MMOL/L (136-145) Potassium Level 3.8 MMOL/L (3.5-5.1) Chloride Level 108 MMOL/L (98-107) H Carbon Dioxide Level 29 MMOL/L (21-32) Anion Gap 6 mmol/L (5-15) Blood Urea Nitrogen 28 mg/dL (7-18) H Creatinine 1.2 MG/DL (0.55-1.30) Estimat Glomerular Filtration Rate > 60 mL/min (>60) Glucose Level 101 MG/DL (74-106) Calcium Level 8.2 MG/DL (8.5-10.1) L Phosphorus Level 2.0 MG/DL (2.5-4.9) L Magnesium Level 2.0 MG/DL (1.8-2.4) Total Bilirubin 1.4 MG/DL (0.2-1.0) H Direct Bilirubin 1.0 MG/DL (0.0-0.3) H Aspartate Amino Transf (AST/SGOT) 47 U/L (15-37) H Alanine Aminotransferase (ALT/SGPT) 77 U/L (12-78) Alkaline Phosphatase 424 U/L (46-116) H Total Protein 6.2 G/DL (6.4-8.2) L Albumin 2.1 G/DL (3.4-5.0) L Microbiology Date/Time Source Procedure Growth Status 03/05/19 14:00 Sputum Gram Stain - Final Resulted 03/05/19 14:00 Sputum Culture - Preliminary Gram Negative Ra Resulted Intake and Output 03/06/19 03/07/19 19:00 07:00 Intake Total 953.168 ml 1009.828 ml Output Total 1000 ml 850 ml Balance -46.832 ml 159.828 ml Intake Free Water 150 ml 140 ml IV Total 263.168 ml 329.828 ml Tube Feeding 540 ml 540 ml Output Urine Total 800 ml 700 ml Stool Total 200 ml 150 ml # Bowel Movements 3 Objective PHYSICAL EXAMINATION:. GENERAL: The patient is awake and responsive to the painful stimuli. Spontaneously opens his eyes. Cannot follow commands. HEAD AND NECK: Pupils are equal and reactive to light. Anicteric. Neck was supple. Tracheostomy site is intact. LUNGS: Mech Vent; Good air entry. Decreased in the bases. Ventilation breath sounds. HEART: Reveals S1, S2. Regular rhythm. Distant heart sounds. No murmurs or gallops. ABDOMEN: Soft, nondistended, and nontender. PEG site is clean. EXTREMITIES: No cyanosis or clubbing. A +1 edema in bilateral lower extremities. The patient has a PICC line in the right upper extremity noted. NEUROLOGIC: Very limited secondary to the patient's status. At this time, the patient is unable to follow commands, however, moving extremities slowly. BACK: Has a small sacral ulcer. Assessment/Plan Assessment/Plan ASSESSMENT: 1. Acute respiratory failure on chronic on trach bilateral pneumonia. 2. Severe cardiomyopathy with systolic dysfunction. 3. Hyperkalemia. 4. Chronic ventilator dependent status post tracheostomy. 5. History of sudden cardiac arrest. 6. Asthma. 7. Anoxic brain injury. 8. Dysphagia status post PEG. 9. Cholecystitis PLAN: Admit the patient to [facility]. Dr. Gerber from Pulmonary Critical Care, Dr. Luis Robins from ID Dr. Nico Alonso from Nephrology. We will monitor potassium level closely on Kayexalate. Chronic wound care therapy. We will follow up with the wound care protocol. Monitor laboratory. Antibiotic=Zosyn per ID. Code status at this time is Full Code. Discharge planning Alex Cifuentes MD Mar 07, 2019 13:17
--- NOTE | 2019-03-07 15:07 | Surgery Progress Note ---
Surgery Progress Note Subjective Additional Comments no acute events. seemingly comfortable. exam unchanged. labs noted. Objective Last 24 Hour Vital Signs Date Time Temp Pulse Resp B/P (MAP) Pulse Ox O2 Delivery O2 Flow Rate FiO2 03/07/19 12:00 40 03/07/19 12:00 98.4 84 13 100/73 (82) 100 03/07/19 12:00 Mechanical Ventilator 03/07/19 11:38 84 03/07/19 11:24 110/81 03/07/19 11:24 110/81 03/07/19 11:10 104 24 40 03/07/19 09:41 95 110/81 03/07/19 08:00 Mechanical Ventilator 03/07/19 08:00 110/81 03/07/19 08:00 98.6 95 17 110/81 (91) 100 03/07/19 08:00 40 03/07/19 07:51 96 03/07/19 07:04 90 16 40 03/07/19 05:29 97 20 40 03/07/19 05:16 104/75 03/07/19 05:15 104/75 03/07/19 04:00 97.5 86 16 103/75 (84) 100 03/07/19 04:00 40 03/07/19 04:00 86 03/07/19 04:00 103/75 03/07/19 04:00 Mechanical Ventilator 03/07/19 03:21 99 18 40 03/07/19 01:30 95 20 40 03/07/19 00:12 111/78 03/07/19 00:11 111/78 03/07/19 00:00 97.8 99 18 111/78 (89) 100 03/07/19 00:00 Mechanical Ventilator 03/07/19 00:00 103 03/07/19 00:00 111/78 03/07/19 00:00 40 03/06/19 23:23 97 18 40 03/06/19 21:04 92 21 40 03/06/19 20:41 90 104/72 03/06/19 20:00 Mechanical Ventilator 03/06/19 20:00 40 03/06/19 20:00 104/72 03/06/19 20:00 89 03/06/19 20:00 98.7 92 16 104/72 (83) 100 4/20/19 19:01 90 20 40 03/06/19 18:31 116/68 03/06/19 18:08 116/68 03/06/19 18:08 116/68 03/06/19 17:31 96 21 50 03/06/19 16:00 Mechanical Ventilator 03/06/19 16:00 94 03/06/19 16:00 40 03/06/19 16:00 98.0 96 16 119/68 (85) 100 I&O Intake and Output 03/06/19 03/07/19 19:00 07:00 Intake Total 953.168 ml 1009.828 ml Output Total 1000 ml 850 ml Balance -46.832 ml 159.828 ml Intake Free Water 150 ml 140 ml IV Total 263.168 ml 329.828 ml Tube Feeding 540 ml 540 ml Output Urine Total 800 ml 700 ml Stool Total 200 ml 150 ml # Bowel Movements 3 Dressing: saturated Wound: other Drains: other Cardiovascular: RSR Respiratory: decreased breath sounds Abdomen: soft, present bowel sounds Extremities: no cyanosis Laboratory Tests Test 03/07/19 06:25 White Blood Count 11.1 K/UL (4.8-10.8) H Red Blood Count 4.02 M/UL (4.70-6.10) L Hemoglobin 9.4 G/DL (14.2-18.0) L Hematocrit 31.8 % (42.0-52.0) L Mean Corpuscular Volume 79 FL (80-99) L Mean Corpuscular Hemoglobin 23.5 PG (27.0-31.0) L Mean Corpuscular Hemoglobin Concent 29.7 G/DL (32.0-36.0) L Red Cell Distribution Width 27.7 % (11.6-14.8) H Platelet Count 227 K/UL (150-450) Mean Platelet Volume 7.4 FL (6.5-10.1) Neutrophils (%) (Auto) % (45.0-75.0) Lymphocytes (%) (Auto) % (20.0-45.0) Monocytes (%) (Auto) % (1.0-10.0) Eosinophils (%) (Auto) % (0.0-3.0) Basophils (%) (Auto) % (0.0-2.0) Differential Total Cells Counted 100 Neutrophils % (Manual) 87 % (45-75) H Lymphocytes % (Manual) 7 % (20-45) L Monocytes % (Manual) 6 % (1-10) Eosinophils % (Manual) 0 % (0-3) Basophils % (Manual) 0 % (0-2) Band Neutrophils 0 % (0-8) Platelet Estimate Adequate Platelet Morphology Normal Hypochromasia 1+ Anisocytosis 2+ Microcytosis 1+ Sodium Level 143 MMOL/L (136-145) Potassium Level 3.8 MMOL/L (3.5-5.1) Chloride Level 108 MMOL/L (98-107) H Carbon Dioxide Level 29 MMOL/L (21-32) Anion Gap 6 mmol/L (5-15) Blood Urea Nitrogen 28 mg/dL (7-18) H Creatinine 1.2 MG/DL (0.55-1.30) Estimat Glomerular Filtration Rate > 60 mL/min (>60) Glucose Level 101 MG/DL (74-106) Calcium Level 8.2 MG/DL (8.5-10.1) L Phosphorus Level 2.0 MG/DL (2.5-4.9) L Magnesium Level 2.0 MG/DL (1.8-2.4) Total Bilirubin 1.4 MG/DL (0.2-1.0) H Direct Bilirubin 1.0 MG/DL (0.0-0.3) H Aspartate Amino Transf (AST/SGOT) 47 U/L (15-37) H Alanine Aminotransferase (ALT/SGPT) 77 U/L (12-78) Alkaline Phosphatase 424 U/L (46-116) H Total Protein 6.2 G/DL (6.4-8.2) L Albumin 2.1 G/DL (3.4-5.0) L Plan Problems: (1) History of asthma (2) History of sudden cardiac arrest (3) Chronic systolic (congestive) heart failure (4) Hyperkalemia (5) ATN (acute tubular necrosis) (6) Feeding by G-tube Assessment & Plan: DAILY ESTIMATED NEEDS: Needs based on Critical care, wounds, renal 89kg adj 22-30 kcals/kg [id number] total kcals 1.25-1.5 g protein/kg 111-134 g total protein 25-30 mL/kg 1193-0021 total fluid mLs NUTRITION DIAGNOSIS: 1) Swallowing difficulty r/t respiratory status as evidenced by pt is S/p trach and peg placement. 2) Increased protein needs r/t wound healing as evidenced by pt w/ multiple wounds including full and partial thickness wounds (refer to WC eval). 3) Altered nutrition related lab values r/t clinical status as evidenced by critically elev K (7.9-> 7.1-> 3.0-> now wnl), elev phos-> now wnl, elev mg, w/ elev BUN(79-> 54 trend down) and elev Creat (2.9-> 1.5 trend down). CURRENT TF:Glucerna 1.5 @ 45ml/hr x 24 hrs ENTERAL NUTRITION RECOMMENDATIONS: Glucerna 1.5 @ 55ml/hr x 24 hrs + Prosource 1pkt daily to provide 1320ml, 1980kcal, 109g prot + 11g prot, 1002ml free water - Increase goal rate to 55ml/hr x 24 hrs - Add PROSOURCE 1 pack QD to better meet est pro needs - Flush per MD, HOB over 30 degrees ADDITIONAL RECOMMENDATIONS: 1) Per Pt: 6'3" tall, 222# 2) Wound care: add EVAN BID via GT 3) Weekly calibrated bed scale wts 4) Monitor BG on prednisone/ need for NISS 5) Monitor for ability for oral intake, need to adjust TF (7) EF less than 10% (8) GI bleed Assessment & Plan: as per GI h/h stable monitor for now okay for diet (9) Renal failure (10) Hyperkalemia (11) Respiratory distress (12) Acute on chronic respiratory failure (13) Elevated LFTs Assessment & Plan: trend will monitor US with Impression: Small amount of ascites fluid Hepatomegaly. Equivocal mild surface nodularity, could indicate early cirrhotic changes. Correlate with clinical findings Apparent to and fro flow within the portal veins, raising concern for portal hypertension Borderline splenomegaly Negative for gallstones. Apparent pericholecystic fluid is likely a manifestation of the ascites. Apparent gallbladder wall edema is most likely related to the hepatocellular disease, although the possibility of acute acalculous cholecystitis should also be considered. Consider nuclear medicine hepatobiliary imaging for further evaluation if there is high clinical suspicion Echogenic foci within the left hepatic lobe. These could represent small hemangiomas or just prominent periportal fat Right pleural effusion Bilateral renal cysts incidentally noted HIDA with No evidence of acute cholecystitis. Radiotracer noted within the gallbladder indicating patency of the cystic duct. Radiotracer passes into the small bowel indicating patency of the common bile duct. Delayed uptake and excretion of the radiotracer from the liver parenchyma suggesting hepatocellular dysfunction/disease. (14) Dyspnea (15) Decubitus skin ulcer Assessment & Plan: Pt presented on admission with multiple partial thickness pressure injuries R and L buttocks and L thoracic,Open DTPI sacrum. Sacral area with full thickness wound with trace slough at coccygeal area,with surrounding dark skin tone without fluctuance or induration. (L)2cm x(W)4.4cm. No odor or exudate noted .Shearing periwound with small amt of sanguineous exudate. Multiple small partial thickness pressure injuries R and L buttocks.Surrounding areas of buttocks with darker than is normal skin tone. Partial thickness pressure injury Thoracic (2) sites. Proximal wound moist viable with dark skin tone periwound (L)2.6cm long. (Inferior) Partial thickness wound L thoracic (L)1.4cm x (W)1.5cm. Both heels are dry and firm . Trach site without erythema or evidence of skin breakdown. Tx.Plan: Apply Moisture Barrier Paste to entire Buttocks. Cover Sacral area with Optifoam. Change every 3 days and prn. Cover Thoracic wounds with Optifoam drsg .Change every 3 days and prn. APM/ Elvira mattress. Reposition at least every 2hours or as tolerated. Off-load heels with pillow. Karthik Cheatham Mar 07, 2019 15:07
[2019-03-07] MEDS: DOPamine 400mg/250ml 250 ML IV SCH (15:08)
[2019-03-07] MEDS ORDERED: NS 275ml ONE (15:21)
[2019-03-07] MEDS ORDERED: Tubing IV Blood Pump IV ONE (15:21)
[2019-03-07] MEDS ORDERED: Sterile Water Irrig 1000ml IRRIG ONE (15:21)
[2019-03-07 16:00] VITALS: BP 110/80
[2019-03-07] MEDS: Albuterol/Ipratropium 3ml neb HHN PRN (17:04)
[2019-03-07 20:00] VITALS: BP 103/73
[2019-03-07] MEDS: Dyna-Hex 2% Top Sol 2oz TOPIC SCH (20:18)
[2019-03-08] VITALS (16 sets, daily range): BP systolic 95–121; BP diastolic 60–80
[2019-03-08] MEDS: Piperacillin/Tazobactam 3.375 GM in NS 110 ML IVPB SCH ×2 (00:58→14:22)
--- NOTE | 2019-03-08 03:45 | Progress Note ---
DATE: 03/07/2019 CARDIOLOGY PROGRESS NOTE SUBJECTIVE: The patient has continued congestion and sputum production. his trach site has moderate secretions. Monitored rhythm, sinus with ventricular ectopics, nonsustained. OBJECTIVE: VITAL SIGNS: Blood pressure 110/81, pulse rate 95, respiratory rate 17. LUNGS: Bilateral breath sounds. Rhonchi. HEART: Regular rhythm and rate. Normal S1, S2. A 1/6 systolic murmur at apex. ABDOMEN: Soft. EXTREMITIES: Trace edema. IMPRESSION: 1. Systolic congestive heart failure, chronic. 2. Nonsustained ventricular tachycardia. 3. Tracheostomy with healthcare-acquired pneumonia. 4. Severely impaired left ventricular ejection fraction. PLAN: 1. Advance anti-failure and antianginal therapy. 2. Advance afterload reduction with avoid dopamine. 3. Continue beta-devin. 4. Agree with deferring any GI procedures that are not urgent in view of increased risk from comorbidities. Luis Cochran M.D. DR: Dawna JOB#: [id number] CC:
--- NOTE | 2019-03-08 03:45 | Progress Note ---
DATE: 03/06/2019 CARDIOLOGY PROGRESS NOTE This is for coverage for Dr. Marinelli. SUBJECTIVE: The patient has had episodes of ventricular ectopy, nonsustained. OBJECTIVE: VITAL SIGNS: Blood pressure 119/68, heart rate 96, respiratory rate 16. LUNGS: Bilateral breath sounds. Scattered rales. HEART: Regular rhythm and rate. Normal S1, S2. ABDOMEN: Soft. EXTREMITIES: Trace edema. LABORATORY DATA: White count 10, hemoglobin 10. Sodium 148, potassium 3.8, bicarbonate 30, BUN 39, creatinine 1.3, albumin 2.3. IMPRESSION: 1. Dehydration. 2. Hypernatremia. 3. Prerenal azotemia. 4. Acute on chronic systolic congestive heart failure. 5. Nonsustained ventricular tachycardia. 6. Severe protein-calorie malnutrition. 7. Sepsis. 8. Pneumonia. PLAN: 1. Antimicrobials. 2. Hypotonic IV fluids. 3. Titrate anti-failure regimen including beta-devin. Victorino Davalos JOB#: [id number] CC:
[2019-03-08 04:41] LABS: BASOPHILS % (AUTO) 0.8 % (0.0-2.0); EOSINOPHILS % (AUTO) 2.1 % (0.0-3.0); HEMATOCRIT 32.2 % (42.0-52.0); HEMOGLOBIN 9.4 G/DL (14.2-18.0); LYMPHOCYTES % (AUTO) 7.2 % (20.0-45.0); MEAN CORPUSCULAR VOLUME 80 FL (80-99); MONOCYTES % (AUTO) 6.3 % (1.0-10.0); NEUTROPHILS % (AUTO) 83.6 % (45.0-75.0); PLATELET COUNT 230 K/UL (150-450); RED BLOOD COUNT 4.03 M/UL (4.70-6.10); RED CELL DISTRIBUTION WIDTH 27.1 % (11.6-14.8); WHITE BLOOD COUNT 10.5 K/UL (4.8-10.8)
[2019-03-08 04:52] LABS: ANION GAP 11 mmol/L (5-15); BLOOD UREA NITROGEN 27 mg/dL (7-18); CALCIUM 8.2 MG/DL (8.5-10.1); CARBON DIOXIDE 25 MMOL/L (21-32); CHLORIDE 107 MMOL/L (98-107); CREATININE 1.2 MG/DL (0.55-1.30); POTASSIUM 4.3 MMOL/L (3.5-5.1); SODIUM 143 MMOL/L (136-145)
[2019-03-08] MEDS: Metoclopramide 10mg/10ml Liq GT SCH ×3 (05:58→18:22)
[2019-03-08] MEDS: HydrALAZINE 10mg Tab GT SCH ×2 (05:59→12:00)
[2019-03-08] MEDS: Gentamicin 0.3% Opth Soln 5ml BOTH EYES SCH ×2 (06:00→12:00)
[2019-03-08] MEDS: Allopurinol 100mg Tab GT SCH (08:36)
[2019-03-08] MEDS: Carvedilol 25mg Tab GT SCH ×2 (08:36→20:27)
[2019-03-08] MEDS: Heparin 5000 units/ml inj SUBQ SCH (08:38)
[2019-03-08] MEDS ORDERED: D5NS 1,000 ML IV SCH (10:30)
--- NOTE | 2019-03-08 10:41 | Pulmonolgy Critical Care Note ---
Critical Care - Asmt/Plan Problems: (1) Acute on chronic respiratory failure (2) ATN (acute tubular necrosis) (3) Hyperkalemia (4) EF less than 10% (5) Status post tracheostomy (6) Feeding by G-tube (7) History of sudden cardiac arrest (8) History of asthma Respiratory: monitor respiratory rate, adjust FIO2, ABG Cardiac: continue pressors, continue to monitor HR/BP Renal: F/U I&O, keep IV fluid, check electrolytes Infectious Disease: check cultures Gastrointestinal: continue feedings/current rate Endocrine: monitor blood sugar, check TSH Hematologic: monitor H/H, transfuse if hgb<8.5 Neurologic: PRN Ativan, keep patient comfortable Time Spent (Minutes): 40 Notes Reviewed: cardio Discussed with: nurses, consultants, 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 - Objective Last 24 Hour Vital Signs Date Time Temp Pulse Resp B/P (MAP) Pulse Ox O2 Delivery O2 Flow Rate FiO2 03/08/19 08:52 102 16 40 03/08/19 08:36 99 108/73 03/08/19 08:00 Mechanical Ventilator 03/08/19 08:00 98.1 99 18 108/73 (85) 100 03/08/19 08:00 40 03/08/19 06:40 99 16 40 03/08/19 05:59 102/72 03/08/19 05:01 89 16 40 03/08/19 04:00 98.5 95 14 102/72 (82) 100 03/08/19 04:00 Mechanical Ventilator 03/08/19 04:00 40 03/08/19 03:30 95 20 40 03/08/19 03:03 91 03/08/19 01:17 92 19 40 03/08/19 00:00 Mechanical Ventilator 03/08/19 00:00 98.6 95 18 108/78 (88) 100 03/07/19 23:58 108/78 03/07/19 23:57 108/78 03/07/19 23:16 92 03/07/19 22:54 94 19 40 03/07/19 21:13 101 20 40 03/07/19 21:00 96 103/73 03/07/19 20:00 94 03/07/19 20:00 Mechanical Ventilator 03/07/19 20:00 40 03/07/19 20:00 97.5 96 15 103/73 (83) 100 03/07/19 19:08 99 21 40 03/07/19 17:29 110/80 03/07/19 17:27 110/80 03/07/19 17:20 96 24 100 Mechanical Ventilator 50 03/07/19 17:05 90 22 100 Mechanical Ventilator 40 03/07/19 17:00 100 22 40 03/07/19 16:00 40 03/07/19 16:00 Mechanical Ventilator 03/07/19 16:00 110/80 03/07/19 16:00 93 03/07/19 16:00 96.8 101 19 110/80 (90) 100 03/07/19 15:10 102 20 40 03/07/19 15:08 100/73 03/07/19 12:00 40 03/07/19 12:00 98.4 84 13 100/73 (82) 100 03/07/19 12:00 Mechanical Ventilator 03/07/19 11:38 84 03/07/19 11:24 110/81 03/07/19 11:24 110/81 03/07/19 11:10 104 24 40 Status: awake Condition: critical HEENT: atraumatic Neck: full ROM Lungs: chest wall tender Heart: HR/BP stable Abdomen: soft, non-tender Extremities: no C/C/E Micro: Microbiology Date/Time Source Procedure Growth Status 03/05/19 14:00 Sputum Gram Stain - Final Resulted 03/05/19 14:00 Sputum Culture - Preliminary A.baumanii Complx - Mdr Resulted Accucheck: 72 Critical Care - Subjective ROS Limited/Unobtainable: No Condition: critical EKG Rhythm: Sinus Rhythm FI02: 40 Vent Support Breath Rate: 16 Vent Support Mode: AC Vent Tidal Volume: 600 Sputum Amount: Small PEEP: 5.0 PIP: 39 Tube Feeding Amount: 45 I&O: Intake and Output 03/07/19 03/08/19 18:59 06:59 Intake Total 32815.595 ml 859.828 ml Output Total 600 ml 700 ml Balance 67842.595 ml 159.828 ml Intake Free Water 160 ml 50 ml IV Total 51754.595 ml 269.828 ml Tube Feeding 540 ml 540 ml Other 120 ml Output Urine Total 500 ml 700 ml Stool Total 100 ml Labs: Laboratory Tests Test 03/08/19 04:00 White Blood Count 10.5 K/UL (4.8-10.8) Red Blood Count 4.03 M/UL (4.70-6.10) L Hemoglobin 9.4 G/DL (14.2-18.0) L Hematocrit 32.2 % (42.0-52.0) L Mean Corpuscular Volume 80 FL (80-99) Mean Corpuscular Hemoglobin 23.2 PG (27.0-31.0) L Mean Corpuscular Hemoglobin Concent 29.0 G/DL (32.0-36.0) L Red Cell Distribution Width 27.1 % (11.6-14.8) H Platelet Count 230 K/UL (150-450) Mean Platelet Volume 7.9 FL (6.5-10.1) Neutrophils (%) (Auto) 83.6 % (45.0-75.0) H Lymphocytes (%) (Auto) 7.2 % (20.0-45.0) L Monocytes (%) (Auto) 6.3 % (1.0-10.0) Eosinophils (%) (Auto) 2.1 % (0.0-3.0) Basophils (%) (Auto) 0.8 % (0.0-2.0) Sodium Level 143 MMOL/L (136-145) Potassium Level 4.3 MMOL/L (3.5-5.1) Chloride Level 107 MMOL/L (98-107) Carbon Dioxide Level 25 MMOL/L (21-32) Anion Gap 11 mmol/L (5-15) Blood Urea Nitrogen 27 mg/dL (7-18) H Creatinine 1.2 MG/DL (0.55-1.30) Estimat Glomerular Filtration Rate > 60 mL/min (>60) Glucose Level 82 MG/DL (74-106) Calcium Level 8.2 MG/DL (8.5-10.1) Ivan Miller MD Mar 08, 2019 10:41
--- NOTE | 2019-03-08 10:58 | GI Progress Note ---
Assessment/Plan Problems: (1) GI bleed ICD Codes: K92.2 - Gastrointestinal hemorrhage, unspecified SNOMED: 49040968 (2) EF less than 10% (3) Feeding by G-tube ICD Codes: Z93.1 - Gastrostomy status SNOMED: 159879010, 889466592, [id number] Status: unchanged Status Narrative Discussed with Dr. Willoughby Assessment/Plan Patient actively having GI bleed Will prepare patient for endoscopy and colonoscopy tomorrow DC all blood thinners Stat CBC, as needed transfusions Maintain n.p.o. plus IV fluids PPI We will follow with additional recommendations post procedure The patient was seen and examined at bedside and all new and available data was reviewed in the patients chart. I agree with the above findings, impression and plan. (Patient seen earlier today. Signature stamp does not reflect patient encounter time.). - Antwon Willoughby MD Subjective Subjective Limited Objective Last 24 Hour Vital Signs Date Time Temp Pulse Resp B/P (MAP) Pulse Ox O2 Delivery O2 Flow Rate FiO2 03/08/19 08:52 102 16 40 03/08/19 08:36 99 108/73 03/08/19 08:00 Mechanical Ventilator 03/08/19 08:00 98.1 99 18 108/73 (85) 100 03/08/19 08:00 40 03/08/19 06:40 99 16 40 03/08/19 05:59 102/72 03/08/19 05:01 89 16 40 03/08/19 04:00 98.5 95 14 102/72 (82) 100 03/08/19 04:00 Mechanical Ventilator 03/08/19 04:00 40 03/08/19 03:30 95 20 40 03/08/19 03:03 91 03/08/19 01:17 92 19 40 03/08/19 00:00 Mechanical Ventilator 03/08/19 00:00 98.6 95 18 108/78 (88) 100 03/07/19 23:58 108/78 03/07/19 23:57 108/78 03/07/19 23:16 92 03/07/19 22:54 94 19 40 03/07/19 21:13 101 20 40 03/07/19 21:00 96 103/73 03/07/19 20:00 94 03/07/19 20:00 Mechanical Ventilator 03/07/19 20:00 40 03/07/19 20:00 97.5 96 15 103/73 (83) 100 03/07/19 19:08 99 21 40 03/07/19 17:29 110/80 03/07/19 17:27 110/80 03/07/19 17:20 96 24 100 Mechanical Ventilator 50 03/07/19 17:05 90 22 100 Mechanical Ventilator 40 03/07/19 17:00 100 22 40 03/07/19 16:00 40 03/07/19 16:00 Mechanical Ventilator 03/07/19 16:00 110/80 03/07/19 16:00 93 03/07/19 16:00 96.8 101 19 110/80 (90) 100 03/07/19 15:10 102 20 40 03/07/19 15:08 100/73 03/07/19 12:00 40 03/07/19 12:00 98.4 84 13 100/73 (82) 100 03/07/19 12:00 Mechanical Ventilator 03/07/19 11:38 84 03/07/19 11:24 110/81 03/07/19 11:24 110/81 03/07/19 11:10 104 24 40 Intake and Output 03/07/19 03/08/19 18:59 06:59 Intake Total 12719.595 ml 859.828 ml Output Total 600 ml 700 ml Balance 22640.595 ml 159.828 ml Intake Free Water 160 ml 50 ml IV Total 67231.595 ml 269.828 ml Tube Feeding 540 ml 540 ml Other 120 ml Output Urine Total 500 ml 700 ml Stool Total 100 ml Laboratory Tests Test 03/08/19 04:00 White Blood Count 10.5 K/UL (4.8-10.8) Red Blood Count 4.03 M/UL (4.70-6.10) L Hemoglobin 9.4 G/DL (14.2-18.0) L Hematocrit 32.2 % (42.0-52.0) L Mean Corpuscular Volume 80 FL (80-99) Mean Corpuscular Hemoglobin 23.2 PG (27.0-31.0) L Mean Corpuscular Hemoglobin Concent 29.0 G/DL (32.0-36.0) L Red Cell Distribution Width 27.1 % (11.6-14.8) H Platelet Count 230 K/UL (150-450) Mean Platelet Volume 7.9 FL (6.5-10.1) Neutrophils (%) (Auto) 83.6 % (45.0-75.0) H Lymphocytes (%) (Auto) 7.2 % (20.0-45.0) L Monocytes (%) (Auto) 6.3 % (1.0-10.0) Eosinophils (%) (Auto) 2.1 % (0.0-3.0) Basophils (%) (Auto) 0.8 % (0.0-2.0) Sodium Level 143 MMOL/L (136-145) Potassium Level 4.3 MMOL/L (3.5-5.1) Chloride Level 107 MMOL/L (98-107) Carbon Dioxide Level 25 MMOL/L (21-32) Anion Gap 11 mmol/L (5-15) Blood Urea Nitrogen 27 mg/dL (7-18) H Creatinine 1.2 MG/DL (0.55-1.30) Estimat Glomerular Filtration Rate > 60 mL/min (>60) Glucose Level 82 MG/DL (74-106) Calcium Level 8.2 MG/DL (8.5-10.1) L Height (Feet): 6 Height (Inches): 1.00 Weight (Pounds): 259 General Appearance: no apparent distress Cardiovascular: normal rate Respiratory/Chest: normal breath sounds, no respiratory distress, other - Tracheostomy Abdominal Exam: normal bowel sounds, non tender, soft, GT site - Clean dry and intact Extremities: non-tender Rossy Cadena LAYDOWN MACHINE OPERATOR Mar 08, 2019 10:58
--- NOTE | 2019-03-08 11:44 | Nephrology Progress Note ---
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 Chronic systolic (congestive) heart failure History of sudden cardiac arrest Status post tracheostomy Feeding by G-tube History of asthma Plan Cerda Reglan continue prednisone, taper stop hydrate aim to lower after and pre load- increase hydralazin monitor renal parameters per orders Subjective ROS Limited/Unobtainable: Yes Objective Objective Last 24 Hour Vital Signs Date Time Temp Pulse Resp B/P (MAP) Pulse Ox O2 Delivery O2 Flow Rate FiO2 03/08/19 11:02 99 19 40 03/08/19 09:00 108/73 03/08/19 08:52 102 16 40 03/08/19 08:36 99 108/73 03/08/19 08:00 Mechanical Ventilator 03/08/19 08:00 98.1 99 18 108/73 (85) 100 03/08/19 08:00 99 03/08/19 08:00 40 03/08/19 06:40 99 16 40 03/08/19 05:59 102/72 03/08/19 05:01 89 16 40 03/08/19 04:00 98.5 95 14 102/72 (82) 100 03/08/19 04:00 Mechanical Ventilator 03/08/19 04:00 40 03/08/19 03:30 95 20 40 03/08/19 03:03 91 03/08/19 01:17 92 19 40 03/08/19 00:00 Mechanical Ventilator 03/08/19 00:00 98.6 95 18 108/78 (88) 100 03/07/19 23:58 108/78 03/07/19 23:57 108/78 03/07/19 23:16 92 03/07/19 22:54 94 19 40 03/07/19 21:13 101 20 40 03/07/19 21:00 96 103/73 03/07/19 20:00 94 03/07/19 20:00 Mechanical Ventilator 03/07/19 20:00 40 03/07/19 20:00 97.5 96 15 103/73 (83) 100 03/07/19 19:08 99 21 40 03/07/19 17:29 110/80 03/07/19 17:27 110/80 03/07/19 17:20 96 24 100 Mechanical Ventilator 50 03/07/19 17:05 90 22 100 Mechanical Ventilator 40 03/07/19 17:00 100 22 40 03/07/19 16:00 40 03/07/19 16:00 Mechanical Ventilator 03/07/19 16:00 110/80 03/07/19 16:00 93 03/07/19 16:00 96.8 101 19 110/80 (90) 100 03/07/19 15:10 102 20 40 03/07/19 15:08 100/73 03/07/19 12:00 40 03/07/19 12:00 98.4 84 13 100/73 (82) 100 03/07/19 12:00 Mechanical Ventilator Intake and Output 03/07/19 03/08/19 18:59 06:59 Intake Total 14759.595 ml 859.828 ml Output Total 600 ml 700 ml Balance 06587.595 ml 159.828 ml Intake Free Water 160 ml 50 ml IV Total 94065.595 ml 269.828 ml Tube Feeding 540 ml 540 ml Other 120 ml Output Urine Total 500 ml 700 ml Stool Total 100 ml Laboratory Tests 03/08/19 04:00: White Blood Count 10.5, Red Blood Count 4.03L, Hemoglobin 9.4L, Hematocrit 32.2L , Mean Corpuscular Volume 80, Mean Corpuscular Hemoglobin 23.2L, Mean Corpuscular Hemoglobin Concent 29.0L, Red Cell Distribution Width 27.1H, Platelet Count 230, Mean Platelet Volume 7.9, Neutrophils (%) (Auto) 83.6H, Lymphocytes (%) (Auto) 7.2L, Monocytes (%) (Auto) 6.3, Eosinophils (%) (Auto) 2.1, Basophils (%) (Auto) 0.8, Sodium Level 143, Potassium Level 4.3, Chloride Level 107, Carbon Dioxide Level 25, Anion Gap 11, Blood Urea Nitrogen 27H, Creatinine 1.2, Estimat Glomerular Filtration Rate > 60, Glucose Level 82, Calcium Level 8.2L Height (Feet): 6 Height (Inches): 1.00 Weight (Pounds): 259 General Appearance: no apparent distress EENT: other - trach Cardiovascular: tachycardia Respiratory/Chest: decreased breath sounds Abdomen: distended Nico Alonso MD Mar 08, 2019 11:44
[2019-03-08 11:53] LABS: HEMATOCRIT 31.5 % (42.0-52.0); HEMOGLOBIN 9.4 G/DL (14.2-18.0); MEAN CORPUSCULAR VOLUME 80 FL (80-99); PLATELET COUNT 236 K/UL (150-450); RED BLOOD COUNT 3.93 M/UL (4.70-6.10); RED CELL DISTRIBUTION WIDTH 27.3 % (11.6-14.8); WHITE BLOOD COUNT 11.5 K/UL (4.8-10.8)
[2019-03-08] MEDS ORDERED: Premarin Inj IV SCH ×2 (12:00→14:00)
[2019-03-08] MEDS: DOPamine 400mg/250ml 250 ML IV SCH ×2 (12:07→14:20)
--- NOTE | 2019-03-08 12:49 | Surgery Progress Note ---
Surgery Progress Note Subjective Additional Comments noted to have more blood today with active gi bleed. fortunately h/h stable thus far all blood thinners stopped plan for upper and lower scope tomorrow Objective Last 24 Hour Vital Signs Date Time Temp Pulse Resp B/P (MAP) Pulse Ox O2 Delivery O2 Flow Rate FiO2 03/08/19 12:07 97/62 03/08/19 12:02 97.9 97 23 97/62 (74) 100 03/08/19 12:00 97 03/08/19 12:00 40 03/08/19 12:00 Mechanical Ventilator 03/08/19 11:02 99 19 40 03/08/19 09:00 108/73 03/08/19 08:52 102 16 40 03/08/19 08:36 99 108/73 03/08/19 08:00 Mechanical Ventilator 03/08/19 08:00 98.1 99 18 108/73 (85) 100 03/08/19 08:00 99 03/08/19 08:00 40 03/08/19 06:40 99 16 40 03/08/19 05:59 102/72 03/08/19 05:01 89 16 40 03/08/19 04:00 98.5 95 14 102/72 (82) 100 03/08/19 04:00 Mechanical Ventilator 03/08/19 04:00 40 03/08/19 03:30 95 20 40 03/08/19 03:03 91 03/08/19 01:17 92 19 40 03/08/19 00:00 Mechanical Ventilator 03/08/19 00:00 98.6 95 18 108/78 (88) 100 03/07/19 23:58 108/78 03/07/19 23:57 108/78 03/07/19 23:16 92 03/07/19 22:54 94 19 40 03/07/19 21:13 101 20 40 03/07/19 21:00 96 103/73 03/07/19 20:00 94 03/07/19 20:00 Mechanical Ventilator 03/07/19 20:00 40 03/07/19 20:00 97.5 96 15 103/73 (83) 100 03/07/19 19:08 99 21 40 03/07/19 17:29 110/80 03/07/19 17:27 110/80 4/21/19 17:20 96 24 100 Mechanical Ventilator 50 03/07/19 17:05 90 22 100 Mechanical Ventilator 40 03/07/19 17:00 100 22 40 03/07/19 16:00 40 03/07/19 16:00 Mechanical Ventilator 03/07/19 16:00 110/80 03/07/19 16:00 93 03/07/19 16:00 96.8 101 19 110/80 (90) 100 03/07/19 15:10 102 20 40 03/07/19 15:08 100/73 I&O Intake and Output 03/07/19 03/08/19 18:59 06:59 Intake Total 05317.595 ml 859.828 ml Output Total 600 ml 700 ml Balance 41310.595 ml 159.828 ml Intake Free Water 160 ml 50 ml IV Total 87111.595 ml 269.828 ml Tube Feeding 540 ml 540 ml Other 120 ml Output Urine Total 500 ml 700 ml Stool Total 100 ml Dressing: other Wound: other Drains: other Cardiovascular: RSR Respiratory: clear Abdomen: soft, present bowel sounds, non-distended Extremities: no cyanosis Laboratory Tests Test 03/08/19 04:00 03/08/19 11:20 White Blood Count 10.5 K/UL (4.8-10.8) 11.5 K/UL (4.8-10.8) H Red Blood Count 4.03 M/UL (4.70-6.10) L 3.93 M/UL (4.70-6.10) L Hemoglobin 9.4 G/DL (14.2-18.0) L 9.4 G/DL (14.2-18.0) L Hematocrit 32.2 % (42.0-52.0) L 31.5 % (42.0-52.0) L Mean Corpuscular Volume 80 FL (80-99) 80 FL (80-99) Mean Corpuscular Hemoglobin 23.2 PG (27.0-31.0) L 23.8 PG (27.0-31.0) L Mean Corpuscular Hemoglobin Concent 29.0 G/DL (32.0-36.0) L 29.7 G/DL (32.0-36.0) L Red Cell Distribution Width 27.1 % (11.6-14.8) H 27.3 % (11.6-14.8) H Platelet Count 230 K/UL (150-450) 236 K/UL (150-450) Mean Platelet Volume 7.9 FL (6.5-10.1) 7.5 FL (6.5-10.1) Neutrophils (%) (Auto) 83.6 % (45.0-75.0) H % (45.0-75.0) Lymphocytes (%) (Auto) 7.2 % (20.0-45.0) L % (20.0-45.0) Monocytes (%) (Auto) 6.3 % (1.0-10.0) % (1.0-10.0) Eosinophils (%) (Auto) 2.1 % (0.0-3.0) % (0.0-3.0) Basophils (%) (Auto) 0.8 % (0.0-2.0) % (0.0-2.0) Sodium Level 143 MMOL/L (136-145) Potassium Level 4.3 MMOL/L (3.5-5.1) Chloride Level 107 MMOL/L (98-107) Carbon Dioxide Level 25 MMOL/L (21-32) Anion Gap 11 mmol/L (5-15) Blood Urea Nitrogen 27 mg/dL (7-18) H Creatinine 1.2 MG/DL (0.55-1.30) Estimat Glomerular Filtration Rate > 60 mL/min (>60) Glucose Level 82 MG/DL (74-106) Calcium Level 8.2 MG/DL (8.5-10.1) L Differential Total Cells Counted 100 Neutrophils % (Manual) 87 % (45-75) H Lymphocytes % (Manual) 6 % (20-45) L Monocytes % (Manual) 6 % (1-10) Eosinophils % (Manual) 1 % (0-3) Basophils % (Manual) 0 % (0-2) Band Neutrophils 0 % (0-8) Platelet Estimate Adequate Platelet Morphology Normal Hypochromasia 2+ Basophilic Stippling 1+ Anisocytosis 2+ Plan Problems: (1) History of asthma (2) History of sudden cardiac arrest (3) Chronic systolic (congestive) heart failure (4) Hyperkalemia (5) ATN (acute tubular necrosis) (6) Feeding by G-tube Assessment & Plan: DAILY ESTIMATED NEEDS: Needs based on Critical care, wounds, renal 89kg adj 22-30 kcals/kg 6638-0486 total kcals 1.25-1.5 g protein/kg 111-134 g total protein 25-30 mL/kg 1820-9256 total fluid mLs NUTRITION DIAGNOSIS: 1) Swallowing difficulty r/t respiratory status as evidenced by pt is S/p trach and peg placement. 2) Increased protein needs r/t wound healing as evidenced by pt w/ multiple wounds including full and partial thickness wounds (refer to WC eval). 3) Altered nutrition related lab values r/t clinical status as evidenced by critically elev K (7.9-> 7.1-> 3.0-> now wnl), elev phos-> now wnl, elev mg, w/ elev BUN(79-> 54 trend down) and elev Creat (2.9-> 1.5 trend down). CURRENT TF:Glucerna 1.5 @ 45ml/hr x 24 hrs ENTERAL NUTRITION RECOMMENDATIONS: Glucerna 1.5 @ 55ml/hr x 24 hrs + Prosource 1pkt daily to provide 1320ml, 1980kcal, 109g prot + 11g prot, 1002ml free water - Increase goal rate to 55ml/hr x 24 hrs - Add PROSOURCE 1 pack QD to better meet est pro needs - Flush per MONAE BENITEZ over 30 degrees ADDITIONAL RECOMMENDATIONS: 1) Per Pt: 6'3" tall, 222# 2) Wound care: add EVAN BID via GT 3) Weekly calibrated bed scale wts 4) Monitor BG on prednisone/ need for NISS 5) Monitor for ability for oral intake, need to adjust TF (7) EF less than 10% (8) GI bleed Assessment & Plan: as per GI h/h stable plan for scope tomorrow (9) Renal failure (10) Hyperkalemia (11) Respiratory distress (12) Acute on chronic respiratory failure (13) Elevated LFTs Assessment & Plan: trend will monitor US with Impression: Small amount of ascites fluid Hepatomegaly. Equivocal mild surface nodularity, could indicate early cirrhotic changes. Correlate with clinical findings Apparent to and fro flow within the portal veins, raising concern for portal hypertension Borderline splenomegaly Negative for gallstones. Apparent pericholecystic fluid is likely a manifestation of the ascites. Apparent gallbladder wall edema is most likely related to the hepatocellular disease, although the possibility of acute acalculous cholecystitis should also be considered. Consider nuclear medicine hepatobiliary imaging for further evaluation if there is high clinical suspicion Echogenic foci within the left hepatic lobe. These could represent small hemangiomas or just prominent periportal fat Right pleural effusion Bilateral renal cysts incidentally noted HIDA with No evidence of acute cholecystitis. Radiotracer noted within the gallbladder indicating patency of the cystic duct. Radiotracer passes into the small bowel indicating patency of the common bile duct. Delayed uptake and excretion of the radiotracer from the liver parenchyma suggesting hepatocellular dysfunction/disease. (14) Dyspnea (15) Decubitus skin ulcer Assessment & Plan: Pt presented on admission with multiple partial thickness pressure injuries R and L buttocks and L thoracic,Open DTPI sacrum. Sacral area with full thickness wound with trace slough at coccygeal area,with surrounding dark skin tone without fluctuance or induration. (L)2cm x(W)4.4cm. No odor or exudate noted .Shearing periwound with small amt of sanguineous exudate. Multiple small partial thickness pressure injuries R and L buttocks.Surrounding areas of buttocks with darker than is normal skin tone. Partial thickness pressure injury Thoracic (2) sites. Proximal wound moist viable with dark skin tone periwound (L)2.6cm long. (Inferior) Partial thickness wound L thoracic (L)1.4cm x (W)1.5cm. Both heels are dry and firm . Trach site without erythema or evidence of skin breakdown. Tx.Plan: Apply Moisture Barrier Paste to entire Buttocks. Cover Sacral area with Optifoam. Change every 3 days and prn. Cover Thoracic wounds with Optifoam drsg .Change every 3 days and prn. APM/ Elvira mattress. Reposition at least every 2hours or as tolerated. Off-load heels with pillow. Karthik Cheatham Mar 08, 2019 12:49
[2019-03-08] MEDS ORDERED: D5 1/2NS w/KCl 20mEq 1,000 ML IV SCH (13:00)
[2019-03-08] MEDS ORDERED: Acetaminophen 650mg/20.3ml GT PRN (13:14)
[2019-03-08] MEDS: D5 1/2NS w/KCl 20mEq 1,000 ML IV SCH (13:14)
[2019-03-08] MEDS ORDERED: Albuterol/Ipratropium 3ml neb HHN PRN (13:15)
[2019-03-08] MEDS ORDERED: Miralax 17gm pkt GT PRN (13:17)
--- NOTE | 2019-03-08 13:45 | Infectious Diseases Prog Note ---
Assessment/Plan Assessment/Plan 53 yo male with PMHx of Asthma, HTN and CHF who [facility] for respuratory distress and feeling cold. Respiratory distress PNA, multifocal -CT Chest: Dense opacities within the right lower lobe and left upper lobe with air bronchograms. Findings suggest multifocal pneumonia. Follow-up after appropriate treatment is recommended to ensure resolution and exclude the possibility of underlying mass. [id number] right pleural effusion. Prominent mediastinal lymph nodes with an enlarged subcarinal node which may be reactive in etiology. Attention on follow-up is recommended. Cardiomegaly and findings suggestive of anemia. Apparent gallbladder wall thickening and pericholecystic fluid. Correlation with findings of recent ultrasound recommended. If there is clinical concern for acute cholecystitis consider HIDA scan. -03/05 SP cx MDR ABC -legionella ag urine, influenza sc neg -02/28 sp cx C> albicans GIB Anasarca. No fevers CXR - B/L consolidations Leukocytosis, recurrent mild Gram positive bacteremia- likely contaminant -Bcx 11/20 Staph epi; 03/02 Bcx Neg UA (-) Elevated ALT/AST>Tbili; improving- ?early cirrhosis- r/o acalculous cholecystitis -Abd US: Small amount of ascites fluid. Hepatomegaly. Equivocal mild surface nodularity, could indicate early cirrhotic changes. Correlate with clinical findings. Apparent to and fro flow within the portal veins, raising concern for portal hypertension. Borderline splenomegaly. Negative for gallstones. Apparent pericholecystic fluid is likely a manifestation of the ascites. Apparent gallbladder wall edema is most likely related to the hepatocellular disease, although the possibility of acute acalculous cholecystitis should also be considered. Consider nuclear medicine hepatobiliary imaging for further evaluation if there is high clinical suspicion. Echogenic foci within the left hepatic lobe. These could represent small hemangiomas or just prominent periportal fat -hep serologies neg -HIV ab sc neg - HIDA 03/05/19 - No evidence of acute cholecystitis. Radiotracer noted within the gallbladder indicating patency of the cystic duct. Radiotracer passes into the small bowel indicating patency of the common bile duct. Delayed uptake and excretion of the radiotracer from the liver parenchyma suggesting hepatocellular dysfunction/disease. Small sacral ulcers Do not appear to be infected Asthma HTN CHF PLAN -Continue empiric Zosyn #7/10 for PNA and now GIB and add INH colisting for MDR ABC - 03/05/19 SP Vancomycin #4 - f/u Cx - Resp therapy - Wound care -CXR am -GI f/u- plan for colonoscopy am Thank you for this consult. We will continue to follow the patient during this hospitalization. Subjective Allergies: Coded Allergies: No Known Allergies (Unverified , 03/28/17) Subjective afebrile mild leukocytosis trasnferred to ICU as noted to passing clots to rectum however BP and Hgb are stable at this point; plan for colonoscopy tomorrow. Objective Vital Signs Last 24 Hour Vital Signs Date Time Temp Pulse Resp B/P (MAP) Pulse Ox O2 Delivery O2 Flow Rate FiO2 03/08/19 13:00 98.2 97 23 95/60 (72) 100 03/08/19 13:00 90 18 40 03/08/19 12:07 97/62 03/08/19 12:02 97.9 97 23 97/62 (74) 100 03/08/19 12:00 97 03/08/19 12:00 40 03/08/19 12:00 Mechanical Ventilator 03/08/19 11:02 99 19 40 03/08/19 09:00 108/73 03/08/19 08:52 102 16 40 03/08/19 08:36 99 108/73 03/08/19 08:00 Mechanical Ventilator 03/08/19 08:00 98.1 99 18 108/73 (85) 100 03/08/19 08:00 99 03/08/19 08:00 40 03/08/19 06:40 99 16 40 03/08/19 05:59 102/72 03/08/19 05:01 89 16 40 03/08/19 04:00 98.5 95 14 102/72 (82) 100 03/08/19 04:00 Mechanical Ventilator 03/08/19 04:00 40 03/08/19 03:30 95 20 40 03/08/19 03:03 91 03/08/19 01:17 92 19 40 03/08/19 00:00 Mechanical Ventilator 03/08/19 00:00 98.6 95 18 108/78 (88) 100 03/07/19 23:58 108/78 03/07/19 23:57 108/78 03/07/19 23:16 92 03/07/19 22:54 94 19 40 03/07/19 21:13 101 20 40 03/07/19 21:00 96 103/73 03/07/19 20:00 94 03/07/19 20:00 Mechanical Ventilator 03/07/19 20:00 40 03/07/19 20:00 97.5 96 15 103/73 (83) 100 03/07/19 19:08 99 21 40 03/07/19 17:29 110/80 03/07/19 17:27 110/80 03/07/19 17:20 96 24 100 Mechanical Ventilator 50 03/07/19 17:05 90 22 100 Mechanical Ventilator 40 03/07/19 17:00 100 22 40 03/07/19 16:00 40 03/07/19 16:00 Mechanical Ventilator 03/07/19 16:00 110/80 03/07/19 16:00 93 03/07/19 16:00 96.8 101 19 110/80 (90) 100 03/07/19 15:10 102 20 40 03/07/19 15:08 100/73 Height (Feet): 6 Height (Inches): 1.00 Weight (Pounds): 259 Objective Gen: Awake and follwoing, Trached on Vent 45% HEENT: NCAT, MMM, EOMI, PERRL, No Oral lesion, no scleral icterus NECK: full range of motion, supple, no meningismus, No LAD, No JVD LUNGS: Course B/L Mild wheezing CARDS: RRR, S1, S2, No M/R/G, ABD: Soft, NT, ND, No R/G, + BS, No HSM, No Masses, PEG (No E/P) : Deferred Ext: C/C/E, Pulses 2+ B/L (DP, Rad): NEURO: A/O - not verbal , Strength and Sensation Grossly intact PSYCH: Mood/affect normal SKIN: Warm/dry, No rashes, small sacral ulcers Microbiology Date/Time Source Procedure Growth Status 03/05/19 14:00 Sputum Gram Stain - Final Resulted 03/05/19 14:00 Sputum Culture - Preliminary A.baumanii Complx - Mdr Resulted Laboratory Tests Test 03/08/19 04:00 03/08/19 11:20 White Blood Count 10.5 K/UL (4.8-10.8) 11.5 K/UL (4.8-10.8) H Red Blood Count 4.03 M/UL (4.70-6.10) L 3.93 M/UL (4.70-6.10) L Hemoglobin 9.4 G/DL (14.2-18.0) L 9.4 G/DL (14.2-18.0) L Hematocrit 32.2 % (42.0-52.0) L 31.5 % (42.0-52.0) L Mean Corpuscular Volume 80 FL (80-99) 80 FL (80-99) Mean Corpuscular Hemoglobin 23.2 PG (27.0-31.0) L 23.8 PG (27.0-31.0) L Mean Corpuscular Hemoglobin Concent 29.0 G/DL (32.0-36.0) L 29.7 G/DL (32.0-36.0) L Red Cell Distribution Width 27.1 % (11.6-14.8) H 27.3 % (11.6-14.8) H Platelet Count 230 K/UL (150-450) 236 K/UL (150-450) Mean Platelet Volume 7.9 FL (6.5-10.1) 7.5 FL (6.5-10.1) Neutrophils (%) (Auto) 83.6 % (45.0-75.0) H % (45.0-75.0) Lymphocytes (%) (Auto) 7.2 % (20.0-45.0) L % (20.0-45.0) Monocytes (%) (Auto) 6.3 % (1.0-10.0) % (1.0-10.0) Eosinophils (%) (Auto) 2.1 % (0.0-3.0) % (0.0-3.0) Basophils (%) (Auto) 0.8 % (0.0-2.0) % (0.0-2.0) Sodium Level 143 MMOL/L (136-145) Potassium Level 4.3 MMOL/L (3.5-5.1) Chloride Level 107 MMOL/L (98-107) Carbon Dioxide Level 25 MMOL/L (21-32) Anion Gap 11 mmol/L (5-15) Blood Urea Nitrogen 27 mg/dL (7-18) H Creatinine 1.2 MG/DL (0.55-1.30) Estimat Glomerular Filtration Rate > 60 mL/min (>60) Glucose Level 82 MG/DL (74-106) Calcium Level 8.2 MG/DL (8.5-10.1) L Differential Total Cells Counted 100 Neutrophils % (Manual) 87 % (45-75) H Lymphocytes % (Manual) 6 % (20-45) L Monocytes % (Manual) 6 % (1-10) Eosinophils % (Manual) 1 % (0-3) Basophils % (Manual) 0 % (0-2) Band Neutrophils 0 % (0-8) Platelet Estimate Adequate Platelet Morphology Normal Hypochromasia 2+ Basophilic Stippling 1+ Anisocytosis 2+ Current Medications Medications (Trade) Dose Ordered Sig/Rebecca Route PRN Reason Start Time Stop Time Status Last Admin Dose Admin Acetaminophen (Tylenol) 650 mg Q4H PRN GT Mild Pain/Temp > 100.5 03/08/19 13:14 04/07/19 13:13 Albuterol/ Ipratropium (Albuterol/ Ipratropium) 3 ml Q4H PRN HHN Shortness of Breath 03/08/19 13:15 03/13/19 13:14 Allopurinol (Zyloprim) 200 mg DAILY GT 03/09/19 09:00 04/01/19 10:59 Carvedilol (Coreg) 25 mg EVERY 12 HOURS GT 03/08/19 21:00 04/02/19 20:59 Chlorhexidine Gluconate (Essie-Hex 2%) 1 applic DAILY@1999 TOPIC 03/08/19 20:00 03/31/19 19:59 Clonidine HCl (Catapres Tab) 0.1 mg Q6H PRN GT FOR sbp >160 03/08/19 13:15 04/07/19 13:14 Dextrose (Dextrose 50%) 25 ml Q30M PRN IV Hypoglycemia 03/08/19 12:30 04/04/19 08:45 Dextrose (Dextrose 50%) 50 ml Q30M PRN IV hypoglycemia 03/08/19 12:30 04/04/19 08:59 Dextrose/ Electrolytes 1,000 ml @ 50 mls/hr Q20H IV 03/08/19 13:14 04/07/19 13:13 Dopamine HCl/ Dextrose 250 ml @ 13.319 mls/ hr Q24H IV 03/08/19 13:14 04/07/19 13:13 Estrogens Conjugated (Premarin) 25 mg ONCE IV 03/08/19 14:00 03/08/19 16:00 Gentamicin Sulfate (Garamycin 0.3% Opt Soln) 1 drop Q6HR BOTH EYES 03/08/19 18:00 03/08/19 19:59 Hydralazine HCl (Apresoline) 25 mg Q6HR GT 03/08/19 18:00 04/02/19 11:59 Isosorbide Dinitrate (Isordil) 20 mg TID GT 03/08/19 13:30 04/07/19 13:29 Lansoprazole (Prevacid) 30 mg BID GT 03/08/19 18:00 04/03/19 17:59 Metoclopramide HCl (Reglan) 5 mg EVERY 6 HOURS GT 03/08/19 18:00 04/01/19 11:59 Ondansetron HCl (Zofran) 4 mg Q6H PRN IVP Nausea & Vomiting 03/08/19 12:45 03/30/19 18:44 Piperacillin Sod/ Tazobactam Sod 3.375 gm/Sodium Chloride 110 ml @ 27.5 mls/hr Q12HR@0100,1300 IVPB 03/08/19 14:00 03/11/19 13:59 Polyethylene Glycol (Miralax) 17 gm DAILYPRN PRN GT Constipation 03/08/19 13:17 04/07/19 13:16 Polyethylene Glycol/ Electrolytes (Nulytely) 4,000 ml ONCE ORAL 03/08/19 16:00 03/08/19 23:59 Prednisone (predniSONE) 15 mg DAILY GT 03/09/19 09:00 04/02/19 08:59 Kathie Lacey M.D. Mar 08, 2019 13:45
[2019-03-08] MEDS: Colistin for inhalation INH SCH ×2 (14:36→22:14)
[2019-03-08] MEDS ORDERED: Nulytely 4L ORAL SCH ×2 (16:00)
[2019-03-08 17:06] LABS: HEMATOCRIT 25.3 % (42.0-52.0); HEMOGLOBIN 7.6 G/DL (14.2-18.0); MEAN CORPUSCULAR VOLUME 78 FL (80-99); PLATELET COUNT 199 K/UL (150-450); RED BLOOD COUNT 3.24 M/UL (4.70-6.10); RED CELL DISTRIBUTION WIDTH 25.9 % (11.6-14.8); WHITE BLOOD COUNT 11.3 K/UL (4.8-10.8)
[2019-03-08] MEDS ORDERED: Gentamicin 0.3% Opth Soln 5ml BOTH EYES SCH (18:00)
[2019-03-08] MEDS: HydrALAZINE 25mg tab GT SCH (18:23)
--- NOTE | 2019-03-08 18:56 | Internal Med Progress Note ---
Subjective Date of Service: Mar 08, 2019 Physician Name Alex Cifuentes Attending Physician Sherman Vee MD Current Medications Medications (Trade) Dose Ordered Sig/Rebecca Route PRN Reason Start Time Stop Time Status Last Admin Dose Admin Acetaminophen (Tylenol) 650 mg Q4H PRN GT Mild Pain/Temp > 100.5 03/08/19 13:14 04/07/19 13:13 Albuterol/ Ipratropium (Albuterol/ Ipratropium) 3 ml Q4H PRN HHN Shortness of Breath 03/08/19 13:15 03/13/19 13:14 Allopurinol (Zyloprim) 200 mg DAILY GT 03/09/19 09:00 04/01/19 10:59 Carvedilol (Coreg) 25 mg EVERY 12 HOURS GT 03/08/19 21:00 04/02/19 20:59 Chlorhexidine Gluconate (Essie-Hex 2%) 1 applic DAILY@2000 TOPIC 03/08/19 20:00 03/31/19 19:59 Clonidine HCl (Catapres Tab) 0.1 mg Q6H PRN GT FOR sbp >160 03/08/19 13:15 04/07/19 13:14 Colistimethate Sodium (Colistin *inhalation use only*) 150 mg Q12HR@ INH 03/08/19 13:45 03/15/19 13:44 03/08/19 14:36 Dextrose (Dextrose 50%) 25 ml Q30M PRN IV Hypoglycemia 03/08/19 12:30 04/04/19 08:45 Dextrose (Dextrose 50%) 50 ml Q30M PRN IV hypoglycemia 03/08/19 12:30 04/04/19 08:59 Dextrose/ Electrolytes 1,000 ml @ 50 mls/hr Q20H IV 03/08/19 13:14 04/07/19 13:13 03/08/19 13:14 Dopamine HCl/ Dextrose 250 ml @ 13.319 mls/ hr Q24H IV 03/08/19 13:14 04/07/19 13:13 03/08/19 14:20 Gentamicin Sulfate (Garamycin 0.3% Opth Soln) 1 drop Q6HR BOTH EYES 03/08/19 18:00 03/08/19 19:59 Hydralazine HCl (Apresoline) 25 mg Q6HR GT 03/08/19 18:00 04/02/19 11:59 03/08/19 18:23 Isosorbide Dinitrate (Isordil) 20 mg TID GT 03/08/19 13:30 04/07/19 13:29 Lansoprazole (Prevacid) 30 mg BID GT 03/08/19 18:00 04/03/19 17:59 03/08/19 18:23 Metoclopramide HCl (Reglan) 5 mg EVERY 6 HOURS GT 03/08/19 18:00 04/01/19 11:59 03/08/19 18:22 Ondansetron HCl (Zofran) 4 mg Q6H PRN IVP Nausea & Vomiting 03/08/19 12:45 03/30/19 18:44 Piperacillin Sod/ Tazobactam Sod 3.375 gm/Sodium Chloride 110 ml @ 27.5 mls/hr Q12HR@0100,1300 IVPB 03/08/19 14:00 03/11/19 13:59 03/08/19 14:22 Polyethylene Glycol (Miralax) 17 gm DAILYPRN PRN GT Constipation 03/08/19 13:17 04/07/19 13:16 Polyethylene Glycol/ Electrolytes (Nulytely) 4,000 ml ONCE ORAL 03/08/19 16:00 03/08/19 23:59 03/08/19 16:54 Prednisone (predniSONE) 15 mg DAILY GT 03/09/19 09:00 04/02/19 08:59 Allergies: Coded Allergies: No Known Allergies (Unverified , 03/28/17) Subjective 53YO M with history of vent dep respiratory failure admitted with respiratory distress. [facility] Vent. Cover for Int Med-Dr Vee. ICU Objective Last Vital Signs Date Time Temp Pulse Resp B/P (MAP) Pulse Ox O2 Delivery O2 Flow Rate FiO2 03/08/19 18:23 115/80 03/08/19 17:15 98 22 40 03/08/19 17:00 100 03/08/19 16:00 Mechanical Ventilator 03/08/19 14:00 98.3 03/05/19 18:54 54.0 Laboratory Tests Test 03/08/19 04:00 03/08/19 11:20 03/08/19 16:50 White Blood Count 10.5 K/UL (4.8-10.8) 11.5 K/UL (4.8-10.8) H 11.3 K/UL (4.8-10.8) H Red Blood Count 4.03 M/UL (4.70-6.10) L 3.93 M/UL (4.70-6.10) L 3.24 M/UL (4.70-6.10) L Hemoglobin 9.4 G/DL (14.2-18.0) L 9.4 G/DL (14.2-18.0) L 7.6 G/DL (14.2-18.0) L Hematocrit 32.2 % (42.0-52.0) L 31.5 % (42.0-52.0) L 25.3 % (42.0-52.0) L Mean Corpuscular Volume 80 FL (80-99) 80 FL (80-99) 78 FL (80-99) L Mean Corpuscular Hemoglobin 23.2 PG (27.0-31.0) L 23.8 PG (27.0-31.0) L 23.4 PG (27.0-31.0) L Mean Corpuscular Hemoglobin Concent 29.0 G/DL (32.0-36.0) L 29.7 G/DL (32.0-36.0) L 30.0 G/DL (32.0-36.0) L Red Cell Distribution Width 27.1 % (11.6-14.8) H 27.3 % (11.6-14.8) H 25.9 % (11.6-14.8) H Platelet Count 230 K/UL (150-450) 236 K/UL (150-450) 199 K/UL (150-450) Mean Platelet Volume 7.9 FL (6.5-10.1) 7.5 FL (6.5-10.1) 6.1 FL (6.5-10.1) L Neutrophils (%) (Auto) 83.6 % (45.0-75.0) H % (45.0-75.0) % (45.0-75.0) Lymphocytes (%) (Auto) 7.2 % (20.0-45.0) L % (20.0-45.0) % (20.0-45.0) Monocytes (%) (Auto) 6.3 % (1.0-10.0) % (1.0-10.0) % (1.0-10.0) Eosinophils (%) (Auto) 2.1 % (0.0-3.0) % (0.0-3.0) % (0.0-3.0) Basophils (%) (Auto) 0.8 % (0.0-2.0) % (0.0-2.0) % (0.0-2.0) Sodium Level 143 MMOL/L (136-145) Potassium Level 4.3 MMOL/L (3.5-5.1) Chloride Level 107 MMOL/L (98-107) Carbon Dioxide Level 25 MMOL/L (21-32) Anion Gap 11 mmol/L (5-15) Blood Urea Nitrogen 27 mg/dL (7-18) H Creatinine 1.2 MG/DL (0.55-1.30) Estimat Glomerular Filtration Rate > 60 mL/min (>60) Glucose Level 82 MG/DL (74-106) Calcium Level 8.2 MG/DL (8.5-10.1) L Differential Total Cells Counted 100 Neutrophils % (Manual) 87 % (45-75) H Lymphocytes % (Manual) 6 % (20-45) L Monocytes % (Manual) 6 % (1-10) Eosinophils % (Manual) 1 % (0-3) Basophils % (Manual) 0 % (0-2) Band Neutrophils 0 % (0-8) Platelet Estimate Adequate Platelet Morphology Normal Hypochromasia 2+ Basophilic Stippling 1+ Anisocytosis 2+ Intake and Output 03/07/19 03/08/19 19:00 07:00 Intake Total 35689.595 ml 859.828 ml Output Total 600 ml 700 ml Balance 99595.595 ml 159.828 ml Intake Free Water 160 ml 50 ml IV Total 24677.595 ml 269.828 ml Tube Feeding 540 ml 540 ml Other 120 ml Output Urine Total 500 ml 700 ml Stool Total 100 ml Objective PHYSICAL EXAMINATION:. GENERAL: The patient is awake and responsive to the painful stimuli. Spontaneously opens his eyes. Cannot follow commands. HEAD AND NECK: Pupils are equal and reactive to light. Anicteric. Neck was supple. Tracheostomy site is intact. LUNGS: Mech Vent; Good air entry. Decreased in the bases. Ventilation breath sounds. HEART: Reveals S1, S2. Regular rhythm. Distant heart sounds. No murmurs or gallops. ABDOMEN: Soft, nondistended, and nontender. PEG site is clean. EXTREMITIES: No cyanosis or clubbing. A +1 edema in bilateral lower extremities. The patient has a PICC line in the right upper extremity noted. NEUROLOGIC: Very limited secondary to the patient's status. At this time, the patient is unable to follow commands, however, moving extremities slowly. BACK: Has a small sacral ulcer. Assessment/Plan Assessment/Plan ASSESSMENT: 1. Acute respiratory failure on chronic on trach bilateral pneumonia. 2. Severe cardiomyopathy with systolic dysfunction. 3. Hyperkalemia. 4. Chronic ventilator dependent status post tracheostomy. 5. History of sudden cardiac arrest. 6. Asthma. 7. Anoxic brain injury. 8. Dysphagia status post PEG. 9. Cholecystitis PLAN: ICU Dr. Gerber from Pulmonary Critical Care, Dr. Luis Robins from ID Dr. Nico Alonso from Nephrology. We will monitor potassium level closely on Kayexalate. Chronic wound care therapy. We will follow up with the wound care protocol. Monitor laboratory. Antibiotic=Zosyn per ID. Code status at this time is Full Code. Discharge planning Alex Cifuentes MD Mar 08, 2019 18:55
[2019-03-08] MEDS: Dyna-Hex 2% Top Sol 2oz TOPIC SCH (20:26)
[2019-03-09] VITALS (33 sets, daily range): BP systolic 90–117; BP diastolic 58–88
[2019-03-09] MEDS: Metoclopramide 10mg/10ml Liq GT SCH ×5 (00:41→23:42)
[2019-03-09] MEDS: Piperacillin/Tazobactam 3.375 GM in NS 110 ML IVPB SCH ×3 (00:42→18:00)
--- NOTE | 2019-03-09 01:00 | Progress Note ---
CARDIOLOGY PROGRESS NOTE DATE: 03/08/2019 SUBJECTIVE: The patient remains on respiratory therapy via trach. OBJECTIVE: VITAL SIGNS: Blood pressure 98/63, respiratory rate 18, and heart rate 87 to 101. Monitored sinus and sinus tachycardia. LUNGS: Diminished breath sounds. Scattered rhonchi. Thin secretions. CARDIAC: Regular rhythm and rate. 1/6 systolic apical murmur. ABDOMEN: Soft. EXTREMITIES: Trace edema. LABORATORY DATA: White count 11.3, hemoglobin 7.6. Potassium 4.3, BUN 27, and creatinine 1.2. IMPRESSION: 1. Severe cardiomyopathy. 2. Acute on chronic systolic congestive heart failure. 3. Respiratory failure with trach. 4. Healthcare-acquired pneumonia. 5. Severe anemia. 6. Severe protein-calorie malnutrition. PLAN: 1. Recommend packed red blood cell transfusion. 2. Maximization of anti-failure regimen as tolerated by blood pressure parameters. 3. Steroid taper as tolerated. 4. Taper off dopamine drip and discontinue IV fluids when transfused. Luis Cochran M.D. DR: SHRUTHI JOB#: [id number] CC:
[2019-03-09] MEDS: DOPamine 400mg/250ml 250 ML IV SCH (02:11)
[2019-03-09 04:30] LABS: HEMATOCRIT 22.5 % (42.0-52.0); MEAN CORPUSCULAR VOLUME 81 FL (80-99); PLATELET COUNT 179 K/UL (150-450); RED BLOOD COUNT 2.78 M/UL (4.70-6.10); WHITE BLOOD COUNT 11.5 K/UL (4.8-10.8)
[2019-03-09 04:40] LABS: HEMOGLOBIN 6.9 G/DL (14.2-18.0)
[2019-03-09 04:43] LABS: INR 1.1 (0.9-1.1)
[2019-03-09 05:12] LABS: ALANINE AMINOTRANSFERASE 59 U/L (12-78); ALBUMIN 2.1 G/DL (3.4-5.0); ALBUMIN/GLOBULIN RATIO 0.6 (1.0-2.7); ALKALINE PHOSPHATASE 358 U/L (46-116); ANION GAP 7 mmol/L (5-15); ASPARTATE AMINO TRANSFERASE 43 U/L (15-37); BILIRUBIN,TOTAL 1.7 MG/DL (0.2-1.0); BLOOD UREA NITROGEN 20 mg/dL (7-18); CALCIUM 8.1 MG/DL (8.5-10.1); CARBON DIOXIDE 26 MMOL/L (21-32); CHLORIDE 110 MMOL/L (98-107); PHOSPHORUS 2.4 MG/DL (2.5-4.9); POTASSIUM 4.9 MMOL/L (3.5-5.1); SODIUM 143 MMOL/L (136-145)
[2019-03-09 05:18] LABS: BILIRUBIN,DIRECT 0.9 MG/DL (0.0-0.3)
[2019-03-09] MEDS: HydrALAZINE 25mg tab GT SCH ×5 (06:00→23:34)
[2019-03-09] MEDS ORDERED: DiphenhydrAMINE 50mg/ml Inj IVP PRN (06:45)
[2019-03-09] MEDS ORDERED: Midazolam 2mg/2ml Inj IVP PRN (06:45)
[2019-03-09] MEDS ORDERED: Atropine Inj 1mg/10ml Syr IV PRN (06:45)
[2019-03-09] MEDS ORDERED: fentaNYL 100 mcg/2 mL IV PRN (06:45)
--- NOTE | 2019-03-09 06:55 | Anethesia Preoperative Eval ---
Anesthesia Pre-op PMH/ROS General Date of Evaluation: Mar 09, 2019 Time of Evaluation: 06:43 Anesthesiologist: brice ASA Score: ASA 4 Mallampati Score Class I : Soft palate, uvula, fauces, pillars visible Class II: Soft palate, uvula, fauces visible Class III: Soft palate, base of uvula visible Class IV: Only hard plate visible Mallampati Classification: Class II Surgeon: eliel Diagnosis: gi bleed Surgical Procedure: egd/colonoscopy Anesthesia History: none Social History: smoking - nonsmoker Family History: no anesthesia problems Allergies: Coded Allergies: No Known Allergies (Unverified , 03/28/17) Medications: see eMAR Patient NPO?: Yes Past Medical History Cardiovascular: Reports: HTN, other - ef less than 10%, cardiac arrest Pulmonary: Reports: asthma, other - dyspnea, tracheostomy, on mechanical ventilator, fio2 0.40 Gastrointestinal/Genitourinary: Reports: GERD, other - gi bleed, g-tube, renal failure, atn, ckd, dialysis, elevated lfts, HEENT: Reports: other - right eye repair Hematology/Immune: Reports: anemia Musculoskeletal/Integumentary: Reports: other - decubitus ulcers PSxH Narrative: tracheostomy Anesthesia Pre-op Phys. Exam Physician Exam Last Vital Signs Date Time Temp Pulse Resp B/P (MAP) Pulse Ox O2 Delivery O2 Flow Rate FiO2 03/09/19 06:00 93/64 03/09/19 05:23 83 16 40 03/09/19 04:00 Mechanical Ventilator 03/09/19 02:00 98.9 100 03/05/19 18:54 55.0 Constitutional: NAD Neurologic: CN 2-12 intact Cardiovascular: RRR, other Respiratory: other - tracheostomy on mechanical ventilator Gastrointestinal: S/NT/ND, other - g-tube Airway Exam Mallampati Score: Class II MO: limited Neck: flexible tracheostomy TMD: 2fb ROM: limited Anesthesia Pre-op A/P Labs Hematology Test 03/08/19 11:20 03/08/19 16:50 03/09/19 03:50 White Blood Count 11.5 K/UL (4.8-10.8) H 11.3 K/UL (4.8-10.8) H 11.5 K/UL (4.8-10.8) H Red Blood Count 3.93 M/UL (4.70-6.10) L 3.24 M/UL (4.70-6.10) L 2.78 M/UL (4.70-6.10) L Hemoglobin 9.4 G/DL (14.2-18.0) L 7.6 G/DL (14.2-18.0) L 6.9 G/DL (14.2-18.0) *L Hematocrit 31.5 % (42.0-52.0) L 25.3 % (42.0-52.0) L 22.5 % (42.0-52.0) L Mean Corpuscular Volume 80 FL (80-99) 78 FL (80-99) L 81 FL (80-99) Mean Corpuscular Hemoglobin 23.8 PG (27.0-31.0) L 23.4 PG (27.0-31.0) L 24.8 PG (27.0-31.0) L Mean Corpuscular Hemoglobin Concent 29.7 G/DL (32.0-36.0) L 30.0 G/DL (32.0-36.0) L 30.5 G/DL (32.0-36.0) L Red Cell Distribution Width 27.3 % (11.6-14.8) H 25.9 % (11.6-14.8) H 26.0 % (11.6-14.8) H Platelet Count 236 K/UL (150-450) 199 K/UL (150-450) 179 K/UL (150-450) Mean Platelet Volume 7.5 FL (6.5-10.1) 6.1 FL (6.5-10.1) L 7.5 FL (6.5-10.1) Neutrophils (%) (Auto) % (45.0-75.0) % (45.0-75.0) % (45.0-75.0) Lymphocytes (%) (Auto) % (20.0-45.0) % (20.0-45.0) % (20.0-45.0) Monocytes (%) (Auto) % (1.0-10.0) % (1.0-10.0) % (1.0-10.0) Eosinophils (%) (Auto) % (0.0-3.0) % (0.0-3.0) % (0.0-3.0) Basophils (%) (Auto) % (0.0-2.0) % (0.0-2.0) % (0.0-2.0) Differential Total Cells Counted 100 Neutrophils % (Manual) 87 % (45-75) H Pending Lymphocytes % (Manual) 6 % (20-45) L Pending Monocytes % (Manual) 6 % (1-10) Eosinophils % (Manual) 1 % (0-3) Basophils % (Manual) 0 % (0-2) Band Neutrophils 0 % (0-8) Platelet Estimate Adequate Pending Platelet Morphology Normal Pending Hypochromasia 2+ Basophilic Stippling 1+ Anisocytosis 2+ Coagulation Test 03/09/19 03:50 Prothrombin Time 12.0 SEC (9.30-11.50) H Prothromb Time International Ratio 1.1 (0.9-1.1) Activated Partial Thromboplast Time 29 SEC (23-33) Chemistry Test 03/09/19 03:50 Sodium Level 143 MMOL/L (136-145) Potassium Level 4.9 MMOL/L (3.5-5.1) Chloride Level 110 MMOL/L (98-107) H Carbon Dioxide Level 26 MMOL/L (21-32) Anion Gap 7 mmol/L (5-15) Blood Urea Nitrogen 20 mg/dL (7-18) H Creatinine 1.0 MG/DL (0.55-1.30) Estimat Glomerular Filtration Rate > 60 mL/min (>60) Glucose Level 76 MG/DL (74-106) Calcium Level 8.1 MG/DL (8.5-10.1) L Phosphorus Level 2.4 MG/DL (2.5-4.9) L Magnesium Level 1.9 MG/DL (1.8-2.4) Total Bilirubin 1.7 MG/DL (0.2-1.0) H Direct Bilirubin 0.9 MG/DL (0.0-0.3) H Aspartate Amino Transf (AST/SGOT) 43 U/L (15-37) H Alanine Aminotransferase (ALT/SGPT) 59 U/L (12-78) Alkaline Phosphatase 358 U/L (46-116) H Total Protein 5.6 G/DL (6.4-8.2) L Albumin 2.1 G/DL (3.4-5.0) L Globulin 3.5 g/dL Albumin/Globulin Ratio 0.6 (1.0-2.7) L Risk Assessment & Plan Assessment: [email or web address] Plan: mac Status Change Before Surgery: No Pre-Antibiotics Drug: Alexandra Bejarano MD Mar 09, 2019 06:55
--- NOTE | 2019-03-09 07:32 | Pre-Procedure Note/Attestation ---
Pre-Procedure Note/Attestation Complete Prior to Procedure Planned Procedure: not applicable Procedure Narrative: colonoscopy Indications for Procedure Pre-Operative Diagnosis: gib Attestation I attest that I discussed the nature of the procedure; its benefits; risks and complications; and alternatives (and the risks and benefits of such alternatives ), prior to the procedure, with the patient (or the patient's legal players club representative). I attest that, if there was a reasonable possibility of needing a blood transfusion, the patient (or the patient's legal players club representative) was given the [facility] standardized written summary, pursuant to the Leo Lilly Blood Safety Act ([place] Health and Safety Code # 1645, as amended). I attest that I re-evaluated the patient just prior to the surgery and that there has been no change in the patient's H&P, except as documented below: Antwon Willoughby MD Mar 09, 2019 07:32
[2019-03-09] MEDS ORDERED: NS 500ML IVPB ONE (07:55)
[2019-03-09] MEDS ORDERED: fentaNYL 100 mcg/2 mL IV ONE (08:00)
[2019-03-09] MEDS ORDERED: Midazolam 2mg/2ml Inj ONE (08:00)
[2019-03-09] MEDS ORDERED: Lidocaine 1% MPF 10mg/ml 5ml ONE (08:00)
[2019-03-09] MEDS ORDERED: Propofol 200mg/20ml IV ONE (08:00)
[2019-03-09] MEDS: Carvedilol 25mg Tab GT SCH ×2 (08:16→20:38)
[2019-03-09] MEDS: Colistin for inhalation INH SCH ×2 (08:39→21:25)
--- NOTE | 2019-03-09 08:58 | Endoscopy Procedure Note ---
Endoscopy Procedure Note General Indication for Procedure: gib Procedures Performed: EGD, colonoscopy Operative Findings/Diagnosis: gastritis, hemorrhoids Specimen: none Pt Tolerated Procedure Well: Yes Estimated Blood Loss: none Anesthesia Anesthesiologist: brice Anesthesia: MAC Inserted Devices Implant(s) used?: No GI Core Measures 50 yrs or older w/o bx or poly: Not Applicable 10yrs. F/U not recommended: Not Applicable Antwon Willoughby MD Mar 09, 2019 08:58
[2019-03-09] MEDS ORDERED: Isovue-370 150ml vial INJ PRN (09:00)
[2019-03-09] MEDS: Allopurinol 100mg Tab GT SCH (09:00)
--- NOTE | 2019-03-09 09:17 | Immediate Post-Op Evaluation ---
Immediate Post-Op Evalulation Immediate Post-Op Evalulation Procedure: egd/colonoscopy Date of Evaluation: Mar 09, 2019 Time of Evaluation: 09:12 IV Fluids: 150ml 0.9ns Blood Products: pRBCs Estimated Blood Loss: 50ml Blood Pressure Systolic: 97 Blood Pressure Diastolic: 70 Pulse Rate: 85 Respiratory Rate: 17 O2 Sat by Pulse Oximetry: 100 Temperature (Fahrenheit): 98.9 Pain Score (1-10): 0 Nausea: No Vomiting: No Complications none Patient Status: awake, reacts, patent Hydration Status: adequate Drug: Alexandra Bejarano MD Mar 09, 2019 09:17
--- NOTE | 2019-03-09 09:24 | 48 Hour Post Anesthesia Eval ---
Post Anesthesia Evaluation Procedure: egd/colonoscopy Date of Evaluation: Mar 09, 2019 Time of Evaluation: 09:14 Blood Pressure Systolic: 104 0: 70 Pulse Rate: 85 Respiratory Rate: 18 Temperature (Fahrenheit): 98.9 O2 Sat by Pulse Oximetry: 100 Airway: patent Nausea: No Vomiting: No Pain Intensity: 0 Hydration Status: adequate Cardiopulmonary Status: stable Mental Status/LOC: patient returned to baseline Post-Anesthesia Complications: none Follow-up care needed: N/A Alexandra Araiza MD Mar 09, 2019 09:24
--- NOTE | 2019-03-09 10:31 | Pulmonolgy Critical Care Note ---
Critical Care - Asmt/Plan Problems: (1) GI bleed (2) Acute on chronic respiratory failure (3) ATN (acute tubular necrosis) Assessment & Plan: improved (4) Hyperkalemia (5) EF less than 10% (6) Status post tracheostomy (7) Feeding by G-tube (8) History of sudden cardiac arrest (9) History of asthma Respiratory: monitor respiratory rate, adjust FIO2, CXR Cardiac: stop pressors, continue to monitor HR/BP Renal: F/U I&O Infectious Disease: check cultures, continue antibiotics Gastrointestinal: hold feedings Endocrine: monitor blood sugar, check HgA1C Disposition: keep in ICU Notes Reviewed: residential manager, renal Discussed with: nurses, consultants, community case manager, family member, other - pt is adamant about being "full code" Critical Care - Objective Last 24 Hour Vital Signs Date Time Temp Pulse Resp B/P (MAP) Pulse Ox O2 Delivery O2 Flow Rate FiO2 03/09/19 10:00 80 16 97/66 (76) 100 03/09/19 09:24 85 18 100 03/09/19 09:17 85 17 100 03/09/19 09:00 85 14 90/61 (71) 100 03/09/19 08:48 98 24 40 03/09/19 08:40 Mechanical Ventilator 40 03/09/19 08:40 Mechanical Ventilator 40 03/09/19 08:16 102/74 03/09/19 08:16 83 102/74 03/09/19 08:00 Mechanical Ventilator 03/09/19 08:00 40 03/09/19 08:00 98.5 83 17 102/74 (83) 100 03/09/19 07:32 83 03/09/19 07:00 98.4 89 16 97/69 (78) 100 03/09/19 06:46 90 19 40 03/09/19 06:00 83 16 93/64 (74) 100 03/09/19 06:00 93/64 03/09/19 05:23 83 16 40 03/09/19 05:00 91 15 95/65 (75) 100 03/09/19 04:00 40 03/09/19 04:00 Mechanical Ventilator 03/09/19 04:00 97 03/09/19 04:00 91 19 96/64 (75) 100 03/09/19 03:25 90 20 40 03/09/19 03:00 85 0 97/64 (75) 03/09/19 02:11 100/73 03/09/19 02:00 98.9 98 23 100/73 (82) 100 03/09/19 01:05 90 17 40 03/09/19 01:00 85 16 92/64 (73) 100 03/09/19 00:00 85 0 90/58 (69) 100 03/09/19 00:00 Mechanical Ventilator 03/09/19 00:00 90/58 03/08/19 23:23 87 16 40 03/08/19 23:00 98.8 85 16 95/62 (73) 100 03/08/19 22:24 87 16 100 Mechanical Ventilator 40 03/08/19 22:14 90 20 100 Mechanical Ventilator 40 03/08/19 22:00 101 18 98/63 (75) 100 03/08/19 21:19 97 20 40 03/08/19 21:00 100 17 107/72 (84) 100 03/08/19 20:27 100 106/63 03/08/19 20:00 Mechanical Ventilator 03/08/19 20:00 40 03/08/19 20:00 99.0 96 15 106/63 (77) 100 03/08/19 20:00 92 03/08/19 19:20 101 17 40 03/08/19 19:01 101 17 115/80 (92) 100 03/08/19 19:00 101 20 121/69 (86) 100 03/08/19 18:23 115/80 03/08/19 18:00 101 17 115/80 (92) 100 03/08/19 17:15 98 22 40 03/08/19 17:00 97 22 108/75 (86) 100 03/08/19 16:00 94 03/08/19 16:00 Mechanical Ventilator 03/08/19 16:00 40 03/08/19 16:00 94 22 105/72 (83) 100 03/08/19 15:00 97 22 107/75 (86) 100 03/08/19 14:57 97 18 40 03/08/19 14:56 95 16 100 Mechanical Ventilator 40 03/08/19 14:36 95 18 100 Mechanical Ventilator 40 03/08/19 14:20 104/78 03/08/19 14:00 98.3 94 22 104/78 (87) 100 03/08/19 13:30 104/78 03/08/19 13:00 98.2 97 23 95/60 (72) 100 03/08/19 13:00 90 18 40 03/08/19 12:07 97/62 03/08/19 12:02 97.9 97 23 97/62 (74) 100 03/08/19 12:00 97 03/08/19 12:00 40 03/08/19 12:00 Mechanical Ventilator 03/08/19 11:02 99 19 40 Status: awake Condition: critical, grave HEENT: atraumatic Neck: trach Lungs: rhonchi Heart: HR/BP stable Abdomen: soft Extremities: no C/C/E Accucheck: 72 Critical Care - Subjective ROS Limited/Unobtainable: Yes Interval Events: got 2 units of FFP and 3 units of prbc, EGD and colonoscopy done,no obvious source of bleeding. Condition: critical EKG Rhythm: Sinus Rhythm FI02: 40 Vent Support Breath Rate: 16 Vent Support Mode: AC Vent Tidal Volume: 600 Sputum Amount: Small PEEP: 5.0 PIP: 55 Drips: dopamin Tube Feeding Amount: 45 I&O: Intake and Output 03/08/19 03/09/19 19:00 07:00 Intake Total 701.192 ml 3874.828 ml Output Total 970 ml 4100 ml Balance -268.808 ml -225.172 ml Intake Free Water 50 ml IV Total 516.192 ml 869.828 ml Tube Feeding 135 ml Blood Product 905 ml Other 2100 ml Output Urine Total 970 ml 1200 ml Stool Total 2900 ml Labs: Laboratory Tests Test 03/08/19 11:20 03/08/19 16:50 03/09/19 03:50 White Blood Count 11.5 K/UL (4.8-10.8) H 11.3 K/UL (4.8-10.8) H 11.5 K/UL (4.8-10.8) H Red Blood Count 3.93 M/UL (4.70-6.10) L 3.24 M/UL (4.70-6.10) L 2.78 M/UL (4.70-6.10) L Hemoglobin 9.4 G/DL (14.2-18.0) L 7.6 G/DL (14.2-18.0) L 6.9 G/DL (14.2-18.0) *L Hematocrit 31.5 % (42.0-52.0) L 25.3 % (42.0-52.0) L 22.5 % (42.0-52.0) L Mean Corpuscular Volume 80 FL (80-99) 78 FL (80-99) L 81 FL (80-99) Mean Corpuscular Hemoglobin 23.8 PG (27.0-31.0) L 23.4 PG (27.0-31.0) L 24.8 PG (27.0-31.0) L Mean Corpuscular Hemoglobin Concent 29.7 G/DL (32.0-36.0) L 30.0 G/DL (32.0-36.0) L 30.5 G/DL (32.0-36.0) L Red Cell Distribution Width 27.3 % (11.6-14.8) H 25.9 % (11.6-14.8) H 26.0 % (11.6-14.8) H Platelet Count 236 K/UL (150-450) 199 K/UL (150-450) 179 K/UL (150-450) Mean Platelet Volume 7.5 FL (6.5-10.1) 6.1 FL (6.5-10.1) L 7.5 FL (6.5-10.1) Neutrophils (%) (Auto) % (45.0-75.0) % (45.0-75.0) % (45.0-75.0) Lymphocytes (%) (Auto) % (20.0-45.0) % (20.0-45.0) % (20.0-45.0) Monocytes (%) (Auto) % (1.0-10.0) % (1.0-10.0) % (1.0-10.0) Eosinophils (%) (Auto) % (0.0-3.0) % (0.0-3.0) % (0.0-3.0) Basophils (%) (Auto) % (0.0-2.0) % (0.0-2.0) % (0.0-2.0) Differential Total Cells Counted 100 100 Neutrophils % (Manual) 87 % (45-75) H 82 % (45-75) H Lymphocytes % (Manual) 6 % (20-45) L 7 % (20-45) L Monocytes % (Manual) 6 % (1-10) 7 % (1-10) Eosinophils % (Manual) 1 % (0-3) 0 % (0-3) Basophils % (Manual) 0 % (0-2) 4 % (0-2) H Band Neutrophils 0 % (0-8) 0 % (0-8) Platelet Estimate Adequate Adequate Platelet Morphology Normal Normal Hypochromasia 2+ 4+ Basophilic Stippling 1+ Anisocytosis 2+ 4+ Prothrombin Time 12.0 SEC (9.30-11.50) H Prothromb Time International Ratio 1.1 (0.9-1.1) Activated Partial Thromboplast Time 29 SEC (23-33) Sodium Level 143 MMOL/L (136-145) Potassium Level 4.9 MMOL/L (3.5-5.1) Chloride Level 110 MMOL/L (98-107) H Carbon Dioxide Level 26 MMOL/L (21-32) Anion Gap 7 mmol/L (5-15) Blood Urea Nitrogen 20 mg/dL (7-18) H Creatinine 1.0 MG/DL (0.55-1.30) Estimat Glomerular Filtration Rate > 60 mL/min (>60) Glucose Level 76 MG/DL (74-106) Calcium Level 8.1 MG/DL (8.5-10.1) L Phosphorus Level 2.4 MG/DL (2.5-4.9) L Magnesium Level 1.9 MG/DL (1.8-2.4) Total Bilirubin 1.7 MG/DL (0.2-1.0) H Direct Bilirubin 0.9 MG/DL (0.0-0.3) H Aspartate Amino Transf (AST/SGOT) 43 U/L (15-37) H Alanine Aminotransferase (ALT/SGPT) 59 U/L (12-78) Alkaline Phosphatase 358 U/L (46-116) H Total Protein 5.6 G/DL (6.4-8.2) L Albumin 2.1 G/DL (3.4-5.0) L Globulin 3.5 g/dL Albumin/Globulin Ratio 0.6 (1.0-2.7) L Ivan Gerber MD Mar 09, 2019 10:31
--- NOTE | 2019-03-09 10:46 | Infectious Diseases Prog Note ---
Assessment/Plan Assessment/Plan 53 yo male with PMHx of Asthma, HTN and CHF who was sent to the ED form a correction for respuratory distress and feeling cold. Respiratory distress PNA, multifocal -CT Chest: Dense opacities within the right lower lobe and left upper lobe with air bronchograms. Findings suggest multifocal pneumonia. Follow-up after appropriate treatment is recommended to ensure resolution and exclude the possibility of underlying mass. [id number] right pleural effusion. Prominent mediastinal lymph nodes with an enlarged subcarinal node which may be reactive in etiology. Attention on follow-up is recommended. Cardiomegaly and findings suggestive of anemia. Apparent gallbladder wall thickening and pericholecystic fluid. Correlation with findings of recent ultrasound recommended. If there is clinical concern for acute cholecystitis consider HIDA scan. -03/05 SP cx MDR ABC -legionella ag urine, influenza sc neg -02/28 sp cx C> albicans GIB -03/09 EGD/Colonoscopy: gastritis, hemorrhoids Acute blood loss anemia Anasarca. No fevers CXR - B/L consolidations Leukocytosis, recurrent mild Gram positive bacteremia- likely contaminant -Bcx 11/20 Staph epi; 03/02 Bcx Neg UA (-) Elevated ALT/AST>Tbili; improving- ?early cirrhosis- r/o acalculous cholecystitis -Abd US: Small amount of ascites fluid. Hepatomegaly. Equivocal mild surface nodularity, could indicate early cirrhotic changes. Correlate with clinical findings. Apparent to and fro flow within the portal veins, raising concern for portal hypertension. Borderline splenomegaly. Negative for gallstones. Apparent pericholecystic fluid is likely a manifestation of the ascites. Apparent gallbladder wall edema is most likely related to the hepatocellular disease, although the possibility of acute acalculous cholecystitis should also be considered. Consider nuclear medicine hepatobiliary imaging for further evaluation if there is high clinical suspicion. Echogenic foci within the left hepatic lobe. These could represent small hemangiomas or just prominent periportal fat -hep serologies neg -HIV ab sc neg - HIDA 03/05/19 - No evidence of acute cholecystitis. Radiotracer noted within the gallbladder indicating patency of the cystic duct. Radiotracer passes into the small bowel indicating patency of the common bile duct. Delayed uptake and excretion of the radiotracer from the liver parenchyma suggesting hepatocellular dysfunction/disease. Small sacral ulcers Do not appear to be infected Asthma HTN CHF PLAN -Continue empiric Zosyn #8/10 for PNA and now GIB and add INH colistin #2 for MDR ABC - 03/05/19 SP Vancomycin #4 - f/u Cx - Resp therapy - Wound care -aspiration precautions -GI f/u Thank you for this consult. We will continue to follow the patient during this hospitalization. Subjective Allergies: Coded Allergies: No Known Allergies (Unverified , 03/28/17) Subjective afebrile mild leukocytosis persistent Hgb dropped to 6.9 s/p EGD/colonoscopy remains on ICU no pressors Objective Vital Signs Last 24 Hour Vital Signs Date Time Temp Pulse Resp B/P (MAP) Pulse Ox O2 Delivery O2 Flow Rate FiO2 03/09/19 10:00 80 16 97/66 (76) 100 03/09/19 09:24 85 18 100 03/09/19 09:17 85 17 100 03/09/19 09:00 85 14 90/61 (71) 100 03/09/19 08:48 98 24 40 03/09/19 08:40 Mechanical Ventilator 40 03/09/19 08:40 Mechanical Ventilator 40 03/09/19 08:16 102/74 03/09/19 08:16 83 102/74 03/09/19 08:00 Mechanical Ventilator 03/09/19 08:00 40 03/09/19 08:00 98.5 83 17 102/74 (83) 100 03/09/19 07:32 83 03/09/19 07:00 98.4 89 16 97/69 (78) 100 03/09/19 06:46 90 19 40 03/09/19 06:00 83 16 93/64 (74) 100 03/09/19 06:00 93/64 03/09/19 05:23 83 16 40 03/09/19 05:00 91 15 95/65 (75) 100 03/09/19 04:00 40 03/09/19 04:00 Mechanical Ventilator 03/09/19 04:00 97 03/09/19 04:00 91 19 96/64 (75) 100 03/09/19 03:25 90 20 40 03/09/19 03:00 85 0 97/64 (75) 03/09/19 02:11 100/73 03/09/19 02:00 98.9 98 23 100/73 (82) 100 4/23/19 01:05 90 17 40 03/09/19 01:00 85 16 92/64 (73) 100 03/09/19 00:00 85 0 90/58 (69) 100 03/09/19 00:00 Mechanical Ventilator 03/09/19 00:00 90/58 03/08/19 23:23 87 16 40 03/08/19 23:00 98.8 85 16 95/62 (73) 100 03/08/19 22:24 87 16 100 Mechanical Ventilator 40 03/08/19 22:14 90 20 100 Mechanical Ventilator 40 03/08/19 22:00 101 18 98/63 (75) 100 03/08/19 21:19 97 20 40 03/08/19 21:00 100 17 107/72 (84) 100 03/08/19 20:27 100 106/63 03/08/19 20:00 Mechanical Ventilator 03/08/19 20:00 40 03/08/19 20:00 99.0 96 15 106/63 (77) 100 03/08/19 20:00 92 03/08/19 19:20 101 17 40 03/08/19 19:01 101 17 115/80 (92) 100 03/08/19 19:00 101 20 121/69 (86) 100 03/08/19 18:23 115/80 03/08/19 18:00 101 17 115/80 (92) 100 03/08/19 17:15 98 22 40 03/08/19 17:00 97 22 108/75 (86) 100 03/08/19 16:00 94 03/08/19 16:00 Mechanical Ventilator 03/08/19 16:00 40 03/08/19 16:00 94 22 105/72 (83) 100 03/08/19 15:00 97 22 107/75 (86) 100 03/08/19 14:57 97 18 40 03/08/19 14:56 95 16 100 Mechanical Ventilator 40 03/08/19 14:36 95 18 100 Mechanical Ventilator 40 03/08/19 14:20 104/78 03/08/19 14:00 98.3 94 22 104/78 (87) 100 03/08/19 13:30 104/78 03/08/19 13:00 98.2 97 23 95/60 (72) 100 03/08/19 13:00 90 18 40 03/08/19 12:07 97/62 03/08/19 12:02 97.9 97 23 97/62 (74) 100 03/08/19 12:00 97 03/08/19 12:00 40 03/08/19 12:00 Mechanical Ventilator 03/08/19 11:02 99 19 40 Height (Feet): 6 Height (Inches): 1.00 Weight (Pounds): 257 Objective Gen: Awake and follwoing, Trached on Vent 45% HEENT: NCAT, MMM, EOMI, PERRL, No Oral lesion, no scleral icterus NECK: full range of motion, supple, no meningismus, No LAD, No JVD LUNGS: Course B/L Mild wheezing CARDS: RRR, S1, S2, No M/R/G, ABD: Soft, NT, ND, No R/G, + BS, No HSM, No Masses, PEG (No E/P) : Deferred Ext: C/C/E, Pulses 2+ B/L (DP, Rad): NEURO: A/O - not verbal , Strength and Sensation Grossly intact PSYCH: Mood/affect normal SKIN: Warm/dry, No rashes, small sacral ulcers Laboratory Tests Test 03/08/19 11:20 03/08/19 16:50 03/09/19 03:50 White Blood Count 11.5 K/UL (4.8-10.8) H 11.3 K/UL (4.8-10.8) H 11.5 K/UL (4.8-10.8) H Red Blood Count 3.93 M/UL (4.70-6.10) L 3.24 M/UL (4.70-6.10) L 2.78 M/UL (4.70-6.10) L Hemoglobin 9.4 G/DL (14.2-18.0) L 7.6 G/DL (14.2-18.0) L 6.9 G/DL (14.2-18.0) *L Hematocrit 31.5 % (42.0-52.0) L 25.3 % (42.0-52.0) L 22.5 % (42.0-52.0) L Mean Corpuscular Volume 80 FL (80-99) 78 FL (80-99) L 81 FL (80-99) Mean Corpuscular Hemoglobin 23.8 PG (27.0-31.0) L 23.4 PG (27.0-31.0) L 24.8 PG (27.0-31.0) L Mean Corpuscular Hemoglobin Concent 29.7 G/DL (32.0-36.0) L 30.0 G/DL (32.0-36.0) L 30.5 G/DL (32.0-36.0) L Red Cell Distribution Width 27.3 % (11.6-14.8) H 25.9 % (11.6-14.8) H 26.0 % (11.6-14.8) H Platelet Count 236 K/UL (150-450) 199 K/UL (150-450) 179 K/UL (150-450) Mean Platelet Volume 7.5 FL (6.5-10.1) 6.1 FL (6.5-10.1) L 7.5 FL (6.5-10.1) Neutrophils (%) (Auto) % (45.0-75.0) % (45.0-75.0) % (45.0-75.0) Lymphocytes (%) (Auto) % (20.0-45.0) % (20.0-45.0) % (20.0-45.0) Monocytes (%) (Auto) % (1.0-10.0) % (1.0-10.0) % (1.0-10.0) Eosinophils (%) (Auto) % (0.0-3.0) % (0.0-3.0) % (0.0-3.0) Basophils (%) (Auto) % (0.0-2.0) % (0.0-2.0) % (0.0-2.0) Differential Total Cells Counted 100 100 Neutrophils % (Manual) 87 % (45-75) H 82 % (45-75) H Lymphocytes % (Manual) 6 % (20-45) L 7 % (20-45) L Monocytes % (Manual) 6 % (1-10) 7 % (1-10) Eosinophils % (Manual) 1 % (0-3) 0 % (0-3) Basophils % (Manual) 0 % (0-2) 4 % (0-2) H Band Neutrophils 0 % (0-8) 0 % (0-8) Platelet Estimate Adequate Adequate Platelet Morphology Normal Normal Hypochromasia 2+ 4+ Basophilic Stippling 1+ Anisocytosis 2+ 4+ Prothrombin Time 12.0 SEC (9.30-11.50) H Prothromb Time International Ratio 1.1 (0.9-1.1) Activated Partial Thromboplast Time 29 SEC (23-33) Sodium Level 143 MMOL/L (136-145) Potassium Level 4.9 MMOL/L (3.5-5.1) Chloride Level 110 MMOL/L (98-107) H Carbon Dioxide Level 26 MMOL/L (21-32) Anion Gap 7 mmol/L (5-15) Blood Urea Nitrogen 20 mg/dL (7-18) H Creatinine 1.0 MG/DL (0.55-1.30) Estimat Glomerular Filtration Rate > 60 mL/min (>60) Glucose Level 76 MG/DL (74-106) Calcium Level 8.1 MG/DL (8.5-10.1) L Phosphorus Level 2.4 MG/DL (2.5-4.9) L Magnesium Level 1.9 MG/DL (1.8-2.4) Total Bilirubin 1.7 MG/DL (0.2-1.0) H Direct Bilirubin 0.9 MG/DL (0.0-0.3) H Aspartate Amino Transf (AST/SGOT) 43 U/L (15-37) H Alanine Aminotransferase (ALT/SGPT) 59 U/L (12-78) Alkaline Phosphatase 358 U/L (46-116) H Total Protein 5.6 G/DL (6.4-8.2) L Albumin 2.1 G/DL (3.4-5.0) L Globulin 3.5 g/dL Albumin/Globulin Ratio 0.6 (1.0-2.7) L Current Medications Medications (Trade) Dose Ordered Sig/Rebecca Route PRN Reason Start Time Stop Time Status Last Admin Dose Admin Acetaminophen (Tylenol) 650 mg Q4H PRN GT Mild Pain/Temp > 100.5 03/08/19 13:14 04/07/19 13:13 Al Hydroxide/Mg Hydroxide (Mylanta) 15 ml Q1H PRN ORAL gi upset 03/09/19 06:45 03/09/19 15:00 Albuterol/ Ipratropium (Albuterol/ Ipratropium) 3 ml Q4H PRN HHN Shortness of Breath 03/08/19 13:15 03/13/19 13:14 Allopurinol (Zyloprim) 200 mg DAILY GT 03/09/19 09:00 04/01/19 10:59 Atropine Sulfate (Atropine) 0.5 mg Q5M PRN IV bpm less than 45 03/09/19 06:45 03/09/19 15:00 Carvedilol (Coreg) 25 mg EVERY 12 HOURS GT 03/08/19 21:00 04/02/19 20:59 03/08/19 20:27 Chlorhexidine Gluconate (Essie-Hex 2%) 1 applic DAILY@1999 TOPIC 03/08/19 20:00 03/31/19 19:59 03/08/19 20:26 Clonidine HCl (Catapres Tab) 0.1 mg Q6H PRN GT FOR sbp >160 03/08/19 13:15 04/07/19 13:14 Colistimethate Sodium (Colistin *inhalation use only*) 150 mg Q12HR@10,22 INH 03/08/19 13:45 03/15/19 13:44 03/08/19 22:14 Dextrose (Dextrose 50%) 25 ml Q30M PRN IV Hypoglycemia 03/08/19 12:30 04/04/19 08:45 Dextrose (Dextrose 50%) 50 ml Q30M PRN IV hypoglycemia 03/08/19 12:30 04/04/19 08:59 Dextrose/ Electrolytes 1,000 ml @ 50 mls/hr Q20H IV 03/08/19 13:14 04/07/19 13:13 03/08/19 13:14 Diphenhydramine HCl (Benadryl) 25 mg Q15M PRN IVP Itching 03/09/19 06:45 03/09/19 15:00 Dopamine HCl/ Dextrose 250 ml @ 13.319 mls/ hr Q24H IV 03/08/19 13:14 04/07/19 13:13 03/09/19 02:11 Fentanyl Citrate (Sublimaze 100 mcg/2 mL) 25 mcg Q10M PRN IV Moderate Pain (Pain Scale 4-6) 03/09/19 06:45 03/09/19 15:00 Hydralazine HCl (Apresoline) 5 mg Q30M PRN IV SBP>160 OR___/DBP>90 OR___ 03/09/19 06:45 03/09/19 15:00 Hydralazine HCl (Apresoline) 25 mg Q6HR GT 03/08/19 18:00 04/02/19 11:59 03/08/19 18:23 Iopamidol (Isovue-370 150ml) 150 ml NOW PRN INJ Radiology Procedure 03/09/19 09:00 03/11/19 08:58 Isosorbide Dinitrate (Isordil) 20 mg TID GT 03/08/19 13:30 04/07/19 13:29 Lansoprazole (Prevacid) 30 mg BID GT 03/08/19 18:00 04/03/19 17:59 03/08/19 18:23 Metoclopramide HCl (Reglan) 5 mg EVERY 6 HOURS GT 03/08/19 18:00 04/01/19 11:59 03/09/19 06:23 Midazolam HCl (Versed 2mg/2ml vial) 1 mg Q15M PRN IVP For Anxiety 03/09/19 06:45 03/09/19 15:00 Ondansetron HCl (Zofran) 4 mg Q1H PRN IVP Nausea & Vomiting 03/09/19 06:45 03/09/19 15:00 Ondansetron HCl (Zofran) 4 mg Q6H PRN IVP Nausea & Vomiting 03/08/19 12:45 03/30/19 18:44 Piperacillin Sod/ Tazobactam Sod 3.375 gm/Sodium Chloride 110 ml @ 27.5 mls/hr Q8H IVPB 03/09/19 10:00 03/16/19 09:59 03/09/19 09:57 Polyethylene Glycol (Miralax) 17 gm DAILYPRN PRN GT Constipation 03/08/19 13:17 04/07/19 13:16 Prednisone (predniSONE) 15 mg DAILY GT 03/09/19 09:00 04/02/19 08:59 Sodium Chloride 1,000 ml @ 10 mls/hr Q24H IVLG 03/09/19 06:41 03/09/19 15:00 Kathie Lacey M.D. Mar 09, 2019 10:46
[2019-03-09] MEDS: D5 1/2NS w/KCl 20mEq 1,000 ML IV SCH (12:13)
--- NOTE | 2019-03-09 13:42 | Surgery Progress Note ---
Surgery Progress Note Subjective Additional Comments still having GI bleed. no etiology on EGD today. No etiology on Colonoscopy today. pending CTA Objective Last 24 Hour Vital Signs Date Time Temp Pulse Resp B/P (MAP) Pulse Ox O2 Delivery O2 Flow Rate FiO2 03/09/19 12:00 109/79 03/09/19 12:00 40 03/09/19 12:00 Mechanical Ventilator 03/09/19 11:50 86 20 109/79 (89) 100 03/09/19 11:45 86 18 102/77 (85) 100 03/09/19 11:40 86 14 111/82 (92) 03/09/19 11:35 86 18 109/82 (91) 03/09/19 11:30 87 17 110/83 (92) 100 03/09/19 11:27 88 03/09/19 11:25 91 17 110/84 (93) 03/09/19 11:20 96 15 107/77 (87) 03/09/19 11:15 96 18 114/88 (97) 03/09/19 11:10 95 23 117/86 (96) 100 03/09/19 11:05 84 18 97/79 (85) 100 03/09/19 11:00 81 6 100/73 (82) 100 03/09/19 10:37 80 16 40 03/09/19 10:00 80 16 97/66 (76) 100 03/09/19 09:24 85 18 100 03/09/19 09:17 85 17 100 03/09/19 09:00 85 14 90/61 (71) 100 03/09/19 08:48 98 24 40 03/09/19 08:40 Mechanical Ventilator 40 03/09/19 08:40 Mechanical Ventilator 40 03/09/19 08:16 102/74 03/09/19 08:16 83 102/74 03/09/19 08:00 Mechanical Ventilator 03/09/19 08:00 40 03/09/19 08:00 98.5 83 17 102/74 (83) 100 03/09/19 07:32 83 03/09/19 07:00 98.4 89 16 97/69 (78) 100 03/09/19 06:46 90 19 40 03/09/19 06:00 83 16 93/64 (74) 100 03/09/19 06:00 93/64 03/09/19 05:23 83 16 40 03/09/19 05:00 91 15 95/65 (75) 100 03/09/19 04:00 40 03/09/19 04:00 Mechanical Ventilator 03/09/19 04:00 97 03/09/19 04:00 91 19 96/64 (75) 100 03/09/19 03:25 90 20 40 03/09/19 03:00 85 0 97/64 (75) 03/09/19 02:11 100/73 03/09/19 02:00 98.9 98 23 100/73 (82) 100 03/09/19 01:05 90 17 40 03/09/19 01:00 85 16 92/64 (73) 100 03/09/19 00:00 85 0 90/58 (69) 100 03/09/19 00:00 Mechanical Ventilator 03/09/19 00:00 90/58 03/08/19 23:23 87 16 40 03/08/19 23:00 98.8 85 16 95/62 (73) 100 03/08/19 22:24 87 16 100 Mechanical Ventilator 40 03/08/19 22:14 90 20 100 Mechanical Ventilator 40 03/08/19 22:00 101 18 98/63 (75) 100 03/08/19 21:19 97 20 40 03/08/19 21:00 100 17 107/72 (84) 100 03/08/19 20:27 100 106/63 03/08/19 20:00 Mechanical Ventilator 03/08/19 20:00 40 03/08/19 20:00 99.0 96 15 106/63 (77) 100 03/08/19 20:00 92 03/08/19 19:20 101 17 40 03/08/19 19:01 101 17 115/80 (92) 100 03/08/19 19:00 101 20 121/69 (86) 100 03/08/19 18:23 115/80 03/08/19 18:00 101 17 115/80 (92) 100 03/08/19 17:15 98 22 40 03/08/19 17:00 97 22 108/75 (86) 100 03/08/19 16:00 94 03/08/19 16:00 Mechanical Ventilator 03/08/19 16:00 40 03/08/19 16:00 94 22 105/72 (83) 100 03/08/19 15:00 97 22 107/75 (86) 100 03/08/19 14:57 97 18 40 03/08/19 14:56 95 16 100 Mechanical Ventilator 40 03/08/19 14:36 95 18 100 Mechanical Ventilator 40 03/08/19 14:20 104/78 03/08/19 14:00 98.3 94 22 104/78 (87) 100 I&O Intake and Output 03/08/19 03/09/19 18:59 06:59 Intake Total 696.192 ml 3874.828 ml Output Total 770 ml 4100 ml Balance -73.808 ml -225.172 ml Intake Free Water 50 ml IV Total 466.192 ml 869.828 ml Tube Feeding 180 ml Blood Product 905 ml Other 2100 ml Output Urine Total 770 ml 1300 ml Stool Total 2800 ml Drains: other Cardiovascular: RSR Respiratory: decreased breath sounds Abdomen: soft, present bowel sounds Extremities: no tenderness, no cyanosis Laboratory Tests Test 03/08/19 16:50 03/09/19 03:50 White Blood Count 11.3 K/UL (4.8-10.8) H 11.5 K/UL (4.8-10.8) H Red Blood Count 3.24 M/UL (4.70-6.10) L 2.78 M/UL (4.70-6.10) L Hemoglobin 7.6 G/DL (14.2-18.0) L 6.9 G/DL (14.2-18.0) *L Hematocrit 25.3 % (42.0-52.0) L 22.5 % (42.0-52.0) L Mean Corpuscular Volume 78 FL (80-99) L 81 FL (80-99) Mean Corpuscular Hemoglobin 23.4 PG (27.0-31.0) L 24.8 PG (27.0-31.0) L Mean Corpuscular Hemoglobin Concent 30.0 G/DL (32.0-36.0) L 30.5 G/DL (32.0-36.0) L Red Cell Distribution Width 25.9 % (11.6-14.8) H 26.0 % (11.6-14.8) H Platelet Count 199 K/UL (150-450) 179 K/UL (150-450) Mean Platelet Volume 6.1 FL (6.5-10.1) L 7.5 FL (6.5-10.1) Neutrophils (%) (Auto) % (45.0-75.0) % (45.0-75.0) Lymphocytes (%) (Auto) % (20.0-45.0) % (20.0-45.0) Monocytes (%) (Auto) % (1.0-10.0) % (1.0-10.0) Eosinophils (%) (Auto) % (0.0-3.0) % (0.0-3.0) Basophils (%) (Auto) % (0.0-2.0) % (0.0-2.0) Differential Total Cells Counted 100 Neutrophils % (Manual) 82 % (45-75) H Lymphocytes % (Manual) 7 % (20-45) L Monocytes % (Manual) 7 % (1-10) Eosinophils % (Manual) 0 % (0-3) Basophils % (Manual) 4 % (0-2) H Band Neutrophils 0 % (0-8) Platelet Estimate Adequate Platelet Morphology Normal Hypochromasia 4+ Anisocytosis 4+ Prothrombin Time 12.0 SEC (9.30-11.50) H Prothromb Time International Ratio 1.1 (0.9-1.1) Activated Partial Thromboplast Time 29 SEC (23-33) Sodium Level 143 MMOL/L (136-145) Potassium Level 4.9 MMOL/L (3.5-5.1) Chloride Level 110 MMOL/L (98-107) H Carbon Dioxide Level 26 MMOL/L (21-32) Anion Gap 7 mmol/L (5-15) Blood Urea Nitrogen 20 mg/dL (7-18) H Creatinine 1.0 MG/DL (0.55-1.30) Estimat Glomerular Filtration Rate > 60 mL/min (>60) Glucose Level 76 MG/DL (74-106) Calcium Level 8.1 MG/DL (8.5-10.1) L Phosphorus Level 2.4 MG/DL (2.5-4.9) L Magnesium Level 1.9 MG/DL (1.8-2.4) Total Bilirubin 1.7 MG/DL (0.2-1.0) H Direct Bilirubin 0.9 MG/DL (0.0-0.3) H Aspartate Amino Transf (AST/SGOT) 43 U/L (15-37) H Alanine Aminotransferase (ALT/SGPT) 59 U/L (12-78) Alkaline Phosphatase 358 U/L (46-116) H Total Protein 5.6 G/DL (6.4-8.2) L Albumin 2.1 G/DL (3.4-5.0) L Globulin 3.5 g/dL Albumin/Globulin Ratio 0.6 (1.0-2.7) L Plan Problems: (1) History of asthma (2) History of sudden cardiac arrest (3) Chronic systolic (congestive) heart failure (4) Hyperkalemia (5) ATN (acute tubular necrosis) (6) Feeding by G-tube Assessment & Plan: DAILY ESTIMATED NEEDS: Needs based on Critical care, wounds, renal 89kg adj 22-30 kcals/kg 9170-3967 total kcals 1.25-1.5 g protein/kg 111-134 g total protein 25-30 mL/kg 0116-4878 total fluid mLs NUTRITION DIAGNOSIS: 1) Swallowing difficulty r/t respiratory status as evidenced by pt is S/p trach and peg placement. 2) Increased protein needs r/t wound healing as evidenced by pt w/ multiple wounds including full and partial thickness wounds (refer to WC eval). 3) Altered nutrition related lab values r/t clinical status as evidenced by critically elev K (7.9-> 7.1-> 3.0-> now wnl), elev phos-> now wnl, elev mg, w/ elev BUN(79-> 54 trend down) and elev Creat (2.9-> 1.5 trend down). CURRENT TF:Glucerna 1.5 @ 45ml/hr x 24 hrs ENTERAL NUTRITION RECOMMENDATIONS: Glucerna 1.5 @ 55ml/hr x 24 hrs + Prosource 1pkt daily to provide 1320ml, 1980kcal, 109g prot + 11g prot, 1002ml free water - Increase goal rate to 55ml/hr x 24 hrs - Add PROSOURCE 1 pack QD to better meet est pro needs - Flush per , HOB over 30 degrees ADDITIONAL RECOMMENDATIONS: 1) Per Pt: 6'3" tall, 222# 2) Wound care: add EVAN BID via GT 3) Weekly calibrated bed scale wts 4) Monitor BG on prednisone/ need for NISS 5) Monitor for ability for oral intake, need to adjust TF (7) EF less than 10% (8) GI bleed Assessment & Plan: as per GI h/h trending down upper and lower scope could not identify etiology. likely small bowel. CTA pending transfuse prn will follow (9) Renal failure (10) Hyperkalemia (11) Respiratory distress (12) Acute on chronic respiratory failure (13) Elevated LFTs Assessment & Plan: trend will monitor US with Impression: Small amount of ascites fluid Hepatomegaly. Equivocal mild surface nodularity, could indicate early cirrhotic changes. Correlate with clinical findings Apparent to and fro flow within the portal veins, raising concern for portal hypertension Borderline splenomegaly Negative for gallstones. Apparent pericholecystic fluid is likely a manifestation of the ascites. Apparent gallbladder wall edema is most likely related to the hepatocellular disease, although the possibility of acute acalculous cholecystitis should also be considered. Consider nuclear medicine hepatobiliary imaging for further evaluation if there is high clinical suspicion Echogenic foci within the left hepatic lobe. These could represent small hemangiomas or just prominent periportal fat Right pleural effusion Bilateral renal cysts incidentally noted HIDA with No evidence of acute cholecystitis. Radiotracer noted within the gallbladder indicating patency of the cystic duct. Radiotracer passes into the small bowel indicating patency of the common bile duct. Delayed uptake and excretion of the radiotracer from the liver parenchyma suggesting hepatocellular dysfunction/disease. (14) Dyspnea (15) Decubitus skin ulcer Assessment & Plan: Pt presented on admission with multiple partial thickness pressure injuries R and L buttocks and L thoracic,Open DTPI sacrum. Sacral area with full thickness wound with trace slough at coccygeal area,with surrounding dark skin tone without fluctuance or induration. (L)2cm x(W)4.4cm. No odor or exudate noted .Shearing periwound with small amt of sanguineous exudate. Multiple small partial thickness pressure injuries R and L buttocks.Surrounding areas of buttocks with darker than is normal skin tone. Partial thickness pressure injury Thoracic (2) sites. Proximal wound moist viable with dark skin tone periwound (L)2.6cm long. (Inferior) Partial thickness wound L thoracic (L)1.4cm x (W)1.5cm. Both heels are dry and firm . Trach site without erythema or evidence of skin breakdown. Tx.Plan: Apply Moisture Barrier Paste to entire Buttocks. Cover Sacral area with Optifoam. Change every 3 days and prn. Cover Thoracic wounds with Optifoam drsg .Change every 3 days and prn. APM/ Elvira mattress. Reposition at least every 2hours or as tolerated. Off-load heels with pillow. Karthik Cheatham Mar 09, 2019 13:42
[2019-03-09] MEDS ORDERED: NS 275ml ONE ×2 (15:35→15:48)
[2019-03-09] MEDS ORDERED: Tubing Blood Filter IV ONE (15:35)
[2019-03-09] MEDS ORDERED: Tubing IV Secondary IV ONE (15:35)
--- NOTE | 2019-03-09 15:35 | Nephrology Progress Note ---
Assessment/Plan Problem List: (1) Hyperkalemia (2) ATN (acute tubular necrosis) (3) Feeding by G-tube (4) Acute on chronic respiratory failure (5) EF less than 10% (6) History of sudden cardiac arrest (7) Chronic systolic (congestive) heart failure Assessment ATN (acute tubular necrosis), underlying CKD Hyperkalemia - was on K supplement and Lasix [employer] Chronic systolic (congestive) heart failure History of sudden cardiac arrest Status post tracheostomy Feeding by G-tube History of asthma Plan colonoscopy did not pin point bleeding soarce from colon with Ejfx of 10% , not a great surgical candidate Cerda Reglan continue prednisone, taper stop hydrate aim to lower after and pre load- increase hydralazin monitor renal parameters per orders Subjective ROS Limited/Unobtainable: Yes Interval Events/Complaints in ICU for rectal bleed Objective Objective Last 24 Hour Vital Signs Date Time Temp Pulse Resp B/P (MAP) Pulse Ox O2 Delivery O2 Flow Rate FiO2 03/09/19 15:18 89 16 40 03/09/19 13:02 86 17 40 03/09/19 12:00 109/79 03/09/19 12:00 40 03/09/19 12:00 Mechanical Ventilator 03/09/19 11:50 86 20 109/79 (89) 100 03/09/19 11:45 86 18 102/77 (85) 100 03/09/19 11:40 86 14 111/82 (92) 03/09/19 11:35 86 18 109/82 (91) 03/09/19 11:30 87 17 110/83 (92) 100 03/09/19 11:27 88 03/09/19 11:25 91 17 110/84 (93) 03/09/19 11:20 96 15 107/77 (87) 03/09/19 11:15 96 18 114/88 (97) 03/09/19 11:10 95 23 117/86 (96) 100 03/09/19 11:05 84 18 97/79 (85) 100 03/09/19 11:00 81 6 100/73 (82) 100 03/09/19 10:37 80 16 40 03/09/19 10:00 80 16 97/66 (76) 100 03/09/19 09:24 85 18 100 03/09/19 09:17 85 17 100 03/09/19 09:00 85 14 90/61 (71) 100 03/09/19 08:48 98 24 40 03/09/19 08:40 Mechanical Ventilator 40 03/09/19 08:40 Mechanical Ventilator 40 03/09/19 08:16 102/74 03/09/19 08:16 83 102/74 03/09/19 08:00 Mechanical Ventilator 03/09/19 08:00 40 03/09/19 08:00 98.5 83 17 102/74 (83) 100 03/09/19 07:32 83 03/09/19 07:00 98.4 89 16 97/69 (78) 100 03/09/19 06:46 90 19 40 03/09/19 06:00 83 16 93/64 (74) 100 03/09/19 06:00 93/64 03/09/19 05:23 83 16 40 03/09/19 05:00 91 15 95/65 (75) 100 03/09/19 04:00 40 03/09/19 04:00 Mechanical Ventilator 03/09/19 04:00 97 03/09/19 04:00 91 19 96/64 (75) 100 03/09/19 03:25 90 20 40 03/09/19 03:00 85 0 97/64 (75) 03/09/19 02:11 100/73 03/09/19 02:00 98.9 98 23 100/73 (82) 100 03/09/19 01:05 90 17 40 03/09/19 01:00 85 16 92/64 (73) 100 03/09/19 00:00 85 0 90/58 (69) 100 03/09/19 00:00 Mechanical Ventilator 03/09/19 00:00 90/58 03/08/19 23:23 87 16 40 03/08/19 23:00 98.8 85 16 95/62 (73) 100 03/08/19 22:24 87 16 100 Mechanical Ventilator 40 03/08/19 22:14 90 20 100 Mechanical Ventilator 40 03/08/19 22:00 101 18 98/63 (75) 100 03/08/19 21:19 97 20 40 03/08/19 21:00 100 17 107/72 (84) 100 03/08/19 20:27 100 106/63 03/08/19 20:00 Mechanical Ventilator 03/08/19 20:00 40 03/08/19 20:00 99.0 96 15 106/63 (77) 100 03/08/19 20:00 92 03/08/19 19:20 101 17 40 03/08/19 19:01 101 17 115/80 (92) 100 03/08/19 19:00 101 20 121/69 (86) 100 03/08/19 18:23 115/80 03/08/19 18:00 101 17 115/80 (92) 100 03/08/19 17:15 98 22 40 03/08/19 17:00 97 22 108/75 (86) 100 03/08/19 16:00 94 03/08/19 16:00 Mechanical Ventilator 03/08/19 16:00 40 03/08/19 16:00 94 22 105/72 (83) 100 Intake and Output 03/08/19 03/09/19 18:59 06:59 Intake Total 696.192 ml 3874.828 ml Output Total 770 ml 4100 ml Balance -73.808 ml -225.172 ml Intake Free Water 50 ml IV Total 466.192 ml 869.828 ml Tube Feeding 180 ml Blood Product 905 ml Other 2100 ml Output Urine Total 770 ml 1300 ml Stool Total 2800 ml Laboratory Tests 03/08/19 16:50: White Blood Count 11.3H, Red Blood Count 3.24L, Hemoglobin 7.6L, Hematocrit 25.3L, Mean Corpuscular Volume 78L, Mean Corpuscular Hemoglobin 23.4L, Mean Corpuscular Hemoglobin Concent 30.0L, Red Cell Distribution Width 25.9H, Platelet Count 199, Mean Platelet Volume 6.1L, Neutrophils (%) (Auto) , Lymphocytes (%) (Auto) , Monocytes (%) (Auto) , Eosinophils (%) (Auto) , Basophils (%) (Auto) 03/09/19 03:50: White Blood Count 11.5H, Red Blood Count 2.78L, Hemoglobin 6.9*L, Hematocrit 22.5L, Mean Corpuscular Volume 81, Mean Corpuscular Hemoglobin 24.8L, Mean Corpuscular Hemoglobin Concent 30.5L, Red Cell Distribution Width 26.0H, Platelet Count 179, Mean Platelet Volume 7.5, Neutrophils (%) (Auto) , Lymphocytes (%) (Auto) , Monocytes (%) (Auto) , Eosinophils (%) (Auto) , Basophils (%) (Auto) , Differential Total Cells Counted 100, Neutrophils % ( Manual) 82H, Lymphocytes % (Manual) 7L, Monocytes % (Manual) 7, Eosinophils % ( Manual) 0, Basophils % (Manual) 4H, Band Neutrophils 0, Platelet Estimate Adequate, Platelet Morphology Normal, Hypochromasia 4+, Anisocytosis 4+, Prothrombin Time 12.0H, Prothromb Time International Ratio 1.1, Activated Partial Thromboplast Time 29, Sodium Level 143, Potassium Level 4.9, Chloride Level 110H, Carbon Dioxide Level 26, Anion Gap 7, Blood Urea Nitrogen 20H, Creatinine 1.0, Estimat Glomerular Filtration Rate > 60, Glucose Level 76, Calcium Level 8.1L, Phosphorus Level 2.4L, Magnesium Level 1.9, Total Bilirubin 1.7H, Direct Bilirubin 0.9H, Aspartate Amino Transf (AST/SGOT) 43H, Alanine Aminotransferase (ALT/SGPT) 59, Alkaline Phosphatase 358H, Total Protein 5.6L, Albumin 2.1L, Globulin 3.5, Albumin/Globulin Ratio 0.6L Height (Feet): 6 Height (Inches): 1.00 Weight (Pounds): 257 General Appearance: lethargic Cardiovascular: tachycardia Respiratory/Chest: decreased breath sounds Abdomen: distended Nico Alonso MD Mar 09, 2019 15:35
--- NOTE | 2019-03-09 16:03 | Diagnostic Imaging Report ---
Indication: Difficulty breathing Technique: One view of the chest Comparison: 03/03/2019 Findings: Left peripheral midlung masslike opacity appears to have decreased in size in the interim. There is suggestion of increased hazy consolidation of the right lung base, however as well as increased blunting of the right costophrenic sulcus. There is also increased hazy opacity at the left lung base and new finding of left costophrenic angle blunting. Right arm midline, tracheostomy again demonstrated Impression: Suggests only slightly smaller left midlung opacity, increasing likelihood that this is focal infiltrate rather than tumor. Further follow-up to resolution is recommended Evidence of increasing infiltrate and/or pleural fluid at the right lung base New/increased left pleural fluid and possible underlying hazy consolidation
--- NOTE | 2019-03-09 16:15 | Procedure Note ---
DATE OF PROCEDURE: 03/09/2019 SURGEON: Antwon Willoughby M.D. PROCEDURE: Upper endoscopy and colonoscopy. ANESTHESIA: Per Dr. Camargo. INSTRUMENT: Olympus adult flexible upper endoscope and colonoscope. INDICATION: GI bleeding. REASON FOR PROCEDURE: The procedure, risks, benefits, and possible consequences, including hemorrhage, aspiration, perforation and infection, and alternative treatments, were explained to the patient/legal guardian by Dr. Antwon Willoughby and the patient/legal guardian understood and accepted these risks. PROCEDURE IN DETAIL: After informed consent was obtained and the patient was adequately sedated, Olympus upper endoscope was advanced from the mouth into the second portion of the duodenum and retroflexion was performed in the stomach. G-tube was in place. No evidence of any active upper GI bleeding. At this time, the upper endoscope was retrieved and the patient was turned over for colonoscopy. First, rectal exam was performed which was normal. Then, the scope was the advanced from the rectum into the cecum then subsequently terminal ileum. Quality of prep was good. The patient had blood throughout the colon, also in the terminal ileum. No obvious source of bleeding was seen. No diverticulosis. Again, there was blood clot throughout the colon even in the TI. That suggests the possibility of the small bowel bleeding. No obvious ulcerations. No mass. No polyp was seen. Retroflexion of rectum showed evidence of internal hemorrhoids. SUMMARY OF FINDINGS: 1. Gastritis. 2. Internal hemorrhoids. 3. Blood throughout the colon, also including TI. 4. Internal hemorrhoids. RECOMMENDATIONS: Suspicious for small bowel bleed given there was blood in the TI. No blood in the stomach. Given the patient is on the vent, in this kind of difficult and challenging case, we are going to order CT angio first. If the CT angio does not show any obvious source of bleeding, the patient might benefit from capsule endoscopy. We will follow. I want to thank Dr. Best Horowitz for this kind referral. Antwon Willoughby M.D. DR: GURJIT JOB#: [id number] CC: Best Horowitz M.D.; Fax#: [phone]
[2019-03-09 17:40] LABS: HEMATOCRIT 25.2 % (42.0-52.0); HEMOGLOBIN 7.9 G/DL (14.2-18.0); MEAN CORPUSCULAR VOLUME 83 FL (80-99); PLATELET COUNT 157 K/UL (150-450); RED BLOOD COUNT 3.05 M/UL (4.70-6.10); RED CELL DISTRIBUTION WIDTH 22.2 % (11.6-14.8); WHITE BLOOD COUNT 12.4 K/UL (4.8-10.8)
[2019-03-09 17:41] LABS: EOSINOPHILS % (AUTO) 1.9 % (0.0-3.0); LYMPHOCYTES % (AUTO) 7.4 % (20.0-45.0); MONOCYTES % (AUTO) 6.3 % (1.0-10.0); NEUTROPHILS % (AUTO) 83.5 % (45.0-75.0)
--- NOTE | 2019-03-09 18:48 | Internal Med Progress Note ---
Subjective Date of Service: Mar 09, 2019 Physician Name Alex Cifuentes Attending Physician Sherman Vee MD Current Medications Medications (Trade) Dose Ordered Sig/Rebecca Route PRN Reason Start Time Stop Time Status Last Admin Dose Admin Acetaminophen (Tylenol) 650 mg Q4H PRN GT Mild Pain/Temp > 100.5 03/08/19 13:14 04/07/19 13:13 Albuterol/ Ipratropium (Albuterol/ Ipratropium) 3 ml Q4H PRN HHN Shortness of Breath 03/08/19 13:15 03/13/19 13:14 Allopurinol (Zyloprim) 200 mg DAILY GT 03/09/19 09:00 04/01/19 10:59 Carvedilol (Coreg) 25 mg EVERY 12 HOURS GT 03/08/19 21:00 04/02/19 20:59 03/08/19 20:27 Chlorhexidine Gluconate (Essie-Hex 2%) 1 applic DAILY@2000 TOPIC 03/08/19 20:00 03/31/19 19:59 03/08/19 20:26 Clonidine HCl (Catapres Tab) 0.1 mg Q6H PRN GT FOR sbp >160 03/08/19 13:15 04/07/19 13:14 Colistimethate Sodium (Colistin *inhalation use only*) 150 mg Q12HR@10,22 INH 03/08/19 13:45 03/15/19 13:44 03/08/19 22:14 Dextrose (Dextrose 50%) 25 ml Q30M PRN IV Hypoglycemia 03/08/19 12:30 04/04/19 08:45 Dextrose (Dextrose 50%) 50 ml Q30M PRN IV hypoglycemia 03/08/19 12:30 04/04/19 08:59 Dextrose/ Electrolytes 1,000 ml @ 50 mls/hr Q20H IV 03/08/19 13:14 04/07/19 13:13 03/09/19 12:13 Hydralazine HCl (Apresoline) 25 mg Q6HR GT 03/08/19 18:00 04/02/19 11:59 03/08/19 18:23 Iopamidol (Isovue-370 150ml) 150 ml NOW PRN INJ Radiology Procedure 03/09/19 09:00 03/11/19 08:58 Isosorbide Dinitrate (Isordil) 20 mg TID GT 03/08/19 13:30 04/07/19 13:29 Lansoprazole (Prevacid) 30 mg BID GT 03/08/19 18:00 04/03/19 17:59 03/09/19 18:25 Metoclopramide HCl (Reglan) 5 mg EVERY 6 HOURS GT 03/08/19 18:00 04/01/19 11:59 03/09/19 18:25 Ondansetron HCl (Zofran) 4 mg Q6H PRN IVP Nausea & Vomiting 03/08/19 12:45 03/30/19 18:44 Piperacillin Sod/ Tazobactam Sod 3.375 gm/Sodium Chloride 110 ml @ 27.5 mls/hr Q8H IVPB 03/09/19 10:00 03/16/19 09:59 03/09/19 18:00 Polyethylene Glycol (Miralax) 17 gm DAILYPRN PRN GT Constipation 03/08/19 13:17 04/07/19 13:16 Prednisone (predniSONE) 15 mg DAILY GT 03/09/19 09:00 04/02/19 08:59 Allergies: Coded Allergies: No Known Allergies (Unverified , 03/28/17) ROS Limited/Unobtainable: Yes Subjective 53YO M with history of vent dep respiratory failure admitted with respiratory distress. [facility] Vent. Cover for Int Med-Dr Vee. ICU Objective Last Vital Signs Date Time Temp Pulse Resp B/P (MAP) Pulse Ox O2 Delivery O2 Flow Rate FiO2 03/09/19 18:00 86 20 109/81 (90) 100 03/09/19 17:20 40 03/09/19 16:00 Mechanical Ventilator 03/09/19 16:00 98.1 03/05/19 18:54 55.0 Laboratory Tests Test 03/09/19 03:50 03/09/19 17:15 White Blood Count 11.5 K/UL (4.8-10.8) H 12.4 K/UL (4.8-10.8) H Red Blood Count 2.78 M/UL (4.70-6.10) L 3.05 M/UL (4.70-6.10) L Hemoglobin 6.9 G/DL (14.2-18.0) *L 7.9 G/DL (14.2-18.0) L Hematocrit 22.5 % (42.0-52.0) L 25.2 % (42.0-52.0) L Mean Corpuscular Volume 81 FL (80-99) 83 FL (80-99) Mean Corpuscular Hemoglobin 24.8 PG (27.0-31.0) L 25.9 PG (27.0-31.0) L Mean Corpuscular Hemoglobin Concent 30.5 G/DL (32.0-36.0) L 31.4 G/DL (32.0-36.0) L Red Cell Distribution Width 26.0 % (11.6-14.8) H 22.2 % (11.6-14.8) H Platelet Count 179 K/UL (150-450) 157 K/UL (150-450) Mean Platelet Volume 7.5 FL (6.5-10.1) 7.1 FL (6.5-10.1) Neutrophils (%) (Auto) % (45.0-75.0) 83.5 % (45.0-75.0) H Lymphocytes (%) (Auto) % (20.0-45.0) 7.4 % (20.0-45.0) L Monocytes (%) (Auto) % (1.0-10.0) 6.3 % (1.0-10.0) Eosinophils (%) (Auto) % (0.0-3.0) 1.9 % (0.0-3.0) Basophils (%) (Auto) % (0.0-2.0) 1.0 % (0.0-2.0) Differential Total Cells Counted 100 Neutrophils % (Manual) 82 % (45-75) H Lymphocytes % (Manual) 7 % (20-45) L Monocytes % (Manual) 7 % (1-10) Eosinophils % (Manual) 0 % (0-3) Basophils % (Manual) 4 % (0-2) H Band Neutrophils 0 % (0-8) Platelet Estimate Adequate Platelet Morphology Normal Hypochromasia 4+ Anisocytosis 4+ Prothrombin Time 12.0 SEC (9.30-11.50) H Prothromb Time International Ratio 1.1 (0.9-1.1) Activated Partial Thromboplast Time 29 SEC (23-33) Sodium Level 143 MMOL/L (136-145) Potassium Level 4.9 MMOL/L (3.5-5.1) Chloride Level 110 MMOL/L (98-107) H Carbon Dioxide Level 26 MMOL/L (21-32) Anion Gap 7 mmol/L (5-15) Blood Urea Nitrogen 20 mg/dL (7-18) H Creatinine 1.0 MG/DL (0.55-1.30) Estimat Glomerular Filtration Rate > 60 mL/min (>60) Glucose Level 76 MG/DL (74-106) Calcium Level 8.1 MG/DL (8.5-10.1) L Phosphorus Level 2.4 MG/DL (2.5-4.9) L Magnesium Level 1.9 MG/DL (1.8-2.4) Total Bilirubin 1.7 MG/DL (0.2-1.0) H Direct Bilirubin 0.9 MG/DL (0.0-0.3) H Aspartate Amino Transf (AST/SGOT) 43 U/L (15-37) H Alanine Aminotransferase (ALT/SGPT) 59 U/L (12-78) Alkaline Phosphatase 358 U/L (46-116) H Total Protein 5.6 G/DL (6.4-8.2) L Albumin 2.1 G/DL (3.4-5.0) L Globulin 3.5 g/dL Albumin/Globulin Ratio 0.6 (1.0-2.7) L Intake and Output 03/08/19 03/09/19 19:00 07:00 Intake Total 701.192 ml 3874.828 ml Output Total 970 ml 4100 ml Balance -268.808 ml -225.172 ml Intake Free Water 50 ml IV Total 516.192 ml 869.828 ml Tube Feeding 135 ml Blood Product 905 ml Other 2100 ml Output Urine Total 970 ml 1200 ml Stool Total 2900 ml Objective PHYSICAL EXAMINATION:. GENERAL: The patient is awake and responsive to the painful stimuli. Spontaneously opens his eyes. Cannot follow commands. HEAD AND NECK: Pupils are equal and reactive to light. Anicteric. Neck was supple. Tracheostomy site is intact. LUNGS: Mech Vent; Good air entry. Decreased in the bases. Ventilation breath sounds. HEART: Reveals S1, S2. Regular rhythm. Distant heart sounds. No murmurs or gallops. ABDOMEN: Soft, nondistended, and nontender. PEG site is clean. EXTREMITIES: No cyanosis or clubbing. A +1 edema in bilateral lower extremities. The patient has a PICC line in the right upper extremity noted. NEUROLOGIC: Very limited secondary to the patient's status. At this time, the patient is unable to follow commands, however, moving extremities slowly. BACK: Has a small sacral ulcer. Assessment/Plan Assessment/Plan ASSESSMENT: 1. Acute respiratory failure on chronic on trach bilateral pneumonia. 2. Severe cardiomyopathy with systolic dysfunction. 3. Hyperkalemia. 4. Chronic ventilator dependent status post tracheostomy. 5. History of sudden cardiac arrest. 6. Asthma. 7. Anoxic brain injury. 8. Dysphagia status post PEG. 9. Cholecystitis PLAN: ICU Dr. Gerber from Pulmonary Critical Care, Dr. Luis Robins from ID Dr. Nico Alonso from Nephrology. We will monitor potassium level closely on Kayexalate. Chronic wound care therapy. We will follow up with the wound care protocol. Monitor laboratory. Antibiotic=Zosyn per ID. Code status at this time is Full Code. Discharge planning Alex Cifuentes MD Mar 09, 2019 18:48
[2019-03-09] MEDS: Dyna-Hex 2% Top Sol 2oz TOPIC SCH (20:02)
[2019-03-10] VITALS (24 sets, daily range): BP systolic 87–109; BP diastolic 59–85
--- NOTE | 2019-03-10 01:30 | Progress Note ---
CARDIOLOGY PROGRESS NOTE DATE: 03/09/2019 SUBJECTIVE: The patient continues to have signs of GI blood loss. EGD and colonoscopy did not reveal any source of bleeding. CT angiogram is planned. OBJECTIVE: VITAL SIGNS: Blood pressure 109/79, pulse 86, and respirations 20. LUNGS: Clear. CARDIAC: Regular with a 1/6 systolic murmur at the apex. ABDOMEN: Soft with no focal tenderness. EXTREMITIES: Trace dependent edema. LABORATORY DATA: White count 12.4, hemoglobin 7.9. Potassium 4.9. Magnesium 1.9. Albumin 2.1. IMPRESSION: 1. Respiratory failure with tracheostomy. 2. Healthcare-acquired pneumonia. 3. Severe cardiomyopathy. 4. Chronic systolic congestive heart failure with acute component. 5. History of sudden cardiac . 6. Anoxic brain injury. 7. Nonsustained ventricular tachycardia. 8. Pleural effusion. PLAN: 1. CT angiogram. 2. Transfuse for hemoglobin below 8 g if actively bleeding. 3. Continue maximization of anti-failure regimen. 4. Diuresis efforts will likely be required soon. 5. IV fluids to be discontinued for now with antimicrobials. 6. Respiratory hygiene. 7. The patient is high risk. Luis Cochran M.D. DR: SHRUTHI JOB#: [id number] CC:
[2019-03-10] MEDS: Piperacillin/Tazobactam 3.375 GM in NS 110 ML IVPB SCH ×3 (02:27→18:57)
[2019-03-10 04:55] LABS: HEMATOCRIT 22.9 % (42.0-52.0); MEAN CORPUSCULAR VOLUME 82 FL (80-99); PLATELET COUNT 178 K/UL (150-450); RED BLOOD COUNT 2.78 M/UL (4.70-6.10); RED CELL DISTRIBUTION WIDTH 25.9 % (11.6-14.8); WHITE BLOOD COUNT 10.6 K/UL (4.8-10.8)
[2019-03-10 05:01] LABS: HEMOGLOBIN 6.8 G/DL (14.2-18.0)
[2019-03-10 05:29] LABS: INR 1.2 (0.9-1.1)
[2019-03-10 05:40] LABS: ALANINE AMINOTRANSFERASE 50 U/L (12-78); ALBUMIN/GLOBULIN RATIO 0.6 (1.0-2.7); ALKALINE PHOSPHATASE 310 U/L (46-116); ANION GAP 8 mmol/L (5-15); ASPARTATE AMINO TRANSFERASE 30 U/L (15-37); BILIRUBIN,TOTAL 1.7 MG/DL (0.2-1.0); BLOOD UREA NITROGEN 15 mg/dL (7-18); CALCIUM 7.9 MG/DL (8.5-10.1); CARBON DIOXIDE 24 MMOL/L (21-32); CHLORIDE 107 MMOL/L (98-107); PHOSPHORUS 2.2 MG/DL (2.5-4.9); POTASSIUM 4.5 MMOL/L (3.5-5.1); SODIUM 139 MMOL/L (136-145)
[2019-03-10 05:43] LABS: BILIRUBIN,DIRECT 0.9 MG/DL (0.0-0.3)
[2019-03-10] MEDS: HydrALAZINE 25mg tab GT SCH ×2 (06:00→12:00)
[2019-03-10] MEDS: Metoclopramide 10mg/10ml Liq GT SCH ×3 (06:09→18:54)
[2019-03-10] MEDS: D5 1/2NS w/KCl 20mEq 1,000 ML IV SCH (07:14)
[2019-03-10] MEDS: Carvedilol 25mg Tab GT SCH ×2 (09:00→20:50)
[2019-03-10] MEDS ORDERED: Sodium Phosphate 15 MM in NS 275 ML IVPB SCH (09:00)
[2019-03-10] MEDS: Colistin for inhalation INH SCH ×2 (09:11→21:40)
--- NOTE | 2019-03-10 09:54 | Pulmonolgy Critical Care Note ---
Critical Care - Asmt/Plan Problems: (1) GI bleed Assessment & Plan: still bleeding (2) Acute on chronic respiratory failure (3) ATN (acute tubular necrosis) Assessment & Plan: improved (4) Hyperkalemia (5) EF less than 10% (6) Status post tracheostomy (7) Feeding by G-tube (8) History of sudden cardiac arrest (9) History of asthma Respiratory: monitor respiratory rate, adjust FIO2, CXR Cardiac: continue pressors, continue to monitor HR/BP Renal: F/U I&O Infectious Disease: check cultures, continue antibiotics Gastrointestinal: hold feedings Endocrine: check TSH, check HgA1C Hematologic: monitor H/H Neurologic: PRN Morphine Time Spent (Minutes): 40 Notes Reviewed: cardio, renal Discussed with: consultants Critical Care - Objective Last 24 Hour Vital Signs Date Time Temp Pulse Resp B/P (MAP) Pulse Ox O2 Delivery O2 Flow Rate FiO2 03/10/19 09:21 84 18 100 Mechanical Ventilator 40 03/10/19 09:11 87 18 100 Mechanical Ventilator 40 03/10/19 08:58 89 17 40 03/10/19 07:39 93 16 40 03/10/19 07:00 85 15 98/85 (89) 100 03/10/19 06:00 99/67 03/10/19 06:00 85 15 100/62 (75) 100 03/10/19 05:11 90 16 40 03/10/19 05:00 88 15 99/62 (74) 100 03/10/19 04:00 Mechanical Ventilator 03/10/19 04:00 40 03/10/19 04:00 88 03/10/19 04:00 98.3 88 16 105/75 (85) 100 03/10/19 03:06 89 17 40 03/10/19 03:00 87 16 101/71 (81) 100 03/10/19 02:00 83 16 101/69 (80) 100 03/10/19 01:05 81 16 40 03/10/19 01:00 83 18 99/66 (77) 100 03/10/19 00:00 Mechanical Ventilator 03/10/19 00:00 98.2 84 18 95/64 (74) 100 03/10/19 00:00 40 03/10/19 00:00 88 03/09/19 23:34 90/60 03/09/19 23:16 81 17 40 03/09/19 23:00 82 18 90/64 (73) 100 03/09/19 22:00 89 18 100/65 (77) 100 03/09/19 21:40 87 16 100 Mechanical Ventilator 40 03/09/19 21:25 86 16 100 Mechanical Ventilator 40 03/09/19 21:25 86 16 40 03/09/19 21:00 86 18 92/64 (73) 100 03/09/19 20:38 95 105/71 03/09/19 20:22 99 03/09/19 20:00 98.8 87 20 101/71 (81) 100 03/09/19 20:00 40 03/09/19 20:00 Mechanical Ventilator 03/09/19 19:11 90 16 40 03/09/19 19:00 88 20 108/75 (86) 100 03/09/19 18:00 86 20 109/81 (90) 100 03/09/19 17:20 87 17 40 03/09/19 17:00 85 20 107/79 (88) 100 03/09/19 16:00 85 03/09/19 16:00 Mechanical Ventilator 03/09/19 16:00 40 03/09/19 16:00 98.1 86 20 102/83 (89) 100 03/09/19 15:18 89 16 40 03/09/19 15:00 89 20 99/63 (75) 100 03/09/19 14:00 86 20 110/72 (85) 100 03/09/19 13:02 86 17 40 03/09/19 13:00 98.0 85 20 103/82 (89) 100 03/09/19 12:00 109/79 03/09/19 12:00 40 03/09/19 12:00 Mechanical Ventilator 03/09/19 11:50 86 20 109/79 (89) 100 03/09/19 11:45 86 18 102/77 (85) 100 03/09/19 11:40 86 14 111/82 (92) 03/09/19 11:35 86 18 109/82 (91) 03/09/19 11:30 87 17 110/83 (92) 100 03/09/19 11:27 88 03/09/19 11:25 91 17 110/84 (93) 03/09/19 11:20 96 15 107/77 (87) 03/09/19 11:15 96 18 114/88 (97) 03/09/19 11:10 95 23 117/86 (96) 100 03/09/19 11:05 84 18 97/79 (85) 100 03/09/19 11:00 81 6 100/73 (82) 100 03/09/19 10:37 80 16 40 03/09/19 10:00 80 16 97/66 (76) 100 Status: awake Condition: critical HEENT: atraumatic Lungs: clear Heart: HR/BP stable Abdomen: soft, non-tender, feeding tube Extremities: no C/C/E Accucheck: 72 Critical Care - Subjective ROS Limited/Unobtainable: Yes Condition: critical EKG Rhythm: Sinus Rhythm FI02: 40 Vent Support Breath Rate: 16 Vent Support Mode: AC Vent Tidal Volume: 600 Sputum Amount: Scant PEEP: 5.0 PIP: 41 Tube Feeding Amount: 45 I&O: Intake and Output 03/09/19 03/10/19 19:00 07:00 Intake Total 376.638 ml 600 ml Output Total 1150 ml 570 ml Balance -773.362 ml 30 ml IV Total 376.638 ml 600 ml Output Urine Total 1150 ml 570 ml CXR: dense infiltrate unchanged. Labs: Laboratory Tests Test 03/09/19 17:15 03/10/19 04:10 White Blood Count 12.4 K/UL (4.8-10.8) H 10.6 K/UL (4.8-10.8) Red Blood Count 3.05 M/UL (4.70-6.10) L 2.78 M/UL (4.70-6.10) L Hemoglobin 7.9 G/DL (14.2-18.0) L 6.8 G/DL (14.2-18.0) *L Hematocrit 25.2 % (42.0-52.0) L 22.9 % (42.0-52.0) L Mean Corpuscular Volume 83 FL (80-99) 82 FL (80-99) Mean Corpuscular Hemoglobin 25.9 PG (27.0-31.0) L 24.4 PG (27.0-31.0) L Mean Corpuscular Hemoglobin Concent 31.4 G/DL (32.0-36.0) L 29.7 G/DL (32.0-36.0) L Red Cell Distribution Width 22.2 % (11.6-14.8) H 25.9 % (11.6-14.8) H Platelet Count 157 K/UL (150-450) 178 K/UL (150-450) Mean Platelet Volume 7.1 FL (6.5-10.1) 6.7 FL (6.5-10.1) Neutrophils (%) (Auto) 83.5 % (45.0-75.0) H % (45.0-75.0) Lymphocytes (%) (Auto) 7.4 % (20.0-45.0) L % (20.0-45.0) Monocytes (%) (Auto) 6.3 % (1.0-10.0) % (1.0-10.0) Eosinophils (%) (Auto) 1.9 % (0.0-3.0) % (0.0-3.0) Basophils (%) (Auto) 1.0 % (0.0-2.0) % (0.0-2.0) Differential Total Cells Counted 100 Neutrophils % (Manual) 83 % (45-75) H Lymphocytes % (Manual) 5 % (20-45) L Monocytes % (Manual) 6 % (1-10) Eosinophils % (Manual) 1 % (0-3) Basophils % (Manual) 0 % (0-2) Band Neutrophils 5 % (0-8) Platelet Estimate Adequate Platelet Morphology Normal Hypochromasia 2+ Anisocytosis 2+ Prothrombin Time 12.2 SEC (9.30-11.50) H Prothromb Time International Ratio 1.2 (0.9-1.1) H Activated Partial Thromboplast Time 32 SEC (23-33) Sodium Level 139 MMOL/L (136-145) Potassium Level 4.5 MMOL/L (3.5-5.1) Chloride Level 107 MMOL/L (98-107) Carbon Dioxide Level 24 MMOL/L (21-32) Anion Gap 8 mmol/L (5-15) Blood Urea Nitrogen 15 mg/dL (7-18) Creatinine 1.0 MG/DL (0.55-1.30) Estimat Glomerular Filtration Rate > 60 mL/min (>60) Glucose Level 66 MG/DL (74-106) L Calcium Level 7.9 MG/DL (8.5-10.1) L Phosphorus Level 2.2 MG/DL (2.5-4.9) L Magnesium Level 1.6 MG/DL (1.8-2.4) L Total Bilirubin 1.7 MG/DL (0.2-1.0) H Direct Bilirubin 0.9 MG/DL (0.0-0.3) H Aspartate Amino Transf (AST/SGOT) 30 U/L (15-37) Alanine Aminotransferase (ALT/SGPT) 50 U/L (12-78) Alkaline Phosphatase 310 U/L (46-116) H Total Protein 5.5 G/DL (6.4-8.2) L Albumin 2.0 G/DL (3.4-5.0) L Globulin 3.5 g/dL Albumin/Globulin Ratio 0.6 (1.0-2.7) L Ivan Gerber MD Mar 10, 2019 09:54
[2019-03-10] MEDS: Allopurinol 100mg Tab GT SCH (10:48)
--- NOTE | 2019-03-10 10:50 | GI Progress Note ---
Assessment/Plan Problems: (1) GI bleed ICD Codes: K92.2 - Gastrointestinal hemorrhage, unspecified SNOMED: 14400024 (2) EF less than 10% (3) Feeding by G-tube ICD Codes: Z93.1 - Gastrostomy status SNOMED: 326412811, 779469013, 333708624 Status: unchanged Status Narrative Discussed with Dr. Willoughby. Assessment/Plan s/p EGD and colonoscopy SUMMARY OF FINDINGS: 1. Gastritis. 2. Internal hemorrhoids. 3. Blood throughout the colon, also including TI. 4. Internal hemorrhoids. RECOMMENDATIONS: fu CT angio, will consider capsule endoscopy if no obvious source of bleeding. prn transfusions ppi maintain NPO + IVFs will follow with additional recommendations The patient was seen and examined at bedside and all new and available data was reviewed in the patients chart. I agree with the above findings, impression and plan. (Patient seen earlier today. Signature stamp does not reflect patient encounter time.). - Antwon Willoughby MD Subjective Subjective Limited Objective Last 24 Hour Vital Signs Date Time Temp Pulse Resp B/P (MAP) Pulse Ox O2 Delivery O2 Flow Rate FiO2 03/10/19 09:21 84 18 100 Mechanical Ventilator 40 03/10/19 09:11 87 18 100 Mechanical Ventilator 40 03/10/19 08:58 89 17 40 03/10/19 07:39 93 16 40 03/10/19 07:00 85 15 98/85 (89) 100 03/10/19 06:00 99/67 03/10/19 06:00 85 15 100/62 (75) 100 03/10/19 05:11 90 16 40 03/10/19 05:00 88 15 99/62 (74) 100 03/10/19 04:00 Mechanical Ventilator 03/10/19 04:00 40 03/10/19 04:00 88 03/10/19 04:00 98.3 88 16 105/75 (85) 100 03/10/19 03:06 89 17 40 03/10/19 03:00 87 16 101/71 (81) 100 03/10/19 02:00 83 16 101/69 (80) 100 03/10/19 01:05 81 16 40 03/10/19 01:00 83 18 99/66 (77) 100 03/10/19 00:00 Mechanical Ventilator 03/10/19 00:00 98.2 84 18 95/64 (74) 100 03/10/19 00:00 40 03/10/19 00:00 88 03/09/19 23:34 90/60 03/09/19 23:16 81 17 40 03/09/19 23:00 82 18 90/64 (73) 100 03/09/19 22:00 89 18 100/65 (77) 100 03/09/19 21:40 87 16 100 Mechanical Ventilator 40 03/09/19 21:25 86 16 100 Mechanical Ventilator 40 03/09/19 21:25 86 16 40 03/09/19 21:00 86 18 92/64 (73) 100 03/09/19 20:38 95 105/71 03/09/19 20:22 99 03/09/19 20:00 98.8 87 20 101/71 (81) 100 03/09/19 20:00 40 03/09/19 20:00 Mechanical Ventilator 03/09/19 19:11 90 16 40 03/09/19 19:00 88 20 108/75 (86) 100 03/09/19 18:00 86 20 109/81 (90) 100 03/09/19 17:20 87 17 40 03/09/19 17:00 85 20 107/79 (88) 100 03/09/19 16:00 85 03/09/19 16:00 Mechanical Ventilator 03/09/19 16:00 40 03/09/19 16:00 98.1 86 20 102/83 (89) 100 03/09/19 15:18 89 16 40 03/09/19 15:00 89 20 99/63 (75) 100 03/09/19 14:00 86 20 110/72 (85) 100 03/09/19 13:02 86 17 40 03/09/19 13:00 98.0 85 20 103/82 (89) 100 03/09/19 12:00 109/79 03/09/19 12:00 40 03/09/19 12:00 Mechanical Ventilator 03/09/19 11:50 86 20 109/79 (89) 100 03/09/19 11:45 86 18 102/77 (85) 100 03/09/19 11:40 86 14 111/82 (92) 03/09/19 11:35 86 18 109/82 (91) 03/09/19 11:30 87 17 110/83 (92) 100 03/09/19 11:27 88 03/09/19 11:25 91 17 110/84 (93) 03/09/19 11:20 96 15 107/77 (87) 03/09/19 11:15 96 18 114/88 (97) 03/09/19 11:10 95 23 117/86 (96) 100 03/09/19 11:05 84 18 97/79 (85) 100 03/09/19 11:00 81 6 100/73 (82) 100 Intake and Output 03/09/19 03/10/19 19:00 07:00 Intake Total 376.638 ml 600 ml Output Total 1150 ml 570 ml Balance -773.362 ml 30 ml IV Total 376.638 ml 600 ml Output Urine Total 1150 ml 570 ml Laboratory Tests Test 03/09/19 17:15 03/10/19 04:10 White Blood Count 12.4 K/UL (4.8-10.8) H 10.6 K/UL (4.8-10.8) Red Blood Count 3.05 M/UL (4.70-6.10) L 2.78 M/UL (4.70-6.10) L Hemoglobin 7.9 G/DL (14.2-18.0) L 6.8 G/DL (14.2-18.0) *L Hematocrit 25.2 % (42.0-52.0) L 22.9 % (42.0-52.0) L Mean Corpuscular Volume 83 FL (80-99) 82 FL (80-99) Mean Corpuscular Hemoglobin 25.9 PG (27.0-31.0) L 24.4 PG (27.0-31.0) L Mean Corpuscular Hemoglobin Concent 31.4 G/DL (32.0-36.0) L 29.7 G/DL (32.0-36.0) L Red Cell Distribution Width 22.2 % (11.6-14.8) H 25.9 % (11.6-14.8) H Platelet Count 157 K/UL (150-450) 178 K/UL (150-450) Mean Platelet Volume 7.1 FL (6.5-10.1) 6.7 FL (6.5-10.1) Neutrophils (%) (Auto) 83.5 % (45.0-75.0) H % (45.0-75.0) Lymphocytes (%) (Auto) 7.4 % (20.0-45.0) L % (20.0-45.0) Monocytes (%) (Auto) 6.3 % (1.0-10.0) % (1.0-10.0) Eosinophils (%) (Auto) 1.9 % (0.0-3.0) % (0.0-3.0) Basophils (%) (Auto) 1.0 % (0.0-2.0) % (0.0-2.0) Differential Total Cells Counted 100 Neutrophils % (Manual) 83 % (45-75) H Lymphocytes % (Manual) 5 % (20-45) L Monocytes % (Manual) 6 % (1-10) Eosinophils % (Manual) 1 % (0-3) Basophils % (Manual) 0 % (0-2) Band Neutrophils 5 % (0-8) Platelet Estimate Adequate Platelet Morphology Normal Hypochromasia 2+ Anisocytosis 2+ Prothrombin Time 12.2 SEC (9.30-11.50) H Prothromb Time International Ratio 1.2 (0.9-1.1) H Activated Partial Thromboplast Time 32 SEC (23-33) Sodium Level 139 MMOL/L (136-145) Potassium Level 4.5 MMOL/L (3.5-5.1) Chloride Level 107 MMOL/L (98-107) Carbon Dioxide Level 24 MMOL/L (21-32) Anion Gap 8 mmol/L (5-15) Blood Urea Nitrogen 15 mg/dL (7-18) Creatinine 1.0 MG/DL (0.55-1.30) Estimat Glomerular Filtration Rate > 60 mL/min (>60) Glucose Level 66 MG/DL (74-106) L Calcium Level 7.9 MG/DL (8.5-10.1) L Phosphorus Level 2.2 MG/DL (2.5-4.9) L Magnesium Level 1.6 MG/DL (1.8-2.4) L Total Bilirubin 1.7 MG/DL (0.2-1.0) H Direct Bilirubin 0.9 MG/DL (0.0-0.3) H Aspartate Amino Transf (AST/SGOT) 30 U/L (15-37) Alanine Aminotransferase (ALT/SGPT) 50 U/L (12-78) Alkaline Phosphatase 310 U/L (46-116) H Total Protein 5.5 G/DL (6.4-8.2) L Albumin 2.0 G/DL (3.4-5.0) L Globulin 3.5 g/dL Albumin/Globulin Ratio 0.6 (1.0-2.7) L Height (Feet): 6 Height (Inches): 1.00 Weight (Pounds): 257 General Appearance: WD/WN, no apparent distress, alert Cardiovascular: normal rate Respiratory/Chest: normal breath sounds, no respiratory distress Abdominal Exam: normal bowel sounds, non tender, soft Extremities: non-tender Objective patient had BM today, still has active bleed Rossy Cadena NP Mar 10, 2019 10:50
--- NOTE | 2019-03-10 12:17 | Infectious Diseases Prog Note ---
Assessment/Plan Assessment/Plan 53 yo male with PMHx of Asthma, HTN and CHF who was sent to the ED form a care home for respuratory distress and feeling cold. Respiratory distress PNA, multifocal -03/09 CXR: Suggests only slightly smaller left midlung opacity, increasing likelihood that this is focal infiltrate rather than tumor. Further follow-up to resolution is recommended Evidence of increasing infiltrate and/or pleural fluid at the right lung base New/increased left pleural fluid and possible underlying hazy consolidation -CT Chest: Dense opacities within the right lower lobe and left upper lobe with air bronchograms. Findings suggest multifocal pneumonia. Follow-up after appropriate treatment is recommended to ensure resolution and exclude the possibility of underlying mass. Laucp-iz-hiopdjoi right pleural effusion. Prominent mediastinal lymph nodes with an enlarged subcarinal node which may be reactive in etiology. Attention on follow-up is recommended. Cardiomegaly and findings suggestive of anemia. Apparent gallbladder wall thickening and pericholecystic fluid. Correlation with findings of recent ultrasound recommended. If there is clinical concern for acute cholecystitis consider HIDA scan. -03/05 SP cx MDR ABC -legionella ag urine, influenza sc neg -02/28 sp cx C> albicans GIB -CTA abd/p p -03/09 EGD/Colonoscopy: gastritis, hemorrhoids Acute blood loss anemia Anasarca. No fevers CXR - B/L consolidations Leukocytosis, recurrent mild- resolved Gram positive bacteremia- likely contaminant -Bcx 11/20 Staph epi; 03/02 Bcx Neg UA (-) Elevated ALT/AST>Tbili; improving- ?early cirrhosis- r/o acalculous cholecystitis -Abd US: Small amount of ascites fluid. Hepatomegaly. Equivocal mild surface nodularity, could indicate early cirrhotic changes. Correlate with clinical findings. Apparent to and fro flow within the portal veins, raising concern for portal hypertension. Borderline splenomegaly. Negative for gallstones. Apparent pericholecystic fluid is likely a manifestation of the ascites. Apparent gallbladder wall edema is most likely related to the hepatocellular disease, although the possibility of acute acalculous cholecystitis should also be considered. Consider nuclear medicine hepatobiliary imaging for further evaluation if there is high clinical suspicion. Echogenic foci within the left hepatic lobe. These could represent small hemangiomas or just prominent periportal fat -hep serologies neg -HIV ab sc neg - HIDA 03/05/19 - No evidence of acute cholecystitis. Radiotracer noted within the gallbladder indicating patency of the cystic duct. Radiotracer passes into the small bowel indicating patency of the common bile duct. Delayed uptake and excretion of the radiotracer from the liver parenchyma suggesting hepatocellular dysfunction/disease. Small sacral ulcers Do not appear to be infected Asthma HTN CHF PLAN -Continue empiric Zosyn #9/10 for PNA and now GIB and add INH colistin #3 for MDR ABC - 03/05/19 SP Vancomycin #4 - f/u Cx - Resp therapy - Wound care -aspiration precautions -GI f/u: f/u CTA abd/p to eval for source of bleeding Thank you for this consult. We will continue to follow the patient during this hospitalization. Subjective Allergies: Coded Allergies: No Known Allergies (Unverified , 03/28/17) Subjective afebrile mild leukocytosis resolved Hgb remains low at 6.8 despite transfussion CTA abd/p p remains on ICU Objective Vital Signs Last 24 Hour Vital Signs Date Time Temp Pulse Resp B/P (MAP) Pulse Ox O2 Delivery O2 Flow Rate FiO2 03/10/19 10:45 88 17 40 03/10/19 09:21 84 18 100 Mechanical Ventilator 40 03/10/19 09:11 87 18 100 Mechanical Ventilator 40 03/10/19 09:00 95/65 03/10/19 08:58 89 17 40 03/10/19 07:39 93 16 40 03/10/19 07:00 85 15 98/85 (89) 100 03/10/19 06:00 99/67 03/10/19 06:00 85 15 100/62 (75) 100 03/10/19 05:11 90 16 40 03/10/19 05:00 88 15 99/62 (74) 100 03/10/19 04:00 Mechanical Ventilator 03/10/19 04:00 40 03/10/19 04:00 88 03/10/19 04:00 98.3 88 16 105/75 (85) 100 03/10/19 03:06 89 17 40 03/10/19 03:00 87 16 101/71 (81) 100 03/10/19 02:00 83 16 101/69 (80) 100 03/10/19 01:05 81 16 40 03/10/19 01:00 83 18 99/66 (77) 100 03/10/19 00:00 Mechanical Ventilator 03/10/19 00:00 98.2 84 18 95/64 (74) 100 03/10/19 00:00 40 03/10/19 00:00 88 03/09/19 23:34 90/60 03/09/19 23:16 81 17 40 03/09/19 23:00 82 18 90/64 (73) 100 03/09/19 22:00 89 18 100/65 (77) 100 03/09/19 21:40 87 16 100 Mechanical Ventilator 40 03/09/19 21:25 86 16 100 Mechanical Ventilator 40 03/09/19 21:25 86 16 40 03/09/19 21:00 86 18 92/64 (73) 100 03/09/19 20:38 95 105/71 03/09/19 20:22 99 03/09/19 20:00 98.8 87 20 101/71 (81) 100 03/09/19 20:00 40 03/09/19 20:00 Mechanical Ventilator 03/09/19 19:11 90 16 40 03/09/19 19:00 88 20 108/75 (86) 100 03/09/19 18:00 86 20 109/81 (90) 100 03/09/19 17:20 87 17 40 03/09/19 17:00 85 20 107/79 (88) 100 03/09/19 16:00 85 03/09/19 16:00 Mechanical Ventilator 03/09/19 16:00 40 03/09/19 16:00 98.1 86 20 102/83 (89) 100 03/09/19 15:18 89 16 40 03/09/19 15:00 89 20 99/63 (75) 100 03/09/19 14:00 86 20 110/72 (85) 100 03/09/19 13:02 86 17 40 03/09/19 13:00 98.0 85 20 103/82 (89) 100 03/09/19 12:00 109/79 03/09/19 12:00 40 03/09/19 12:00 Mechanical Ventilator Height (Feet): 6 Height (Inches): 1.00 Weight (Pounds): 257 Objective Gen: Awake and follwoing, Trached on Vent 45% HEENT: NCAT, MMM, EOMI, PERRL, No Oral lesion, no scleral icterus NECK: full range of motion, supple, no meningismus, No LAD, No JVD LUNGS: Course B/L Mild wheezing CARDS: RRR, S1, S2, No M/R/G, ABD: Soft, NT, ND, No R/G, + BS, No HSM, No Masses, PEG (No E/P) : Deferred Ext: C/C/E, Pulses 2+ B/L (DP, Rad): NEURO: A/O - not verbal , Strength and Sensation Grossly intact PSYCH: Mood/affect normal SKIN: Warm/dry, No rashes, small sacral ulcers Laboratory Tests Test 03/09/19 17:15 03/10/19 04:10 White Blood Count 12.4 K/UL (4.8-10.8) H 10.6 K/UL (4.8-10.8) Red Blood Count 3.05 M/UL (4.70-6.10) L 2.78 M/UL (4.70-6.10) L Hemoglobin 7.9 G/DL (14.2-18.0) L 6.8 G/DL (14.2-18.0) *L Hematocrit 25.2 % (42.0-52.0) L 22.9 % (42.0-52.0) L Mean Corpuscular Volume 83 FL (80-99) 82 FL (80-99) Mean Corpuscular Hemoglobin 25.9 PG (27.0-31.0) L 24.4 PG (27.0-31.0) L Mean Corpuscular Hemoglobin Concent 31.4 G/DL (32.0-36.0) L 29.7 G/DL (32.0-36.0) L Red Cell Distribution Width 22.2 % (11.6-14.8) H 25.9 % (11.6-14.8) H Platelet Count 157 K/UL (150-450) 178 K/UL (150-450) Mean Platelet Volume 7.1 FL (6.5-10.1) 6.7 FL (6.5-10.1) Neutrophils (%) (Auto) 83.5 % (45.0-75.0) H % (45.0-75.0) Lymphocytes (%) (Auto) 7.4 % (20.0-45.0) L % (20.0-45.0) Monocytes (%) (Auto) 6.3 % (1.0-10.0) % (1.0-10.0) Eosinophils (%) (Auto) 1.9 % (0.0-3.0) % (0.0-3.0) Basophils (%) (Auto) 1.0 % (0.0-2.0) % (0.0-2.0) Differential Total Cells Counted 100 Neutrophils % (Manual) 83 % (45-75) H Lymphocytes % (Manual) 5 % (20-45) L Monocytes % (Manual) 6 % (1-10) Eosinophils % (Manual) 1 % (0-3) Basophils % (Manual) 0 % (0-2) Band Neutrophils 5 % (0-8) Platelet Estimate Adequate Platelet Morphology Normal Hypochromasia 2+ Anisocytosis 2+ Prothrombin Time 12.2 SEC (9.30-11.50) H Prothromb Time International Ratio 1.2 (0.9-1.1) H Activated Partial Thromboplast Time 32 SEC (23-33) Sodium Level 139 MMOL/L (136-145) Potassium Level 4.5 MMOL/L (3.5-5.1) Chloride Level 107 MMOL/L (98-107) Carbon Dioxide Level 24 MMOL/L (21-32) Anion Gap 8 mmol/L (5-15) Blood Urea Nitrogen 15 mg/dL (7-18) Creatinine 1.0 MG/DL (0.55-1.30) Estimat Glomerular Filtration Rate > 60 mL/min (>60) Glucose Level 66 MG/DL (74-106) L Calcium Level 7.9 MG/DL (8.5-10.1) L Phosphorus Level 2.2 MG/DL (2.5-4.9) L Magnesium Level 1.6 MG/DL (1.8-2.4) L Total Bilirubin 1.7 MG/DL (0.2-1.0) H Direct Bilirubin 0.9 MG/DL (0.0-0.3) H Aspartate Amino Transf (AST/SGOT) 30 U/L (15-37) Alanine Aminotransferase (ALT/SGPT) 50 U/L (12-78) Alkaline Phosphatase 310 U/L (46-116) H Total Protein 5.5 G/DL (6.4-8.2) L Albumin 2.0 G/DL (3.4-5.0) L Globulin 3.5 g/dL Albumin/Globulin Ratio 0.6 (1.0-2.7) L Current Medications Medications (Trade) Dose Ordered Sig/Rebecca Route PRN Reason Start Time Stop Time Status Last Admin Dose Admin Acetaminophen (Tylenol) 650 mg Q4H PRN GT Mild Pain/Temp > 100.5 03/08/19 13:14 04/07/19 13:13 Albuterol/ Ipratropium (Albuterol/ Ipratropium) 3 ml Q4H PRN HHN Shortness of Breath 03/08/19 13:15 03/13/19 13:14 Allopurinol (Zyloprim) 200 mg DAILY GT 03/09/19 09:00 04/01/19 10:59 03/10/19 10:48 Carvedilol (Coreg) 25 mg EVERY 12 HOURS GT 03/08/19 21:00 04/02/19 20:59 03/09/19 20:38 Chlorhexidine Gluconate (Essie-Hex 2%) 1 applic DAILY@2000 TOPIC 03/08/19 20:00 03/31/19 19:59 03/09/19 20:02 Clonidine HCl (Catapres Tab) 0.1 mg Q6H PRN GT FOR sbp >160 03/08/19 13:15 04/07/19 13:14 Colistimethate Sodium (Colistin *inhalation use only*) 150 mg Q12HR@ INH 03/08/19 13:45 03/15/19 13:44 03/10/19 09:11 Dextrose (Dextrose 50%) 25 ml Q30M PRN IV Hypoglycemia 03/08/19 12:30 04/04/19 08:45 Dextrose (Dextrose 50%) 50 ml Q30M PRN IV hypoglycemia 03/08/19 12:30 04/04/19 08:59 Dextrose/ Electrolytes 1,000 ml @ 50 mls/hr Q20H IV 03/08/19 13:14 04/07/19 13:13 03/10/19 07:14 Hydralazine HCl (Apresoline) 25 mg Q6HR GT 03/08/19 18:00 04/02/19 11:59 03/08/19 18:23 Iopamidol (Isovue-370 150ml) 150 ml NOW PRN INJ Radiology Procedure 03/09/19 09:00 03/11/19 08:58 Isosorbide Dinitrate (Isordil) 20 mg TID GT 03/08/19 13:30 04/07/19 13:29 Lansoprazole (Prevacid) 30 mg BID GT 03/08/19 18:00 04/03/19 17:59 03/10/19 10:48 Metoclopramide HCl (Reglan) 5 mg EVERY 6 HOURS GT 03/08/19 18:00 04/01/19 11:59 03/10/19 06:09 Ondansetron HCl (Zofran) 4 mg Q6H PRN IVP Nausea & Vomiting 03/08/19 12:45 03/30/19 18:44 Piperacillin Sod/ Tazobactam Sod 3.375 gm/Sodium Chloride 110 ml @ 27.5 mls/hr Q8H IVPB 03/09/19 10:00 03/16/19 09:59 03/10/19 11:31 Polyethylene Glycol (Miralax) 17 gm DAILYPRN PRN GT Constipation 03/08/19 13:17 04/07/19 13:16 Prednisone (predniSONE) 15 mg DAILY GT 03/09/19 09:00 04/02/19 08:59 03/10/19 10:47 Sodium Phosphate 15 mm/Sodium Chloride 280 ml @ 70.273 mls/ hr ONCE IVPB 03/10/19 09:00 03/10/19 15:00 03/10/19 10:49 Kathie Lacey M.D. Mar 10, 2019 12:17
--- NOTE | 2019-03-10 12:43 | Nephrology Progress Note ---
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 Chronic systolic (congestive) heart failure History of sudden cardiac arrest Status post tracheostomy Feeding by G-tube History of asthma Plan phos and mag ordered due angiogram CT colonoscopy did not pin point bleeding soarce from colon with Ejfx of 10% , not a great surgical candidate per GI and Surgery Cerda Reglan continue prednisone, taper stop hydrate aim to lower after and pre load- increase hydralazin monitor renal parameters per orders Subjective ROS Limited/Unobtainable: Yes Objective Objective Last 24 Hour Vital Signs Date Time Temp Pulse Resp B/P (MAP) Pulse Ox O2 Delivery O2 Flow Rate FiO2 03/10/19 12:38 99/67 03/10/19 12:17 89 16 100 Mechanical Ventilator 40 03/10/19 12:00 99/68 03/10/19 10:45 88 17 40 03/10/19 09:21 84 18 100 Mechanical Ventilator 40 03/10/19 09:11 87 18 100 Mechanical Ventilator 40 03/10/19 09:00 95/65 03/10/19 08:58 89 17 40 03/10/19 07:39 93 16 40 03/10/19 07:00 85 15 98/85 (89) 100 03/10/19 06:00 99/67 03/10/19 06:00 85 15 100/62 (75) 100 03/10/19 05:11 90 16 40 03/10/19 05:00 88 15 99/62 (74) 100 03/10/19 04:00 Mechanical Ventilator 03/10/19 04:00 40 03/10/19 04:00 88 03/10/19 04:00 98.3 88 16 105/75 (85) 100 03/10/19 03:06 89 17 40 03/10/19 03:00 87 16 101/71 (81) 100 03/10/19 02:00 83 16 101/69 (80) 100 03/10/19 01:05 81 16 40 03/10/19 01:00 83 18 99/66 (77) 100 03/10/19 00:00 Mechanical Ventilator 03/10/19 00:00 98.2 84 18 95/64 (74) 100 03/10/19 00:00 40 03/10/19 00:00 88 03/09/19 23:34 90/60 03/09/19 23:16 81 17 40 03/09/19 23:00 82 18 90/64 (73) 100 03/09/19 22:00 89 18 100/65 (77) 100 03/09/19 21:40 87 16 100 Mechanical Ventilator 40 03/09/19 21:25 86 16 100 Mechanical Ventilator 40 03/09/19 21:25 86 16 40 03/09/19 21:00 86 18 92/64 (73) 100 03/09/19 20:38 95 105/71 03/09/19 20:22 99 03/09/19 20:00 98.8 87 20 101/71 (81) 100 03/09/19 20:00 40 03/09/19 20:00 Mechanical Ventilator 03/09/19 19:11 90 16 40 03/09/19 19:00 88 20 108/75 (86) 100 03/09/19 18:00 86 20 109/81 (90) 100 03/09/19 17:20 87 17 40 03/09/19 17:00 85 20 107/79 (88) 100 03/09/19 16:00 85 03/09/19 16:00 Mechanical Ventilator 03/09/19 16:00 40 03/09/19 16:00 98.1 86 20 102/83 (89) 100 03/09/19 15:18 89 16 40 03/09/19 15:00 89 20 99/63 (75) 100 03/09/19 14:00 86 20 110/72 (85) 100 03/09/19 13:02 86 17 40 03/09/19 13:00 98.0 85 20 103/82 (89) 100 Intake and Output 03/09/19 03/10/19 19:00 07:00 Intake Total 376.638 ml 600 ml Output Total 1150 ml 570 ml Balance -773.362 ml 30 ml IV Total 376.638 ml 600 ml Output Urine Total 1150 ml 570 ml Laboratory Tests 03/09/19 17:15: White Blood Count 12.4H, Red Blood Count 3.05L, Hemoglobin 7.9L, Hematocrit 25.2L, Mean Corpuscular Volume 83, Mean Corpuscular Hemoglobin 25.9L, Mean Corpuscular Hemoglobin Concent 31.4L, Red Cell Distribution Width 22.2H, Platelet Count 157, Mean Platelet Volume 7.1, Neutrophils (%) (Auto) 83.5H, Lymphocytes (%) (Auto) 7.4L, Monocytes (%) (Auto) 6.3, Eosinophils (%) (Auto) 1.9, Basophils (%) (Auto) 1.0 03/10/19 04:10: White Blood Count 10.6, Red Blood Count 2.78L, Hemoglobin 6.8*L, Hematocrit 22.9L, Mean Corpuscular Volume 82, Mean Corpuscular Hemoglobin 24.4L, Mean Corpuscular Hemoglobin Concent 29.7L, Red Cell Distribution Width 25.9H, Platelet Count 178, Mean Platelet Volume 6.7, Neutrophils (%) (Auto) , Lymphocytes (%) (Auto) , Monocytes (%) (Auto) , Eosinophils (%) (Auto) , Basophils (%) (Auto) , Differential Total Cells Counted 100, Neutrophils % ( Manual) 83H, Lymphocytes % (Manual) 5L, Monocytes % (Manual) 6, Eosinophils % ( Manual) 1, Basophils % (Manual) 0, Band Neutrophils 5, Platelet Estimate Adequate, Platelet Morphology Normal, Hypochromasia 2+, Anisocytosis 2+, Prothrombin Time 12.2H, Prothromb Time International Ratio 1.2H, Activated Partial Thromboplast Time 32, Sodium Level 139, Potassium Level 4.5, Chloride Level 107, Carbon Dioxide Level 24, Anion Gap 8, Blood Urea Nitrogen 15, Creatinine 1.0, Estimat Glomerular Filtration Rate > 60, Glucose Level 66L, Calcium Level 7.9L, Phosphorus Level 2.2L, Magnesium Level 1.6L, Total Bilirubin 1.7H, Direct Bilirubin 0.9H, Aspartate Amino Transf (AST/SGOT) 30, Alanine Aminotransferase (ALT/SGPT) 50, Alkaline Phosphatase 310H, Total Protein 5.5L, Albumin 2.0L, Globulin 3.5, Albumin/Globulin Ratio 0.6L Height (Feet): 6 Height (Inches): 1.00 Weight (Pounds): 257 EENT: other - trach Cardiovascular: normal rate Respiratory/Chest: decreased breath sounds Abdomen: distended Nico Alonso MD Mar 10, 2019 12:43
--- NOTE | 2019-03-10 16:49 | Surgery Progress Note ---
Surgery Progress Note Subjective Additional Comments h/h trending down again. awake, comfortable. no complaints. bleeding still pending CTA Objective Last 24 Hour Vital Signs Date Time Temp Pulse Resp B/P (MAP) Pulse Ox O2 Delivery O2 Flow Rate FiO2 03/10/19 15:00 98.9 03/10/19 14:54 94 25 40 03/10/19 14:00 88 13 97/64 (75) 99 03/10/19 13:00 88 17 104/68 (80) 99 03/10/19 12:40 89 16 40 03/10/19 12:38 99/67 03/10/19 12:17 89 16 100 Mechanical Ventilator 40 03/10/19 12:00 89 17 105/70 (82) 100 03/10/19 12:00 99/68 03/10/19 11:00 86 15 98/62 (74) 100 03/10/19 10:45 88 17 40 03/10/19 10:00 86 16 95/65 (75) 100 03/10/19 09:21 84 18 100 Mechanical Ventilator 40 03/10/19 09:11 87 18 100 Mechanical Ventilator 40 03/10/19 09:00 95/65 03/10/19 09:00 88 16 101/69 (80) 100 03/10/19 08:58 89 17 40 03/10/19 08:00 83 12 105/72 (83) 100 03/10/19 07:39 93 16 40 03/10/19 07:00 85 15 98/85 (89) 100 03/10/19 06:00 99/67 03/10/19 06:00 85 15 100/62 (75) 100 03/10/19 05:11 90 16 40 03/10/19 05:00 88 15 99/62 (74) 100 03/10/19 04:00 Mechanical Ventilator 03/10/19 04:00 40 03/10/19 04:00 88 03/10/19 04:00 98.3 88 16 105/75 (85) 100 03/10/19 03:06 89 17 40 03/10/19 03:00 87 16 101/71 (81) 100 03/10/19 02:00 83 16 101/69 (80) 100 03/10/19 01:05 81 16 40 03/10/19 01:00 83 18 99/66 (77) 100 03/10/19 00:00 Mechanical Ventilator 03/10/19 00:00 98.2 84 18 95/64 (74) 100 03/10/19 00:00 40 03/10/19 00:00 88 03/09/19 23:34 90/60 03/09/19 23:16 81 17 40 03/09/19 23:00 82 18 90/64 (73) 100 03/09/19 22:00 89 18 100/65 (77) 100 03/09/19 21:40 87 16 100 Mechanical Ventilator 40 03/09/19 21:25 86 16 100 Mechanical Ventilator 40 03/09/19 21:25 86 16 40 03/09/19 21:00 86 18 92/64 (73) 100 03/09/19 20:38 95 105/71 03/09/19 20:22 99 03/09/19 20:00 98.8 87 20 101/71 (81) 100 03/09/19 20:00 40 03/09/19 20:00 Mechanical Ventilator 03/09/19 19:11 90 16 40 03/09/19 19:00 88 20 108/75 (86) 100 03/09/19 18:00 86 20 109/81 (90) 100 03/09/19 17:20 87 17 40 03/09/19 17:00 85 20 107/79 (88) 100 I&O Intake and Output 03/09/19 03/10/19 18:59 06:59 Intake Total 439.957 ml 550 ml Output Total 1250 ml 630 ml Balance -810.043 ml -80 ml IV Total 439.957 ml 550 ml Output Urine Total 1150 ml 630 ml Stool Total 100 ml Dressing: other Wound: other Drains: other Cardiovascular: RSR Respiratory: clear Abdomen: soft, non-tender, present bowel sounds Extremities: no tenderness, no cyanosis Laboratory Tests Test 03/09/19 17:15 03/10/19 04:10 White Blood Count 12.4 K/UL (4.8-10.8) H 10.6 K/UL (4.8-10.8) Red Blood Count 3.05 M/UL (4.70-6.10) L 2.78 M/UL (4.70-6.10) L Hemoglobin 7.9 G/DL (14.2-18.0) L 6.8 G/DL (14.2-18.0) *L Hematocrit 25.2 % (42.0-52.0) L 22.9 % (42.0-52.0) L Mean Corpuscular Volume 83 FL (80-99) 82 FL (80-99) Mean Corpuscular Hemoglobin 25.9 PG (27.0-31.0) L 24.4 PG (27.0-31.0) L Mean Corpuscular Hemoglobin Concent 31.4 G/DL (32.0-36.0) L 29.7 G/DL (32.0-36.0) L Red Cell Distribution Width 22.2 % (11.6-14.8) H 25.9 % (11.6-14.8) H Platelet Count 157 K/UL (150-450) 178 K/UL (150-450) Mean Platelet Volume 7.1 FL (6.5-10.1) 6.7 FL (6.5-10.1) Neutrophils (%) (Auto) 83.5 % (45.0-75.0) H % (45.0-75.0) Lymphocytes (%) (Auto) 7.4 % (20.0-45.0) L % (20.0-45.0) Monocytes (%) (Auto) 6.3 % (1.0-10.0) % (1.0-10.0) Eosinophils (%) (Auto) 1.9 % (0.0-3.0) % (0.0-3.0) Basophils (%) (Auto) 1.0 % (0.0-2.0) % (0.0-2.0) Differential Total Cells Counted 100 Neutrophils % (Manual) 83 % (45-75) H Lymphocytes % (Manual) 5 % (20-45) L Monocytes % (Manual) 6 % (1-10) Eosinophils % (Manual) 1 % (0-3) Basophils % (Manual) 0 % (0-2) Band Neutrophils 5 % (0-8) Platelet Estimate Adequate Platelet Morphology Normal Hypochromasia 2+ Anisocytosis 2+ Prothrombin Time 12.2 SEC (9.30-11.50) H Prothromb Time International Ratio 1.2 (0.9-1.1) H Activated Partial Thromboplast Time 32 SEC (23-33) Sodium Level 139 MMOL/L (136-145) Potassium Level 4.5 MMOL/L (3.5-5.1) Chloride Level 107 MMOL/L (98-107) Carbon Dioxide Level 24 MMOL/L (21-32) Anion Gap 8 mmol/L (5-15) Blood Urea Nitrogen 15 mg/dL (7-18) Creatinine 1.0 MG/DL (0.55-1.30) Estimat Glomerular Filtration Rate > 60 mL/min (>60) Glucose Level 66 MG/DL (74-106) L Calcium Level 7.9 MG/DL (8.5-10.1) L Phosphorus Level 2.2 MG/DL (2.5-4.9) L Magnesium Level 1.6 MG/DL (1.8-2.4) L Total Bilirubin 1.7 MG/DL (0.2-1.0) H Direct Bilirubin 0.9 MG/DL (0.0-0.3) H Aspartate Amino Transf (AST/SGOT) 30 U/L (15-37) Alanine Aminotransferase (ALT/SGPT) 50 U/L (12-78) Alkaline Phosphatase 310 U/L (46-116) H Total Protein 5.5 G/DL (6.4-8.2) L Albumin 2.0 G/DL (3.4-5.0) L Globulin 3.5 g/dL Albumin/Globulin Ratio 0.6 (1.0-2.7) L Plan Problems: (1) History of asthma (2) History of sudden cardiac arrest (3) Chronic systolic (congestive) heart failure (4) Hyperkalemia (5) ATN (acute tubular necrosis) (6) Feeding by G-tube Assessment & Plan: DAILY ESTIMATED NEEDS: Needs based on Critical care, wounds, renal 89kg adj 22-30 kcals/kg 0018-2124 total kcals 1.25-1.5 g protein/kg 111-134 g total protein 25-30 mL/kg 0118-9821 total fluid mLs NUTRITION DIAGNOSIS: 1) Swallowing difficulty r/t respiratory status as evidenced by pt is S/p trach and peg placement. 2) Increased protein needs r/t wound healing as evidenced by pt w/ multiple wounds including full and partial thickness wounds (refer to WC eval). 3) Altered nutrition related lab values r/t clinical status as evidenced by critically elev K (7.9-> 7.1-> 3.0-> now wnl), elev phos-> now wnl, elev mg, w/ elev BUN(79-> 54 trend down) and elev Creat (2.9-> 1.5 trend down). CURRENT TF:Glucerna 1.5 @ 45ml/hr x 24 hrs ENTERAL NUTRITION RECOMMENDATIONS: Glucerna 1.5 @ 55ml/hr x 24 hrs + Prosource 1pkt daily to provide 1320ml, 1980kcal, 109g prot + 11g prot, 1002ml free water - Increase goal rate to 55ml/hr x 24 hrs - Add PROSOURCE 1 pack QD to better meet est pro needs - Flush per MD, HOB over 30 degrees ADDITIONAL RECOMMENDATIONS: 1) Per Pt: 6'3" tall, 222# 2) Wound care: add EVAN BID via GT 3) Weekly calibrated bed scale wts 4) Monitor BG on prednisone/ need for NISS 5) Monitor for ability for oral intake, need to adjust TF (7) EF less than 10% (8) GI bleed Assessment & Plan: as per GI h/h trending down upper and lower scope could not identify etiology. likely small bowel. CTA pending transfuse prn will follow (9) Renal failure (10) Hyperkalemia (11) Respiratory distress (12) Acute on chronic respiratory failure (13) Elevated LFTs Assessment & Plan: trend will monitor US with Impression: Small amount of ascites fluid Hepatomegaly. Equivocal mild surface nodularity, could indicate early cirrhotic changes. Correlate with clinical findings Apparent to and fro flow within the portal veins, raising concern for portal hypertension Borderline splenomegaly Negative for gallstones. Apparent pericholecystic fluid is likely a manifestation of the ascites. Apparent gallbladder wall edema is most likely related to the hepatocellular disease, although the possibility of acute acalculous cholecystitis should also be considered. Consider nuclear medicine hepatobiliary imaging for further evaluation if there is high clinical suspicion Echogenic foci within the left hepatic lobe. These could represent small hemangiomas or just prominent periportal fat Right pleural effusion Bilateral renal cysts incidentally noted HIDA with No evidence of acute cholecystitis. Radiotracer noted within the gallbladder indicating patency of the cystic duct. Radiotracer passes into the small bowel indicating patency of the common bile duct. Delayed uptake and excretion of the radiotracer from the liver parenchyma suggesting hepatocellular dysfunction/disease. (14) Dyspnea (15) Decubitus skin ulcer Assessment & Plan: Pt presented on admission with multiple partial thickness pressure injuries R and L buttocks and L thoracic,Open DTPI sacrum. Sacral area with full thickness wound with trace slough at coccygeal area,with surrounding dark skin tone without fluctuance or induration. (L)2cm x(W)4.4cm. No odor or exudate noted .Shearing periwound with small amt of sanguineous exudate. Multiple small partial thickness pressure injuries R and L buttocks.Surrounding areas of buttocks with darker than is normal skin tone. Partial thickness pressure injury Thoracic (2) sites. Proximal wound moist viable with dark skin tone periwound (L)2.6cm long. (Inferior) Partial thickness wound L thoracic (L)1.4cm x (W)1.5cm. Both heels are dry and firm . Trach site without erythema or evidence of skin breakdown. Tx.Plan: Apply Moisture Barrier Paste to entire Buttocks. Cover Sacral area with Optifoam. Change every 3 days and prn. Cover Thoracic wounds with Optifoam drsg .Change every 3 days and prn. APM/ Elvira mattress. Reposition at least every 2hours or as tolerated. Off-load heels with pillow. Karthik Cheatham Mar 10, 2019 16:49
--- NOTE | 2019-03-10 16:54 | Diagnostic Imaging Report ---
Indication: GI bleed Technique: IV administration nonionic contrast. Arterial phase acquisitions obtained through the abdomen and pelvis Multiplanar and 3-D reconstructions were generated. Total dose length product 1236 mGycm. CTDIvol(s) 8, 64, 21 mGy. Radiation dose was minimized using automated exposure control Comparison: none Findings: Dense material is demonstrated within the proximal ascending colon at about the level of the ileocecal valve. This does not appear to be associated with a mass, diverticulum, or wall thickening. No other intraluminal contrast is demonstrated in the large or small bowel. Considerable fluid is seen within the proximal colonic lumen. Small bowel loops are gas-filled but nondistended. There is a small to moderate amount of ascites fluid present. No free or loculated intraperitoneal gas. There is a gastrostomy in place, in good position. No evidence of diverticulosis or diverticulitis. The appendix is not definitely visualized, but no findings to suggest acute appendicitis are evident. The distal esophagus and duodenum are unremarkable. Fluid is seen herniated into the left inguinal canal. The angiographic images demonstrate normal caliber abdominal aorta, without significant mural thickening or calcification. Patent nonstenotic bilateral common and external iliac arteries. Patent nonstenotic inferior mesenteric artery, bilateral single renal arteries, superior mesenteric artery, celiac axis and proximal branches. The liver, gallbladder, bile ducts, pancreas, spleen, adrenals are unremarkable. The kidneys demonstrate subcentimeter low-attenuation lesions which are too small to characterize but most likely represent benign simple cortical cysts. There is a fluid attenuation cyst coming off of the upper pole of the left kidney. No renal or ureteral calculi, hydronephrosis, or hydroureter. No retroperitoneal or mesenteric mass or adenopathy. There is a Cerda catheter within the bladder. There is some fluid within the bladder despite Cerda catheter. There is a large right pleural effusion demonstrated. There is resultant compressive atelectasis of much of the right lower lobe. There is a smaller left pleural effusion. There is four-chamber cardiomegaly. There is anasarca, with generalized edema of the subcutaneous, mesenteric, retroperitoneal fat, in addition to the intraperitoneal fluid and pleural fluid Impression: Dense material within the proximal ascending colon lumen at level of the ileocecal valve. This is suspicious for extravasated contrast, and therefore active GI bleed although could conceivably represent pre-existing ingested or other dense material. If the former, etiology not demonstrated, as there is no definite wall thickening, mass, or diverticulosis demonstrated. This critical value finding was phoned to Dr. Willoguhby at the time of interpretation. No evidence of active GI bleed elsewhere Evidence of anasarca, with diffuse edema of the subcutaneous, mesenteric, retroperitoneal fat, in addition to ascites fluid and large right and small left pleural effusions Unremarkable abdominal aorta and branches Compressive atelectasis of much of the right lower lobe and portions of the left lower lobe due to the pleural fluid Small amount of intraperitoneal fluid herniation is a left inguinal canal Gastrostomy in good position Left upper pole renal cysts. Subcentimeter low-attenuation renal lesions, too small to characterize, most likely benign simple cortical cysts. No further follow-up necessary Cerda catheter noted. Some residual fluid within the bladder despite this The CT scanner at [facility] is accredited by the [employer] and the scans are performed using protocols designed to limit radiation exposure to as low as reasonably achievable to attain images of sufficient resolution adequate for diagnostic evaluation.
[2019-03-10 18:29] LABS: HEMATOCRIT 18.1 % (42.0-52.0); MEAN CORPUSCULAR VOLUME 83 FL (80-99); PLATELET COUNT 127 K/UL (150-450); RED BLOOD COUNT 2.19 M/UL (4.70-6.10); WHITE BLOOD COUNT 16.3 K/UL (4.8-10.8)
[2019-03-10 18:32] LABS: HEMOGLOBIN 5.9 G/DL (14.2-18.0)
[2019-03-10] MEDS: HydrALAZINE 10mg Tab GT SCH (18:54)
[2019-03-10 19:05] LABS: HEMATOCRIT 17.7 % (42.0-52.0); MEAN CORPUSCULAR VOLUME 82 FL (80-99); PLATELET COUNT 125 K/UL (150-450); RED BLOOD COUNT 2.16 M/UL (4.70-6.10); WHITE BLOOD COUNT 15.8 K/UL (4.8-10.8)
[2019-03-10 19:09] LABS: HEMOGLOBIN 5.7 G/DL (14.2-18.0)
--- NOTE | 2019-03-10 19:46 | Internal Med Progress Note ---
Subjective Date of Service: Mar 10, 2019 Physician Name Alex Cifuentes Attending Physician Sherman Vee MD Current Medications Medications (Trade) Dose Ordered Sig/Rebecca Route PRN Reason Start Time Stop Time Status Last Admin Dose Admin Acetaminophen (Tylenol) 650 mg Q4H PRN GT Mild Pain/Temp > 100.5 03/08/19 13:14 04/07/19 13:13 Albuterol/ Ipratropium (Albuterol/ Ipratropium) 3 ml Q4H PRN HHN Shortness of Breath 03/08/19 13:15 03/13/19 13:14 03/10/19 12:16 Allopurinol (Zyloprim) 200 mg DAILY GT 03/09/19 09:00 04/01/19 10:59 03/10/19 10:48 Carvedilol (Coreg) 25 mg EVERY 12 HOURS GT 03/10/19 21:00 04/02/19 20:59 Chlorhexidine Gluconate (Essie-Hex 2%) 1 applic DAILY@2000 TOPIC 03/08/19 20:00 03/31/19 19:59 03/09/19 20:02 Clonidine HCl (Catapres Tab) 0.1 mg Q6H PRN GT FOR sbp >160 03/08/19 13:15 04/07/19 13:14 Colistimethate Sodium (Colistin *inhalation use only*) 150 mg Q12HR@10,22 INH 03/08/19 13:45 03/15/19 13:44 03/10/19 09:11 Dextrose (Dextrose 50%) 25 ml Q30M PRN IV Hypoglycemia 03/08/19 12:30 04/04/19 08:45 Dextrose (Dextrose 50%) 50 ml Q30M PRN IV hypoglycemia 03/08/19 12:30 04/04/19 08:59 Dextrose/ Electrolytes 1,000 ml @ 50 mls/hr Q20H IV 03/08/19 13:14 04/07/19 13:13 03/10/19 07:14 Hydralazine HCl (Apresoline) 10 mg Q6HR GT 03/10/19 18:00 04/02/19 11:59 03/10/19 18:54 Iopamidol (Isovue-370 150ml) 150 ml NOW PRN INJ Radiology Procedure 03/09/19 09:00 03/11/19 08:58 Isosorbide Dinitrate (Isordil) 20 mg TID GT 03/08/19 13:30 04/07/19 13:29 03/10/19 18:55 Lansoprazole (Prevacid) 30 mg BID GT 03/08/19 18:00 04/03/19 17:59 03/10/19 18:56 Metoclopramide HCl (Reglan) 5 mg EVERY 6 HOURS GT 03/08/19 18:00 04/01/19 11:59 03/10/19 18:54 Ondansetron HCl (Zofran) 4 mg Q6H PRN IVP Nausea & Vomiting 03/08/19 12:45 03/30/19 18:44 Piperacillin Sod/ Tazobactam Sod 3.375 gm/Sodium Chloride 110 ml @ 27.5 mls/hr Q8H IVPB 03/09/19 10:00 03/16/19 09:59 03/10/19 18:57 Polyethylene Glycol (Miralax) 17 gm DAILYPRN PRN GT Constipation 03/08/19 13:17 04/07/19 13:16 Prednisone (predniSONE) 15 mg DAILY GT 03/09/19 09:00 04/02/19 08:59 03/10/19 10:47 Allergies: Coded Allergies: No Known Allergies (Unverified , 03/28/17) ROS Limited/Unobtainable: Yes Subjective 53YO M with history of vent dep respiratory failure admitted with respiratory distress. [facility] Vent. Cover for [facility] Med-Dr Vee. ICU. S/P colonoscopy and endoscopy 03/09/19. Objective Last Vital Signs Date Time Temp Pulse Resp B/P (MAP) Pulse Ox O2 Delivery O2 Flow Rate FiO2 03/10/19 19:32 97 20 Mechanical Ventilator 40 03/10/19 19:00 100/63 (75) 100 03/10/19 15:00 98.9 03/05/19 18:54 55.0 Laboratory Tests Test 03/10/19 04:10 03/10/19 18:00 03/10/19 18:50 White Blood Count 10.6 K/UL (4.8-10.8) 16.3 K/UL (4.8-10.8) #H 15.8 K/UL (4.8-10.8) H Red Blood Count 2.78 M/UL (4.70-6.10) L 2.19 M/UL (4.70-6.10) L 2.16 M/UL (4.70-6.10) L Hemoglobin 6.8 G/DL (14.2-18.0) *L 5.9 G/DL (14.2-18.0) *L 5.7 G/DL (14.2-18.0) *L Hematocrit 22.9 % (42.0-52.0) L 18.1 % (42.0-52.0) L 17.7 % (42.0-52.0) L Mean Corpuscular Volume 82 FL (80-99) 83 FL (80-99) 82 FL (80-99) Mean Corpuscular Hemoglobin 24.4 PG (27.0-31.0) L 26.7 PG (27.0-31.0) L 26.3 PG (27.0-31.0) L Mean Corpuscular Hemoglobin Concent 29.7 G/DL (32.0-36.0) L 32.3 G/DL (32.0-36.0) 32.2 G/DL (32.0-36.0) Red Cell Distribution Width 25.9 % (11.6-14.8) H 21.0 % (11.6-14.8) H 21.0 % (11.6-14.8) H Platelet Count 178 K/UL (150-450) 127 K/UL (150-450) L 125 K/UL (150-450) L Mean Platelet Volume 6.7 FL (6.5-10.1) 7.0 FL (6.5-10.1) 6.2 FL (6.5-10.1) L Neutrophils (%) (Auto) % (45.0-75.0) % (45.0-75.0) % (45.0-75.0) Lymphocytes (%) (Auto) % (20.0-45.0) % (20.0-45.0) % (20.0-45.0) Monocytes (%) (Auto) % (1.0-10.0) % (1.0-10.0) % (1.0-10.0) Eosinophils (%) (Auto) % (0.0-3.0) % (0.0-3.0) % (0.0-3.0) Basophils (%) (Auto) % (0.0-2.0) % (0.0-2.0) % (0.0-2.0) Differential Total Cells Counted 100 Neutrophils % (Manual) 83 % (45-75) H Pending Pending Lymphocytes % (Manual) 5 % (20-45) L Pending Pending Monocytes % (Manual) 6 % (1-10) Eosinophils % (Manual) 1 % (0-3) Basophils % (Manual) 0 % (0-2) Band Neutrophils 5 % (0-8) Platelet Estimate Adequate Pending Pending Platelet Morphology Normal Pending Pending Hypochromasia 2+ Anisocytosis 2+ Prothrombin Time 12.2 SEC (9.30-11.50) H Prothromb Time International Ratio 1.2 (0.9-1.1) H Activated Partial Thromboplast Time 32 SEC (23-33) Sodium Level 139 MMOL/L (136-145) Potassium Level 4.5 MMOL/L (3.5-5.1) Chloride Level 107 MMOL/L (98-107) Carbon Dioxide Level 24 MMOL/L (21-32) Anion Gap 8 mmol/L (5-15) Blood Urea Nitrogen 15 mg/dL (7-18) Creatinine 1.0 MG/DL (0.55-1.30) Estimat Glomerular Filtration Rate > 60 mL/min (>60) Glucose Level 66 MG/DL (74-106) L Calcium Level 7.9 MG/DL (8.5-10.1) L Phosphorus Level 2.2 MG/DL (2.5-4.9) L Magnesium Level 1.6 MG/DL (1.8-2.4) L Total Bilirubin 1.7 MG/DL (0.2-1.0) H Direct Bilirubin 0.9 MG/DL (0.0-0.3) H Aspartate Amino Transf (AST/SGOT) 30 U/L (15-37) Alanine Aminotransferase (ALT/SGPT) 50 U/L (12-78) Alkaline Phosphatase 310 U/L (46-116) H Total Protein 5.5 G/DL (6.4-8.2) L Albumin 2.0 G/DL (3.4-5.0) L Globulin 3.5 g/dL Albumin/Globulin Ratio 0.6 (1.0-2.7) L Intake and Output 03/09/19 03/10/19 18:59 06:59 Intake Total 439.957 ml 550 ml Output Total 1250 ml 630 ml Balance -810.043 ml -80 ml IV Total 439.957 ml 550 ml Output Urine Total 1150 ml 630 ml Stool Total 100 ml Objective PHYSICAL EXAMINATION:. GENERAL: The patient is awake and responsive to the painful stimuli. Spontaneously opens his eyes. Cannot follow commands. HEAD AND NECK: Pupils are equal and reactive to light. Anicteric. Neck was supple. Tracheostomy site is intact. LUNGS: Mech Vent; Good air entry. Decreased in the bases. Ventilation breath sounds. HEART: Reveals S1, S2. Regular rhythm. Distant heart sounds. No murmurs or gallops. ABDOMEN: Soft, nondistended, and nontender. PEG site is clean. EXTREMITIES: No cyanosis or clubbing. A +1 edema in bilateral lower extremities. The patient has a PICC line in the right upper extremity noted. NEUROLOGIC: Very limited secondary to the patient's status. At this time, the patient is unable to follow commands, however, moving extremities slowly. BACK: Has a small sacral ulcer. Assessment/Plan Assessment/Plan ASSESSMENT: 1. Acute respiratory failure on chronic on trach bilateral pneumonia. 2. Severe cardiomyopathy with systolic dysfunction. 3. Hyperkalemia. 4. Chronic ventilator dependent status post tracheostomy. 5. History of sudden cardiac arrest. 6. Asthma. 7. Anoxic brain injury. 8. Dysphagia status post PEG. 9. Cholecystitis 10. Gastrointestinal bleed-?source-see GI note 11. severe anemia PLAN: ICU Dr. Gerber from Pulmonary Critical Care, Dr. Luis Robins from ID Dr. Nico Alonso from Nephrology. We will monitor potassium level closely on Kayexalate. Chronic wound care therapy. We will follow up with the wound care protocol. Monitor laboratory. Antibiotic=Zosyn per ID. Code status at this time is Full Code. S/P transfusion 4 units PRBC and 2 units FFP total Await CT angiogram Alex Cifuentes MD Mar 10, 2019 19:46
[2019-03-10] MEDS: Dyna-Hex 2% Top Sol 2oz TOPIC SCH (20:08)
[2019-03-10] MEDS ORDERED: Nulytely 4L ORAL SCH (20:45)
[2019-03-11] VITALS (28 sets, daily range): BP systolic 0–226; BP diastolic 0–171
[2019-03-11] MEDS: D5 1/2NS w/KCl 20mEq 1,000 ML IV SCH (01:42)
[2019-03-11] MEDS: Piperacillin/Tazobactam 3.375 GM in NS 110 ML IVPB SCH ×3 (01:42→17:45)
--- NOTE | 2019-03-11 03:00 | Progress Note ---
DATE: 03/10/2019 CARDIOLOGY PROGRESS NOTE SUBJECTIVE: The patient is in no distress. Ventilator support. CT angiogram is pending. No bleeding source was noted yesterday on colonoscopy and endoscopy. PHYSICAL EXAMINATION: VITAL SIGNS: Afebrile, blood pressure 100/63, pulse 97, respiratory rate 20. LUNGS: Bilateral breath sounds. HEART: Regular rhythm and rate. Normal S1 and S2 with no new murmur. ABDOMEN: Soft. G-tube intact. EXTREMITIES: PICC line in the right upper extremity. No edema. IMPRESSION: 1. Respiratory failure with tracheostomy on ventilator support. 2. Healthcare-acquired pneumonia. 3. Recurring gastrointestinal bleeding. 4. Severe cardiomyopathy with systolic dysfunction. 5. Anoxic brain injury. 6. Severe anemia. PLAN: 1. Awaiting CT angiogram. 2. Maximize anti-failure regimen as tolerated by blood pressure parameters. 3. Transfusions if further drop in blood counts below 7 g. 4. No anti-platelet or anti-coagulant therapy at this time. Luis Cochran M.D. DR: Gildardo JOB#: [id number] CC:
[2019-03-11 04:31] LABS: HEMATOCRIT 14.9 % (42.0-52.0); MEAN CORPUSCULAR VOLUME 84 FL (80-99); PLATELET COUNT 122 K/UL (150-450); RED BLOOD COUNT 1.78 M/UL (4.70-6.10); WHITE BLOOD COUNT 14.5 K/UL (4.8-10.8)
[2019-03-11 04:39] LABS: ANION GAP 7 mmol/L (5-15); BLOOD UREA NITROGEN 9 mg/dL (7-18); CARBON DIOXIDE 23 MMOL/L (21-32); CHLORIDE 112 MMOL/L (98-107); CREATININE 0.9 MG/DL (0.55-1.30); SODIUM 142 MMOL/L (136-145)
[2019-03-11 04:40] LABS: INR 1.2 (0.9-1.1)
[2019-03-11 04:51] LABS: ALANINE AMINOTRANSFERASE 48 U/L (12-78); ALBUMIN 1.5 G/DL (3.4-5.0); ALBUMIN/GLOBULIN RATIO 0.6 (1.0-2.7); ALKALINE PHOSPHATASE 224 U/L (46-116); ASPARTATE AMINO TRANSFERASE 42 U/L (15-37); BILIRUBIN,TOTAL 1.5 MG/DL (0.2-1.0); HEMOGLOBIN 4.9 G/DL (14.2-18.0); PHOSPHORUS 2.4 MG/DL (2.5-4.9)
[2019-03-11 04:54] LABS: BILIRUBIN,DIRECT 0.9 MG/DL (0.0-0.3)
[2019-03-11] MEDS: HydrALAZINE 10mg Tab GT SCH ×3 (05:54→11:34)
[2019-03-11] MEDS: Metoclopramide 10mg/10ml Liq GT SCH ×3 (05:55→12:58)
--- NOTE | 2019-03-11 07:09 | Anethesia Preoperative Eval ---
Anesthesia Pre-op PMH/ROS General Date of Evaluation: Mar 11, 2019 Time of Evaluation: 07:04 Anesthesiologist: brice ASA Score: ASA 4 Mallampati Score Class I : Soft palate, uvula, fauces, pillars visible Class II: Soft palate, uvula, fauces visible Class III: Soft palate, base of uvula visible Class IV: Only hard plate visible Mallampati Classification: Class II Surgeon: eliel Diagnosis: gi bleed Surgical Procedure: colonoscopy Anesthesia History: none Family History: no anesthesia problems Allergies: Coded Allergies: No Known Allergies (Unverified , 03/28/17) Medications: see eMAR Patient NPO?: Yes Past Medical History Cardiovascular: Reports: HTN, CT, other - chf, ef less than 10% Pulmonary: Reports: asthma, other - tracheostomy, ventilator dependent Gastrointestinal/Genitourinary: Reports: GERD, ESRD, other - atn, g-tube,, elevated lfts, Neurologic/Psychiatric: Reports: depression/anxiety HEENT: Reports: other - right eye repair Musculoskeletal/Integumentary: Reports: other - decubitus skin ulcers Anesthesia Pre-op Phys. Exam Physician Exam Last Vital Signs Date Time Temp Pulse Resp B/P (MAP) Pulse Ox O2 Delivery O2 Flow Rate FiO2 03/11/19 07:01 102 18 40 03/11/19 06:00 83/57 (66) 100 03/11/19 04:00 97.8 03/11/19 04:00 Mechanical Ventilator 03/05/19 18:54 55.0 Constitutional: NAD Neurologic: CN 2-12 intact Cardiovascular: RRR Respiratory: other - tracheostomy Gastrointestinal: other - g-tube Airway Exam Mallampati Score: Class II MO: limited Neck: tracheostomy TMD: 2fb ROM: limited Anesthesia Pre-op A/P Labs Hematology Test 03/10/19 18:00 03/10/19 18:50 03/11/19 03:55 White Blood Count 16.3 K/UL (4.8-10.8) #H 15.8 K/UL (4.8-10.8) H 14.5 K/UL (4.8-10.8) H Red Blood Count 2.19 M/UL (4.70-6.10) L 2.16 M/UL (4.70-6.10) L 1.78 M/UL (4.70-6.10) L Hemoglobin 5.9 G/DL (14.2-18.0) *L 5.7 G/DL (14.2-18.0) *L 4.9 G/DL (14.2-18.0) *L Hematocrit 18.1 % (42.0-52.0) L 17.7 % (42.0-52.0) L 14.9 % (42.0-52.0) L Mean Corpuscular Volume 83 FL (80-99) 82 FL (80-99) 84 FL (80-99) Mean Corpuscular Hemoglobin 26.7 PG (27.0-31.0) L 26.3 PG (27.0-31.0) L 27.5 PG (27.0-31.0) Mean Corpuscular Hemoglobin Concent 32.3 G/DL (32.0-36.0) 32.2 G/DL (32.0-36.0) 32.7 G/DL (32.0-36.0) Red Cell Distribution Width 21.0 % (11.6-14.8) H 21.0 % (11.6-14.8) H 21.0 % (11.6-14.8) H Platelet Count 127 K/UL (150-450) L 125 K/UL (150-450) L 122 K/UL (150-450) L Mean Platelet Volume 7.0 FL (6.5-10.1) 6.2 FL (6.5-10.1) L 7.4 FL (6.5-10.1) Neutrophils (%) (Auto) % (45.0-75.0) % (45.0-75.0) % (45.0-75.0) Lymphocytes (%) (Auto) % (20.0-45.0) % (20.0-45.0) % (20.0-45.0) Monocytes (%) (Auto) % (1.0-10.0) % (1.0-10.0) % (1.0-10.0) Eosinophils (%) (Auto) % (0.0-3.0) % (0.0-3.0) % (0.0-3.0) Basophils (%) (Auto) % (0.0-2.0) % (0.0-2.0) % (0.0-2.0) Differential Total Cells Counted 100 100 Neutrophils % (Manual) 77 % (45-75) H 83 % (45-75) H Pending Lymphocytes % (Manual) 13 % (20-45) L 8 % (20-45) L Pending Monocytes % (Manual) 4 % (1-10) 5 % (1-10) Eosinophils % (Manual) 1 % (0-3) 0 % (0-3) Basophils % (Manual) 0 % (0-2) 1 % (0-2) Band Neutrophils 5 % (0-8) 3 % (0-8) Platelet Estimate Decreased L Decreased L Pending Platelet Morphology Normal Normal Pending Hypochromasia 2+ 3+ Anisocytosis 2+ 3+ Coagulation Test 03/11/19 03:55 Prothrombin Time 12.4 SEC (9.30-11.50) H Prothromb Time International Ratio 1.2 (0.9-1.1) H Activated Partial Thromboplast Time 27 SEC (23-33) Chemistry Test 03/11/19 03:55 Sodium Level 142 MMOL/L (136-145) Potassium Level 4.0 MMOL/L (3.5-5.1) Chloride Level 112 MMOL/L (98-107) H Carbon Dioxide Level 23 MMOL/L (21-32) Anion Gap 7 mmol/L (5-15) Blood Urea Nitrogen 9 mg/dL (7-18) Creatinine 0.9 MG/DL (0.55-1.30) Estimat Glomerular Filtration Rate > 60 mL/min (>60) Glucose Level 80 MG/DL (74-106) Calcium Level 7.0 MG/DL (8.5-10.1) L Phosphorus Level 2.4 MG/DL (2.5-4.9) L Magnesium Level 1.7 MG/DL (1.8-2.4) L Total Bilirubin 1.5 MG/DL (0.2-1.0) H Direct Bilirubin 0.9 MG/DL (0.0-0.3) H Aspartate Amino Transf (AST/SGOT) 42 U/L (15-37) H Alanine Aminotransferase (ALT/SGPT) 48 U/L (12-78) Alkaline Phosphatase 224 U/L (46-116) H Total Protein 4.1 G/DL (6.4-8.2) L Albumin 1.5 G/DL (3.4-5.0) L Globulin 2.6 g/dL Albumin/Globulin Ratio 0.6 (1.0-2.7) L Risk Assessment & Plan Assessment: [email or web address] Plan: mac. sports writer spoke with daughter and patient regarding patient's clinical status and risk assessment, including but not limited to risks of heart attack, stroke , and . both patient and daughter indicated that they both understood and agreed to have anesthesia for this procedure. Status Change Before Surgery: No Pre-Antibiotics Drug: Alexandra Bejarano MD Mar 11, 2019 07:09
[2019-03-11] MEDS ORDERED: Atropine Inj 1mg/10ml Syr IV PRN (07:15)
[2019-03-11] MEDS ORDERED: DiphenhydrAMINE 50mg/ml Inj IVP PRN (07:15)
[2019-03-11] MEDS ORDERED: fentaNYL 100 mcg/2 mL IV PRN (07:15)
[2019-03-11] MEDS ORDERED: Midazolam 2mg/2ml Inj IVP PRN (07:15)
[2019-03-11] MEDS: Allopurinol 100mg Tab GT SCH (08:37)
[2019-03-11] MEDS: Carvedilol 25mg Tab GT SCH (08:37)
[2019-03-11] MEDS ORDERED: Sodium Phosphate 15 MM in NS 275 ML IVPB SCH (09:00)
[2019-03-11] MEDS: Colistin for inhalation INH SCH ×2 (09:30→22:00)
[2019-03-11] MEDS ORDERED: Midazolam 2mg/2ml Inj ONE ×2 (10:00→20:59)
[2019-03-11] MEDS ORDERED: ePHEDrine 50mg/ml Inj ONE (10:00)
[2019-03-11] MEDS ORDERED: fentaNYL 100 mcg/2 mL IV ONE ×2 (10:00→20:59)
[2019-03-11] MEDS ORDERED: Ketamine 500mg Inj ONE ×2 (10:00→20:59)
--- NOTE | 2019-03-11 10:05 | Pre-Procedure Note/Attestation ---
Pre-Procedure Note/Attestation Complete Prior to Procedure Planned Procedure: not applicable Procedure Narrative: colonoscopy Indications for Procedure Pre-Operative Diagnosis: gib Attestation I attest that I discussed the nature of the procedure; its benefits; risks and complications; and alternatives (and the risks and benefits of such alternatives ), prior to the procedure, with the patient (or the patient's legal signs and displays sales representative). I attest that, if there was a reasonable possibility of needing a blood transfusion, the patient (or the patient's legal signs and displays sales representative) was given the [facility] standardized written summary, pursuant to the Leo Lilly Blood Safety Act ([place] Health and Safety Code # 1645, as amended). I attest that I re-evaluated the patient just prior to the surgery and that there has been no change in the patient's H&P, except as documented below: Antwon Willoughby MD Mar 11, 2019 10:05
--- NOTE | 2019-03-11 10:32 | Infectious Diseases Prog Note ---
Assessment/Plan Assessment/Plan 53 yo male with PMHx of Asthma, HTN and CHF who was sent to the ED form a intermediate for respuratory distress and feeling cold. Respiratory distress PNA, multifocal -03/09 CXR: Suggests only slightly smaller left midlung opacity, increasing likelihood that this is focal infiltrate rather than tumor. Further follow-up to resolution is recommended Evidence of increasing infiltrate and/or pleural fluid at the right lung base New/increased left pleural fluid and possible underlying hazy consolidation -CT Chest: Dense opacities within the right lower lobe and left upper lobe with air bronchograms. Findings suggest multifocal pneumonia. Follow-up after appropriate treatment is recommended to ensure resolution and exclude the possibility of underlying mass. [id number] right pleural effusion. Prominent mediastinal lymph nodes with an enlarged subcarinal node which may be reactive in etiology. Attention on follow-up is recommended. Cardiomegaly and findings suggestive of anemia. Apparent gallbladder wall thickening and pericholecystic fluid. Correlation with findings of recent ultrasound recommended. If there is clinical concern for acute cholecystitis consider HIDA scan. -03/05 SP cx MDR ABC -legionella ag urine, influenza sc neg -02/28 sp cx C> albicans GIB -CTA abd/p Dense material within the proximal ascending colon lumen at level of the ileocecal valve. This is suspicious for extravasated contrast, and therefore active GI bleed although could conceivably represent pre-existing ingested or other dense material. If the former, etiology not demonstrated, as there is no definite wall thickening, mass, or diverticulosis demonstrated. Evidence of anasarca, with diffuse edema of the subcutaneous, mesenteric,retroperitoneal fat , in addition to ascites fluid and large right and small left pleural effusions. Unremarkable abdominal aorta and branches -03/09 EGD/Colonoscopy: gastritis, hemorrhoids Acute blood loss anemia Anasarca. No fevers CXR - B/L consolidations Leukocytosis, recurrent; improving- likely reactive to bleeding Gram positive bacteremia- likely contaminant -Bcx 11/20 Staph epi; 03/02 Bcx Neg UA (-) Elevated ALT/AST>Tbili; improving- ?early cirrhosis- r/o acalculous cholecystitis -Abd US: Small amount of ascites fluid. Hepatomegaly. Equivocal mild surface nodularity, could indicate early cirrhotic changes. Correlate with clinical findings. Apparent to and fro flow within the portal veins, raising concern for portal hypertension. Borderline splenomegaly. Negative for gallstones. Apparent pericholecystic fluid is likely a manifestation of the ascites. Apparent gallbladder wall edema is most likely related to the hepatocellular disease, although the possibility of acute acalculous cholecystitis should also be considered. Consider nuclear medicine hepatobiliary imaging for further evaluation if there is high clinical suspicion. Echogenic foci within the left hepatic lobe. These could represent small hemangiomas or just prominent periportal fat -hep serologies neg -HIV ab sc neg - HIDA 03/05/19 - No evidence of acute cholecystitis. Radiotracer noted within the gallbladder indicating patency of the cystic duct. Radiotracer passes into the small bowel indicating patency of the common bile duct. Delayed uptake and excretion of the radiotracer from the liver parenchyma suggesting hepatocellular dysfunction/disease. Small sacral ulcers Do not appear to be infected Asthma HTN CHF PLAN -Continue empiric Zosyn #10/10 for PNA and now GIB and add INH colistin #4/7 for MDR ABC - 03/05/19 SP Vancomycin #4 - f/u Cx - Resp therapy - Wound care -aspiration precautions -GI f/u: plan for repeat colonoscopy Thank you for this consult. We will continue to follow the patient during this hospitalization. Subjective Allergies: Coded Allergies: No Known Allergies (Unverified , 03/28/17) Subjective afebrile leukocytosis recurrent; now improving Hgb continues to drop; latest 4.9 remains on ICU for repeat colonoscopy today Objective Vital Signs Last 24 Hour Vital Signs Date Time Temp Pulse Resp B/P (MAP) Pulse Ox O2 Delivery O2 Flow Rate FiO2 03/11/19 09:51 105 16 100 Mechanical Ventilator 40 03/11/19 09:31 104 16 100 Mechanical Ventilator 40 03/11/19 09:01 104 16 40 03/11/19 08:37 103 89/60 03/11/19 08:36 90/60 03/11/19 08:00 40 03/11/19 08:00 Mechanical Ventilator 03/11/19 07:01 102 18 40 03/11/19 06:00 99 16 83/57 (66) 100 03/11/19 05:54 90/55 03/11/19 05:00 99 16 80/51 (61) 100 03/11/19 04:41 109 19 40 03/11/19 04:00 97.8 98 18 95/64 (74) 100 03/11/19 04:00 103 03/11/19 04:00 40 03/11/19 04:00 Mechanical Ventilator 03/11/19 03:05 95 16 40 03/11/19 03:00 98 16 83/51 (62) 100 03/11/19 02:00 94 16 90/60 (70) 100 03/11/19 01:05 80 20 40 03/11/19 01:00 95 16 93/60 (71) 100 03/11/19 00:00 97.7 90 16 100/60 (73) 100 03/11/19 00:00 90 03/11/19 00:00 75/50 03/11/19 00:00 Mechanical Ventilator 03/11/19 00:00 40 03/10/19 23:15 95 16 40 03/10/19 23:00 93 16 91/60 (70) 100 03/10/19 22:00 97 17 89/62 (71) 100 03/10/19 21:55 98 16 100 Mechanical Ventilator 40 03/10/19 21:40 100 16 100 Mechanical Ventilator 40 03/10/19 21:40 100 16 40 03/10/19 21:00 99 16 87/59 (68) 100 03/10/19 20:50 99 89/74 03/10/19 20:00 98.8 100 16 96/63 (74) 100 03/10/19 20:00 40 03/10/19 20:00 Mechanical Ventilator 03/10/19 19:32 97 20 Mechanical Ventilator 40 03/10/19 19:30 97 20 40 03/10/19 19:00 92 16 100/63 (75) 100 03/10/19 18:55 96/62 03/10/19 18:54 96/62 03/10/19 18:00 94 23 96/62 (73) 100 03/10/19 17:00 94 17 104/64 (77) 100 03/10/19 16:52 96 16 40 03/10/19 16:30 88 20 103/68 (80) 100 03/10/19 16:00 40 03/10/19 16:00 89 03/10/19 16:00 Mechanical Ventilator 03/10/19 16:00 91 17 109/68 (82) 100 03/10/19 15:00 98.9 03/10/19 14:54 94 25 40 03/10/19 14:00 88 13 97/64 (75) 99 03/10/19 13:00 88 17 104/68 (80) 99 03/10/19 12:40 89 16 40 03/10/19 12:38 99/67 03/10/19 12:17 89 16 100 Mechanical Ventilator 40 03/10/19 12:00 89 17 105/70 (82) 100 03/10/19 12:00 40 03/10/19 12:00 87 03/10/19 12:00 Mechanical Ventilator 03/10/19 12:00 99/68 03/10/19 11:00 86 15 98/62 (74) 100 03/10/19 10:45 88 17 40 Height (Feet): 6 Height (Inches): 1.00 Weight (Pounds): 255 Objective Gen: Awake and follwoing, Trached on Vent 45% HEENT: NCAT, MMM, EOMI, PERRL, No Oral lesion, no scleral icterus NECK: full range of motion, supple, no meningismus, No LAD, No JVD LUNGS: Course B/L Mild wheezing CARDS: RRR, S1, S2, No M/R/G, ABD: Soft, NT, ND, No R/G, + BS, No HSM, No Masses, PEG (No E/P) : Deferred Ext: C/C/E, Pulses 2+ B/L (DP, Rad): NEURO: A/O - not verbal , Strength and Sensation Grossly intact PSYCH: Mood/affect normal SKIN: Warm/dry, No rashes, small sacral ulcers Laboratory Tests Test 03/10/19 18:00 03/10/19 18:50 03/11/19 03:55 White Blood Count 16.3 K/UL (4.8-10.8) #H 15.8 K/UL (4.8-10.8) H 14.5 K/UL (4.8-10.8) H Red Blood Count 2.19 M/UL (4.70-6.10) L 2.16 M/UL (4.70-6.10) L 1.78 M/UL (4.70-6.10) L Hemoglobin 5.9 G/DL (14.2-18.0) *L 5.7 G/DL (14.2-18.0) *L 4.9 G/DL (14.2-18.0) *L Hematocrit 18.1 % (42.0-52.0) L 17.7 % (42.0-52.0) L 14.9 % (42.0-52.0) L Mean Corpuscular Volume 83 FL (80-99) 82 FL (80-99) 84 FL (80-99) Mean Corpuscular Hemoglobin 26.7 PG (27.0-31.0) L 26.3 PG (27.0-31.0) L 27.5 PG (27.0-31.0) Mean Corpuscular Hemoglobin Concent 32.3 G/DL (32.0-36.0) 32.2 G/DL (32.0-36.0) 32.7 G/DL (32.0-36.0) Red Cell Distribution Width 21.0 % (11.6-14.8) H 21.0 % (11.6-14.8) H 21.0 % (11.6-14.8) H Platelet Count 127 K/UL (150-450) L 125 K/UL (150-450) L 122 K/UL (150-450) L Mean Platelet Volume 7.0 FL (6.5-10.1) 6.2 FL (6.5-10.1) L 7.4 FL (6.5-10.1) Neutrophils (%) (Auto) % (45.0-75.0) % (45.0-75.0) % (45.0-75.0) Lymphocytes (%) (Auto) % (20.0-45.0) % (20.0-45.0) % (20.0-45.0) Monocytes (%) (Auto) % (1.0-10.0) % (1.0-10.0) % (1.0-10.0) Eosinophils (%) (Auto) % (0.0-3.0) % (0.0-3.0) % (0.0-3.0) Basophils (%) (Auto) % (0.0-2.0) % (0.0-2.0) % (0.0-2.0) Differential Total Cells Counted 100 100 100 Neutrophils % (Manual) 77 % (45-75) H 83 % (45-75) H 90 % (45-75) H Lymphocytes % (Manual) 13 % (20-45) L 8 % (20-45) L 9 % (20-45) L Monocytes % (Manual) 4 % (1-10) 5 % (1-10) 1 % (1-10) Eosinophils % (Manual) 1 % (0-3) 0 % (0-3) 0 % (0-3) Basophils % (Manual) 0 % (0-2) 1 % (0-2) 0 % (0-2) Band Neutrophils 5 % (0-8) 3 % (0-8) 0 % (0-8) Platelet Estimate Decreased L Decreased L Decreased L Platelet Morphology Normal Normal Normal Hypochromasia 2+ 3+ Anisocytosis 2+ 3+ 1+ Microcytosis 1+ Prothrombin Time 12.4 SEC (9.30-11.50) H Prothromb Time International Ratio 1.2 (0.9-1.1) H Activated Partial Thromboplast Time 27 SEC (23-33) Sodium Level 142 MMOL/L (136-145) Potassium Level 4.0 MMOL/L (3.5-5.1) Chloride Level 112 MMOL/L (98-107) H Carbon Dioxide Level 23 MMOL/L (21-32) Anion Gap 7 mmol/L (5-15) Blood Urea Nitrogen 9 mg/dL (7-18) Creatinine 0.9 MG/DL (0.55-1.30) Estimat Glomerular Filtration Rate > 60 mL/min (>60) Glucose Level 80 MG/DL (74-106) Calcium Level 7.0 MG/DL (8.5-10.1) L Phosphorus Level 2.4 MG/DL (2.5-4.9) L Magnesium Level 1.7 MG/DL (1.8-2.4) L Total Bilirubin 1.5 MG/DL (0.2-1.0) H Direct Bilirubin 0.9 MG/DL (0.0-0.3) H Aspartate Amino Transf (AST/SGOT) 42 U/L (15-37) H Alanine Aminotransferase (ALT/SGPT) 48 U/L (12-78) Alkaline Phosphatase 224 U/L (46-116) H Total Protein 4.1 G/DL (6.4-8.2) L Albumin 1.5 G/DL (3.4-5.0) L Globulin 2.6 g/dL Albumin/Globulin Ratio 0.6 (1.0-2.7) L Current Medications Medications (Trade) Dose Ordered Sig/Rebecca Route PRN Reason Start Time Stop Time Status Last Admin Dose Admin Acetaminophen (Tylenol) 650 mg Q4H PRN GT Mild Pain/Temp > 100.5 03/08/19 13:14 04/07/19 13:13 Al Hydroxide/Mg Hydroxide (Mylanta) 15 ml Q1H PRN ORAL gi upset 03/11/19 07:15 03/11/19 16:00 Albuterol/ Ipratropium (Albuterol/ Ipratropium) 3 ml Q4H PRN HHN Shortness of Breath 03/08/19 13:15 03/13/19 13:14 03/10/19 12:16 Allopurinol (Zyloprim) 200 mg DAILY GT 03/09/19 09:00 04/01/19 10:59 03/11/19 08:37 Atropine Sulfate (Atropine) 0.5 mg Q5M PRN IV bpm less than 45 03/11/19 07:15 03/11/19 16:00 Carvedilol (Coreg) 25 mg EVERY 12 HOURS GT 03/10/19 21:00 04/02/19 20:59 Chlorhexidine Gluconate (Essie-Hex 2%) 1 applic DAILY@1999 TOPIC 03/08/19 20:00 03/31/19 19:59 03/10/19 20:08 Clonidine HCl (Catapres Tab) 0.1 mg Q6H PRN GT FOR sbp >160 03/08/19 13:15 04/07/19 13:14 Colistimethate Sodium (Colistin *inhalation use only*) 150 mg Q12HR@ INH 03/08/19 13:45 03/15/19 13:44 03/11/19 09:30 Dextrose (Dextrose 50%) 25 ml Q30M PRN IV Hypoglycemia 03/08/19 12:30 04/04/19 08:45 Dextrose (Dextrose 50%) 50 ml Q30M PRN IV hypoglycemia 03/08/19 12:30 04/04/19 08:59 Dextrose/ Electrolytes 1,000 ml @ 50 mls/hr Q20H IV 03/08/19 13:14 04/07/19 13:13 03/11/19 01:42 Diphenhydramine HCl (Benadryl) 25 mg Q15M PRN IVP Itching 03/11/19 07:15 03/11/19 16:00 Fentanyl Citrate (Sublimaze 100 mcg/2 mL) 25 mcg Q10M PRN IV Moderate Pain (Pain Scale 4-6) 03/11/19 07:15 03/11/19 16:00 Hydralazine HCl (Apresoline) 5 mg Q30M PRN IV SBP>160 OR___/DBP>90 OR___ 03/11/19 07:15 03/11/19 16:00 Hydralazine HCl (Apresoline) 10 mg Q6HR GT 03/10/19 18:00 04/02/19 11:59 03/10/19 18:54 Isosorbide Dinitrate (Isordil) 20 mg TID GT 03/08/19 13:30 04/07/19 13:29 03/11/19 08:36 Lansoprazole (Prevacid) 30 mg BID GT 03/08/19 18:00 04/03/19 17:59 03/11/19 08:36 Metoclopramide HCl (Reglan) 5 mg EVERY 6 HOURS GT 03/08/19 18:00 04/01/19 11:59 03/10/19 18:54 Midazolam HCl (Versed 2mg/2ml vial) 1 mg Q15M PRN IVP For Anxiety 03/11/19 07:15 03/11/19 16:00 Ondansetron HCl (Zofran) 4 mg Q1H PRN IVP Nausea & Vomiting 03/11/19 07:15 03/11/19 16:00 Ondansetron HCl (Zofran) 4 mg Q6H PRN IVP Nausea & Vomiting 03/08/19 12:45 03/30/19 18:44 Piperacillin Sod/ Tazobactam Sod 3.375 gm/Sodium Chloride 110 ml @ 27.5 mls/hr Q8H IVPB 03/09/19 10:00 4/30/19 09:59 03/11/19 01:42 Polyethylene Glycol (Miralax) 17 gm DAILYPRN PRN GT Constipation 03/08/19 13:17 04/07/19 13:16 Prednisone (predniSONE) 15 mg DAILY GT 03/09/19 09:00 04/02/19 08:59 03/11/19 08:36 Sodium Phosphate 15 mm/Sodium Chloride 280 ml @ 70.273 mls/ hr ONCE IVPB 03/11/19 09:00 03/11/19 13:00 Kathie Lacey M.D. Mar 11, 2019 10:32
[2019-03-11] MEDS ORDERED: Heparin 1000 units/ml 1ml Vial INJ SCH (11:15)
--- NOTE | 2019-03-11 11:33 | Immediate Post-Op Evaluation ---
Immediate Post-Op Evalulation Immediate Post-Op Evalulation Procedure: colonoscopy Date of Evaluation: Mar 11, 2019 Time of Evaluation: 11:33 IV Fluids: 100ml 0.9ns Blood Products: 2u pRBCs Estimated Blood Loss: greater than 100ml Blood Pressure Systolic: 87 Blood Pressure Diastolic: 58 Pulse Rate: 106 Respiratory Rate: 16 O2 Sat by Pulse Oximetry: 100 Temperature (Fahrenheit): 97.8 Pain Score (1-10): 0 Nausea: No Vomiting: No Complications none Patient Status: awake, reacts, patent Hydration Status: adequate Drug: Alexandra Bejarano MD Mar 11, 2019 11:33
--- NOTE | 2019-03-11 11:35 | 48 Hour Post Anesthesia Eval ---
Post Anesthesia Evaluation Procedure: colonoscopy Date of Evaluation: Mar 11, 2019 Time of Evaluation: 11:35 Blood Pressure Systolic: 93 0: 58 Pulse Rate: 103 Respiratory Rate: 16 Temperature (Fahrenheit): 97.8 O2 Sat by Pulse Oximetry: 100 Airway: patent Nausea: No Vomiting: No Pain Intensity: 0 Hydration Status: adequate Cardiopulmonary Status: stable Mental Status/LOC: patient returned to baseline Post-Anesthesia Complications: none Follow-up care needed: N/A Alexandra Araiza MD Mar 11, 2019 11:35
--- NOTE | 2019-03-11 11:53 | Endoscopy Procedure Note ---
Endoscopy Procedure Note General Indication for Procedure: gib Procedures Performed: colonoscopy Operative Findings/Diagnosis: hemorrhoids Specimen: none Pt Tolerated Procedure Well: Yes Estimated Blood Loss: none Anesthesia Anesthesiologist: brice Anesthesia: MAC Inserted Devices Implant(s) used?: No GI Core Measures 50 yrs or older w/o bx or poly: Not Applicable 10yrs. F/U not recommended: Not Applicable Antwon Willoughby MD Mar 11, 2019 11:53
--- NOTE | 2019-03-11 13:08 | Nephrology Progress Note ---
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 Chronic systolic (congestive) heart failure History of sudden cardiac arrest Status post tracheostomy Feeding by G-tube History of asthma Plan DC all BP lowering meds as BP low- transfuse as needed change protonix and steroids to IV looking for higher level care where they can do locate and embolization phos and mag ordered colonoscopy did not [place] bleeding source from colon with Ej fx of 10% , not a great surgical candidate per GI and Surgery Cerda hydrate aim to lower after and pre load- monitor renal parameters per orders Subjective ROS Limited/Unobtainable: No Constitutional: Reports: malaise, other - continues to bleed Objective Objective Last 24 Hour Vital Signs Date Time Temp Pulse Resp B/P (MAP) Pulse Ox O2 Delivery O2 Flow Rate FiO2 03/11/19 12:58 93/58 03/11/19 12:31 105 28 40 03/11/19 12:00 Mechanical Ventilator 03/11/19 11:35 103 16 100 03/11/19 11:34 87/58 03/11/19 11:33 106 16 100 03/11/19 11:04 106 18 40 03/11/19 11:00 106 18 90/60 (70) 100 03/11/19 10:00 103 16 91/68 (76) 100 03/11/19 09:51 105 16 100 Mechanical Ventilator 40 03/11/19 09:31 104 16 100 Mechanical Ventilator 40 03/11/19 09:01 104 16 40 03/11/19 09:00 99 17 85/58 (67) 100 03/11/19 08:37 103 89/60 03/11/19 08:36 90/60 03/11/19 08:00 40 03/11/19 08:00 Mechanical Ventilator 03/11/19 08:00 106 16 89/60 (70) 100 03/11/19 07:01 102 18 40 03/11/19 07:00 97.5 105 17 89/60 (70) 100 03/11/19 06:00 99 16 83/57 (66) 100 03/11/19 05:54 90/55 03/11/19 05:00 99 16 80/51 (61) 100 03/11/19 04:41 109 19 40 03/11/19 04:00 97.8 98 18 95/64 (74) 100 03/11/19 04:00 103 03/11/19 04:00 40 03/11/19 04:00 Mechanical Ventilator 03/11/19 03:05 95 16 40 03/11/19 03:00 98 16 83/51 (62) 100 03/11/19 02:00 94 16 90/60 (70) 100 03/11/19 01:05 80 20 40 03/11/19 01:00 95 16 93/60 (71) 100 03/11/19 00:00 97.7 90 16 100/60 (73) 100 03/11/19 00:00 90 03/11/19 00:00 75/50 03/11/19 00:00 Mechanical Ventilator 03/11/19 00:00 40 03/10/19 23:15 95 16 40 03/10/19 23:00 93 16 91/60 (70) 100 03/10/19 22:00 97 17 89/62 (71) 100 03/10/19 21:55 98 16 100 Mechanical Ventilator 40 03/10/19 21:40 100 16 100 Mechanical Ventilator 40 03/10/19 21:40 100 16 40 03/10/19 21:00 99 16 87/59 (68) 100 03/10/19 20:50 99 89/74 03/10/19 20:00 98.8 100 16 96/63 (74) 100 03/10/19 20:00 40 03/10/19 20:00 Mechanical Ventilator 03/10/19 19:32 97 20 Mechanical Ventilator 40 03/10/19 19:30 97 20 40 03/10/19 19:00 92 16 100/63 (75) 100 03/10/19 18:55 96/62 03/10/19 18:54 96/62 03/10/19 18:00 94 23 96/62 (73) 100 03/10/19 17:00 94 17 104/64 (77) 100 03/10/19 16:52 96 16 40 03/10/19 16:30 88 20 103/68 (80) 100 03/10/19 16:00 40 03/10/19 16:00 89 03/10/19 16:00 Mechanical Ventilator 03/10/19 16:00 91 17 109/68 (82) 100 03/10/19 15:00 98.9 03/10/19 14:54 94 25 40 03/10/19 14:00 88 13 97/64 (75) 99 Intake and Output 03/10/19 03/11/19 19:00 07:00 Intake Total 1237.5 ml 4687.5 ml Output Total 470 ml 2210 ml Balance 767.5 ml 2477.5 ml Intake Oral 4000 ml IV Total 737.5 ml 687.5 ml Blood Product 500 ml Output Urine Total 470 ml 560 ml Stool Total 1650 ml # Bowel Movements 24 20 Laboratory Tests 03/10/19 18:00: White Blood Count 16.3#H, Red Blood Count 2.19L, Hemoglobin 5.9*L, Hematocrit 18.1L, Mean Corpuscular Volume 83, Mean Corpuscular Hemoglobin 26.7L, Mean Corpuscular Hemoglobin Concent 32.3, Red Cell Distribution Width 21.0H, Platelet Count 127L, Mean Platelet Volume 7.0, Neutrophils (%) (Auto) , Lymphocytes (%) (Auto) , Monocytes (%) (Auto) , Eosinophils (%) (Auto) , Basophils (%) (Auto) , Differential Total Cells Counted 100, Neutrophils % ( Manual) 77H, Lymphocytes % (Manual) 13L, Monocytes % (Manual) 4, Eosinophils % ( Manual) 1, Basophils % (Manual) 0, Band Neutrophils 5, Platelet Estimate DecreasedL, Platelet Morphology Normal, Hypochromasia 2+, Anisocytosis 2+ 03/10/19 18:50: White Blood Count 15.8H, Red Blood Count 2.16L, Hemoglobin 5.7*L, Hematocrit 17.7L, Mean Corpuscular Volume 82, Mean Corpuscular Hemoglobin 26.3L, Mean Corpuscular Hemoglobin Concent 32.2, Red Cell Distribution Width 21.0H, Platelet Count 125L, Mean Platelet Volume 6.2L, Neutrophils (%) (Auto) , Lymphocytes (%) (Auto) , Monocytes (%) (Auto) , Eosinophils (%) (Auto) , Basophils (%) (Auto) , Differential Total Cells Counted 100, Neutrophils % ( Manual) 83H, Lymphocytes % (Manual) 8L, Monocytes % (Manual) 5, Eosinophils % ( Manual) 0, Basophils % (Manual) 1, Band Neutrophils 3, Platelet Estimate DecreasedL, Platelet Morphology Normal, Hypochromasia 3+, Anisocytosis 3+ 03/11/19 03:55: White Blood Count 14.5H, Red Blood Count 1.78L, Hemoglobin 4.9*L, Hematocrit 14.9L, Mean Corpuscular Volume 84, Mean Corpuscular Hemoglobin 27.5, Mean Corpuscular Hemoglobin Concent 32.7, Red Cell Distribution Width 21.0H, Platelet Count 122L, Mean Platelet Volume 7.4, Neutrophils (%) (Auto) , Lymphocytes (%) (Auto) , Monocytes (%) (Auto) , Eosinophils (%) (Auto) , Basophils (%) (Auto) , Differential Total Cells Counted 100, Neutrophils % ( Manual) 90H, Lymphocytes % (Manual) 9L, Monocytes % (Manual) 1, Eosinophils % ( Manual) 0, Basophils % (Manual) 0, Band Neutrophils 0, Platelet Estimate DecreasedL, Platelet Morphology Normal, Anisocytosis 1+, Microcytosis 1+, Prothrombin Time 12.4H, Prothromb Time International Ratio 1.2H, Activated Partial Thromboplast Time 27, Sodium Level 142, Potassium Level 4.0, Chloride Level 112H, Carbon Dioxide Level 23, Anion Gap 7, Blood Urea Nitrogen 9, Creatinine 0.9, Estimat Glomerular Filtration Rate > 60, Glucose Level 80, Calcium Level 7.0L, Phosphorus Level 2.4L, Magnesium Level 1.7L, Total Bilirubin 1.5H, Direct Bilirubin 0.9H, Aspartate Amino Transf (AST/SGOT) 42H, Alanine Aminotransferase (ALT/SGPT) 48, Alkaline Phosphatase 224H, Total Protein 4.1L, Albumin 1.5L, Globulin 2.6, Albumin/Globulin Ratio 0.6L Height (Feet): 6 Height (Inches): 1.00 Weight (Pounds): 255 General Appearance: no apparent distress, lethargic EENT: other - trach Respiratory/Chest: decreased breath sounds Abdomen: distended Nico Alonso MD Mar 11, 2019 13:08
--- NOTE | 2019-03-11 13:54 | Surgery Progress Note ---
Surgery Progress Note Subjective Additional Comments still bleeding repeat scope without etiology in colon or TI CTA without location exam unchanged. Objective Last 24 Hour Vital Signs Date Time Temp Pulse Resp B/P (MAP) Pulse Ox O2 Delivery O2 Flow Rate FiO2 03/11/19 12:58 93/58 03/11/19 12:31 105 28 40 03/11/19 12:00 40 03/11/19 12:00 99 03/11/19 12:00 Mechanical Ventilator 03/11/19 11:35 103 16 100 03/11/19 11:34 87/58 03/11/19 11:33 106 16 100 03/11/19 11:04 106 18 40 03/11/19 11:00 106 18 90/60 (70) 100 03/11/19 10:00 103 16 91/68 (76) 100 03/11/19 09:51 105 16 100 Mechanical Ventilator 40 03/11/19 09:31 104 16 100 Mechanical Ventilator 40 03/11/19 09:01 104 16 40 03/11/19 09:00 99 17 85/58 (67) 100 03/11/19 08:37 103 89/60 03/11/19 08:36 90/60 03/11/19 08:00 40 03/11/19 08:00 Mechanical Ventilator 03/11/19 08:00 106 16 89/60 (70) 100 03/11/19 07:01 102 18 40 03/11/19 07:00 97.5 105 17 89/60 (70) 100 03/11/19 06:00 99 16 83/57 (66) 100 03/11/19 05:54 90/55 03/11/19 05:00 99 16 80/51 (61) 100 03/11/19 04:41 109 19 40 03/11/19 04:00 97.8 98 18 95/64 (74) 100 03/11/19 04:00 103 03/11/19 04:00 40 03/11/19 04:00 Mechanical Ventilator 03/11/19 03:05 95 16 40 03/11/19 03:00 98 16 83/51 (62) 100 03/11/19 02:00 94 16 90/60 (70) 100 03/11/19 01:05 80 20 40 03/11/19 01:00 95 16 93/60 (71) 100 03/11/19 00:00 97.7 90 16 100/60 (73) 100 03/11/19 00:00 90 03/11/19 00:00 75/50 03/11/19 00:00 Mechanical Ventilator 03/11/19 00:00 40 03/10/19 23:15 95 16 40 03/10/19 23:00 93 16 91/60 (70) 100 03/10/19 22:00 97 17 89/62 (71) 100 03/10/19 21:55 98 16 100 Mechanical Ventilator 40 03/10/19 21:40 100 16 100 Mechanical Ventilator 40 03/10/19 21:40 100 16 40 03/10/19 21:00 99 16 87/59 (68) 100 03/10/19 20:50 99 89/74 03/10/19 20:00 98.8 100 16 96/63 (74) 100 03/10/19 20:00 40 03/10/19 20:00 Mechanical Ventilator 03/10/19 19:32 97 20 Mechanical Ventilator 40 03/10/19 19:30 97 20 40 03/10/19 19:00 92 16 100/63 (75) 100 03/10/19 18:55 96/62 03/10/19 18:54 96/62 03/10/19 18:00 94 23 96/62 (73) 100 03/10/19 17:00 94 17 104/64 (77) 100 03/10/19 16:52 96 16 40 03/10/19 16:30 88 20 103/68 (80) 100 03/10/19 16:00 40 03/10/19 16:00 89 03/10/19 16:00 Mechanical Ventilator 03/10/19 16:00 91 17 109/68 (82) 100 03/10/19 15:00 98.9 03/10/19 14:54 94 25 40 03/10/19 14:00 88 13 97/64 (75) 99 I&O Intake and Output 03/10/19 03/11/19 19:00 07:00 Intake Total 1237.5 ml 4687.5 ml Output Total 470 ml 2210 ml Balance 767.5 ml 2477.5 ml Intake Oral 4000 ml IV Total 737.5 ml 687.5 ml Blood Product 500 ml Output Urine Total 470 ml 560 ml Stool Total 1650 ml # Bowel Movements 24 20 Drains: none Cardiovascular: RSR Respiratory: clear Abdomen: soft, non-tender, decreased bowel sounds Extremities: no edema, no cyanosis Laboratory Tests Test 03/10/19 18:00 03/10/19 18:50 03/11/19 03:55 White Blood Count 16.3 K/UL (4.8-10.8) #H 15.8 K/UL (4.8-10.8) H 14.5 K/UL (4.8-10.8) H Red Blood Count 2.19 M/UL (4.70-6.10) L 2.16 M/UL (4.70-6.10) L 1.78 M/UL (4.70-6.10) L Hemoglobin 5.9 G/DL (14.2-18.0) *L 5.7 G/DL (14.2-18.0) *L 4.9 G/DL (14.2-18.0) *L Hematocrit 18.1 % (42.0-52.0) L 17.7 % (42.0-52.0) L 14.9 % (42.0-52.0) L Mean Corpuscular Volume 83 FL (80-99) 82 FL (80-99) 84 FL (80-99) Mean Corpuscular Hemoglobin 26.7 PG (27.0-31.0) L 26.3 PG (27.0-31.0) L 27.5 PG (27.0-31.0) Mean Corpuscular Hemoglobin Concent 32.3 G/DL (32.0-36.0) 32.2 G/DL (32.0-36.0) 32.7 G/DL (32.0-36.0) Red Cell Distribution Width 21.0 % (11.6-14.8) H 21.0 % (11.6-14.8) H 21.0 % (11.6-14.8) H Platelet Count 127 K/UL (150-450) L 125 K/UL (150-450) L 122 K/UL (150-450) L Mean Platelet Volume 7.0 FL (6.5-10.1) 6.2 FL (6.5-10.1) L 7.4 FL (6.5-10.1) Neutrophils (%) (Auto) % (45.0-75.0) % (45.0-75.0) % (45.0-75.0) Lymphocytes (%) (Auto) % (20.0-45.0) % (20.0-45.0) % (20.0-45.0) Monocytes (%) (Auto) % (1.0-10.0) % (1.0-10.0) % (1.0-10.0) Eosinophils (%) (Auto) % (0.0-3.0) % (0.0-3.0) % (0.0-3.0) Basophils (%) (Auto) % (0.0-2.0) % (0.0-2.0) % (0.0-2.0) Differential Total Cells Counted 100 100 100 Neutrophils % (Manual) 77 % (45-75) H 83 % (45-75) H 90 % (45-75) H Lymphocytes % (Manual) 13 % (20-45) L 8 % (20-45) L 9 % (20-45) L Monocytes % (Manual) 4 % (1-10) 5 % (1-10) 1 % (1-10) Eosinophils % (Manual) 1 % (0-3) 0 % (0-3) 0 % (0-3) Basophils % (Manual) 0 % (0-2) 1 % (0-2) 0 % (0-2) Band Neutrophils 5 % (0-8) 3 % (0-8) 0 % (0-8) Platelet Estimate Decreased L Decreased L Decreased L Platelet Morphology Normal Normal Normal Hypochromasia 2+ 3+ Anisocytosis 2+ 3+ 1+ Microcytosis 1+ Prothrombin Time 12.4 SEC (9.30-11.50) H Prothromb Time International Ratio 1.2 (0.9-1.1) H Activated Partial Thromboplast Time 27 SEC (23-33) Sodium Level 142 MMOL/L (136-145) Potassium Level 4.0 MMOL/L (3.5-5.1) Chloride Level 112 MMOL/L (98-107) H Carbon Dioxide Level 23 MMOL/L (21-32) Anion Gap 7 mmol/L (5-15) Blood Urea Nitrogen 9 mg/dL (7-18) Creatinine 0.9 MG/DL (0.55-1.30) Estimat Glomerular Filtration Rate > 60 mL/min (>60) Glucose Level 80 MG/DL (74-106) Calcium Level 7.0 MG/DL (8.5-10.1) L Phosphorus Level 2.4 MG/DL (2.5-4.9) L Magnesium Level 1.7 MG/DL (1.8-2.4) L Total Bilirubin 1.5 MG/DL (0.2-1.0) H Direct Bilirubin 0.9 MG/DL (0.0-0.3) H Aspartate Amino Transf (AST/SGOT) 42 U/L (15-37) H Alanine Aminotransferase (ALT/SGPT) 48 U/L (12-78) Alkaline Phosphatase 224 U/L (46-116) H Total Protein 4.1 G/DL (6.4-8.2) L Albumin 1.5 G/DL (3.4-5.0) L Globulin 2.6 g/dL Albumin/Globulin Ratio 0.6 (1.0-2.7) L Plan Problems: (1) History of asthma (2) History of sudden cardiac arrest (3) Chronic systolic (congestive) heart failure (4) Hyperkalemia (5) ATN (acute tubular necrosis) (6) Feeding by G-tube Assessment & Plan: DAILY ESTIMATED NEEDS: Needs based on Critical care, wounds, renal 89kg adj 22-30 kcals/kg 0048-7483 total kcals 1.25-1.5 g protein/kg 111-134 g total protein 25-30 mL/kg 5423-0966 total fluid mLs NUTRITION DIAGNOSIS: 1) Swallowing difficulty r/t respiratory status as evidenced by pt is S/p trach and peg placement. 2) Increased protein needs r/t wound healing as evidenced by pt w/ multiple wounds including full and partial thickness wounds (refer to WC eval). 3) Altered nutrition related lab values r/t clinical status as evidenced by critically elev K (7.9-> 7.1-> 3.0-> now wnl), elev phos-> now wnl, elev mg, w/ elev BUN(79-> 54 trend down) and elev Creat (2.9-> 1.5 trend down). CURRENT TF:Glucerna 1.5 @ 45ml/hr x 24 hrs ENTERAL NUTRITION RECOMMENDATIONS: Glucerna 1.5 @ 55ml/hr x 24 hrs + Prosource 1pkt daily to provide 1320ml, 1980kcal, 109g prot + 11g prot, 1002ml free water - Increase goal rate to 55ml/hr x 24 hrs - Add PROSOURCE 1 pack QD to better meet est pro needs - Flush per MD, HOB over 30 degrees ADDITIONAL RECOMMENDATIONS: 1) Per Pt: 6'3" tall, 222# 2) Wound care: add EVAN BID via GT 3) Weekly calibrated bed scale wts 4) Monitor BG on prednisone/ need for NISS 5) Monitor for ability for oral intake, need to adjust TF (7) EF less than 10% (8) GI bleed Assessment & Plan: as per GI h/h trending down upper and lower scope could not identify etiology. likely small bowel. CTA without etiology still bleeding NM bleeding study ordered spoke with family and working on higher level of care for angio embolization if not able to and continues to bleed and life threatening may require laparotomy transfuse prn will follow (9) Renal failure (10) Hyperkalemia (11) Respiratory distress (12) Acute on chronic respiratory failure (13) Elevated LFTs Assessment & Plan: trend will monitor US with Impression: Small amount of ascites fluid Hepatomegaly. Equivocal mild surface nodularity, could indicate early cirrhotic changes. Correlate with clinical findings Apparent to and fro flow within the portal veins, raising concern for portal hypertension Borderline splenomegaly Negative for gallstones. Apparent pericholecystic fluid is likely a manifestation of the ascites. Apparent gallbladder wall edema is most likely related to the hepatocellular disease, although the possibility of acute acalculous cholecystitis should also be considered. Consider nuclear medicine hepatobiliary imaging for further evaluation if there is high clinical suspicion Echogenic foci within the left hepatic lobe. These could represent small hemangiomas or just prominent periportal fat Right pleural effusion Bilateral renal cysts incidentally noted HIDA with No evidence of acute cholecystitis. Radiotracer noted within the gallbladder indicating patency of the cystic duct. Radiotracer passes into the small bowel indicating patency of the common bile duct. Delayed uptake and excretion of the radiotracer from the liver parenchyma suggesting hepatocellular dysfunction/disease. (14) Dyspnea (15) Decubitus skin ulcer Assessment & Plan: Pt presented on admission with multiple partial thickness pressure injuries R and L buttocks and L thoracic,Open DTPI sacrum. Sacral area with full thickness wound with trace slough at coccygeal area,with surrounding dark skin tone without fluctuance or induration. (L)2cm x(W)4.4cm. No odor or exudate noted .Shearing periwound with small amt of sanguineous exudate. Multiple small partial thickness pressure injuries R and L buttocks.Surrounding areas of buttocks with darker than is normal skin tone. Partial thickness pressure injury Thoracic (2) sites. Proximal wound moist viable with dark skin tone periwound (L)2.6cm long. (Inferior) Partial thickness wound L thoracic (L)1.4cm x (W)1.5cm. Both heels are dry and firm . Trach site without erythema or evidence of skin breakdown. Tx.Plan: Apply Moisture Barrier Paste to entire Buttocks. Cover Sacral area with Optifoam. Change every 3 days and prn. Cover Thoracic wounds with Optifoam drsg .Change every 3 days and prn. APM/ Elvira mattress. Reposition at least every 2hours or as tolerated. Off-load heels with pillow. Karthik Cheatham Mar 11, 2019 13:54
[2019-03-11] MEDS ORDERED: Hydrocortisone 100mg Inj IV SCH (14:00)
--- NOTE | 2019-03-11 16:51 | Diagnostic Imaging Report ---
Indication: Reason For Exam: BLD Technique: In vivo labeling of red blood cells with injection of cold pyrophosphate followed by 26 mCi 99m technetium pyrophosphate. Flow and serial static images obtained over the abdomen for one hour Comparison: Reference made to CT scan dated 03/10/2019 Findings: Prompt appearance of tracer in the right lower quadrant, location and configuration of tracer conforming to the proximal ascending colon, with subsequent images demonstrating reflux of tracer into the cecum. Location of the tracer corresponds essentially exactly to the location of suspected contrast extravasation demonstrated on the recent CT scan. Tracer does appear to be static, does not propagate significantly antegrade on the later images. There is some renal activity and bladder activity, consistent with renal excretion of the labeled tracer. The flow images are unremarkable Impression:
[2019-03-11 17:25] LABS: MEAN CORPUSCULAR VOLUME 87 FL (80-99); PLATELET COUNT 119 K/UL (150-450); RED BLOOD COUNT 1.73 M/UL (4.70-6.10); RED CELL DISTRIBUTION WIDTH 18.2 % (11.6-14.8)
[2019-03-11 17:35] LABS: WHITE BLOOD COUNT 27.8 K/UL (4.8-10.8)
[2019-03-11 17:36] LABS: HEMOGLOBIN 5.1 G/DL (14.2-18.0)
[2019-03-11] MEDS ORDERED: Bacitracin 50000 Units Vial ONE (17:40)
[2019-03-11] MEDS ORDERED: NS Irrig 1000ml ONE (18:00)
[2019-03-11] MEDS ORDERED: Atropine Inj 1mg/10ml Syr ONE (18:00)
[2019-03-11] MEDS ORDERED: LR 1000ml ONE (18:00)
[2019-03-11] MEDS ORDERED: Phenylephrine 10mg/ml Vial ONE (18:01)
[2019-03-11] MEDS ORDERED: EPINEPHrine 1mg/1ml Amp ONE (18:01)
--- NOTE | 2019-03-11 18:07 | Immediate Post-Op Evaluation ---
Immediate Post-Op Evalulation Immediate Post-Op Evalulation Procedure: R Colectomy Date of Evaluation: Mar 11, 2019 Pain Score (1-10): 0 Nausea: No Vomiting: No Complications 0 Patient Status: no response, patent, ventilated, none Trae Mcnulty MD Mar 11, 2019 18:07
[2019-03-11] MEDS ORDERED: Rocuronium Bromide 50mg/5ml Inj IV ONE (18:08)
--- NOTE | 2019-03-11 18:09 | Pre-Procedure Note/Attestation ---
Pre-Procedure Note/Attestation Complete Prior to Procedure Planned Procedure: not applicable Procedure Narrative: exploratory laparotomy, possible bowel resection, possible ostomy, possible open abdomen with planned re-exploration Indications for Procedure Pre-Operative Diagnosis: GI bleed Attestation I attest that I discussed the nature of the procedure; its benefits; risks and complications; and alternatives (and the risks and benefits of such alternatives ), prior to the procedure, with the patient (or the patient's legal equal opportunity representative). I attest that, if there was a reasonable possibility of needing a blood transfusion, the patient (or the patient's legal equal opportunity representative) was given the [facility] standardized written summary, pursuant to the Leo Lilly Blood Safety Act ([place] Health and Safety Code # 1645, as amended). I attest that I re-evaluated the patient just prior to the surgery and that there has been no change in the patient's H&P, except as documented below: Karthik Cheatham Mar 11, 2019 18:09
[2019-03-11] MEDS ORDERED: NS Irrig 1000ml IRRIG ONE (18:47)
--- NOTE | 2019-03-11 19:00 | Procedure Note ---
DATE OF PROCEDURE: 03/11/2019 SURGEON: Antwon Willoughby M.D. PROCEDURE: Colonoscopy. ANESTHESIA: Alexandra Camargo M.D. INSTRUMENT: Olympus adult flexible colonoscope. INDICATION: GI bleeding. REASON FOR PROCEDURE: The procedure, risks, benefits, and possible consequences, including hemorrhage, aspiration, perforation and infection, and alternative treatments, were explained to the patient/legal guardian by Dr. Antwon Willoughby and the patient/legal guardian understood and accepted these risks. PROCEDURE IN DETAIL: After informed consent was obtained and the patient was adequately sedated, first rectal exam was performed, which was normal. Then, the scope was advanced from the rectum all the way into the cecum then up to the terminal ileum. Quality of prep was good. The patient had blood seen in the terminal ileum. We went all the way to about 20 to 25 cm in the terminal ileum. There was still blood in there. There was somewhat accommodation of blood clot in the cecum right at the opening of the ileocecal valve and there was some blood clot also throughout the colon, but more prominent was in the rectum and the cecum and saw fresh blood in the terminal ileum. Unfortunately, we cannot find the source of bleeding. This is most likely the small bowel bleed given there is blood up to about 25 to 30 cm in the terminal ileum and blood just clubbing in the cecum and in the rectum. RECOMMENDATIONS: Our recommendation would be for the patient to either get an angiogram with embolization. We also discussed with the surgeon, Dr. Cheatham. We are going to order a tagged RBC scan and also I spoke with the case resolution specialist to see the patient can be transferred to higher level of care for angiogram and embolization. So, we have surgery on board, we have social workers on board for possible transferring. We are going to transfuse to keep hemoglobin above 7. We will give him 1 unit of fresh frozen plasma today and also discussed with the family. Antwon Willoughby M.D. DR: CARLITOS JOB#: [id number] CC:
[2019-03-11] MEDS ORDERED: Tubing Blood Filter IV ONE (19:16)
[2019-03-11] MEDS ORDERED: Tubing IV Secondary IV ONE (19:16)
[2019-03-11] MEDS ORDERED: NS 275ml ONE ×2 (19:16→20:59)
[2019-03-11] MEDS ORDERED: Levophed 4mg/4mL Inj IV ONE ×2 (19:35→20:59)
--- NOTE | 2019-03-11 19:56 | Brief Operative Note ---
Immediate Post Operative Note Operative Note Pre-op Diagnosis: GI bleed Procedure: 1. exploratory laparotomy 2. right colectomy 3. open abdomen with abdominal wound vac placement Post-op Diagnosis: same as pre-op Surgeon: zac Anesthesiologist: brigid Anesthesia: general Specimen: yes Complications: none Condition: unstable Fluids: see recods Estimated Blood Loss: minimal Drains: wound vac Implant(s) used?: No Karthik Cheatham Mar 11, 2019 19:56
[2019-03-11] MEDS ORDERED: EPINEPHrine 1mg/1ml Amp 1 MG in D5W 249 ML IV SCH (20:00)
[2019-03-11 20:25] LABS: HEMATOCRIT 11.5 % (42.0-52.0); MEAN CORPUSCULAR VOLUME 90 FL (80-99); PLATELET COUNT 82 K/UL (150-450); RED BLOOD COUNT 1.28 M/UL (4.70-6.10); RED CELL DISTRIBUTION WIDTH 19.9 % (11.6-14.8)
[2019-03-11 20:29] LABS: HEMOGLOBIN 3.8 G/DL (14.2-18.0); WHITE BLOOD COUNT 24.3 K/UL (4.8-10.8)
[2019-03-11 20:30] LABS: ANION GAP 15 mmol/L (5-15); BLOOD UREA NITROGEN 9 mg/dL (7-18); CALCIUM 9.9 MG/DL (8.5-10.1); CARBON DIOXIDE 18 MMOL/L (21-32); CHLORIDE 113 MMOL/L (98-107); CREATININE 1.3 MG/DL (0.55-1.30); POTASSIUM 4.9 MMOL/L (3.5-5.1); SODIUM 146 MMOL/L (136-145)
[2019-03-11 20:31] LABS: BASOPHILS % (AUTO) 0.7 % (0.0-2.0); EOSINOPHILS % (AUTO) 0.1 % (0.0-3.0); INR 1.4 (0.9-1.1); LYMPHOCYTES % (AUTO) 13.3 % (20.0-45.0); MONOCYTES % (AUTO) 5.3 % (1.0-10.0); NEUTROPHILS % (AUTO) 80.5 % (45.0-75.0)
[2019-03-11 20:34] LABS: ALANINE AMINOTRANSFERASE 62 U/L (12-78); ALBUMIN 1.2 G/DL (3.4-5.0); ALBUMIN/GLOBULIN RATIO 0.6 (1.0-2.7); ALKALINE PHOSPHATASE 138 U/L (46-116); ASPARTATE AMINO TRANSFERASE 79 U/L (15-37); BILIRUBIN,TOTAL 0.7 MG/DL (0.2-1.0)
--- NOTE | 2019-03-11 20:53 | Internal Med Progress Note ---
Subjective Date of Service: Mar 11, 2019 Physician Name Alex Cifuentes Attending Physician Sherman Vee MD Current Medications Medications (Trade) Dose Ordered Sig/Rebecca Route PRN Reason Start Time Stop Time Status Last Admin Dose Admin Acetaminophen (Tylenol) 650 mg Q4H PRN GT Mild Pain/Temp > 100.5 03/08/19 13:14 04/07/19 13:13 Albuterol/ Ipratropium (Albuterol/ Ipratropium) 3 ml Q4H PRN HHN Shortness of Breath 03/08/19 13:15 03/13/19 13:14 03/10/19 12:16 Chlorhexidine Gluconate (Essie-Hex 2%) 1 applic DAILY@2000 TOPIC 03/08/19 20:00 03/31/19 19:59 03/10/19 20:08 Colistimethate Sodium (Colistin *inhalation use only*) 150 mg Q12HR@10,22 INH 03/08/19 13:45 03/15/19 13:44 03/11/19 09:30 Dextrose (Dextrose 50%) 25 ml Q30M PRN IV Hypoglycemia 03/08/19 12:30 04/04/19 08:45 Dextrose (Dextrose 50%) 50 ml Q30M PRN IV hypoglycemia 03/08/19 12:30 04/04/19 08:59 Dextrose/ Electrolytes 1,000 ml @ 50 mls/hr Q20H IV 03/08/19 13:14 04/07/19 13:13 03/11/19 01:42 Heparin Sodium (Porcine) (Heparin) 45 unit ONCE INJ 03/11/19 11:15 03/11/19 23:59 Hydrocortisone (Solu-CORTEF) 100 mg EVERY 8 HOURS IV 03/11/19 14:00 04/10/19 13:59 Ondansetron HCl (Zofran) 4 mg Q6H PRN IVP Nausea & Vomiting 03/08/19 12:45 03/30/19 18:44 Pantoprazole (Protonix) 40 mg EVERY 12 HOURS IVP 03/11/19 21:00 04/10/19 20:59 Piperacillin Sod/ Tazobactam Sod 3.375 gm/Sodium Chloride 110 ml @ 27.5 mls/hr Q8H IVPB 03/09/19 10:00 03/16/19 09:59 03/11/19 17:45 Polyethylene Glycol (Miralax) 17 gm DAILYPRN PRN GT Constipation 03/08/19 13:17 04/07/19 13:16 Allergies: Coded Allergies: No Known Allergies (Unverified , 03/28/17) ROS Limited/Unobtainable: Yes Subjective 53YO M with history of vent dep respiratory failure admitted with respiratory distress. [facility] Vent. Cover for Int Med-Dr Vee. ICU. S/P colonoscopy and endoscopy 03/09/19. Objective Last Vital Signs Date Time Temp Pulse Resp B/P (MAP) Pulse Ox O2 Delivery O2 Flow Rate FiO2 03/11/19 18:00 97.7 129 18 87/56 (66) 100 03/11/19 16:25 40 03/11/19 16:00 Mechanical Ventilator 03/05/19 18:54 55.0 Laboratory Tests Test 03/11/19 03:55 03/11/19 17:00 03/11/19 19:45 03/11/19 19:47 White Blood Count 14.5 K/UL (4.8-10.8) H 27.8 K/UL (4.8-10.8) #*H 24.3 K/UL (4.8-10.8) *H Red Blood Count 1.78 M/UL (4.70-6.10) L 1.73 M/UL (4.70-6.10) L 1.28 M/UL (4.70-6.10) L Hemoglobin 4.9 G/DL (14.2-18.0) *L 5.1 G/DL (14.2-18.0) *L 3.8 G/DL (14.2-18.0) *L Hematocrit 14.9 % (42.0-52.0) L 15.0 % (42.0-52.0) L 11.5 % (42.0-52.0) L Mean Corpuscular Volume 84 FL (80-99) 87 FL (80-99) 90 FL (80-99) Mean Corpuscular Hemoglobin 27.5 PG (27.0-31.0) 29.6 PG (27.0-31.0) 29.6 PG (27.0-31.0) Mean Corpuscular Hemoglobin Concent 32.7 G/DL (32.0-36.0) 34.1 G/DL (32.0-36.0) 32.8 G/DL (32.0-36.0) Red Cell Distribution Width 21.0 % (11.6-14.8) H 18.2 % (11.6-14.8) H 19.9 % (11.6-14.8) H Platelet Count 122 K/UL (150-450) L 119 K/UL (150-450) L 82 K/UL (150-450) L Mean Platelet Volume 7.4 FL (6.5-10.1) 7.1 FL (6.5-10.1) 7.8 FL (6.5-10.1) Neutrophils (%) (Auto) % (45.0-75.0) % (45.0-75.0) 80.5 % (45.0-75.0) H Lymphocytes (%) (Auto) % (20.0-45.0) % (20.0-45.0) 13.3 % (20.0-45.0) L Monocytes (%) (Auto) % (1.0-10.0) % (1.0-10.0) 5.3 % (1.0-10.0) Eosinophils (%) (Auto) % (0.0-3.0) % (0.0-3.0) 0.1 % (0.0-3.0) Basophils (%) (Auto) % (0.0-2.0) % (0.0-2.0) 0.7 % (0.0-2.0) Differential Total Cells Counted 100 100 Neutrophils % (Manual) 90 % (45-75) H 91 % (45-75) H Lymphocytes % (Manual) 9 % (20-45) L 8 % (20-45) L Monocytes % (Manual) 1 % (1-10) 1 % (1-10) Eosinophils % (Manual) 0 % (0-3) 0 % (0-3) Basophils % (Manual) 0 % (0-2) 0 % (0-2) Band Neutrophils 0 % (0-8) 0 % (0-8) Platelet Estimate Decreased L Decreased L Platelet Morphology Normal Normal Anisocytosis 1+ 1+ Microcytosis 1+ Prothrombin Time 12.4 SEC (9.30-11.50) H 14.5 SEC (9.30-11.50) H Prothromb Time International Ratio 1.2 (0.9-1.1) H 1.4 (0.9-1.1) H Activated Partial Thromboplast Time 27 SEC (23-33) 42 SEC (23-33) H Sodium Level 142 MMOL/L (136-145) 146 MMOL/L (136-145) H Potassium Level 4.0 MMOL/L (3.5-5.1) 4.9 MMOL/L (3.5-5.1) Chloride Level 112 MMOL/L (98-107) H 113 MMOL/L (98-107) H Carbon Dioxide Level 23 MMOL/L (21-32) 18 MMOL/L (21-32) L Anion Gap 7 mmol/L (5-15) 15 mmol/L (5-15) Blood Urea Nitrogen 9 mg/dL (7-18) 9 mg/dL (7-18) Creatinine 0.9 MG/DL (0.55-1.30) 1.3 MG/DL (0.55-1.30) Estimat Glomerular Filtration Rate > 60 mL/min (>60) > 60 mL/min (>60) Glucose Level 80 MG/DL (74-106) 210 MG/DL (74-106) #H Calcium Level 7.0 MG/DL (8.5-10.1) L 9.9 MG/DL (8.5-10.1) # Phosphorus Level 2.4 MG/DL (2.5-4.9) L Magnesium Level 1.7 MG/DL (1.8-2.4) L Total Bilirubin 1.5 MG/DL (0.2-1.0) H 0.7 MG/DL (0.2-1.0) Direct Bilirubin 0.9 MG/DL (0.0-0.3) H Aspartate Amino Transf (AST/SGOT) 42 U/L (15-37) H 79 U/L (15-37) H Alanine Aminotransferase (ALT/SGPT) 48 U/L (12-78) 62 U/L (12-78) Alkaline Phosphatase 224 U/L (46-116) H 138 U/L (46-116) H Total Protein 4.1 G/DL (6.4-8.2) L 3.3 G/DL (6.4-8.2) L Albumin 1.5 G/DL (3.4-5.0) L 1.2 G/DL (3.4-5.0) L Globulin 2.6 g/dL 2.1 g/dL Albumin/Globulin Ratio 0.6 (1.0-2.7) L 0.6 (1.0-2.7) L Polychromasia 1+ Hypochromasia 2+ Arterial Blood pH 7.118 (7.350-7.450) Arterial Blood Partial Pressure CO2 47.5 mmHg (35.0-45.0) H Arterial Blood Partial Pressure O2 241.9 mmHg (75.0-100.0) H Arterial Blood HCO3 15.0 mmol/L (22.0-26.0) *L Arterial Blood Oxygen Saturation % (95-100) Arterial Blood Base Excess (-2-2) Kelvin Test Positive Intake and Output 03/10/19 03/11/19 18:59 06:59 Intake Total 1210.0 ml 4765.0 ml Output Total 475 ml 1995 ml Balance 735.0 ml 2770.0 ml Intake Oral 4000 ml IV Total 710.0 ml 765.0 ml Blood Product 500 ml Output Urine Total 475 ml 545 ml Stool Total 1450 ml # Bowel Movements 24 20 Objective PHYSICAL EXAMINATION:. GENERAL: The patient is awake and responsive to the painful stimuli. Spontaneously opens his eyes. Cannot follow commands. HEAD AND NECK: Pupils are equal and reactive to light. Anicteric. Neck was supple. Tracheostomy site is intact. LUNGS: Mech Vent; Good air entry. Decreased in the bases. Ventilation breath sounds. HEART: Reveals S1, S2. Regular rhythm. Distant heart sounds. No murmurs or gallops. ABDOMEN: Soft, nondistended, and nontender. PEG site is clean. EXTREMITIES: No cyanosis or clubbing. A +1 edema in bilateral lower extremities. The patient has a PICC line in the right upper extremity noted. NEUROLOGIC: Very limited secondary to the patient's status. At this time, the patient is unable to follow commands, however, moving extremities slowly. BACK: Has a small sacral ulcer. Assessment/Plan Assessment/Plan ASSESSMENT: 1. Acute respiratory failure on chronic on trach bilateral pneumonia. 2. Severe cardiomyopathy with systolic dysfunction. 3. Hyperkalemia. 4. Chronic ventilator dependent status post tracheostomy. 5. History of sudden cardiac arrest. 6. Asthma. 7. Anoxic brain injury. 8. Dysphagia status post PEG. 9. Cholecystitis 10. Gastrointestinal bleed-?source-see GI note 11. severe anemia PLAN: ICU Dr. Gerber from Pulmonary Critical Care, Dr. Luis Robins from ID Dr. Nico Alonso from Nephrology. We will monitor potassium level closely on Kayexalate. Chronic wound care therapy. We will follow up with the wound care protocol. Monitor laboratory. Antibiotic=Zosyn per ID. Code status at this time is Full Code. S/P transfusion 4 units PRBC and [address] angiogram Exploratory lap today 03/11/19 to determine source of GI bleed-see surgery note. Alex Cifuentes MD Mar 11, 2019 20:53
[2019-03-11] MEDS ORDERED: VERAPAMIL ONE (20:59)
[2019-03-11] MEDS ORDERED: Sodium Bicarbonate 8.4% 50ml Inj ONE (20:59)
[2019-03-11] MEDS ORDERED: D5W 275ml ONE (20:59)
[2019-03-11] MEDS ORDERED: DOPamine 400mg/250ml BTL IV ONE (20:59)
[2019-03-11] MEDS ORDERED: Calcium Chloride 10% 10ml carpuject IVP ONE (20:59)
[2019-03-11] MEDS ORDERED: Pantoprazole Inj IVP SCH (21:00)
--- NOTE | 2019-03-11 21:00 | General Progress Note ---
Progress Note Progress Note Surgery: Multiple episodes of cardiovascular decompression after surgery. Family at bedside. After 5th round of ACLS in ICU discussion with family members including children and siblings.. decision to stop ACLS if loses vitals again. Patient soon after. Family at bedside with him. Karthik Cheatham Mar 11, 2019 21:00
--- NOTE | 2019-03-11 21:08 | General Progress Note ---
Progress Note Progress Note Pronouncement: Patient at 21:00. No palpable pulse, no respiration, no cardiac activity. family at bedside. Karthik Cheatham Mar 11, 2019 21:08
--- NOTE | 2019-03-12 00:45 | Progress Note ---
DATE: 03/11/2019 CARDIOLOGY PROGRESS NOTE SUBJECTIVE: The patient's condition has deteriorated. He has had several Code Blue's earlier today. He is on ventilator support. The patient's bleeding scan did not reveal any source of active bleeding. OBJECTIVE: VITAL SIGNS: Blood pressure 87/56, pulse 129, respirations 18, and afebrile. LUNGS: Bilateral breath sounds. HEART: Regular rhythm. Rapid rate. Normal S1, S2. ABDOMEN: Distended. EXTREMITIES: With dependent edema. LABORATORY DATA: White count 24 and hemoglobin 3.8. BUN 9 and creatinine 1.3. Potassium 4.9. Albumin is 1.2. ABG, pH 7.12, pCO2 47, and pO2 240. IMPRESSION: 1. Recurring respiratory arrest. 2. Recurring gastrointestinal bleeding. 3. Shock. 4. Severe anemia. 5. Severe protein-calorie malnutrition. 6. Severe cardiomyopathy with systolic dysfunction. PLAN: 1. Replace blood products as able. 2. Ventilator support. 3. Oxygenation. 4. Hold antihypertensives and anti-failure medications. 5. Pressor support. 6. Prognosis is grave. Luis Cochran M.D. DR: KENTRELL JOB#: [id number] CC:
--- NOTE | 2019-03-12 16:04 | Discharge Summary ---
Discharge Summary Discharge Summary _ DATE OF ADMISSION: 02/28/2019 DATE OF DISCHARGE: 03/11/2019 BRIEF SUMMARY: Patient is an unfortunate 53-year-old gentleman, with past medical history significant for asthma, hypertension, congestive heart failure, chronic respiratory failure, vent dependent, as well as dysphagia status post PEG, who presented to the hospital from [facility] after he was noted to have worsening of shortness of breath as well as feeling cold. The patient was nonverbal. The patient was recently hospitalized at [facility], where he underwent a tracheostomy followed by PEG tube placement and a PICC line was placed to the right upper extremity. He was discharged to [facility]. At the nursing facility, he was found to have worsening of breathing pattern with associated wheeze and occasional crackles. Patient was then transported to the hospital for further evaluation. On evaluation at ED, WBC was 13, hemoglobin 10, hematocrit 35. Sodium was 139, potassium was significantly elevated to 7.9. BUN 73, creatinine 2.6. Lactic acid was elevated 8. LFTs were elevated. Troponin was elevated to 0.157. proBNP was greater than 35,000. EKG showed sinus rhythm with peaked T waves. Chest x-ray bilateral effusion with questionable infiltrates as read by ED physician. He was admitted to [facility] for evaluation of respiratory failure, hyperkalemia and renal failure. He was given IV hydration. He was given calcium gluconate, dextrose insulin and Kayexalate for hyperkalemia. He was given nebulizer treatment. He was given stress dose steroids. GI was consulted for positive occult blood stool. Patient has unknown history of endoscopic colonoscopic exam. He was given gastric lavage. He was placed on proton inhibitors. Anemia work-up showed low serum iron. He was given Venofer. Patient was given IV vancomycin and Zosyn. Patient with pneumonia and blood cultures showed gram-positive bacteremia in 1/4 bottle, questionable real versus contaminant. Repeat blood culture was ordered. Echocardiogram showed LVEF approximately 10% and elevated intracardiac filling pressures. Echocardiography revealed four-chamber dilatation with severe global left ventricular hypokinesia. There was dilated IVC with no respiratory collapse signifying elevated right atrial pressure of approximately 15 mmHg. There was also presence of moderate aortic regurgitation, mild mitral regurgitation and grade 2 LV diastolic dysfunction, suggestive of moderately elevated right and left atrial pressure. He was given guideline directed medical therapy. Venous duplex of the lower extremity was negative for acute DVT. Kidney function was monitored. Renal ultrasound was negative for hydronephrosis. Both kidneys with normal echogenicity. He had elevated liver function tests. Abdominal ultrasound showed small amount of ascites. There was presence of hepatomegaly with equivocal mild surface nodularity. Gallbladder wall edema likely related to hepatocellular disease. HIV and hepatitis serologies were negative. He came in with multiple wounds. He had multiple partial thickness pressure injuries on the right and left buttock and left thoracic region with an open deep tissue pressure injury on the sacrum. Sacral area worse with full- thickness wound and trace slough coccygeal area with surrounding dark skin without fluctuance or induration. Both heels were dry and firm. Trach site was without erythema or evidence of skin breakdown. He was given wound care with frequent repositioning and offloading. He was placed on APM/JOSHUA mattress. Chest CT showed dense opacities within the right lower lobe and left upper lobe. Suggest multifocal pneumonia. There was prominent mediastinal lymph nodes with enlarged subcarinal node. Cardiomegaly. Apparent gallbladder wall thickening and pericholecystic fluid. A HIDA scan was done. There was no evidence of acute cholecystitis. There was delayed uptake and excretion of the radiotracer from the liver parenchyma suggesting hepatocellular dysfunction/disease. He had a short run of NSVT. He was given 3 g of IV magnesium sulfate. Beta- devin was increased. Repeat blood culture did not isolate any growth. Vancomycin was discontinued. Legionella antigen was negative. Influenza screen negative. On 03/08/2019, there was a drop in hemoglobin. Patient had active GI bleed. Blood thinners were discontinued. He was given PRBC blood transfusion and FFP. He was given dopamine. He continued to lose blood, hemoglobin was dropping. On 03/09/2019, he underwent upper endoscopy and colonoscopy. During endoscopy, there was no evidence of active upper GI bleed. During colonoscopy, the scope was advanced from the rectum into the cecum and subsequently terminal ileum. The patient had blood throughout the colon as well as terminal ileum. There was no obvious source of bleeding. No diverticulosis. Findings were suspicious for small bowel bleed given that there was blood in the terminal ileum and no blood in the stomach. Sputum culture showed growth of MDR Acinetobacter. Inhaled colistin was added to his regimen. A repeat colonoscopy was done on 03/11/2019. Patient had blood seen at the terminal ileum. There was accumulation of blood clot in the cecum right at the opening of the ileocecal valve, and there was blood clot throughout the colon but more prominent was in the rectum and the cecum and had fresh blood in the terminal ileum. Unfortunately, unable to find the source of bleeding. Patient would eventually need to be transferred to higher level of care. Insurance was informed of need to transfer to higher level of care. There was no receiving hospital. GI bleed tracer scan was done and identified prompt appearance, tracer in the right lower quadrant location, configuration of tracer location, and configuration of tracer confirming the proximal ascending colon with subsequent images demonstrating reflux into the cecum consistent with CT findings of potential lesion being in the ascending colon despite not being seen on 2 colonoscopies. Hemoglobin continued to drop due to acute bleed. He was given multiple blood transfusion with no response and repeat hemoglobin even lower. Patient needed emergent surgery to determine source of bleeding. Patient then underwent emergent exploratory laparotomy. Long discussion was done with family with regards to findings and the rate that he was bleeding and requiring transfusions. Patient is high risk for surgery, per family given the above findings, despite significant risk, as surgery has any potential intervention for lifesaving hope, procedure was consented. He then underwent emergent exploratory laparotomy. Intraoperatively, there was blood throughout the entirety of the colon and significant portion of the blood was pooling in the cecum and ascending colon. The decision was then made to proceed with right colectomy with plans to leave the abdomen and assess the patient within 24 to 48 hours for planned reexploration to ensure no further bleeding and closure of the abdomen, reanastomosis or ostomy as necessary. During placement of wound VAC, it was notified by the anesthesiologist that the patient's vitals were deteriorating. A CODE BLUE was called and chest compressions were initiated. ACLS protocol was done. Patient regained vitals and was transferred back to ICU. Unfortunately, patient coded multiple times in the ICU. After family witnessing multiple resuscitative efforts, family decided to withdraw from proceeding with any further ACLS or chest compressions. Family was at bedside and participated in the decision making at end of life. The patient soon after. FINAL DIAGNOSES: Cardiopulmonary arrest Acute on chronic respiratory failure on trach Acute severe GI bleed with unknown source Healthcare care associated pneumonia/multifocal pneumonia Severe cardiomyopathy with systolic dysfunction Hyperkalemia History of sudden cardiac arrest Asthma Anoxic brain injury Dysphasia status post PEG Acute tubular necrosis with underlying CKD Acute blood loss anemia requiring multiple blood transfusions Anasarca Gram-positive bacteremia, likely contaminant Elevated liver transaminases Severe protein calorie malnutrition Acute on chronic systolic congestive heart failure Nonsustained ventricular tachycardia Hypernatremia Moderate to severe pulmonary hypertension Hypercholesterolemia Multiple pressure sores, as stated above, present on admission Status post EGD and colonoscopy 03/09/2019 Status post repeat colonoscopy 03/11/2019 Status post exploratory laparotomy 03/11/2019 DISPOSITION: Patient . I have been assigned to complete a discharge summary on this account, I was not involved with the patient's management. Martha Preston NP Mar 12, 2019 16:04
--- NOTE | 2019-03-13 02:15 | Operative Note - Dictated ---
DATE OF OPERATION: 03/12/2019 PREOPERATIVE DIAGNOSIS: Massive gastrointestinal hemorrhage. POSTOPERATIVE DIAGNOSIS: Massive gastrointestinal hemorrhage. OPERATION PERFORMED: 1. Exploratory laparotomy. 2. Right colectomy. 3. Open abdomen with abdominal wound VAC placement with planned reexploration. ATTENDING SURGEON: Karthik Cheatham M.D. CHIROPRACTIC PHYSICIAN: None. ANESTHESIOLOGIST: Trae Mcnulty M.D. ANESTHESIA: General TRAVEL TICKETING REVIEWER. ESTIMATED BLOOD LOSS: 10 mL. IV FLUIDS: Please see anesthesia records. COMPLICATIONS: Please see below. CONDITION: Unstable. DRAINS: Abdominal wound VAC. SPECIMENS: Right colon. WOUND CLASSIFICATION: Class III. INDICATIONS FOR PROCEDURE: This is a 53-year-old male who presented to [facility] with deteriorating condition. He was recently at [facility] where he had tracheostomy and feeding tube placed and transferred to nursing facility just prior to admission to [facility]. He was noted to be cold and with unusual respirations, and therefore, brought in to [facility] for evaluation, at which time, he was noted to have bloody stool and began to have a GI workup. GI workup identified the patient's hemoglobin began to trend down slowly and a colonoscopy was performed, which identified bloody stool within the colon, but no etiology of bleed being identified. The patient within a 24-hour period began to have significant worsening GI bleed acutely and had a repeat colonoscopy, which identified significant amount of bloody bowel contents in the colon and a portion of the TI that could be identified, but no etiology was noted. The patient was transfused with multiple blood products and initially responded, and in the meantime, had a CTA of the abdomen and pelvis, which identified dense material in the proximal ascending colon near the ileocecal valve suspicious for where the extravasated contents could be, but this was not seen on colonoscopy. The patient was initiated for acute transfer to higher level of care where angiography could be performed and potential embolization given the scope could not identify location of bleeding. In the meantime, a GI bleeding scan was done and identified prompt appearance, trace in the right lower quadrant location, configuration of tracer location, and configuration of tracer confirming the proximal ascending colon with subsequent images demonstrating reflux into the cecum consistent with CT findings of potential lesion being in ascending colon despite not being seen on 2 colonoscopies. At this time, the patient's hemoglobin had trended down with acute bleed to 5.9. He was given 3 units of PRBCs with no response and a repeat hemoglobin trending even lower. At this time, transfer to higher level of care had not been secured. The patient was receiving multiple blood products without response and continuing actively blood clots from the rectum with hemorrhoids that had acutely worsened as compared to prior. I had had a very long discussion with the patient and his family, who were at bedside regards to these findings above and unfortunately at the rate he was bleeding and requiring transfusions, there would be a very minimal possibility of survival without intervention. The patient's prior workup identified an ejection fraction of 10% and he is on multiple medical comorbidities and any intervention would be considered high risk. I discussed this with the patient's family and the difficulty and the plan of care for him. The patient and family have advised me that given the above findings despite significant high risks if surgery has any potential for intervention life-saving hope, then they would like to proceed. Consent was obtained and the patient was urgently taken to the operating room for exploration and control of active hemorrhage while being resuscitated. OPERATIVE NOTE: The patient was taken to the operating room and placed on the operating table in supine position with bilateral arms out. All bony prominences were well padded. SCDs were placed. Preoperative time-out was taken in identifying the patient, procedure, operative staff, and surgical staff. The patient already had a Cerda catheter and tracheostomy and feeding tube prior to entering the operating room. General anesthesia was induced and the patient was ventilated through the tracheostomy. A midline incision was made using a fresh #10 scalpel, carried down through the subcutaneous tissue and fascia, which was incised. Entry into the abdomen was obtained without complication. A retractor was placed and the bowel contents were evaluated. There were no significant adhesions except for some omental adhesions around the left upper quadrant feeding tube site. The small bowel was evaluated and no significant amounts of blood were noted in the small bowel. The colon was evaluated and there was blood throughout the entirety of the colon and there was blood-filled throughout the entire colon. A significant portion of the blood was pooling in the cecum and ascending colon. At this time, given the preoperative findings and what could be identified in the operation, decision was made to proceed with a right colectomy with plans to leave the abdomen open and assess the patient come back within 24 to 48 hours for planned reexploration to ensure no further bleeding and closure of the abdomen, reanastomosis or ostomy as necessary. The white line of Toldt was divided and the right colon and hepatic flexure were mobilized. Following this, a point of proximal transection in the distal terminal ileum was identified and window was made in the mesentery. A linear VESNA stapler was used and the bowel divided. A distal point of division was identified at the right transverse colon and a window was made in the mesentery followed by division of the colon using a VESNA linear stapler. Following this, the mesentery of the portion of the right colectomy was divided using thunderbeat energy device. The specimen was then sent off the operative table for pathology. The bowel was left in discontinuity and no other abnormalities were noted. The liver and gallbladder were otherwise within normal limits. The G-tube in stomach were noted and stable. Small bowel were without incident finding and the pelvis was without abnormality as well. The remainder of the colon looked otherwise healthy and viable. Of note, there was approximately a liter and a half of serous ascites fluid evacuated upon entering the abdomen. At this time, decision made to leave the abdomen open with an abdominal wound VAC up there with the bowel in discontinuity for planned reexploration within 24 to 48 hours. As we were placing the abdominal wound VAC, it was notified by the anesthesiologist that the patient's vitals were deteriorating and that he was going asystolic. A Code Blue was called and chest compressions were initiated. Medications were given by the anesthesiologist for ACLS protocol. We were fortunate enough with team effort to regain vitals soon after and that was placed and the patient was taken back to the intensive care unit. At this point, the surgery had concluded. Of note in the intensive care unit, the patient was in fairly unstable condition and began to deteriorate again. Approximately 5 episodes of ACLS with cardiac compressions were completed. The patient did regain vitals between each episode and family was at bedside. I had multiple discussion with the family including the operative findings and patient's condition and deteriorating condition. In discussing with the family the patient's care plan, the family had decided that given what he had been through and his current condition after due to withdrawal from proceeding with any further ACLS or chest compressions and the patient soon after intensive care unit. Family was at the bedside and participated in the decision making at the end of the life. Unfortunately, the patient was fairly sick with significant cardiac comorbidities. Ejection fraction 10%, persistent worsening of acute gastrointestinal hemorrhage, refractory to blood products and resuscitation, and unfortunately, was unable to tolerate life-saving surgical intervention at this time. The patient was pronounced on 03/11/2019 at 2100 hours by myself in the intensive care unit. Karthik Cheatham M.D. DR: DAVIDA JOB#: [id number] CC: CARISSA
--- NOTE | 2019-06-04 12:22 | Cardiology Report ---
APPROVED REPORT EKG Measurement Heart [id number] [place] 200P [id number] Multifocal atrial tachycardia Left axis deviation Nonspecific intraventricular block Abnormal ECG
== END 2019-03-11 21:00 | disposition expired | DRG 950 ==
LOC: EDBD 17:19 → EMR 17:38 → 2W 18:20 → EDBEDREQ 18:57 → 2W 03-02 18:36 → SDU 03-08 11:55 → ICU 03-08 12:00
PROC: 5A1955Z Respiratory Ventilation, Greater than 96 Consecutive Hours (ICD-10-PCS; principal; 2019-02-28)
PROC: 30233N1 Transfusion of Nonautologous Red Blood Cells into Peripheral Vein, Percutaneous Approach (ICD-10-PCS; 2019-03-08)
PROC: 0DJD8ZZ Inspection of Lower Intestinal Tract, Via Natural or Artificial Opening Endoscopic (ICD-10-PCS; 2019-03-09)
PROC: 0DJ08ZZ Inspection of Upper Intestinal Tract, Via Natural or Artificial Opening Endoscopic (ICD-10-PCS; 2019-03-09)
PROC: 0DTF0ZZ Resection of Right Large Intestine, Open Approach (ICD-10-PCS; 2019-03-11)
PROC: 0DJD8ZZ Inspection of Lower Intestinal Tract, Via Natural or Artificial Opening Endoscopic (ICD-10-PCS; 2019-03-11)
DX: J96.20 Acute and chronic respiratory failure, unspecified whether with hypoxia or hypercapnia (principal); N17.0 Acute kidney failure with tubular necrosis; R57.9 Shock, unspecified; G93.1 Anoxic brain damage, not elsewhere classified; J18.9 Pneumonia, unspecified organism; Z99.11 Dependence on respirator [ventilator] status; E43 Unspecified severe protein-calorie malnutrition; I50.23 Acute on chronic systolic (congestive) heart failure; L89.159 Pressure ulcer of sacral region, unspecified stage; Z93.0 Tracheostomy status; I13.0 Hypertensive heart and chronic kidney disease with heart failure and stage 1 through stage 4 chronic kidney disease, or unspecified chronic kidney disease; I42.9 Cardiomyopathy, unspecified; I50.22 Chronic systolic (congestive) heart failure; K81.9 Cholecystitis, unspecified; E87.5 Hyperkalemia; J45.909 Unspecified asthma, uncomplicated; K92.2 Gastrointestinal hemorrhage, unspecified; R13.10 Dysphagia, unspecified; Z93.1 Gastrostomy status; N18.9 Chronic kidney disease, unspecified; Z86.74 Personal history of sudden cardiac arrest; Y95 Nosocomial condition; Z68.33 Body mass index [BMI] 33.0-33.9, adult; R18.8 Other ascites; R78.81 Bacteremia; E87.0 Hyperosmolality and hypernatremia; I47.1 Supraventricular tachycardia; E78.00 Pure hypercholesterolemia, unspecified
CPT/HCPCS: 36415; 36600; 71045; 71250; 74018; 74175; 76700; 76770; 78266; 78278; 80048; 80053; 80069; 80076; 80202; 81001; 81003; 82043; 82164; 82248; 82270; 82378; 82550; 82553; 82570; 82607; 82728; 82746; 82803; 82962; 82977; 83036; 83540; 83550; 83605; 83615; 83690; 83735; 83880; 84100; 84133; 84300; 84443; 84484; 84550; 85007; 85025; 85044; 85060; 85610; 85651; 85730; 86140; 86703; 86705; 86709; 86710; 86803; 86850; 86900; 86901; 86920; 86927; 87040; 87070; 87081; 87181; 87205; 87340; 89050; 92610; 92950; 93005; 93306; 93970; 94002; 94003; 94150; 94640; 94664; 96361; 96365; 96375; 99291; J0171; J2250; J2370; J2765; J7620; J8499